=== PATIENT | female | born 1940 | race Caucasian/White ===

== ENCOUNTER → 2017-03-08 | Outpatient (CLI) | payer MEDICARE ==
--- NOTE | 2017-03-08 16:09 | RAD ---
PET ONCOLOGY CLINICAL INDICATION: Initially scanned for anal cancer. No chemotherapy or radiation therapy. FDG PET-CT of the Body TECHNIQUE: The patient received an IV injection of 13.1 mCi 18F-FDG in the right antecubital fossa . After an initial uptake phase of approximately 60-90 minutes, a CT scan without oral contrast, without IV contrast was acquired. Subsequently, positron emission tomography images from the skull base to midthigh were obtained. CT, PET and fused images were reconstructed in transaxial, coronal, and sagittal projections and interpreted from a workstation. The patient's plasma glucose was 111 mg/dl. PRIOR STUDIES: None CORRELATIVE STUDIES: There are no appropriate correlative studies FINDINGS: There is a 1.9 x 1.7 cm low attenuating lesion in the right neck base (series 3 image 70). This may represent thyroid nodule or necrotic lymph node. Noncontrast sections through the head are within normal limits. No axillary, mediastinal or hilar adenopathy. Heart is normal in size. Coronary artery calcifications noted. No pericardial or pleural effusion. 4 mm nodule is seen in the right upper lobe (series 3 image 10). The noncontrast appearance of the liver, spleen, pancreas, right adrenal and kidneys is within normal limits. Gallstone noted. Left adrenal masses noted, the largest in the medial limb measuring 2.9 x 2.8 cm demonstrating Hounsfield units compatible with simple cyst. No retroperitoneal or pelvic adenopathy. Uterus is present. No free pelvic fluid. No bowel obstruction. Bladder within normal limits. Moderate to severe atherosclerotic disease of the infrarenal aorta and bilateral iliac arteries. No suspicious bony lesion. PET: Highly metabolic activity seen within the left lateral wall of the anal canal with SUV max of 3.0. No other areas of high metabolic activity in the head/neck, chest, abdomen or pelvis. IMPRESSION: PET-CT from the skull base to mid thigh demonstrates: 1. High metabolic activity in the left lateral wall anal canal compatible with provided history of anal cancer. 2. No other areas of abnormal metabolic activity. 3. Right neck base low attenuating nodule without high metabolic activity. This may represent a enlarged lymph node or thyroid nodule. Ultrasound of the right neck base recommended. 4. Left adrenal lesions demonstrating no increased metabolic activity. This likely are adrenal cysts or adenomas. Attention on follow-up. 5. Right upper lobe 4 mm nodule, indeterminate. 6. Cholelithiasis.
== END | disposition home or self-care (01) ==
LOC: PETSC 09:11
PROVIDERS: ATTEND Surgery
DX: C21.0 Malignant neoplasm of anus, unspecified (principal); K80.20 Calculus of gallbladder without cholecystitis without obstruction; Z85.048 Personal history of other malignant neoplasm of rectum, rectosigmoid junction, and anus
CPT/HCPCS: 78815; A9552

== ENCOUNTER 2017-11-26 06:44 | Outpatient (CLI) | payer MEDICARE ==
[2017-11-26 07:46] LABS: ADD MAN DIFF? NO
[2017-11-26 07:52] LABS: BASO # 0.1 x10^3/uL (0.0-0.2); BASO % 1 % (0-3); EOS # 0.1 x10^3/uL (0.0-0.7); EOS % 2 % (0-3); HEMATOCRIT 39.7 % (36.0-47.0); HEMOGLOBIN 13.5 g/dL (12.0-15.5); LYMPH # 1.6 x10^3/uL (1.0-4.8); LYMPH % 27 % (24-48); MEAN CORPUSCULAR HEMOGLOBIN 32 pg (25-35); MEAN CORPUSCULAR HGB CONC 34 g/dL (31-37); MEAN CORPUSCULAR VOLUME 95 fL (79-100); MONO # 0.6 x10^3/uL (0.0-1.1); MONO % 10 % (0-9); NEUT # 3.6 x10^3uL (1.8-7.7); NEUT % 60 % (31-73); PLATELET COUNT 360 x10^3/uL (140-400); RED BLOOD COUNT 4.17 x10^6/uL (3.50-5.40); RED CELL DISTRIBUTION WIDTH 14.1 % (11.5-14.5); WHITE BLOOD COUNT 6.1 x10^3/uL (4.0-11.0)
[2017-11-26 07:54] LABS: ANION GAP 8 (6-14); BLOOD UREA NITROGEN 17 mg/dL (7-20); BUN/CREATININE RATIO 19 (6-20); CALCIUM 9.1 mg/dL (8.5-10.1); CARBON DIOXIDE 28 mmol/L (21-32); CHLORIDE 104 mmol/L (98-107); CREATININE 0.9 mg/dL (0.6-1.0); GLUCOSE 102 mg/dL (70-99); POTASSIUM 3.9 mmol/L (3.5-5.1); SODIUM 140 mmol/L (136-145)
[2017-11-26 08:00] LABS: ALBUMIN 3.4 g/dL (3.4-5.0); ALBUMIN/GLOBULIN RATIO 0.9 (1.0-1.7); ALK PHOS 124 U/L (46-116); ALT (SGPT) 16 U/L (14-59); AST (SGOT) 18 U/L (15-37); TOTAL BILIRUBIN 0.2 mg/dL (0.2-1.0); TOTAL PROTEIN 7.4 g/dL (6.4-8.2)
[2017-11-26 08:01] LABS: INR 0.9 (0.8-1.1); PROTHROMBIN TIME PATIENT 11.8 SEC (11.7-14.0)
[2017-11-26] MEDS ORDERED: LIDOCAINE WITH 8.4% SOD BICARB 3 ML DISP.SYRIN. (08:08)
[2017-11-26] MEDS ORDERED: MIDAZOLAM HCL/PF 2 MG/2 ML VIAL. (08:15)
[2017-11-26] MEDS ORDERED: fentaNYL PF VIAL 100 MCG/2 ML VIAL (08:15)
[2017-11-26] MEDS: MIDAZOLAM HCL/PF 2 MG/2 ML VIAL. IV (09:11)
[2017-11-26] MEDS: LIDOCAINE WITH 8.4% SOD BICARB 3 ML DISP.SYRIN. IJ (09:11)
[2017-11-26] MEDS: fentaNYL PF VIAL 100 MCG/2 ML VIAL IV (09:12)
== END 2017-11-26 10:27 | disposition home or self-care (01) ==
LOC: INTRAD 06:44
DX: K62.89 Other specified diseases of anus and rectum (principal); Z85.048 Personal history of other malignant neoplasm of rectum, rectosigmoid junction, and anus; Z88.0 Allergy status to penicillin; Z98.51 Tubal ligation status; F41.9 Anxiety disorder, unspecified; F32.9 Major depressive disorder, single episode, unspecified; Z85.820 Personal history of malignant melanoma of skin; Z98.890 Other specified postprocedural states; F17.200 Nicotine dependence, unspecified, uncomplicated
CPT/HCPCS: 36415; 49180; 77012; 80053; 85025; 85610; 99152; 99153; J2250; J3010

== ENCOUNTER 2017-12-25 11:03 | Inpatient (IN) | payer MEDICARE ==
[~2017-12-25 11:03] MED LIST: LIDOCAINE 1% PF 2 ML VIAL. ID; ONDANSETRON PF 4 MG/2 ML VIAL. IV; PROCHLORPERAZINE 10 MG/2 ML VIAL. IV; fentaNYL PF VIAL 100 MCG/2 ML VIAL IV
[2017-12-25] MEDS ORDERED: CLINDAMYCIN 900MG PREMIX 50 ML IV (11:48)
[2017-12-25] MEDS: IV RINGERS,LACTATED 1000ML 1,000 ML IV (11:51)
[2017-12-25] MEDS ORDERED: CLINDAMYCIN PREMIX 900 MG/50 ML BAG IV (12:00)
[2017-12-25] MEDS ORDERED: levoFLOXacin 500mg PREMIX 500 MG/100 ML BAG IV (12:00)
[2017-12-25] MEDS ORDERED: DEXAMETHASONE SOD PHOS 20 MG/5 ML VIAL. (12:46)
[2017-12-25] MEDS ORDERED: PROPOFOL 20 ML IV (12:46)
[2017-12-25] MEDS ORDERED: fentaNYL PF VIAL 250 MCG/5 ML VIAL (12:46)
[2017-12-25] MEDS ORDERED: LIDOCAINE 2% PF Vial for OR 5 ML VIAL. (12:46)
[2017-12-25] MEDS ORDERED: ONDANSETRON PF 4 MG/2 ML VIAL. (12:46)
[2017-12-25] MEDS ORDERED: ROCURONIUM 100 MG/10 ML VIAL. (12:46)
[2017-12-25] MEDS ORDERED: SEVOFLURANE > 120 MINUTES. IH (12:47)
[2017-12-25] MEDS ORDERED: SUCCINYLCHOLINE 200 MG/10 ML VIAL. (12:49)
[2017-12-25] MEDS ORDERED: NEOSTIGMINE METHYLSULFATE 5 MG/5 ML SYRINGE. (16:23)
[2017-12-25] MEDS ORDERED: GLYCOPYRROLATE 1 MG/5 ML VIAL. (16:23)
[2017-12-25] MEDS: fentaNYL PF VIAL 100 MCG/2 ML VIAL IV ×2 (16:58→17:04)
[2017-12-25] MEDS ORDERED: 0.9 % SODIUM CHLORIDE 10 ML DISP.SYRIN. IV (17:00)
[2017-12-25] MEDS ORDERED: diphenhydrAMINE 50 MG/ML VIAL IV (17:00)
[2017-12-25] MEDS ORDERED: ONDANSETRON PF 4 MG/2 ML VIAL. IV (17:00)
[2017-12-25] MEDS: MORPHINE SULFATE 2 MG/ML DISP.SYRIN. IV ×5 (17:11→18:41)
[2017-12-25] MEDS: ALPRAZolam 0.5 MG TABLET PO (18:36)
[2017-12-25] MEDS ORDERED: hydrALAZINE 20 MG/ML VIAL. IVP (22:45)
[2017-12-26] MEDS: POTASSIUM CL 20MEQ-0.45% NACL 1,000 ML IV ×3 (01:20→22:35)
[2017-12-26] MEDS: NICOTINE 21MG PATCH. TD (09:04)
[2017-12-26] MEDS: ENOXAPARIN 30 MG/0.3 ML SYRINGE. SQ (09:05)
[2017-12-26 16:53] LABS: ADD MAN DIFF? NO
[2017-12-26 16:55] LABS: BASO % 0 % (0-3); EOS % 0 % (0-3); HEMATOCRIT 34.5 % (36.0-47.0); HEMOGLOBIN 11.9 g/dL (12.0-15.5); LYMPH # 0.7 x10^3/uL (1.0-4.8); LYMPH % 8 % (24-48); MEAN CORPUSCULAR HEMOGLOBIN 32 pg (25-35); MEAN CORPUSCULAR HGB CONC 34 g/dL (31-37); MEAN CORPUSCULAR VOLUME 94 fL (79-100); MONO # 0.7 x10^3/uL (0.0-1.1); MONO % 8 % (0-9); NEUT # 7.5 x10^3uL (1.8-7.7); NEUT % 84 % (31-73); PLATELET COUNT 292 x10^3/uL (140-400); RED BLOOD COUNT 3.68 x10^6/uL (3.50-5.40); RED CELL DISTRIBUTION WIDTH 13.8 % (11.5-14.5); WHITE BLOOD COUNT 8.9 x10^3/uL (4.0-11.0)
[2017-12-26 17:09] LABS: ALBUMIN 2.8 g/dL (3.4-5.0); ALBUMIN/GLOBULIN RATIO 0.7 (1.0-1.7); ALK PHOS 111 U/L (46-116); ALT (SGPT) 15 U/L (14-59); ANION GAP 10 (6-14); AST (SGOT) 24 U/L (15-37); BLOOD UREA NITROGEN 15 mg/dL (7-20); BUN/CREATININE RATIO 19 (6-20); CARBON DIOXIDE 24 mmol/L (21-32); CHLORIDE 99 mmol/L (98-107); CREATININE 0.8 mg/dL (0.6-1.0); GFR 69.7; GLUCOSE 91 mg/dL (70-99); POTASSIUM 4.5 mmol/L (3.5-5.1); SODIUM 133 mmol/L (136-145); TOTAL BILIRUBIN 0.5 mg/dL (0.2-1.0); TOTAL PROTEIN 6.8 g/dL (6.4-8.2)
[2017-12-26] MEDS: PANTOPRAZOLE IV PUSH 40 MG VIAL. IVP (17:47)
[2017-12-26] MEDS: IPRATRPIUM/ALBUTEROL 0.5/2.5MG 3 ML NEBU. NEB (19:33)
[2017-12-27] MEDS: PANTOPRAZOLE IV PUSH 40 MG VIAL. IVP ×2 (06:08→09:30)
[2017-12-27] MEDS: IPRATRPIUM/ALBUTEROL 0.5/2.5MG 3 ML NEBU. NEB ×4 (07:17→19:58)
[2017-12-27] MEDS: ALPRAZolam 0.5 MG TABLET PO (09:27)
[2017-12-27] MEDS: NICOTINE 21MG PATCH. TD (09:28)
[2017-12-27] MEDS: ENOXAPARIN 30 MG/0.3 ML SYRINGE. SQ (09:31)
[2017-12-27] MEDS: POTASSIUM CL 20MEQ-0.45% NACL 1,000 ML IV (09:33)
[2017-12-27] MEDS: IV NORMAL SALINE 500ML BAG 500 ML IV (13:00)
[2017-12-27] MEDS ORDERED: IV NORMAL SALINE 500ML BAG 500 ML IV (18:30)
[2017-12-28] MEDS: IPRATRPIUM/ALBUTEROL 0.5/2.5MG 3 ML NEBU. NEB ×4 (07:11→18:14)
[2017-12-28 07:20] LABS: ADD MAN DIFF? NO
[2017-12-28 07:30] LABS: BASO % 1 % (0-3); EOS % 0 % (0-3); HEMATOCRIT 34.7 % (36.0-47.0); HEMOGLOBIN 11.9 g/dL (12.0-15.5); LYMPH # 0.8 x10^3/uL (1.0-4.8); LYMPH % 12 % (24-48); MEAN CORPUSCULAR HEMOGLOBIN 32 pg (25-35); MEAN CORPUSCULAR HGB CONC 34 g/dL (31-37); MEAN CORPUSCULAR VOLUME 94 fL (79-100); MONO # 0.7 x10^3/uL (0.0-1.1); MONO % 10 % (0-9); NEUT # 5.2 x10^3uL (1.8-7.7); NEUT % 77 % (31-73); PLATELET COUNT 284 x10^3/uL (140-400); RED BLOOD COUNT 3.72 x10^6/uL (3.50-5.40); RED CELL DISTRIBUTION WIDTH 13.9 % (11.5-14.5); WHITE BLOOD COUNT 6.8 x10^3/uL (4.0-11.0)
[2017-12-28 07:44] LABS: ALBUMIN 2.6 g/dL (3.4-5.0); ALBUMIN/GLOBULIN RATIO 0.7 (1.0-1.7); ALK PHOS 101 U/L (46-116); ALT (SGPT) 13 U/L (14-59); ANION GAP 11 (6-14); AST (SGOT) 17 U/L (15-37); BLOOD UREA NITROGEN 17 mg/dL (7-20); BUN/CREATININE RATIO 28 (6-20); CALCIUM 8.9 mg/dL (8.5-10.1); CARBON DIOXIDE 25 mmol/L (21-32); CHLORIDE 99 mmol/L (98-107); CREATININE 0.6 mg/dL (0.6-1.0); GFR 97.2; GLUCOSE 91 mg/dL (70-99); POTASSIUM 3.8 mmol/L (3.5-5.1); SODIUM 135 mmol/L (136-145); TOTAL BILIRUBIN 0.5 mg/dL (0.2-1.0); TOTAL PROTEIN 6.6 g/dL (6.4-8.2)
[2017-12-28] MEDS: NICOTINE 21MG PATCH. TD (08:19)
[2017-12-28] MEDS: ENOXAPARIN 30 MG/0.3 ML SYRINGE. SQ (08:19)
[2017-12-28] MEDS: ALPRAZolam 0.5 MG TABLET PO ×2 (08:25→20:22)
[2017-12-28] MEDS: POTASSIUM CL 20MEQ-0.45% NACL 1,000 ML IV (18:00)
[2017-12-29] MEDS: POTASSIUM CL 20MEQ-0.45% NACL 1,000 ML IV ×2 (06:44→20:17)
[2017-12-29] MEDS: IPRATRPIUM/ALBUTEROL 0.5/2.5MG 3 ML NEBU. NEB ×4 (07:27→19:11)
[2017-12-29] MEDS: PANTOPRAZOLE IV PUSH 40 MG VIAL. IVP (08:39)
[2017-12-29] MEDS: NICOTINE 21MG PATCH. TD (08:39)
[2017-12-29] MEDS: ENOXAPARIN 30 MG/0.3 ML SYRINGE. SQ (08:40)
[2017-12-29] MEDS ORDERED: fentaNYL PF VIAL 100 MCG/2 ML VIAL IV (10:45)
[2017-12-29] MEDS: HYDROcodone/APAP 5/325MG 1 TAB TABLET PO ×3 (13:09→23:59)
[2017-12-29] MEDS: ALPRAZolam 0.5 MG TABLET PO ×2 (14:21→20:17)
[2017-12-30] MEDS: IPRATRPIUM/ALBUTEROL 0.5/2.5MG 3 ML NEBU. NEB ×4 (07:34→19:43)
[2017-12-30] MEDS: NICOTINE 21MG PATCH. TD (08:33)
[2017-12-30] MEDS: PANTOPRAZOLE IV PUSH 40 MG VIAL. IVP (08:33)
[2017-12-30] MEDS: ENOXAPARIN 30 MG/0.3 ML SYRINGE. SQ (08:34)
[2017-12-30] MEDS: HYDROcodone/APAP 5/325MG 1 TAB TABLET PO ×3 (09:14→21:34)
[2017-12-30] MEDS: POTASSIUM CL 20MEQ-0.45% NACL 1,000 ML IV ×2 (09:15→21:33)
[2017-12-30] MEDS: ALPRAZolam 0.5 MG TABLET PO ×2 (15:33→23:49)
[2017-12-30] MEDS ORDERED: VITS A & D/LANOLIN TOPICAL OINTMENT 56GM TUBE. TP (15:45)
[2017-12-31] MEDS: HYDROcodone/APAP 5/325MG 1 TAB TABLET PO ×2 (06:31→12:06)
[2017-12-31] MEDS: PANTOPRAZOLE 40 MG TABLET.DR. PO (06:31)
[2017-12-31] MEDS: IPRATRPIUM/ALBUTEROL 0.5/2.5MG 3 ML NEBU. NEB ×2 (07:26→11:34)
[2017-12-31] MEDS: NICOTINE 21MG PATCH. TD (09:50)
[2017-12-31] MEDS: ENOXAPARIN 30 MG/0.3 ML SYRINGE. SQ (09:50)
[2017-12-31 10:05] LABS: ADD MAN DIFF? NO
[2017-12-31 10:10] LABS: BASO # 0.1 x10^3/uL (0.0-0.2); BASO % 1 % (0-3); EOS # 0.2 x10^3/uL (0.0-0.7); EOS % 2 % (0-3); HEMATOCRIT 31.2 % (36.0-47.0); HEMOGLOBIN 10.7 g/dL (12.0-15.5); LYMPH % 15 % (24-48); MEAN CORPUSCULAR HEMOGLOBIN 32 pg (25-35); MEAN CORPUSCULAR HGB CONC 34 g/dL (31-37); MEAN CORPUSCULAR VOLUME 94 fL (79-100); MONO # 0.6 x10^3/uL (0.0-1.1); MONO % 9 % (0-9); NEUT # 4.6 x10^3uL (1.8-7.7); NEUT % 73 % (31-73); PLATELET COUNT 349 x10^3/uL (140-400); RED BLOOD COUNT 3.31 x10^6/uL (3.50-5.40); RED CELL DISTRIBUTION WIDTH 13.9 % (11.5-14.5); WHITE BLOOD COUNT 6.4 x10^3/uL (4.0-11.0)
[2017-12-31 10:57] LABS: ANION GAP 7 (6-14); BLOOD UREA NITROGEN 11 mg/dL (7-20); CALCIUM 9.2 mg/dL (8.5-10.1); CARBON DIOXIDE 26 mmol/L (21-32); CHLORIDE 99 mmol/L (98-107); CREATININE 0.6 mg/dL (0.6-1.0); GFR 97.2; GLUCOSE 100 mg/dL (70-99); POTASSIUM 4.5 mmol/L (3.5-5.1); SODIUM 132 mmol/L (136-145)
[2017-12-31] MEDS: ALPRAZolam 0.5 MG TABLET PO (13:38)
== END 2017-12-31 15:45 | disposition home health service (06) | DRG 329 ==
LOC: SURHIP 11:03 → 4 NORTH 19:15
PROC: 0DJD8ZZ Inspection of Lower Intestinal Tract, Via Natural or Artificial Opening Endoscopic (ICD-10-PCS; principal; 2017-12-25 13:00)
PROC: 0T788DZ Dilation of Bilateral Ureters with Intraluminal Device, Via Natural or Artificial Opening Endoscopic (ICD-10-PCS; 2017-12-25 13:00)
PROC: 0DBN0ZZ Excision of Sigmoid Colon, Open Approach (ICD-10-PCS; 2017-12-25 13:00)
PROC: 0D1N0Z4 Bypass Sigmoid Colon to Cutaneous, Open Approach (ICD-10-PCS; 2017-12-25 13:00)
PROC: 0DTP0ZZ Resection of Rectum, Open Approach (ICD-10-PCS; 2017-12-25 13:00)
PROC: 0DBQ0ZZ Excision of Anus, Open Approach (ICD-10-PCS; 2017-12-25 13:00)
PROC: 0UB20ZZ Excision of Bilateral Ovaries, Open Approach (ICD-10-PCS; 2017-12-25 13:00)
PROC: 0UB90ZZ Excision of Uterus, Open Approach (ICD-10-PCS; 2017-12-25 13:00)
PROC: 0TP90DZ Removal of Intraluminal Device from Ureter, Open Approach (ICD-10-PCS; 2017-12-25 13:33)
DX: C21.8 Malignant neoplasm of overlapping sites of rectum, anus and anal canal (principal); E43 Unspecified severe protein-calorie malnutrition; Q43.8 Other specified congenital malformations of intestine; I97.3 Postprocedural hypertension; C19 Malignant neoplasm of rectosigmoid junction; D25.9 Leiomyoma of uterus, unspecified; I10 Essential (primary) hypertension; K21.9 Gastro-esophageal reflux disease without esophagitis; K80.20 Calculus of gallbladder without cholecystitis without obstruction; N83.311 Acquired atrophy of right ovary; N83.312 Acquired atrophy of left ovary; R31.0 Gross hematuria; M19.90 Unspecified osteoarthritis, unspecified site; J44.9 Chronic obstructive pulmonary disease, unspecified; Z72.0 Tobacco use; Z82.49 Family history of ischemic heart disease and other diseases of the circulatory system; Z85.048 Personal history of other malignant neoplasm of rectum, rectosigmoid junction, and anus; Z93.3 Colostomy status; Z92.3 Personal history of irradiation; Z68.21 Body mass index [BMI] 21.0-21.9, adult; Z88.0 Allergy status to penicillin
CPT/HCPCS: 36415; 74018; 80048; 80053; 85025; 86850; 86900; 86901; 88305; 88307; 88309; 88311; 94640; 94760; A7015; C1713; C9113; J0330; J1100; J1650; J1956; J2060; J2270; J2405; J2704; J2710; J3010; J3490; J7040; J7120; J7620

== ENCOUNTER → 2018-03-28 | Outpatient (CLI) | payer MEDICARE ==
[2017-12-31 11:00] VITALS: BP 124/65
[~2018-03-28] MED LIST changes: +ALPR0.5T PO; +DOCU-109 PO; +HYDR-2758 PO; +LACT1CAP29 PO; -LIDOCAINE 1% PF 2 ML VIAL. ID; -ONDANSETRON PF 4 MG/2 ML VIAL. IV; -PROCHLORPERAZINE 10 MG/2 ML VIAL. IV; -fentaNYL PF VIAL 100 MCG/2 ML VIAL IV
[2018-03-28] MEDS: GADOBUTROL 7.5 MMOL/7.5 ML VIAL IV ONE (12:03)
--- NOTE | 2018-03-28 15:41 | RAD ---
MRI pelvis with and without contrast March 28, 2018 INDICATION: Rectal pain. History of rectal cancer. Colon resection with ostomy. COMPARISON: CT abdomen/pelvis November 22, 2017 TECHNIQUE: Multiplanar, multisequence MR imaging of the pelvis was performed but 4 and after the administration of intravenous contrast. FINDINGS: Distal aorta is normal in caliber. There is no significant free fluid within the pelvis. Urinary bladder is within normal limits given degree of distention. There is moderate disc height loss at L4-L5 with right lateral marginal osteophytosis and endplate remodeling. There is a T1 hypointense lesion involving the right sacrum with associated enhancement suspicious for osseous metastatic disease. Lesion measures approximately 9 mm in maximal dimension. A left lower quadrant ostomy is identified. Since the prior CT from November 22, 2017, interval left lower quadrant ostomy changes are visualized. No new presacral soft tissue masses are identified with the conglomerate measuring 5.5 x 4.0 x 10.0 cm (AP by transverse by craniocaudal) soft tissue masses extend to involve the gluteus daina musculature posterior inferiorly. Cystic changes are identified in the right presacral space posterior to the uterus. There is no definite invasion of the uterus or cervix. IMPRESSION: Extensive soft tissue mass is identified centered in the left presacral space with involvement of the medial margin of the left gluteus daina and medial margin of the left piriform musculature. There may be mild mass effect on the left lateral lumbosacral plexus. Soft tissue mass may represent a roseline conglomerate or recurrent/residual disease from resected rectal carcinoma. Correlate with histology. Cystic changes are identified along the medial superior margin of the soft tissue mass. Suspect osseous metastatic disease involving the right sacrum. No evidence for pathologic fracture. Electronically signed by: Susanne Elmore MD (03/28/2018 3:38 PM) [id number]
== END | disposition home or self-care (01) ==
LOC: MRI 10:38
PROVIDERS: ATTEND Radiology Radiation Oncology
DX: C21.8 Malignant neoplasm of overlapping sites of rectum, anus and anal canal (principal); M53.3 Sacrococcygeal disorders, not elsewhere classified; I10 Essential (primary) hypertension; J44.9 Chronic obstructive pulmonary disease, unspecified; K21.9 Gastro-esophageal reflux disease without esophagitis; Z85.048 Personal history of other malignant neoplasm of rectum, rectosigmoid junction, and anus; Z87.891 Personal history of nicotine dependence; Z85.828 Personal history of other malignant neoplasm of skin; Z87.19 Personal history of other diseases of the digestive system; Z82.49 Family history of ischemic heart disease and other diseases of the circulatory system
CPT/HCPCS: 72197; A9585

== ENCOUNTER 2018-04-04 06:35 | Outpatient (CLI) | payer MEDICARE ==
[~2018-04-04] VITALS: Ht 147.3 cm; Wt 41.7 kg
[2018-04-04] VITALS (11 sets, daily range): BP systolic 103–140; BP diastolic 55–83
[2018-04-04 07:14] LABS: BASO # 0.1 x10^3/uL (0.0-0.2); BASO % 1 % (0-3); EOS # 0.1 x10^3/uL (0.0-0.7); EOS % 1 % (0-3); HEMATOCRIT 30.9 % (36.0-47.0); HEMOGLOBIN 10.3 g/dL (12.0-15.5); LYMPH # 1.6 x10^3/uL (1.0-4.8); LYMPH % 13 % (24-48); MEAN CORPUSCULAR HEMOGLOBIN 31 pg (25-35); MEAN CORPUSCULAR HGB CONC 33 g/dL (31-37); MEAN CORPUSCULAR VOLUME 91 fL (79-100); MONO # 0.9 x10^3/uL (0.0-1.1); MONO % 8 % (0-9); NEUT # 9.8 x10^3uL (1.8-7.7); NEUT % 78 % (31-73); PLATELET COUNT 584 x10^3/uL (140-400); RED BLOOD COUNT 3.39 x10^6/uL (3.50-5.40); RED CELL DISTRIBUTION WIDTH 14.1 % (11.5-14.5); WHITE BLOOD COUNT 12.6 x10^3/uL (4.0-11.0)
[2018-04-04] MEDS ORDERED: MIDAZOLAM HCL/PF 2 MG/2 ML VIAL. ONE (07:46)
[2018-04-04] MEDS ORDERED: LIDOCAINE WITH 8.4% SOD BICARB 3 ML DISP.SYRIN. ONE (07:46)
[2018-04-04] MEDS ORDERED: fentaNYL PF VIAL 100 MCG/2 ML VIAL ONE (07:46)
[2018-04-04] MEDS ORDERED: fentaNYL PF VIAL 100 MCG/2 ML VIAL IV ONE (08:45)
[2018-04-04] MEDS ORDERED: MIDAZOLAM HCL/PF 2 MG/2 ML VIAL. IV ONE (08:45)
[2018-04-04] MEDS ORDERED: LIDOCAINE WITH 8.4% SOD BICARB 3 ML DISP.SYRIN. IJ ONE (08:45)
--- NOTE | 2018-04-04 08:58 | PDOC ---
BRIEF OPERATIVE NOTE Pre-Op Diagnosis perirectal/presacral mass Post-Op Diagnosis same Procedure Performed CT Biopsy Surgeon Rodri Anesthesia Type: Conscious Sedation Specimens Obtained 6 x 18g cores Complications No immediate RAMU CHONG MD Apr 04, 2018 08:58
--- NOTE | 2018-04-04 08:58 | PDOC ---
MODERATE SEDATION ASSESSMENT RISKS/ALTERNATIVES Risks/Alternatives Risks and alternatives of this type of sedation and procedure discussed with: RISK/ALTERNATIVES: Patient H & P ON CHART H & P H & P on chart and reviewed for co-morbid conditions and appropriate labs. H&P ON CHART: Yes STATUS PREG STATUS ASSESSED: Yes MEDS/ALLERGIES REVIEWED Meds/Allergies Reviewed Medications and Allergies including time and route of recently administered narcotics and sedatives. MEDS/ALLERGIES REVIEWED: Yes ASA RATING ASA RATING: II AIRWAY ASSESSMENT Airway Assessment Airway patency, oral function limitations, presence of caps, crowns, dentures, partials, and ability to extend neck assessed. AIRWAY ASSESSMENT: Yes MALLAMPATI SCORE MALLAMPATI SCORE: II PRE-SEDATION ASSESSMENT PRE-SEDATION ASSESSMENT: Yes RAMU CHONG MD Apr 04, 2018 08:58
--- NOTE | 2018-04-04 08:59 | PDOC1 ---
History and Physical Date of Procedure Date of Admission History of Present Illness Reason for Visit Adult female with perirectal/presacral mass Past Medical History Past Medical History see nursing pre-op assessment Current Medications Current Medications Current Medications Lidocaine/Sodium Bicarbonate (Buffered Lidocaine 1%) 3 ml STK-MED ONCE .ROUTE ; Start 04/04/18 at 07:46; Stop 04/04/18 at 07:47; Status DC Midazolam HCl (Versed) 2 mg STK-MED ONCE .ROUTE ; Start 04/04/18 at 07:46; Stop 04/04/18 at 07:47; Status DC Fentanyl Citrate (Fentanyl 2ml Vial) 100 mcg STK-MED ONCE .ROUTE ; Start at 07:46; Stop 04/04/18 at 07:47; Status DC Lidocaine/Sodium Bicarbonate (Buffered Lidocaine 1%) 3 ml 1X ONCE IJ Last administered on 04/04/18at 08:49; Start 04/04/18 at 08:45; Stop 04/04/18 at 08:46 ; Status DC Midazolam HCl (Versed) 2 mg 1X ONCE IV Last administered on 04/04/18at 08:49; Start 04/04/18 at 08:45; Stop 04/04/18 at 08:46; Status DC Fentanyl Citrate (Fentanyl 2ml Vial) 100 mcg 1X ONCE IV Last administered on at 08:50; Start 04/04/18 at 08:45; Stop 04/04/18 at 08:46; Status DC Active Scripts Active Reported Colace (Docusate Sodium) 100 Mg Capsule 100 Mg PO DAILY Hydrocodone-Apap 5-325 (Hydrocodone Bit/Acetaminophen) 1 Each Tablet 1 Tab PO PRN Q6HRS PRN Xanax (Alprazolam) 0.5 Mg Tablet 1 Tab PO TID PRN Allergies Allergies: Coded Allergies: Penicillins (Verified Adverse Reaction, Mild, yeast infection, 04/04/18) Physical Exam Vital Signs Vital Signs Date Time Temp Pulse Resp B/P (MAP) Pulse Ox O2 Delivery O2 Flow Rate FiO2 04/04/18 08:50 22 94 Room Air 04/04/18 08:46 82 2.0 04/04/18 07:51 98.4 130/69 (89) 98.4 Other see nursing pre-op assessment Assessment Assessment Pelvic mass Plan Plan CT Biopsy RAMU CHONG MD Apr 04, 2018 08:59
--- NOTE | 2018-04-04 09:40 | RAD ---
Procedure: CT-guided pelvic biopsy Clinical Indication: 77-year-old female with perirectal/presacral soft tissue mass Sedation: Conscious sedation was administered with a total intraprocedural [id number]-type time of 22 minutes. The patient was monitored by a qualified independent observer throughout the time of sedation. Please refer to the medical record for exact doses of medications utilized to achieve moderate sedation. Antibiotics: None Contrast: None Sterility: The procedure was performed in its entirety using appropriate elements of sterile technique. Consent: The procedure was explained in its entirety to the patient or the patients designated applications sales representative by a member of the treatment team, including a discussion of the risks, benefits and commonly accepted alternatives to the procedure, as well as the expected consequences of no therapy whatsoever. Discussion of the risks included, but was not limited to, those that are most frequent and those that are rare but possibly severe or life-threatening, as well as the possibility of unforeseen complications. Technique and Findings: Following informed consent, the patient was prepped and draped in usual sterile fashion. 1% lidocaine was used to achieve local anesthesia over the area of interest. A small dermatotomy was made after preliminary CT scan of the area of interest was performed. Under periodic CT surveillance, a 17-gauge needle guide was advanced into the lesion in question and 6 separate 18-gauge core biopsy specimens were obtained and preserved in formalin. Hemostasis was achieved with manual compression following removal of the needle. Complications: No immediate Impression: 1. CT-guided biopsy of a perirectal/presacral soft tissue mass as described PQRS Compliance Statement: One or more of the following individualized dose reduction techniques were utilized for this examination: 1. Automated exposure control 2. Adjustment of the mA and/or kV according to patient size 3. Use of iterative reconstruction technique
--- NOTE | 2018-04-05 17:09 | PATHOLOGY ---
[facility] Accession Number: [id number] . 01 Material submitted: . BIOPSY RETROPERITONEAL PELVIC MASS . 01 Clinical history: . Perirectal retroperitoneal mass . 02 Diagnosis: Fibrous tissue, retroperitoneal pelvic mass needle biopsies: - POORLY DIFFERENTIATED SQUAMOUS CELL CARCINOMA (SEE COMMENT). RUST/04/05/2018 . 02 Comment: Sections of the retroperitoneal pelvic mass needle biopsies reveal a malignant epithelial neoplasm. The malignant cells are present in solid nests and are associated with a reactive desmoplastic stroma. The malignant cells possess ample amounts of eosinophilic to focally clear cytoplasm. The malignant cells show focal marked nuclear pleomorphism. There are typical and atypical mitotic figures. The tumor does show evidence of keratinization. 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 The results are telephoned to Dr. Willingham at 10:40 am on 04/05/2018. The case is also examined by Dr. Falk, who concurs with the diagnosis. (JPM:[facility] 04/05/2018) . 02 Electronically signed: . Tung Ramirez MD, Pathologist NPI- [id number] . 01 Gross description: . Received in formalin labeled "Pfeiffer, Linda, retroperitoneal pelvic mass," are 10 distinct needle cores of funez soft tissue ranging from 0.2 to 1.8 cm in length and measuring less than 0.1 cm in diameter. The specimen is submitted entirely in cassettes A1 through A3. (TSD; 04/04/2018) TOB/TOB . 02 Pathologist provided ICD-10: C48.0 . 02 CPT . 778996 Specimen Comment: A courtesy copy of this report has been sent to Specimen Comment: [phone], , . Specimen Comment: Report sent to ,DR DURAN / DR CÁRDENAS Performed at: 01 [place] [id number] [id number] MD Klever Small MD Phone: [phone] Performed at: 02 [facility] [address] [place], [place] [id number] MD Tung Ramirez MD Phone: [phone]
== END 2018-04-04 11:10 | disposition home or self-care (01) ==
LOC: INTRAD 06:35
PROVIDERS: ATTEND Radiology Radiation Oncology
DX: C48.0 Malignant neoplasm of retroperitoneum (principal); Z88.0 Allergy status to penicillin; Z79.899 Other long term (current) drug therapy; Z79.01 Long term (current) use of anticoagulants
CPT/HCPCS: 36415; 49180; 77012; 85025; 85610; 85730; 99152; J2250; J3010

== ENCOUNTER 2018-04-22 09:07 | Day surgery (SDC) | payer MEDICARE ==
[~2018-04-22] VITALS: Ht 148.6 cm; Wt 40.7 kg
[~2018-04-22 09:07] MED LIST changes: +BUPIVACAINE 0.5% 50 ML VIAL. ONE; +BUPIVACAINE-EPI 0.5%-1:200000 50 ML VIAL. ONE; +DEXAMETHASONE SOD PHOS 20 MG/5 ML VIAL. ONE; +HEPARIN SODIUM 5,000 UNIT in IV NORMAL SALINE 500ML BAG 500 ML IRR ONE; +HYDROmorphone 2 MG/ML VIAL IV PRN; +IV RINGERS,LACTATED 1000ML 1,000 ML IV SCH; +LIDOCAINE 1% PF 2 ML VIAL. ID PRN; +MIDAZOLAM HCL/PF 2 MG/2 ML VIAL. ONE; +MORPHINE SULFATE 2 MG/ML VIAL. IV PRN; +ONDANSETRON PF 4 MG/2 ML VIAL. IV PRN; +ONDANSETRON PF 4 MG/2 ML VIAL. ONE; +POLY17PO29 PO; +PROCHLORPERAZINE 10 MG/2 ML VIAL. IV PRN; +PROPOFOL 20 ML IV ONE; +SEVOFLURANE 61 TO 120 MINUTES. IH ONE; +fentaNYL PF VIAL 100 MCG/2 ML VIAL IV PRN; +fentaNYL PF VIAL 100 MCG/2 ML VIAL ONE
[2018-04-22] MEDS ORDERED: OXYC-328 PO (09:24)
[2018-04-22] MEDS ORDERED: PHENYLEPHRINE in 0.9% NACL PF 1 MG/10 ML SYRINGE. IV ONE (10:20)
--- NOTE | 2018-04-22 11:07 | RAD ---
Portable chest, 04/22/2018: HISTORY: Check Port-A-Cath placement A left Port-A-Cath extends into the superior vena cava. The heart size is at the upper limits of normal in size. There is calcific plaquing of the aorta. The pulmonary vascularity is normal. There is minimal linear atelectasis or scarring in the lung bases. There is no evidence of pneumothorax or pleural fluid. Scattered degenerative changes are evident in the spine. IMPRESSION: 1. A left Port-A-Cath extends into the superior vena cava. 2. Mild bibasilar linear atelectasis and/or scarring. Electronically signed by: Bryant Rivas MD (04/22/2018 11:04 AM) [facility]
--- NOTE | 2018-04-22 11:09 | PDOC ---
BRIEF OPERATIVE NOTE Date: Apr 22, 2018 Pre-Op Diagnosis recurrent rectal carcinoma Post-Op Diagnosis same Procedure Performed placement left subclavian power port Surgeon Hernan Anesthesia Type: General Blood Loss 10cc IV Fluid 600cc Specimens Obtained none Findings post procedure CXR shows tip of catheter in SVC without evidence of a pneumothorax Complications none Operative Note Wk # [id number] CHRISTY TRAN MD Apr 22, 2018 11:09
--- NOTE | 2018-04-22 11:12 | DISCH ---
DISCHARGE INSTRUCTIONS Condition on Discharge Condition on Discharge: Stable Activity After Discharge Activity Instructions for Disc: Activity as tolerated, Avoid exertion Bathing Instructions: Shower-keep dressing dry Lifting Instructions after Dis: No heavy lifting Driving Instructions after Dis: Do not drive today Diet after Discharge Diet after Discharge: Cardiac Diet Texture: Regular Wound Incision Care Wound/Incision Care: Ice to area for comfort, Keep wound/cast CDI, Change dressing Follow-Up Follow up with: Hernan next week Treatment/Equipment after DC Adaptive Equipment Issued: None CHRISTY TRAN MD Apr 22, 2018 11:12
[2018-04-22 11:50] VITALS: BP 133/64
--- NOTE | 2018-04-22 12:21 | OP ---
DATE OF SURGERY: 04/22/2018 PREOPERATIVE DIAGNOSIS: Recurrent rectal carcinoma, needing venous access for chemotherapy. POSTOPERATIVE DIAGNOSIS: Recurrent rectal carcinoma, needing venous access for chemotherapy. PROCEDURE: Placement of a left subclavian PowerPort. SURGEON: Christy Tran MD. ANESTHESIA: General LMA. ESTIMATED BLOOD LOSS: 10 mL. INTRAVENOUS FLUIDS: 600 mL. INDICATIONS: The patient is a 77-year-old with recurrent carcinoma of the rectum, status post AP resection. She is brought for port placement for chemotherapy. DESCRIPTION OF PROCEDURE: The patient brought to the operating suite, given a general LMA and the chest prepped and draped in usual sterile fashion. With the table in Trendelenburg, a 0.5% Marcaine plain was infiltrated a fingerbreadth below the clavicle junction medial two-thirds lateral third. Small incision made and a seeker needle used to cannulate the subclavian vein. Flexible guidewire advanced under fluoroscopic observation in the superior vena cava and the needle was removed. Catheter was cut to an appropriate length and then tunneled from the insertion site to the pocket site where it was attached to the reservoir. The reservoir was seated in the pocket. Under fluoroscopic observation, the dilator and sheath were passed over the wire. The wire was removed. The dilator was removed and the catheter was threaded through the sheath and the sheath was then removed. There was good flow into and out of the catheter at completion of placement. Pocket incision closed with interrupted 3-0 Vicryl in the subcutaneous tissue. Skin incision was closed with subcuticular 4-0 Monocryl. Steri-Strips and sterile dressing applied. Postop upright chest x-ray showed the tip of the catheter to reside in superior vena cava without evidence of pneumothorax. The patient was taken to the postoperative area in stable condition having tolerated the procedure well. CHRISTY TRAN MD DR: CÉSAR/jeremy JOB#: [id number] / [id number]
== END 2018-04-22 11:50 | disposition home or self-care (01) ==
LOC: SURG 09:07
PROVIDERS: ATTEND Surgery
DX: C20 Malignant neoplasm of rectum (principal); Z88.0 Allergy status to penicillin; Z79.82 Long term (current) use of aspirin; Z79.899 Other long term (current) drug therapy; Z85.828 Personal history of other malignant neoplasm of skin; F41.9 Anxiety disorder, unspecified; M19.90 Unspecified osteoarthritis, unspecified site; Z98.890 Other specified postprocedural states; Z98.51 Tubal ligation status; F17.210 Nicotine dependence, cigarettes, uncomplicated; Z72.89 Other problems related to lifestyle
CPT/HCPCS: 36561; 71045; 77001; C1788; J1100; J1644; J1956; J2250; J2370; J2405; J2704; J3010; J3490; J7040; 36556

== ENCOUNTER → 2018-04-23 | Outpatient (CLI) | payer MEDICARE ==
[2018-04-22 11:50] VITALS: BP 133/64
[~2018-04-23] MED LIST changes: -BUPIVACAINE 0.5% 50 ML VIAL. ONE; -BUPIVACAINE-EPI 0.5%-1:200000 50 ML VIAL. ONE; -DEXAMETHASONE SOD PHOS 20 MG/5 ML VIAL. ONE; -HEPARIN SODIUM 5,000 UNIT in IV NORMAL SALINE 500ML BAG 500 ML IRR ONE; -HYDROmorphone 2 MG/ML VIAL IV PRN; -IV RINGERS,LACTATED 1000ML 1,000 ML IV SCH; -LIDOCAINE 1% PF 2 ML VIAL. ID PRN; -MIDAZOLAM HCL/PF 2 MG/2 ML VIAL. ONE; -MORPHINE SULFATE 2 MG/ML VIAL. IV PRN; -ONDANSETRON PF 4 MG/2 ML VIAL. IV PRN; -ONDANSETRON PF 4 MG/2 ML VIAL. ONE; +OXYC-328 PO; -PROCHLORPERAZINE 10 MG/2 ML VIAL. IV PRN; -PROPOFOL 20 ML IV ONE; -SEVOFLURANE 61 TO 120 MINUTES. IH ONE; -fentaNYL PF VIAL 100 MCG/2 ML VIAL IV PRN; -fentaNYL PF VIAL 100 MCG/2 ML VIAL ONE
--- NOTE | 2018-04-23 16:37 | RAD ---
Radionuclide bone scan, 04/23/2018: HISTORY: Anal cancer Whole-body imaging was performed following IV injection of 25 mCi of technetium 99m MDP. No previous bone scan is available at this time for comparison purposes. The following findings are delineated: 1. Mildly increased activity at the right wrist is probably arthritic in nature. 2. There is mildly increased activity on the right in the lower lumbar spine. Correlation with CT images from 11/22/2017 suggests that this is probably arthritic in nature. 3. Activity of the radionuclide about the skeleton and major joints is otherwise unremarkable. 4. Normal activity is present in both kidneys and the bladder. IMPRESSION: No bone scan findings to suggest osseous metastatic disease. Electronically signed by: Bryant Rivas MD (04/23/2018 4:34 PM) [facility]
== END | disposition home or self-care (01) ==
LOC: NM 09:29
PROVIDERS: ATTEND Internal Medicine Hematology & Oncology
DX: C21.0 Malignant neoplasm of anus, unspecified (principal); Z87.891 Personal history of nicotine dependence
CPT/HCPCS: 78306; 96374; A9503

== ENCOUNTER → 2018-05-20 | Outpatient (CLI) | payer MEDICARE ==
[2018-04-22 11:50] VITALS: BP 133/64
[~2018-05-20] MED LIST changes: +CONTRAST GIVEN. MC PRN; +HEPARIN PF 500 UNIT/5 ML DISP.SYRIN. IV ONE; +IOHEXOL 240 MG/ML 50ML VIAL. IV ONE
--- NOTE | 2018-05-21 09:19 | RAD ---
Fluoroscopic evaluation left subclavian port 05/20/2018 Indication: Port failed to aspirate appropriately earlier today Discussion: The risks and benefits of the procedure were discussed the patient. Informed consent was obtained. Timeout procedure was performed. The port was previously accessed. Access appears to be well positioned on fluoroscopic evaluation. Catheter tip is in the superior vena cava. Port appears to be intact fluoroscopically. Contrast was administered freely exiting the port. No extravasation or other abnormality was identified. The port was found to flush and aspirate normally. The port was flushed, packed with heparin, and sterile dressings applied. Total fluoroscopy time 0.2 minutes Dose area product: 3.4 gycm2 Impression: Port freely aspirates and flushes. Port is in acceptable position without evidence of fluoroscopic abnormality.
== END | disposition home or self-care (01) ==
LOC: INTRAD 14:20
PROVIDERS: ATTEND Internal Medicine Hematology & Oncology
DX: T82.898A Other specified complication of vascular prosthetic devices, implants and grafts, initial encounter (principal); C21.0 Malignant neoplasm of anus, unspecified; F17.210 Nicotine dependence, cigarettes, uncomplicated; Z98.890 Other specified postprocedural states; Z79.899 Other long term (current) drug therapy; Z92.21 Personal history of antineoplastic chemotherapy; Z88.0 Allergy status to penicillin
CPT/HCPCS: 36598; Q9966

== ENCOUNTER 2018-06-12 09:00 | Outpatient (CLI) | payer MEDICARE ==
[~2018-06-12 09:00] MED LIST changes: -CONTRAST GIVEN. MC PRN; +DENO120V SQ; -HEPARIN PF 500 UNIT/5 ML DISP.SYRIN. IV ONE; -HYDR-2758 PO; +HYDR-2761 PO; -IOHEXOL 240 MG/ML 50ML VIAL. IV ONE; -OXYC-328 PO; +OXYC1TAB22 PO
[2018-06-12] MEDS ORDERED: IOHEXOL 240 MG/ML 50ML VIAL. PO ONE (11:30)
[2018-06-12] MEDS ORDERED: IOHEXOL 300 MG/ML 100ML VIAL. IV ONE (11:30)
--- NOTE | 2018-06-12 16:44 | RAD ---
CT of the chest, abdomen and pelvis with contrast, 06/12/2018: HISTORY: Follow-up anal cancer Multidetector CT imaging was performed following oral and IV administration of contrast. There is a 4 mm nodule in the posterior lateral aspect of the right upper lobe as seen on image 17 of series #3. It is unchanged since CT images from a PET/CT exam from 03/08/2017. This would favor a benign etiology. No other pulmonary nodularity or mass is seen. There are minimal linear scars. A left Port-A-Cath extends into the left innominate vein near its junction with the superior vena cava. There is a small nonspecific right thyroid nodule which is stable compared to the PET/CT exam. No mediastinal or hilar adenopathy is seen. Scattered coronary artery calcifications are present. No hepatic mass is identified. A couple of dense gallstones are seen within the dependent aspect of the gallbladder. The gallbladder richmond are not thickened. The pancreas is unremarkable. The spleen shows no abnormality. The kidneys show no evidence of obstruction or mass. A low-density left adrenal mass is unchanged since 11/22/2017. On the previous noncontrast CT images from the PET/CT exam it demonstrated a low internal CT number compatible with a benign adenoma. There is mild unchanged low-density thickening of the right adrenal gland. Moderate aortoiliac calcific plaquing is present. No abdominal adenopathy is seen. There are heterogeneous presacral densities some of which demonstrate rim-like enhancement and low density internally. These were evident on the pelvic MR study from 03/28/2018. Comparison is difficult due to technical differences between the CT and MR exams, however, the overall process appears similar. Again noted is posterior extension along the left side of the coccyx into the left gluteal region. The mass cannot be clearly from the uterus on the CT images. No definite bone destruction is seen. A left lower quadrant colostomy is again noted. There is a moderate amount stool in the colon. The small bowel loops are unremarkable. No free fluid or free air is evident in the abdomen or pelvis. Small sclerotic foci in the right iliac bone and left ischium are unchanged and are probably benign bone islands. Moderate multilevel degenerative changes are present in the spine. There is mild anterolisthesis at L4-5 due to facet joint arthropathy. There is moderate posterior disc protrusion at that level. IMPRESSION: 1. Extensive presacral tumor recurrence extending into the left gluteal musculature appears similar to that seen on the MR study of 03/28/2015. 2. Cholelithiasis. 3. Left adrenal adenoma. 4. No new abdominal or pelvic abnormality is detected. 5. Chronic chest findings without evidence of metastatic disease in the chest. PQRS Compliance Statement: One or more of the following individualized dose reduction techniques were utilized for this examination: 1. Automated exposure control 2. Adjustment of the mA and/or kV according to patient size 3. Use of iterative reconstruction technique Electronically signed by: Bryant Rivas MD (06/12/2018 4:40 PM) [facility]
== END 2018-06-12 12:00 | disposition home or self-care (01) ==
LOC: CT 09:00
PROVIDERS: ATTEND Internal Medicine Hematology & Oncology
DX: C21.1 Malignant neoplasm of anal canal (principal); K80.20 Calculus of gallbladder without cholecystitis without obstruction; D35.02 Benign neoplasm of left adrenal gland; M51.26 Other intervertebral disc displacement, lumbar region; M43.16 Spondylolisthesis, lumbar region; M12.88 Other specific arthropathies, not elsewhere classified, other specified site; I25.10 Atherosclerotic heart disease of native coronary artery without angina pectoris; E04.1 Nontoxic single thyroid nodule; I70.0 Atherosclerosis of aorta; Z87.891 Personal history of nicotine dependence
CPT/HCPCS: 71260; 74177; Q9966; Q9967

== ENCOUNTER → 2018-09-18 | Outpatient (CLI) | payer MEDICARE ==
[~2018-09-18] MED LIST changes: +IOHEXOL 240 MG/ML 50ML VIAL. PO ONE; +IOHEXOL 300 MG/ML 100ML VIAL. IV ONE; +NIVO40VI IV
--- NOTE | 2018-09-18 11:58 | RAD ---
CT of the chest, abdomen and pelvis with contrast, 09/18/2018: HISTORY: Colon cancer with metastases Multidetector CT imaging was performed following oral and IV administration of contrast. Comparison is made to a study from 06/12/2018. There is a 4 mm noncalcified nodule in the lateral aspect of the right upper lobe as seen on image 22 of series #2 which is unchanged. There are a few scattered parenchymal scars. No new pulmonary abnormality is seen. There is no evidence of pleural fluid. A left Port-A-Cath is unchanged in position with its tip lying in the left innominate vein near its junction with the superior vena cava. There is calcific plaquing of the aorta and coronary arteries. A right paratracheal lymph node is at the upper limits of normal in size. No definite mediastinal adenopathy is seen. No hepatic mass is identified. Gallstones are present in the gallbladder. The pancreas is unremarkable. The spleen is of normal size. Low-density left adrenal enlargement and mild thickening of the right adrenal gland are unchanged. Moderate aortoiliac calcific plaquing is present. Mild hydronephrosis has developed on the left. The proximal left ureter is dilated. The left ureter is not visible distally. This finding is is presumably related to the known pelvic mass. A heterogeneous presacral pelvic mass is again identified centered to the left of midline. It extends into the medial left gluteal region at and below the level of the coccyx. This mass has increased in size. It is difficult to accurately measure due to its heterogeneous margins, however, on axial image 71 of series #4 it measures 6.0 x 4.7 cm compared to measurements of 5.4 x 3.7 cm at the same level on the previous exam. In the coronal plane it measures 11.5 cm in craniocaudad extent. This mass cannot be from the uterus. A left lower quadrant colostomy is again identified. There is 3.7 cm heterogeneous mass centered along the medial margin of the colostomy site near the midline. It involves the abdominal wall and protrudes posteriorly. A metastasis is likely. Abscess is a much less likely possibility. There is no evidence of bowel obstruction. Moderate multilevel degenerative changes are present in the spine with mild ongoing anterolisthesis at L4-5. Several small scattered sclerotic foci in the bones are unchanged and may represent a combination of bone islands and degenerative changes. IMPRESSION: 1. Worsening large heterogeneous presacral mass compatible with tumor recurrence, with involvement of the left gluteal musculature. 2. Mild associated left hydronephrosis has developed. 3. New small mass involving the anterior abdominal wall along the medial margin of the left lower quadrant colostomy site, most likely on a metastatic basis. 4. Additional stable chronic findings as described above. PQRS Compliance Statement: One or more of the following individualized dose reduction techniques were utilized for this examination: 1. Automated exposure control 2. Adjustment of the mA and/or kV according to patient size 3. Use of iterative reconstruction technique Electronically signed by: Bryant Rivas MD (09/18/2018 11:55 AM) [facility]
== END | disposition home or self-care (01) ==
LOC: CT 08:53
PROVIDERS: ATTEND Internal Medicine Hematology & Oncology
DX: C79.51 Secondary malignant neoplasm of bone (principal); N13.30 Unspecified hydronephrosis; C21.0 Malignant neoplasm of anus, unspecified; R53.83 Other fatigue
CPT/HCPCS: 71260; 74177; Q9966; Q9967

== ENCOUNTER → 2018-11-21 | Outpatient (CLI) | payer MEDICARE ==
[~2018-11-21] MED LIST changes: +CONTRAST GIVEN. MC PRN
--- NOTE | 2018-11-21 18:25 | RAD ---
CT of the chest, abdomen and pelvis with contrast, 11/21/2018: HISTORY: Follow-up anal cancer, fatigue Multidetector CT imaging was performed following oral and IV administration of contrast. Comparison is made to a study from 09/18/2018. A 4 mm nodule in the lateral aspect of the right upper lobe is unchanged. There are a few scattered parenchymal scars. Minimal groundglass opacities in the lung bases likely represent atelectasis. There is no evidence of pleural fluid. There is calcific plaquing of the aorta. Moderate coronary artery calcifications are present. A small low-density right thyroid nodule is again noted. No mediastinal adenopathy is evident. A left Port-A-Cath extends to the junction of the left innominate vein in the superior vena cava. No hepatic abnormality is identified. A gallstone is present in the gallbladder. The pancreas is unremarkable. The spleen is of normal size. Left hydronephrosis has worsened slightly. Moderate right hydronephrosis has developed. This is presumably related to compression of the distal ureters by the patient's large heterogeneous presacral mass. This mass has increased in size since 09/18/2018. At the level the tip of the coccyx it measures 7 cm in width compared to a measurement of 6 cm on the previous study. The mass invades the left gluteal musculature just to the left of midline. It measures at least 13.6 cm in craniocaudad extent compared to a measurement of 11.5 cm on the previous study. Low-density left adrenal enlargement is unchanged. An anterior upper pelvic mass involving the anterior abdominal wall near the left-sided colostomy site is again noted. It has increased in size measuring 4.7 cm in greatest diameter on the axial scans compared to 3.6 cm on the previous study. The bowel loops are incompletely opacified and there is a paucity of intra-abdominal fat in this patient. Additional peritoneal implants are are suspected, although not clearly separable from the unopacified bowel. There is a moderate amount of retained stool in the colon. The small bowel loops are unremarkable. No free air or significant free fluid is evident in the abdomen or pelvis. There is streaky increased density in the subcutaneous soft tissues of the flank and gluteal regions compatible with mild anasarca. There are moderate degenerative changes in the lower lumbar spine with a mild anterolisthesis at L4-5. IMPRESSION: 1. Further progression of the large presacral mass compatible with tumor recurrence, with invasion of the left gluteal musculature. 2. Worsening moderate left hydronephrosis and interval development of moderate right hydronephrosis, presumably secondary to compression by the large pelvic mass. 3. Enlarging anterior peritoneal tumor implant near the colostomy site. 4. Additional stable chronic findings as described above. PQRS Compliance Statement: One or more of the following individualized dose reduction techniques were utilized for this examination: 1. Automated exposure control 2. Adjustment of the mA and/or kV according to patient size 3. Use of iterative reconstruction technique Electronically signed by: Bryant Rivas MD (11/21/2018 6:23 PM) [facility]
== END | disposition home or self-care (01) ==
LOC: CT 10:30
PROVIDERS: ATTEND Internal Medicine Hematology & Oncology
DX: C21.0 Malignant neoplasm of anus, unspecified (principal); N13.30 Unspecified hydronephrosis; R91.1 Solitary pulmonary nodule; I25.10 Atherosclerotic heart disease of native coronary artery without angina pectoris; K80.20 Calculus of gallbladder without cholecystitis without obstruction; M47.816 Spondylosis without myelopathy or radiculopathy, lumbar region
CPT/HCPCS: 71260; 74177; Q9966; Q9967

== ENCOUNTER 2018-12-11 22:41 | Inpatient (IN) | payer MEDICARE ==
[~2018-12-11] VITALS: Ht 147.3 cm; Wt 36.3 kg
[~2018-12-11 22:41] MED LIST changes: -CONTRAST GIVEN. MC PRN; -IOHEXOL 240 MG/ML 50ML VIAL. PO ONE; -IOHEXOL 300 MG/ML 100ML VIAL. IV ONE
[2018-12-12] VITALS (31 sets, daily range): BP systolic 90–145; BP diastolic 46–82
[2018-12-12] MEDS ORDERED: NOREPINEPHRIN 8MG/250ML PREMIX 250 ML IV PRN (01:30)
[2018-12-12] MEDS ORDERED: HEPARIN for IV BOLUS 10,000 UNIT/10 ML VIAL. IV PRN (01:30)
[2018-12-12] MEDS ORDERED: HEPARIN 25,000UTS/500ML PREMIX 500 ML IV PRN (01:30)
--- NOTE | 2018-12-12 01:59 | RAD ---
Indication:Line placement TECHNIQUE:Portable AP chest X-ray COMPARISON: 12/11/2018 FINDINGS: ET tube is seen with its tip approximately 4.0 cm from the level of acosta and is in acceptable position. NG tube is seen with its tip in the body of the stomach. Right IJ catheter and left subclavian catheter is seen with its tip in the SVC. Heart is normal in size. Diffuse bilateral interstitial opacities. No pneumothorax or pleural effusion. Visualized bony thorax within normal limits. Dilated bilateral renal calyces and renal pelvis. IMPRESSION: 1. Lines and tubes as described above. 2. Bilateral interstitial opacities may be secondary to atypical/viral infection or interstitial pulmonary edema. Electronically signed by: Farhat Benitez DO (12/12/2018 1:56 AM) [facility]
--- NOTE | 2018-12-12 02:50 | NUR ---
Patient arrived on unit at 0037. Patient intubated/sedated, family not at bedside. VSS. According to RACHAEL uJárez at [facility], patient was at an appointment with Dr. Willingham for her colo-rectal cancer and lungs sounded coarse, so a CXR was completed which showed pneumonia, so Dr. Willingham suggested she go to the ED. Patient triggered positive sepsis screen, stat lactic acid and blood cultures drawn, received 3L LR, Rocephin, Azithromycin, and Vancomycin at [facility]. Will continue to monitor.
[2018-12-12] MEDS: IV RINGERS,LACTATED 1000ML 1,000 ML IV SCH ×3 (03:18→13:44)
[2018-12-12 06:15] LABS: CREATININE 0.5 mg/dL (0.6-1.0); POTASSIUM 3.9 mmol/L (3.5-5.1)
[2018-12-12 08:00] LABS: RED BLOOD COUNT 2.35 x10^6/uL (3.50-5.40); RED CELL DISTRIBUTION WIDTH 19.7 % (11.5-14.5); WHITE BLOOD COUNT 2.2 x10^3/uL (4.0-11.0)
[2018-12-12 08:04] LABS: HEMOGLOBIN 5.7 g/dL (12.0-15.5)
[2018-12-12 08:05] LABS: HEMATOCRIT 17.7 % (36.0-47.0)
[2018-12-12 08:35] LABS: BASE EXCESS ABG -1 mmol/L (-3-3); HCO3 ABG 23 mmol/L (21-28); PCO2 ABG 36 mmHg (35-46); PO2 ABG 145 mmHg (65-108); SAT O2 ABG 99 % (92-99)
[2018-12-12 08:40] LABS: FIO2 ABG 50
[2018-12-12] MEDS ORDERED: ENOXAPARIN 30 MG/0.3 ML SYRINGE. SQ SCH (09:00)
[2018-12-12] MEDS: CEFEPIME HCL IV Push 2 GM VIAL. IVP SCH ×2 (10:11→20:55)
[2018-12-12] MEDS: PROPOFOL 100 ML IV PRN ×2 (10:37→18:37)
[2018-12-12] MEDS: PANTOPRAZOLE IV PUSH 40 MG VIAL. IVP SCH ×2 (11:23→20:55)
--- NOTE | 2018-12-12 11:44 | PDOC2 ---
GI CONSULT Reason For Consult: Blood tinged emesis in OG, low Hgb HPI: HPI: 77 y/o female transferred from [facility] where she was sent for evaluation for possible pneumonia w/ h/o COPD and tobacco use. 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 Per notes, she did not tolerate NC and refused BiPAP but agreed to intubation. She received Heparin for elevated D-dimer. This morning, staff noted blood- tinged output from OG tube. Because of this and anemia (Hgb 7.4 w/ MCV 76, now Hgb 5.7) we are asked to see her. No reports of bleeding prior to admission. Per RN, son said she had an iron infusion w/ Dr. Willingham yesterday. No family here currently. BUN, Cr, LFTs, and lipase were WNL. BNP was elevated (986). CT chest was negative for PE and showed small bilateral pleural effusions. PMH: PMH: per chart - COPD, anxiety, arthritis tubal ligation, skin cancer excisions, port placement, bilateral oophorectomy, excision of uterine fibroid, cystoscopy FH: Family History: Cancer (brain tumor - sister, breast cancer - other sister) Social History: Smoke: 1 pack per day ALCOHOL: none Drugs: None ROS: Unable to obtain. Vitals: Vitals: Vital Signs Date Time Temp Pulse Resp B/P (MAP) Pulse Ox O2 Delivery O2 Flow Rate FiO2 12/12/18 11:13 97.7 63 11 112/51 97.7 12/12/18 11:00 100 Ventilator Labs: Labs: Laboratory Tests Test 12/12/18 02:07 12/12/18 06:00 12/12/18 07:50 12/12/18 08:30 Lactic Acid Level 0.7 mmol/L (0.4-2.0) Heparin Anti-Xa Act, Unfractionated < 0.10 IU/mL (0.30-0.70) Sodium Level 137 mmol/L (136-145) Potassium Level 3.9 mmol/L (3.5-5.1) Chloride Level 102 mmol/L (98-107) Carbon Dioxide Level 28 mmol/L (21-32) Anion Gap 7 (6-14) Blood Urea Nitrogen 10 mg/dL (7-20) Creatinine 0.5 mg/dL (0.6-1.0) Estimated GFR (Cockcroft-Gault) 120.0 Glucose Level 119 mg/dL (70-99) Calcium Level 8.0 mg/dL (8.5-10.1) White Blood Count 2.2 x10^3/uL (4.0-11.0) Red Blood Count 2.35 x10^6/uL (3.50-5.40) Hemoglobin 5.7 g/dL (12.0-15.5) Hematocrit 17.7 % (36.0-47.0) Mean Corpuscular Volume 75 fL (79-100) Mean Corpuscular Hemoglobin 24 pg (25-35) Mean Corpuscular Hemoglobin Concent 32 g/dL (31-37) Red Cell Distribution Width 19.7 % (11.5-14.5) Platelet Count 249 x10^3/uL (140-400) O2 Saturation 99 % (92-99) Arterial Blood pH 7.43 (7.35-7.45) Arterial Blood pCO2 at Patient Temp 36 mmHg (35-46) Arterial Blood pO2 at Patient Temp 145 mmHg (65-108) Arterial Blood HCO3 23 mmol/L (21-28) Arterial Blood Base Excess -1 mmol/L (-3-3) FiO2 50 Allergies: Coded Allergies: Penicillins (Verified Adverse Reaction, Mild, yeast infection, 04/22/18) Medications: Current Medications Medications (Trade) Dose Ordered Sig/Cristian Route PRN Reason Start Time Stop Time Status Last Admin Dose Admin Propofol 100 ml @ 0 mls/hr CONT PRN IV SEE I/O RECORD 12/12/18 01:30 12/12/18 10:37 Ringer's Solution 1,000 ml @ 100 mls/hr Q10H IV 12/12/18 01:30 12/12/18 10:12 Cefepime HCl (Maxipime) 2 gm Q12HR IVP 12/12/18 09:00 12/12/18 10:11 Linezolid/Dextrose 300 ml @ 300 mls/hr Q12HR IV 12/12/18 09:00 12/12/18 10:11 Pantoprazole Sodium (PROTONIX VIAL for IV PUSH) 40 mg BID IVP 12/12/18 10:15 12/12/18 11:23 Imaging: Imaging: CXR 12/12 IMPRESSION: 1. Lines and tubes as described above. 2. Bilateral interstitial opacities may be secondary to atypical/viral infection or interstitial pulmonary edema. PE: GEN: intubated HEENT: Atraumatic, PERRL - OG output thin reddish-brownish LUNGS: vent HEART: RRR ABD: NABS, S/ND/NT EXTREMITY: No edema SKIN: No rashes, no jaundice NEURO/PSYCH: sedated A/P: A/P: Resp failure, abnormal chest imaging Blood-tinged OG output Recurrent SCC of rectum s/p resection, radiation, and w/ recent chemo Chronic anemia -- Agree w/ PPI and transfusion. Continue observation per GI for now. FILEMON PEREZ December 12, 2018 11:44
--- NOTE | 2018-12-12 11:51 | HP ---
ADMIT DATE: 12/12/2018 HISTORY OF PRESENT ILLNESS: The patient is a 77-year-old female patient, who presented to the Emergency Room of [facility] complaining of being sick for about a week, having recurrent bouts of dry hacking cough. She also stated that she is a smoker and apparently was diagnosed with anal cancer and was just started on IV chemotherapy a little over a week ago. She apparently has failed radiation surgery and she is followed by Dr. Willingham. In fact, she was supposed to see him today. She was seen by Dr. Willingham, who did some lab work and chest x-ray and called her to go to the Emergency Room as she has probably pneumonia. By the time she arrived there, the patient was complaining of increased dyspnea with cough. The patient has been exposed to son, who has been sick with a respiratory infection for the past week. The patient has noted in the past week she has had increased cough and sputum production. She does smoke, but recently completed a course of chemotherapy for anal cancer. She was seen at Dr. Willingham's office yesterday and did have a chest x-ray, which reportedly showed possible pneumonia. The patient was called and she was advised to go to the Emergency Department. She denied any trouble. The patient was diagnosed with anal cancer about 2 years ago, has undergone radiation surgery and now chemotherapy. Her primary oncologist is Dr. Willingham, Dr. Becerra did the surgery and Dr. Head is her primary care physician. She apparently is extremely hypoxic. She was unable to tolerate nasal cannula or oxygen via mask. The patient refused BiPAP. She did agree to intubation if she was sedated and was given Versed and fentanyl and that was then used for sedation and with the use ____ endotracheal tube she was intubated successfully and her oxygen saturation has immediately improved, has oxygen changes and was started on 100% of FiO2 with titrated volume for pressure. She was transferred to [facility] ICU for ventilatory support, start the IV antibiotic and to consult Dr. Willingham, Dr. Uriarte and the Infectious Disease specialist. She was started on IV vancomycin. She was also started on heparin drip for elevated D-dimer and also vancomycin, Zosyn and Zithromax. PAST MEDICAL HISTORY: Significant for excised skin cancer, anxiety, arthritis. PAST SURGICAL HISTORY: Significant for tubal ligation, tonsillectomy and obviously surgical excision of her anal cancer on 02/06/2017. She was treated with radiation treatment and apparently failed and was started on chemotherapy about 2 weeks ago. PAST OBSTETRIC HISTORY: She is 2, para 2. ALLERGIES: She is allergic to PENICILLIN that resulted in vaginal yeast infection. MEDICATIONS: She is currently on Opdivo 40 mg IV protocol for anal cancer, oxycodone/APAP 10/325 one tablet every 4-6 hours, alprazolam 0.5 mg 3 times a day and polyethylene glycol 17 grams daily p.r.n. for constipation. FAMILY HISTORY: She has a sister who is 67 and with a newly diagnosed brain tumor, anticipating biopsy in March, has had the biopsy. She has another sister who is in her 80s and had prior history of breast cancer. SOCIAL HISTORY: She is , from metastatic prostate cancer. She lives with her son. She is a smoker, smokes 1 pack a day for more than 40 years. She continues to smoke. 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 REVIEW OF SYSTEMS: Unobtainable. PHYSICAL EXAMINATION: GENERAL: On examining her, she was obviously intubated, mechanically ventilated and heavily sedated. She was pale, but no jaundiced or cyanosed. No lymphadenopathy, no thyromegaly. No jugular venous distention. No limb edema. VITAL SIGNS: Her heart rate was 78, blood pressure was 131/60, temperature was 97.9, respiratory rate was 13, and oxygen saturation was 100% on FiO2 of 40%. HEAD, EYES, EARS, NOSE AND THROAT: Showed normocephalic, atraumatic. She has orotracheal and orogastric tube in place. NECK: Supple. HEART: Showed normal first and second heart sounds. No gallop, rub or murmur. CHEST: Clear to auscultation. No crepitation or rhonchi. ABDOMEN: Distended, soft, nontender. No guarding or rigidity. No organomegaly. All hernial orifices intact. Bowel sounds normal. NEUROLOGIC: She is heavily sedated. LABORATORY DATA: Her lab work done at [facility] showed that her white cell count was 3200, hemoglobin was 7.4, hematocrit 23, MCV 76 and platelet count of 339,000 with normal manual differential. Her prothrombin time was 11.4, INR of 1.2, APTT was 31. D-dimer was 1.16. Her serum sodium was 137, potassium 3.4, chloride 99, bicarbonate 30, anion gap of 8, BUN 14, creatinine 0.6, estimated GFR was 97 mL per minute, her glucose 112, calcium was 8.3, magnesium was 1.7. Total bilirubin, AST, ALT, alkaline phosphatase were normal. Her CK was 39. Troponin was less than 0.017. Beta natriuretic peptide was 986. Total protein was 7.2, albumin was 2.5. Her serum lipase was 39. Her pH was 7.44, pCO2 of 35, pO2 of 57, bicarbonate 24, and oxygen saturation was 89% on FiO2 of 28%. ASSESSMENT: The patient was admitted with acute hypoxic respiratory failure, probably secondary to community-acquired pneumonia. She has also severe anemia with microcytic hypochromic anemia. His hemoglobin was 7.4, hematocrit 23. She has also mild leukopenia; however, her platelet count was normal. Her urinalysis was unremarkable, showed the urine was hazy with a pH of 7, specific gravity 1.015. There is trace amount of protein. The urine was negative for glucose, ketones and blood, it was negative for nitrite and leukocyte esterase and no rbc's, no wbc's and no bacteria. PLAN: Plan is obviously to continue with IV antibiotic. Continue to monitor her H and H. She received IV fluid and continue with IV antibiotic in the form of vancomycin, Zosyn and Zithromax. She was on heparin drip that was discontinued as unfortunately her H and H has dropped down to 5.7 and 17.7. I stopped also her enoxaparin and started her on SCDs for deep venous thrombosis prophylaxis. I did consult Dr. Uriarte for ventilator management and Dr. Willingham to assist with her management as well as the Infectious Disease specialist. We will monitor her H and H probably at 8 hourly and start her on Protonix for gastrointestinal prophylaxis. KELLI JOHNSON MD DR: ASTER/jeremy JOB#: [id number] / [id number]
--- NOTE | 2018-12-12 12:48 | CONS ---
DATE OF CONSULTATION: 12/12/2018 PULMONARY CONSULTATION ATTENDING PHYSICIAN: Deya Hall MD. REASON FOR CONSULTATION: Respiratory failure, abnormal CT chest. HISTORY OF PRESENT ILLNESS: The patient is a 77-year-old female who presented to the Emergency Room at [facility] after being sick for about a week. She had some recurrent bouts of dry hacking cough. The patient is a smoker. She was diagnosed with anal cancer and that she fails radiation and surgery and has been on IV chemotherapy, last dose was about 2 weeks ago. The patient was sent to the Emergency Room as Dr. Willingham felt crackles in her lung and suspected to have pneumonia. The patient was seen in the ER. She was noted to be in extremely hypoxic and she failed and also refused BiPAP according to the notes. She did agree to intubation and as a result, she was transferred after intubation done at [facility]. The patient was started on IV antibiotics and her D-dimer was elevated as a result, she was started on heparin drip. CT angiogram was performed at [facility], which was reviewed by me. There is no evidence of pulmonary embolism. However, there are diffuse bilateral infiltrates. Some of them appeared slightly nodular. There are also small bilateral pleural effusions. The patient started to have upper gastrointestinal bleed while on heparin, as a result heparin was stopped and her hemoglobin fell to 5.7. She is now receiving packed RBCs. She is currently on assist control mode. At 50% FiO2, her ABGs was with a pH of 7.43, pCO2 of 36 and a pO2 of 145. She is not on any pressors. PAST MEDICAL HISTORY: History of anal cancer, status post radiation and surgery and undergoing chemo; history of tubal ligation, tonsillectomy, history of tobacco use, suspected COPD. ALLERGIES: PENICILLIN, WHICH CAUSES VAGINAL YEAST. MEDICATIONS: Reviewed as listed in the MRAD. REVIEW OF SYSTEMS: Unable to obtain from the patient as she is on the ventilator. SOCIAL HISTORY: She has history of tobacco use, details unknown. PHYSICAL EXAMINATION: GENERAL: She is intubated and sedated. VITAL SIGNS: Blood pressure stable, pulse ox 100%. HEENT: Sclerae nonicteric. NECK: Supple. LUNGS: With diminished breath sounds with some crackles posteriorly at the bases. CARDIOVASCULAR: Regular rate and rhythm. ABDOMEN: Soft. EXTREMITIES: Very skinny and cachectic. No edema. LABORATORY DATA: Reviewed. White cell count 2.2, hemoglobin 5.7 and platelets are 249. BUN 10, creatinine 0.5. IMPRESSION: 1. Acute hypoxic respiratory failure secondary to diffuse lung infiltrates, likely pneumonia. However, cannot exclude the possibility of any metastasis to the lungs/lymphangitic spread. Clinically, less likely alveolar edema or alveolar hemorrhage. 2. The patient with anal cancer, status post surgery and radiation and now undergoing chemo. 3. Abnormal D-dimer, which is a nonspecific test and can be seen in many other conditions including malignancy. No evidence of pulmonary embolism. 4. Acute gastrointestinal bleed related to heparin. Hemoglobin went down to 5.7, currently receiving packed red blood cells. 5. Leukopenia, likely related to infectious etiology versus bone marrow suppression by chemo. 6. Underlying chronic obstructive pulmonary disease. RECOMMENDATIONS: 1. Continue with present assist control mode. 2. Status post packed RBCs. Follow hemoglobin. 3. Continue current antibiotics. 4. We will consider bronchoscopy once she is more stable and obtain cultures and rule out any cancer or alveolar hemorrhage. 5. Follow GI recommendations. 6. Follow Oncology recommendations. 7. No further anticoagulation. 8. Continue broad-spectrum antibiotics including cefepime and Zyvox. 9. Discussed with RN and RT. Discussed with Dr. Hall. We will follow along with you. Critical care time 39 minutes. GUTIERREZ MAYNARD MD DR: NELLY/jeremy JOB#: [id number] / [id number]
[2018-12-12 15:03] LABS: HEMATOCRIT 26.2 % (36.0-47.0); HEMOGLOBIN 8.6 g/dL (12.0-15.5)
--- NOTE | 2018-12-12 16:09 | NUR ---
SS following for discharge planning. SS reviewed pt chart. Pt is from home with her son and is currently on the vent. SS will continue to follow for discharge planning.
[2018-12-12 22:41] LABS: HEMATOCRIT 25.3 % (36.0-47.0); HEMOGLOBIN 8.2 g/dL (12.0-15.5)
[2018-12-13] VITALS (24 sets, daily range): BP systolic 94–138; BP diastolic 41–66
--- NOTE | 2018-12-13 01:11 | CONS ---
DATE OF CONSULTATION: 12/12/2018 REFERRING PHYSICIAN: Deya Hall M.D. REASON FOR CONSULTATION: Antibiotic management. HISTORY OF PRESENT ILLNESS: A 77-year-old female seen in ICU, intubated, who presented to [facility] on 12/11/2018 with being sick, cough. The patient was intubated, received IV vancomycin, azithromycin and ceftriaxone one dose, has been transferred to [facility] ICU for further evaluation and treatment. The patient is unable to give history. History obtained from medical chart and staff. The patient has a history of recurrent squamous cell carcinoma of the anus and is on chemotherapy through a Port-A-Cath. I do not have the details on the same through Hematology/Oncology, Dr. Willingham here. She failed radiation and surgery. The patient has a history of COPD and is a smoker. Her white count at [facility] was around 3, temperature was 100.2. UA was negative. Hemoglobin was 7.4, here it was around 5. NG tube has blood-tinged GI secretions. D-dimer was 1.16. CK was within normal limits. PAST MEDICAL HISTORY: COPD, hypertension, recurrent anal CA, on chemo, failed radiation and surgery, osteoarthritis, ostomy, history of urologic stents placed prophylactically. PAST SURGICAL HISTORY: Rectal surgery, ostomy. FAMILY HISTORY: As per HPI. SOCIAL HISTORY: Smoking present. No ETOH. ALLERGIES: PENICILLIN, unknown reaction. PHYSICAL EXAMINATION: VITAL SIGNS: Temperature 98.4, pulse 66, respiratory rate 12, blood pressure 136/66, oxygen saturation 100% on FiO2 of 50%. GENERAL: Cachectic, thin female. Intubated and sedated. HEENT: Anicteric. OGT in place. NECK: Supple. LUNGS: Decreased breath sounds, some expiratory wheezing. HEART: S1, S2, no murmurs. ABDOMEN: Soft. Ostomy in place. GENITOURINARY: Lance in place. EXTREMITIES: No edema, no cyanosis. DERMATOLOGIC: Warm, dry, no generalized rash. LINES: Right central line in the neck and Port-A-Cath site looks okay. CENTRAL NERVOUS SYSTEM: Intubated. LABORATORY DATA: WBC 2.2, hemoglobin 5.7, hematocrit 17.7, platelets 249. Sodium 137, potassium 3.9, chloride 102, bicarbonate 28, BUN 10, creatinine 0.5, glucose 119, lactate 0.7, calcium 8. fractionated antibody less than 0.10. MICRO: Blood cultures are pending. MRSA PCR pending. Fecal occult blood pending. IMAGING: Chest x-ray showed lines and tubes, bilateral interstitial opacities, may be secondary to atypical or viral infection or interstitial pulmonary edema. Right IJ and left subclavian catheter in place. ET tube in place. IMPRESSION: 1. Acute respiratory failure.Could be from underling copd, pulm vs other 2. Anemia. 3. Leukopenia.on Chemo 4. History of recurrent squamous cell carcinoma, on chemo, unable to get details. 5. Chronic obstructive pulmonary disease. 6. History of smoking. 7. Possible gastrointestinal bleed. 8. HISTORY OF PENICILLIN ALLERGY, unknown reaction, tolerated ceftriaxone well at [facility]. RECOMMENDATIONS: 1. Start cefepime. 2. Will add Zyvox for a couple of doses. 3. Follow up labs and cultures. 4. Check flu screen. 5. Continue supportive care. 6. Discussed with RN. Thank you, Dr. Hall for consulting Infectious Disease to participate in this patient's care. If you have any questions, do not hesitate to contact me. KELSEY MARSHALL MD DR: ESTELLE/jeremy JOB#: [id number] / [id number] [place]
[2018-12-13] MEDS: IV RINGERS,LACTATED 1000ML 1,000 ML IV SCH ×3 (01:23→21:03)
[2018-12-13] MEDS: PROPOFOL 100 ML IV PRN ×2 (03:36→09:04)
[2018-12-13 06:01] LABS: HEMATOCRIT 25.7 % (36.0-47.0); HEMOGLOBIN 8.6 g/dL (12.0-15.5); RED BLOOD COUNT 3.25 x10^6/uL (3.50-5.40); RED CELL DISTRIBUTION WIDTH 19.1 % (11.5-14.5); WHITE BLOOD COUNT 3.3 x10^3/uL (4.0-11.0)
[2018-12-13 06:24] LABS: ALBUMIN 1.7 g/dL (3.4-5.0); ALBUMIN/GLOBULIN RATIO 0.5 (1.0-1.7); CALCIUM 7.6 mg/dL (8.5-10.1); CREATININE 0.5 mg/dL (0.6-1.0); MAGNESIUM 1.6 mg/dL (1.8-2.4); POTASSIUM 3.3 mmol/L (3.5-5.1); TOTAL BILIRUBIN 0.3 mg/dL (0.2-1.0); TOTAL PROTEIN 5.3 g/dL (6.4-8.2)
--- NOTE | 2018-12-13 07:25 | PDOC ---
Infectious Disease Note Subjective: Subjective pt remains intubated fio2 40% NGT output 700ml, now changing from blood tinged to greenish color ROS: ROS unable to obtain Vital Signs: Vital Signs Vital Signs Date Time Temp Pulse Resp B/P (MAP) Pulse Ox O2 Delivery O2 Flow Rate FiO2 12/13/18 06:00 66 12 102/50 (67) 99 Ventilator 12/13/18 04:00 98.7 98.7 Physical Exam: PHYSICAL EXAM GENERAL: Cachectic, thin female. Intubated and sedated. HEENT: Anicteric. OGT in place. NECK: Supple. LUNGS: Decreased breath sounds, some expiratory wheezing. HEART: S1, S2, no murmurs. ABDOMEN: Soft. Ostomy in place. GENITOURINARY: Lance in place. EXTREMITIES: No edema, no cyanosis. DERMATOLOGIC: Warm, dry, no generalized rash. LINES: Right central line in the neck and Port-A-Cath site looks okay. CENTRAL NERVOUS SYSTEM: Intubated. Medications: Inpatient Meds: Current Medications Medications (Trade) Dose Ordered Sig/Cristian Start Time Stop Time Status Last Admin Dose Admin Cefepime HCl (Maxipime) 2 gm Q12HR 12/12/18 09:00 12/12/18 20:55 2 GM Enoxaparin Sodium (Lovenox 30mg Syringe) 30 mg Q24H 12/12/18 09:00 12/12/18 09:00 DC Fentanyl Citrate 30 ml @ 0 mls/hr CONT PRN 12/12/18 12:30 12/12/18 21:55 2.5 MLS/HR Heparin Sodium (Porcine) (Heparin Sodium) 1,000 unit PRN Q6HRS PRN 12/12/18 01:30 12/12/18 06:17 DC Heparin Sodium/ Dextrose 500 ml @ 0 mls/hr CONT PRN 12/12/18 01:30 12/12/18 06:17 DC Linezolid/Dextrose 300 ml @ 300 mls/hr Q12HR 12/12/18 09:00 12/12/18 20:55 300 MLS/HR Norepinephrine Bitartrate 250 ml @ 1.875 mls/ hr CONT PRN 12/12/18 01:30 Pantoprazole Sodium (PROTONIX VIAL for IV PUSH) 40 mg BID 12/12/18 10:15 12/12/18 20:55 40 MG Propofol 100 ml @ 0 mls/hr CONT PRN 12/12/18 01:30 12/13/18 03:36 9.798 MLS/HR Ringer's Solution 1,000 ml @ 100 mls/hr Q10H 12/12/18 01:30 12/13/18 01:23 100 MLS/HR Labs: Lab Laboratory Tests Test 12/12/18 07:50 12/12/18 08:30 12/12/18 14:45 12/12/18 22:35 White Blood Count 2.2 x10^3/uL (4.0-11.0) Red Blood Count 2.35 x10^6/uL (3.50-5.40) Hemoglobin 5.7 g/dL (12.0-15.5) 8.6 g/dL (12.0-15.5) 8.2 g/dL (12.0-15.5) Hematocrit 17.7 % (36.0-47.0) 26.2 % (36.0-47.0) 25.3 % (36.0-47.0) Mean Corpuscular Volume 75 fL (79-100) Mean Corpuscular Hemoglobin 24 pg (25-35) Mean Corpuscular Hemoglobin Concent 32 g/dL (31-37) Red Cell Distribution Width 19.7 % (11.5-14.5) Platelet Count 249 x10^3/uL (140-400) O2 Saturation 99 % (92-99) Arterial Blood pH 7.43 (7.35-7.45) Arterial Blood pCO2 at Patient Temp 36 mmHg (35-46) Arterial Blood pO2 at Patient Temp 145 mmHg (65-108) Arterial Blood HCO3 23 mmol/L (21-28) Arterial Blood Base Excess -1 mmol/L (-3-3) FiO2 50 Test 12/13/18 05:55 White Blood Count 3.3 x10^3/uL (4.0-11.0) Red Blood Count 3.25 x10^6/uL (3.50-5.40) Hemoglobin 8.6 g/dL (12.0-15.5) Hematocrit 25.7 % (36.0-47.0) Mean Corpuscular Volume 79 fL (79-100) Mean Corpuscular Hemoglobin 26 pg (25-35) Mean Corpuscular Hemoglobin Concent 33 g/dL (31-37) Red Cell Distribution Width 19.1 % (11.5-14.5) Platelet Count 231 x10^3/uL (140-400) Sodium Level 140 mmol/L (136-145) Potassium Level 3.3 mmol/L (3.5-5.1) Chloride Level 103 mmol/L (98-107) Carbon Dioxide Level 25 mmol/L (21-32) Anion Gap 12 (6-14) Blood Urea Nitrogen 11 mg/dL (7-20) Creatinine 0.5 mg/dL (0.6-1.0) Estimated GFR (Cockcroft-Gault) 120.0 BUN/Creatinine Ratio 22 (6-20) Glucose Level 79 mg/dL (70-99) Calcium Level 7.6 mg/dL (8.5-10.1) Magnesium Level 1.6 mg/dL (1.8-2.4) Total Bilirubin 0.3 mg/dL (0.2-1.0) Aspartate Amino Transf (AST/SGOT) 24 U/L (15-37) Alanine Aminotransferase (ALT/SGPT) 23 U/L (14-59) Alkaline Phosphatase 173 U/L (46-116) Total Protein 5.3 g/dL (6.4-8.2) Albumin 1.7 g/dL (3.4-5.0) Albumin/Globulin Ratio 0.5 (1.0-1.7) Objective: Assessment: 1. Acute respiratory failure.etiology infectious vs noninfectious, could be viral 2. Anemia.s/p PRBCs 3. Leukopenia from chemotherapy 4. History of recurrent squamous cell carcinoma, on chemo, unable to get details. 5. Chronic obstructive pulmonary disease. 6. History of smoking. 7. Possible gastrointestinal bleed. 8. HISTORY OF PENICILLIN ALLERGY, unknown reaction, tolerated ceftriaxone well at [facility]. Plan: Plan of Care cont cefepime. cont Zyvox for now. will likely dc soon Follow up labs and cultures. Check flu screen. Continue supportive care. Discussed with RN. KELSEY MARSHALL MD December 13, 2018 07:25
--- NOTE | 2018-12-13 08:05 | CONS ---
DATE OF CONSULTATION: 12/12/2018 CONSULTATION REQUESTING PHYSICIAN: Deya Hall M.D. REASON FOR CONSULTATION: Anal cancer, on chemotherapy, now admitted with respiratory failure. HISTORY OF PRESENT ILLNESS: The patient is a 77-year-old female who was diagnosed with anal cancer on 02/06/2017. She received postoperative radiation therapy. She had recurrent malignancy in 2018 and she was treated with chemotherapy followed by Opdivo. CT scan on 11/21/2018 revealed worsening large presacral mass with development of hydronephrosis and enlarging anterior peritoneal implant near the colostomy. Hence, the treatment was switched to carboplatin and Taxol from 12/02/2018. She has had progressively worsening cough. She was also noted to have hypoxia. She underwent a chest x-ray on 12/11/2018, which was concerning for pneumonia versus pulmonary edema. She was sent to the ER. Chest x-ray on 12/12/2018 reveals atypical viral infection or pulmonary edema. She was admitted to the ICU for respiratory failure requiring intubation. PAST MEDICAL HISTORY: Arthritis, anal cancer. FAMILY HISTORY: Positive for breast cancer in her sister. SOCIAL HISTORY: She is . She has a history of smoking 1 pack per day. REVIEW OF SYSTEMS: A 12-point review of system was performed. Pertinent positives are as mentioned in the history of present illness. Rest of the system review is either negative or unobtainable because of the patient's intubated status. PHYSICAL EXAMINATION: GENERAL APPEARANCE: The patient is a 77-year-old female who is on the ventilator and in no acute distress. VITAL SIGNS: Blood pressure 145/65, temperature 97.9. HEAD: Atraumatic, normocephalic. EYES: No icterus. NECK: Supple. CHEST: Bilaterally symmetrical. HEART: S1, S2 normal. ABDOMEN: Soft. CENTRAL NERVOUS SYSTEM: Unresponsive, on ventilator. MUSCULOSKELETAL: No joint effusions. PSYCHOLOGIC: The patient unresponsive as she is on ventilator and she is sedated. LYMPHATICS: No lymphadenopathy. LABORATORY DATA: On 12/12/2018, WBC 2.2, hemoglobin 5.7, and platelet count 249. She received blood transfusion, hemoglobin improved to 8.6. IMPRESSION AND PLAN: 1. Recurrent anal carcinoma with development of bone metastases and progressively worsening large presacral mass and bilateral hydronephrosis and a peritoneal implant near the colostomy site consistent with stage IV malignancy. She was started on palliative chemotherapy with carboplatin and Taxol on 12/02/2018. She has failed previous treatments. I will continue to monitor for toxicities. She will return for followup after the acute episode has resolved so we can resume treatment. 2. Acute respiratory failure thought to be due to pneumonia. I appreciate pulmonary consultation and management. She is on ventilator. 3. 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 Hemoglobin is 5.7 on 12/12/2018, improved to 8.6 on 03/14/2019 after transfusion. 4. Leukopenia. WBC is 2.2. Continue to monitor. Etiology of leukopenia thought to be due to chemotherapy and infection. TARAN CID MD DR: [email or web address]/nts JOB#: [id number] / [id number]
[2018-12-13] MEDS: CEFEPIME HCL IV Push 2 GM VIAL. IVP SCH ×2 (09:01→21:02)
[2018-12-13] MEDS: PANTOPRAZOLE IV PUSH 40 MG VIAL. IVP SCH ×2 (09:02→21:02)
[2018-12-13 09:07] LABS: BASE EXCESS ABG 2 mmol/L (-3-3); HCO3 ABG 26 mmol/L (21-28); PCO2 ABG 39 mmHg (35-46); PO2 ABG 83 mmHg (65-108); SAT O2 ABG 96 % (92-99)
[2018-12-13 09:08] LABS: FIO2 ABG 40
--- NOTE | 2018-12-13 09:08 | PDOC ---
PROGRESS NOTES Subjective Subjective HPI -f/u of Recurrent anal carcinoma ROS - no fever Objective Objective Vital Signs Date Time Temp Pulse Resp B/P (MAP) Pulse Ox O2 Delivery O2 Flow Rate FiO2 12/13/18 08:00 98 Ventilator 12/13/18 07:51 71 12 107/54 (71) 12/13/18 07:00 98.2 98.2 Intake and Output 12/13/18 06:59 Intake Total 3948 ml Output Total 2385 ml Balance 1563 ml Intake IV Total 3378 ml Blood Product IV Normal Saline Flush 570 ml Output Urine Total 1135 ml Gastric Drainage Total 850 ml Emesis 400 ml Physical Exam Heart: Normal S1, Normal S2 General: No acute distress Lungs: Other (intubated) Assessment Assessment IMPRESSION AND PLAN: 1. Recurrent anal carcinoma with development of bone metastases and progressively worsening large presacral mass and bilateral hydronephrosis and a peritoneal implant near the colostomy site consistent with stage IV malignancy. She was started on palliative chemotherapy with carboplatin and Taxol on 12/02/2018. She has failed previous treatments. I will continue to monitor for toxicities. She will return for followup after the acute episode has resolved so we can resume treatment. 2. Acute respiratory failure thought to be due to pneumonia. I appreciate pulmonary consultation and management. She is on ventilator. 3. 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 Hemoglobin is 5.7 on 12/12/2018, improved to 8.6 on 03/14/2019 after transfusion. Hb 8.6 on 12/13/18. 4. Leukopenia. WBC is 3.3. Continue to monitor. Etiology of leukopenia is chemotherapy and infection. Comment Review of Relevant I have reviewed the following items walt (where applicable) has been applied. Labs Laboratory Tests Test 12/12/18 02:00 12/12/18 02:07 12/12/18 06:00 12/12/18 07:50 Nasal Screen MRSA (PCR) Negative (Negative) Lactic Acid Level 0.7 mmol/L (0.4-2.0) Heparin Anti-Xa Act, Unfractionated < 0.10 IU/mL (0.30-0.70) Sodium Level 137 mmol/L (136-145) Potassium Level 3.9 mmol/L (3.5-5.1) Chloride Level 102 mmol/L (98-107) Carbon Dioxide Level 28 mmol/L (21-32) Anion Gap 7 (6-14) Blood Urea Nitrogen 10 mg/dL (7-20) Creatinine 0.5 mg/dL (0.6-1.0) Estimated GFR (Cockcroft-Gault) 120.0 Glucose Level 119 mg/dL (70-99) Calcium Level 8.0 mg/dL (8.5-10.1) White Blood Count 2.2 x10^3/uL (4.0-11.0) Red Blood Count 2.35 x10^6/uL (3.50-5.40) Hemoglobin 5.7 g/dL (12.0-15.5) Hematocrit 17.7 % (36.0-47.0) Mean Corpuscular Volume 75 fL (79-100) Mean Corpuscular Hemoglobin 24 pg (25-35) Mean Corpuscular Hemoglobin Concent 32 g/dL (31-37) Red Cell Distribution Width 19.7 % (11.5-14.5) Platelet Count 249 x10^3/uL (140-400) Test 12/12/18 08:30 12/12/18 14:45 12/12/18 22:35 12/13/18 05:55 O2 Saturation 99 % (92-99) Arterial Blood pH 7.43 (7.35-7.45) Arterial Blood pCO2 at Patient Temp 36 mmHg (35-46) Arterial Blood pO2 at Patient Temp 145 mmHg (65-108) Arterial Blood HCO3 23 mmol/L (21-28) Arterial Blood Base Excess -1 mmol/L (-3-3) FiO2 50 Hemoglobin 8.6 g/dL (12.0-15.5) 8.2 g/dL (12.0-15.5) 8.6 g/dL (12.0-15.5) Hematocrit 26.2 % (36.0-47.0) 25.3 % (36.0-47.0) 25.7 % (36.0-47.0) White Blood Count 3.3 x10^3/uL (4.0-11.0) Red Blood Count 3.25 x10^6/uL (3.50-5.40) Mean Corpuscular Volume 79 fL (79-100) Mean Corpuscular Hemoglobin 26 pg (25-35) Mean Corpuscular Hemoglobin Concent 33 g/dL (31-37) Red Cell Distribution Width 19.1 % (11.5-14.5) Platelet Count 231 x10^3/uL (140-400) Sodium Level 140 mmol/L (136-145) Potassium Level 3.3 mmol/L (3.5-5.1) Chloride Level 103 mmol/L (98-107) Carbon Dioxide Level 25 mmol/L (21-32) Anion Gap 12 (6-14) Blood Urea Nitrogen 11 mg/dL (7-20) Creatinine 0.5 mg/dL (0.6-1.0) Estimated GFR (Cockcroft-Gault) 120.0 BUN/Creatinine Ratio 22 (6-20) Glucose Level 79 mg/dL (70-99) Calcium Level 7.6 mg/dL (8.5-10.1) Magnesium Level 1.6 mg/dL (1.8-2.4) Total Bilirubin 0.3 mg/dL (0.2-1.0) Aspartate Amino Transf (AST/SGOT) 24 U/L (15-37) Alanine Aminotransferase (ALT/SGPT) 23 U/L (14-59) Alkaline Phosphatase 173 U/L (46-116) Total Protein 5.3 g/dL (6.4-8.2) Albumin 1.7 g/dL (3.4-5.0) Albumin/Globulin Ratio 0.5 (1.0-1.7) Laboratory Tests Test 12/12/18 14:45 12/12/18 22:35 12/13/18 05:55 Hemoglobin 8.6 g/dL (12.0-15.5) 8.2 g/dL (12.0-15.5) 8.6 g/dL (12.0-15.5) Hematocrit 26.2 % (36.0-47.0) 25.3 % (36.0-47.0) 25.7 % (36.0-47.0) White Blood Count 3.3 x10^3/uL (4.0-11.0) Red Blood Count 3.25 x10^6/uL (3.50-5.40) Mean Corpuscular Volume 79 fL (79-100) Mean Corpuscular Hemoglobin 26 pg (25-35) Mean Corpuscular Hemoglobin Concent 33 g/dL (31-37) Red Cell Distribution Width 19.1 % (11.5-14.5) Platelet Count 231 x10^3/uL (140-400) Sodium Level 140 mmol/L (136-145) Potassium Level 3.3 mmol/L (3.5-5.1) Chloride Level 103 mmol/L (98-107) Carbon Dioxide Level 25 mmol/L (21-32) Anion Gap 12 (6-14) Blood Urea Nitrogen 11 mg/dL (7-20) Creatinine 0.5 mg/dL (0.6-1.0) Estimated GFR (Cockcroft-Gault) 120.0 BUN/Creatinine Ratio 22 (6-20) Glucose Level 79 mg/dL (70-99) Calcium Level 7.6 mg/dL (8.5-10.1) Magnesium Level 1.6 mg/dL (1.8-2.4) Total Bilirubin 0.3 mg/dL (0.2-1.0) Aspartate Amino Transf (AST/SGOT) 24 U/L (15-37) Alanine Aminotransferase (ALT/SGPT) 23 U/L (14-59) Alkaline Phosphatase 173 U/L (46-116) Total Protein 5.3 g/dL (6.4-8.2) Albumin 1.7 g/dL (3.4-5.0) Albumin/Globulin Ratio 0.5 (1.0-1.7) Microbiology 12/12/18 Blood Culture - Preliminary, Resulted NO GROWTH AFTER 1 DAY Medications Current Medications Propofol 100 ml @ 0 mls/hr CONT PRN IV SEE I/O RECORD Last administered on 12/13/18at 09:04; Start 12/12/18 at 01:30 Ringer's Solution 1,000 ml @ 100 mls/hr Q10H IV Last administered on 12/13/18at 01:23; Start 12/12/18 at 01:30 Heparin Sodium/ Dextrose 500 ml @ 0 mls/hr CONT PRN IV SEE I/O RECORD; Start 12/12/18 at 01:30; Stop 12/12/18 at 06:17; Status DC Heparin Sodium (Porcine) (Heparin Sodium) 1,000 unit PRN Q6HRS PRN IV FOR UFH LEVEL LESS THAN 0.2; Start 12/12/18 at 01:30; Stop 12/12/18 at 06:17; Status DC Norepinephrine Bitartrate 250 ml @ 1.875 mls/ hr CONT PRN IV SEE I/O RECORD; Start 12/12/18 at 01:30 Enoxaparin Sodium (Lovenox 30mg Syringe) 30 mg Q24H SQ ; Start 12/12/18 at 09:00; Stop 12/12/18 at 09:00; Status DC Cefepime HCl (Maxipime) 2 gm Q12HR IVP Last administered on 12/13/18at 09:01; Start 12/12/18 at 09:00 Linezolid/Dextrose 300 ml @ 300 mls/hr Q12HR IV Last administered on 12/13/18at 08:58; Start 12/12/18 at 09:00 Pantoprazole Sodium (PROTONIX VIAL for IV PUSH) 40 mg BID IVP Last administered on 12/13/18at 09:02; Start 12/12/18 at 10:15 Fentanyl Citrate 30 ml @ 0 mls/hr CONT PRN IV SEE PROTOCOL Last administered on 12/12/18at 21:55; Start 12/12/18 at 12:30 Active Scripts Active Reported Opdivo (Nivolumab) 40 Mg/4 Ml Vial 40 Mg IV PER PROTOCOL Percocet 10-325 Mg Tablet (Oxycodone/Acetaminophen) 1 Each Tablet 1 Tab PO Q4-6HRS PRN Miralax (Polyethylene Glycol 3350) 17 Gm Powd.pack 1 Packet PO DAILY Xanax (Alprazolam) 0.5 Mg Tablet 1 Tab PO TID PRN Vitals/I & O Vital Sign - Last 24 Hours 12/12/18 12/12/18 12/12/18 12/12/18 09:51 10:00 10:58 11:00 Temp 97.6 97.6 Pulse 62 64 64 Resp 12 11 11 B/P (MAP) 101/52 (68) 111/52 111/52 (71) Pulse Ox 100 100 100 O2 Delivery Ventilator Ventilator Ventilator 12/12/18 12/12/18 12/12/18 12/12/18 11:13 11:47 12:00 12:00 Temp 97.7 97.6 97.7 97.6 Pulse 63 60 Resp 11 12 B/P (MAP) 112/51 112/55 (74) Pulse Ox 100 100 O2 Delivery Ventilator Ventilator Mechanical Ventilator 12/12/18 12/12/18 12/12/18 12/12/18 12:30 12:38 13:00 13:10 Temp 97.7 97.6 97.7 97.6 Pulse 63 61 60 Resp 06 26 12 B/P (MAP) 132/72 132/72 141/65 (90) Pulse Ox 100 100 O2 Delivery Ventilator Ventilator 12/12/18 12/12/18 12/12/18 12/12/18 13:14 14:00 15:00 16:00 Pulse 60 58 Resp 12 B/P (MAP) 145/65 (91) 114/58 (76) Pulse Ox 100 100 100 O2 Delivery Ventilator Ventilator Ventilator Mechanical Ventilator 12/12/18 12/12/18 12/12/18 12/12/18 16:00 16:53 17:00 17:46 Temp 97.8 97.8 Pulse 58 61 Resp 12 B/P (MAP) 120/58 (78) 113/58 (76) Pulse Ox 100 99 99 99 O2 Delivery Ventilator Ventilator Ventilator Ventilator 12/12/18 12/12/18 12/12/18 12/12/18 18:00 19:00 20:00 20:00 Temp 98.4 98.4 Pulse 63 62 63 Resp 06 26 12 B/P (MAP) 121/62 (81) 107/56 (73) 118/58 (78) Pulse Ox 98 98 98 O2 Delivery Ventilator Ventilator Mechanical Ventilator Ventilator 12/12/18 12/12/18 12/12/18 12/12/18 20:04 21:00 22:00 23:00 Pulse 62 64 60 Resp 06 26 12 B/P (MAP) 96/50 (65) 90/46 (61) 114/82 (93) Pulse Ox 98 98 99 99 O2 Delivery Ventilator Ventilator Ventilator Ventilator 12/12/18 12/13/18 12/13/18 12/13/18 23:48 00:00 00:11 01:00 Temp 98.1 98.1 Pulse 60 61 Resp 12 B/P (MAP) 110/53 (72) 95/41 (59) Pulse Ox 99 98 99 O2 Delivery Mechanical Ventilator Ventilator Ventilator Ventilator 12/13/18 12/13/18 12/13/18 12/13/18 02:00 03:00 03:18 03:53 Pulse 60 61 Resp 12 12 B/P (MAP) 95/42 (59) 101/45 (63) Pulse Ox 99 99 100 O2 Delivery Ventilator Ventilator Ventilator Mechanical Ventilator 12/13/18 12/13/18 12/13/18 12/13/18 04:00 05:00 05:36 06:00 Temp 98.7 98.7 Pulse 62 62 66 Resp 12 12 12 B/P (MAP) 96/46 (63) 108/50 (69) 102/50 (67) Pulse Ox 99 99 100 99 O2 Delivery Ventilator Ventilator Ventilator Ventilator 12/13/18 12/13/18 12/13/18 12/13/18 07:00 07:51 07:51 08:00 Temp 98.2 98.2 Pulse 72 71 Resp 12 12 B/P (MAP) 109/51 (70) 107/54 (71) Pulse Ox 98 O2 Delivery Ventilator Mechanical Ventilator Ventilator Ventilator Intake and Output 12/12/18 12/12/18 12/13/18 14:59 22:59 06:59 Intake Total 870 ml 1606 ml 1472 ml Output Total 1450 ml 550 ml 385 ml Balance -580 ml 1056 ml 1087 ml Nutrition Consultation Dietary Evaluation: Recommendations by RD: Increase Calorie Intake Comments: REC initiation of nutrition within 24 hrs of intubation If unable to feed gut, recommend TPN per followin g dextrose, 60 g AA, 0 g lipids (hold lipids due to propofol infusion) If terrence to feed gut, recommend TF per following: VitalHP@10 ml/hr, increase 10 ml q8 hrs as tolerated to goal rate 25 ml/hr w/100 ml water flushes q4 hrs Expected Outcomes/Goals: Initiation of nutrition within 24 hrs of intubation Malnutrition Findings: Weight Status: Underweight TARAN CID MD December 13, 2018 09:08
[2018-12-13] MEDS ORDERED: ALBUTEROL SULFATE 2.5 MG/3 ML NEBU. NEB PRN (09:30)
[2018-12-13] MEDS ORDERED: LIDOCAINE 2% VISCOUS 100 ML BOTTLE. MM PRN (09:30)
[2018-12-13] MEDS ORDERED: EPINEPHrine 1 MG/ML VIAL INJ PRN (09:30)
--- NOTE | 2018-12-13 09:52 | PDOC ---
PULMONARY PROGRESS NOTES Subjective on AC mode more awake Vitals Vital Signs Date Time Temp Pulse Resp B/P (MAP) Pulse Ox O2 Delivery O2 Flow Rate FiO2 12/13/18 09:24 14 99 Ventilator 12/13/18 09:00 76 94/45 (61) 12/13/18 07:00 98.2 98.2 General: Alert Lungs: Clear Cardiovascular: S1, S2 Abdomen: Soft Neuro Exam: Alert Extremities: No Edema Skin: Warm Labs Laboratory Tests Test 12/12/18 02:00 12/12/18 02:07 12/12/18 06:00 12/12/18 07:50 Nasal Screen MRSA (PCR) Negative (Negative) Lactic Acid Level 0.7 mmol/L (0.4-2.0) Heparin Anti-Xa Act, Unfractionated < 0.10 IU/mL (0.30-0.70) Sodium Level 137 mmol/L (136-145) Potassium Level 3.9 mmol/L (3.5-5.1) Chloride Level 102 mmol/L (98-107) Carbon Dioxide Level 28 mmol/L (21-32) Anion Gap 7 (6-14) Blood Urea Nitrogen 10 mg/dL (7-20) Creatinine 0.5 mg/dL (0.6-1.0) Estimated GFR (Cockcroft-Gault) 120.0 Glucose Level 119 mg/dL (70-99) Calcium Level 8.0 mg/dL (8.5-10.1) White Blood Count 2.2 x10^3/uL (4.0-11.0) Red Blood Count 2.35 x10^6/uL (3.50-5.40) Hemoglobin 5.7 g/dL (12.0-15.5) Hematocrit 17.7 % (36.0-47.0) Mean Corpuscular Volume 75 fL (79-100) Mean Corpuscular Hemoglobin 24 pg (25-35) Mean Corpuscular Hemoglobin Concent 32 g/dL (31-37) Red Cell Distribution Width 19.7 % (11.5-14.5) Platelet Count 249 x10^3/uL (140-400) Test 12/12/18 08:30 12/12/18 14:45 12/12/18 22:35 12/13/18 05:55 O2 Saturation 99 % (92-99) Arterial Blood pH 7.43 (7.35-7.45) Arterial Blood pCO2 at Patient Temp 36 mmHg (35-46) Arterial Blood pO2 at Patient Temp 145 mmHg (65-108) Arterial Blood HCO3 23 mmol/L (21-28) Arterial Blood Base Excess -1 mmol/L (-3-3) FiO2 50 Hemoglobin 8.6 g/dL (12.0-15.5) 8.2 g/dL (12.0-15.5) 8.6 g/dL (12.0-15.5) Hematocrit 26.2 % (36.0-47.0) 25.3 % (36.0-47.0) 25.7 % (36.0-47.0) White Blood Count 3.3 x10^3/uL (4.0-11.0) Red Blood Count 3.25 x10^6/uL (3.50-5.40) Mean Corpuscular Volume 79 fL (79-100) Mean Corpuscular Hemoglobin 26 pg (25-35) Mean Corpuscular Hemoglobin Concent 33 g/dL (31-37) Red Cell Distribution Width 19.1 % (11.5-14.5) Platelet Count 231 x10^3/uL (140-400) Sodium Level 140 mmol/L (136-145) Potassium Level 3.3 mmol/L (3.5-5.1) Chloride Level 103 mmol/L (98-107) Carbon Dioxide Level 25 mmol/L (21-32) Anion Gap 12 (6-14) Blood Urea Nitrogen 11 mg/dL (7-20) Creatinine 0.5 mg/dL (0.6-1.0) Estimated GFR (Cockcroft-Gault) 120.0 BUN/Creatinine Ratio 22 (6-20) Glucose Level 79 mg/dL (70-99) Calcium Level 7.6 mg/dL (8.5-10.1) Magnesium Level 1.6 mg/dL (1.8-2.4) Total Bilirubin 0.3 mg/dL (0.2-1.0) Aspartate Amino Transf (AST/SGOT) 24 U/L (15-37) Alanine Aminotransferase (ALT/SGPT) 23 U/L (14-59) Alkaline Phosphatase 173 U/L (46-116) Total Protein 5.3 g/dL (6.4-8.2) Albumin 1.7 g/dL (3.4-5.0) Albumin/Globulin Ratio 0.5 (1.0-1.7) Test 12/13/18 08:55 O2 Saturation 96 % (92-99) Arterial Blood pH 7.44 (7.35-7.45) Arterial Blood pCO2 at Patient Temp 39 mmHg (35-46) Arterial Blood pO2 at Patient Temp 83 mmHg (65-108) Arterial Blood HCO3 26 mmol/L (21-28) Arterial Blood Base Excess 2 mmol/L (-3-3) FiO2 40 Laboratory Tests Test 12/12/18 14:45 12/12/18 22:35 12/13/18 05:55 12/13/18 08:55 Hemoglobin 8.6 g/dL (12.0-15.5) 8.2 g/dL (12.0-15.5) 8.6 g/dL (12.0-15.5) Hematocrit 26.2 % (36.0-47.0) 25.3 % (36.0-47.0) 25.7 % (36.0-47.0) White Blood Count 3.3 x10^3/uL (4.0-11.0) Red Blood Count 3.25 x10^6/uL (3.50-5.40) Mean Corpuscular Volume 79 fL (79-100) Mean Corpuscular Hemoglobin 26 pg (25-35) Mean Corpuscular Hemoglobin Concent 33 g/dL (31-37) Red Cell Distribution Width 19.1 % (11.5-14.5) Platelet Count 231 x10^3/uL (140-400) Sodium Level 140 mmol/L (136-145) Potassium Level 3.3 mmol/L (3.5-5.1) Chloride Level 103 mmol/L (98-107) Carbon Dioxide Level 25 mmol/L (21-32) Anion Gap 12 (6-14) Blood Urea Nitrogen 11 mg/dL (7-20) Creatinine 0.5 mg/dL (0.6-1.0) Estimated GFR (Cockcroft-Gault) 120.0 BUN/Creatinine Ratio 22 (6-20) Glucose Level 79 mg/dL (70-99) Calcium Level 7.6 mg/dL (8.5-10.1) Magnesium Level 1.6 mg/dL (1.8-2.4) Total Bilirubin 0.3 mg/dL (0.2-1.0) Aspartate Amino Transf (AST/SGOT) 24 U/L (15-37) Alanine Aminotransferase (ALT/SGPT) 23 U/L (14-59) Alkaline Phosphatase 173 U/L (46-116) Total Protein 5.3 g/dL (6.4-8.2) Albumin 1.7 g/dL (3.4-5.0) Albumin/Globulin Ratio 0.5 (1.0-1.7) O2 Saturation 96 % (92-99) Arterial Blood pH 7.44 (7.35-7.45) Arterial Blood pCO2 at Patient Temp 39 mmHg (35-46) Arterial Blood pO2 at Patient Temp 83 mmHg (65-108) Arterial Blood HCO3 26 mmol/L (21-28) Arterial Blood Base Excess 2 mmol/L (-3-3) FiO2 40 Medications Active Scripts Medications Dose Route/Sig Max Daily Dose Days Date Category Opdivo (Nivolumab) 40 Mg/4 Ml Vial 40 Mg IV PER PROTOCOL 07/25/18 Reported Percocet 10-325 Mg Tablet (Oxycodone/Acetaminophen) 1 Each Tablet 1 Tab PO Q4-6HRS PRN 04/22/18 Reported Miralax (Polyethylene Glycol 3350) 17 Gm Powd.pack 1 Packet PO DAILY 04/19/18 Reported Xanax (Alprazolam) 0.5 Mg Tablet 1 Tab PO TID PRN 03/23/17 Reported Comments cxr 12/13 sig improvement in bilateral infiltrates Impression . 1. Acute hypoxic respiratory failure secondary to diffuse lung infiltrates, pneumonia.vs alveolar edema However, cannot exclude the possibility of any metastasis to the lungs/lymphangitic spread. Clinically, less likely alveolar hemorrhage. 2. The patient with stage IV anal cancer, status post surgery and radiation and now undergoing palliative chemo. 3. Abnormal D-dimer, which is a nonspecific test and can be seen in many other conditions including malignancy. No evidence of pulmonary embolism. 4. Acute gastrointestinal bleed related to heparin. Hemoglobin went down to 5.7, s/p packed red blood cells.Hb stable 5. Leukopenia, likely related to infectious etiology versus bone marrow suppression by chemo. 6. Underlying chronic obstructive pulmonary disease. Plan . 1. Continue with present assist control mode. 2. Status post packed RBCs. Follow hemoglobin, so far stable 3. Continue current antibiotics. 4. will hold off bronchoscopy today as cxr has improved 5. Follow GI recommendations. 6. Follow Oncology recommendations. 7. No further anticoagulation. 8. Continue broad-spectrum antibiotics including cefepime and Zyvox. 9. Discussed with RN and RT. 10. f/u cxr 11. possible CPAP trial once more awake Critical care time 30 minutes. GUTIERREZ MAYNARD MD December 13, 2018 09:52
[2018-12-13] MEDS ORDERED: LIDOCAINE 2% VISCOUS 100 ML BOTTLE. ONE (10:18)
[2018-12-13] MEDS ORDERED: EPINEPHrine 1 MG/ML VIAL ONE (10:18)
--- NOTE | 2018-12-13 10:41 | RAD ---
Portable chest, 12/13/2018: HISTORY: Respiratory failure Comparison is made to yesterday's study. The ET tube tip lies well above the acosta. A left Port-A-Cath extends into the superior vena cava as does a right jugular central venous catheter. An NG tube extends into the stomach. The heart size is unchanged. Bilateral pulmonary infiltrates have regressed. Monique B lines in the lung bases have largely resolved. No new pulmonary abnormality is seen. There is no evidence of pleural fluid. IMPRESSION: 1. Stable tube positions. 2. Resolving pulmonary edema Electronically signed by: Bryant Rivas MD (12/13/2018 10:39 AM) [facility]
--- NOTE | 2018-12-13 11:22 | PDOC ---
Objective: Objective: Reviewed w/ RN - no bronch, plans for CPAP trial, OG output is more bilious, no stools/blood in ostomy. Vital Signs: Vital Signs Date Time Temp Pulse Resp B/P (MAP) Pulse Ox O2 Delivery O2 Flow Rate FiO2 12/13/18 11:00 76 15 103/48 (66) Ventilator 12/13/18 09:54 99 12/13/18 07:00 98.2 98.2 Labs: Laboratory Tests Test 12/12/18 14:45 12/12/18 22:35 12/13/18 05:55 12/13/18 08:55 Hemoglobin 8.6 g/dL 8.2 g/dL 8.6 g/dL Hematocrit 26.2 % 25.3 % 25.7 % White Blood Count 3.3 x10^3/uL Red Blood Count 3.25 x10^6/uL Mean Corpuscular Volume 79 fL Mean Corpuscular Hemoglobin 26 pg Mean Corpuscular Hemoglobin Concent 33 g/dL Red Cell Distribution Width 19.1 % Platelet Count 231 x10^3/uL Sodium Level 140 mmol/L Potassium Level 3.3 mmol/L Chloride Level 103 mmol/L Carbon Dioxide Level 25 mmol/L Anion Gap 12 Blood Urea Nitrogen 11 mg/dL Creatinine 0.5 mg/dL Estimated GFR (Cockcroft-Gault) 120.0 BUN/Creatinine Ratio 22 Glucose Level 79 mg/dL Calcium Level 7.6 mg/dL Magnesium Level 1.6 mg/dL Total Bilirubin 0.3 mg/dL Aspartate Amino Transf (AST/SGOT) 24 U/L Alanine Aminotransferase (ALT/SGPT) 23 U/L Alkaline Phosphatase 173 U/L Total Protein 5.3 g/dL Albumin 1.7 g/dL Albumin/Globulin Ratio 0.5 O2 Saturation 96 % Arterial Blood pH 7.44 Arterial Blood pCO2 at Patient Temp 39 mmHg Arterial Blood pO2 at Patient Temp 83 mmHg Arterial Blood HCO3 26 mmol/L Arterial Blood Base Excess 2 mmol/L FiO2 40 BLOOD CULTURE Preliminary NO GROWTH AFTER 1 DAY Imaging: CXR IMPRESSION: 1. Stable tube positions. 2. Resolving pulmonary edema. PE: GEN: intubated LUNGS: vent HEART: RRR ABD: S/ND/NT, ostomy bag empty NEURO/PSYCH: mildly sedated A/P: Resp failure Recurrent SCC of anus Chronic anemia - improved w/ transfusion -- No further concern for bleeding. Continue PPI. FILEMON PEREZ December 13, 2018 11:22
[2018-12-13 12:04] LABS: INFLUENZA A PATIENT NEGATIVE (NEGATIVE); INFLUENZA B PATIENT NEGATIVE (NEGATIVE)
[2018-12-13 16:10] LABS: BASE EXCESS COOX 2 mmol/L (-3-3); HCO3 COOX 26 mmol/L (21-28); OXYHEMOGLOBIN 95.1 %; PCO2 COOX 37 mmHg (35-46); PO2 COOX 77 mmHg (65-108); SAT O2 COOX 96 % (92-99)
--- NOTE | 2018-12-13 17:02 | RAD ---
Portable chest, 12/13/2018, 4:43 PM: HISTORY: Check central line placement Comparison is made to a study from earlier the same day. The ET tube tip lies well above the acosta. An NG tube extends into the stomach. A left Port-A-Cath extends into the superior vena cava. The right jugular central venous catheter extends into the superior vena cava. The heart size is unchanged. There is now minimal atelectasis/infiltrate in the left base laterally. There is no evidence of pneumothorax or significant pleural fluid. IMPRESSION: 1. The various tubes and catheters are in satisfactory positions as described above. 2. Minimal left lateral basilar atelectasis/infiltrate. Electronically signed by: Bryant Rivas MD (12/13/2018 4:59 PM) [facility]
[2018-12-13] MEDS: NICOTINE 21MG PATCH. TD SCH (19:05)
[2018-12-13] MEDS: OXYBUTYNIN CHLORIDE 5 MG TABLET PO SCH (19:05)
[2018-12-14] VITALS (18 sets, daily range): BP systolic 138–158; BP diastolic 59–89
[2018-12-14 06:16] LABS: RED BLOOD COUNT 3.54 x10^6/uL (3.50-5.40); RED CELL DISTRIBUTION WIDTH 19.6 % (11.5-14.5); WHITE BLOOD COUNT 5.1 x10^3/uL (4.0-11.0)
[2018-12-14 06:49] LABS: ALBUMIN 1.7 g/dL (3.4-5.0); ALBUMIN/GLOBULIN RATIO 0.4 (1.0-1.7); CALCIUM 7.7 mg/dL (8.5-10.1); CREATININE 0.5 mg/dL (0.6-1.0); TOTAL BILIRUBIN 0.4 mg/dL (0.2-1.0); TOTAL PROTEIN 5.6 g/dL (6.4-8.2)
[2018-12-14 06:50] LABS: POTASSIUM 2.9 mmol/L (3.5-5.1)
--- NOTE | 2018-12-14 07:09 | PN ---
DATE: 12/13/2018 SUBJECTIVE: The patient is resting, slightly propped up in bed, continued to be intubated, mechanically ventilated and sedated. Nursing staff did not voice any concern that she has an uneventful night. PHYSICAL EXAMINATION: GENERAL: When I examined her, she looked pale, cachectic but no jaundice, cyanosis or thyromegaly. No jugular venous distention. No lower limb edema. VITAL SIGNS: Her heart rate was 72, blood pressure was 109/51, temperature was 98.2, respiratory rate 12 and her oxygen saturation was 99% on FiO2 of 40%. HEAD, EYES, EARS, NOSE AND THROAT: Showed she is normocephalic and atraumatic. She has orotracheal and orogastric tube in place. NECK: Supple. HEART: Showed normal first and second heart sounds. No gallop or murmur. CHEST: Shows central trachea, equal bilateral chest expansion, air entry, vesicular sounds. I could not appreciate any crepitation or rhonchi. ABDOMEN: Distended, soft and nontender. NEUROLOGICAL: She is heavily sedated. Her intake over the last 24 hours was incompletely recorded. LABORATORY DATA: As of this morning, her white cell count was 3300; hemoglobin 8.6; hematocrit 25.7; MCV was 79 and platelet count 231,000. Her chemistry showed a serum sodium 140, potassium 3.3, chloride 103, bicarbonate 25, anion gap of 12, BUN 11, creatinine 0.5, estimated GFR was 120 mL per minute, her glucose was 79, calcium was 7.6 and magnesium was 1.6. Total bilirubin, AST and ALT were normal. Alkaline phosphatase was slightly elevated at 173. Her total protein was 5.3, albumin was 1.7. Her nasal screen for MRSA by PCR was negative. Her blood cultures are so far negative. Her chest x-ray showed that bilateral interstitial opacities may be secondary to atypical/viral infection or interstitial pulmonary edema. ASSESSMENT: 1. Acute hypoxic respiratory failure likely due to community-acquired pneumonia. 2. Anal cancer status post surgery, radiation and now undergoing chemotherapy, currently stage 4. 3. Normal D-dimer, nonspecific, and CT angio of the chest was negative for pulmonary emboli. 4. Acute gastrointestinal bleeding related to heparin. The patient received 2 units of packed red blood cells. 5. Leukopenia, likely related to chemotherapy and the patient is known to have chronic obstructive pulmonary disease. PLAN: To continue with mechanical ventilation and wean as tolerated. Continue to monitor her H and H and transfuse her as needed. Continue with IV antibiotic. We will continue with SCD for DVT prophylaxis. KELLI JOHNSON MD DR: ASTER/jeremy JOB#: [id number] / [id number]
--- NOTE | 2018-12-14 08:32 | PDOC ---
Infectious Disease Note Subjective Subjective s/p extubation, O2 4L Says shes hungry and needs to urinate No fevers last 24 hours Denies SOA/N/V/D ROS ROS per HPI Vital Sign Vital Signs Vital Signs Date Time Temp Pulse Resp B/P (MAP) Pulse Ox O2 Delivery O2 Flow Rate FiO2 12/14/18 06:00 82 28 146/76 (99) 95 Nasal Cannula 4.0 12/14/18 02:00 98.5 98.5 Physical Exam PHYSICAL EXAM GENERAL: Resting quietly, arouses easily to name HEENT: Pupils equal, Oral cavity dry . NECK: Supple. LUNGS: Scattered expiratory wheezing, nonlabored; Palpable left chest nodule HEART: S1, S2, irregular ABDOMEN: Soft, tender, ostomy GENITOURINARY: Lance in place. EXTREMITIES: No edema, no cyanosis. DERMATOLOGIC: Warm, dry, no generalized rash. 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 PIV Labs Lab Laboratory Tests Test 12/13/18 08:55 12/13/18 10:10 12/13/18 16:01 12/14/18 05:45 O2 Saturation 96 % (92-99) 96 % (92-99) Arterial Blood pH 7.44 (7.35-7.45) 7.45 (7.35-7.45) Arterial Blood pCO2 at Patient Temp 39 mmHg (35-46) 37 mmHg (35-46) Arterial Blood pO2 at Patient Temp 83 mmHg (65-108) 77 mmHg (65-108) Arterial Blood HCO3 26 mmol/L (21-28) 26 mmol/L (21-28) Arterial Blood Base Excess 2 mmol/L (-3-3) 2 mmol/L (-3-3) FiO2 40 40 Influenza Type A Antigen Negative (NEGATIVE) Influenza Type B Antigen Negative (NEGATIVE) Oxyhemoglobin 95.1 % Methemoglobin 0.0 % (0.0-1.9) Carbon Monoxide, Quantitative 0.7 % (0.0-1.9) White Blood Count 5.1 x10^3/uL (4.0-11.0) Red Blood Count 3.54 x10^6/uL (3.50-5.40) Hemoglobin 9.0 g/dL (12.0-15.5) Hematocrit 28.0 % (36.0-47.0) Mean Corpuscular Volume 79 fL (79-100) Mean Corpuscular Hemoglobin 26 pg (25-35) Mean Corpuscular Hemoglobin Concent 32 g/dL (31-37) Red Cell Distribution Width 19.6 % (11.5-14.5) Platelet Count 263 x10^3/uL (140-400) Sodium Level 140 mmol/L (136-145) Potassium Level 2.9 mmol/L (3.5-5.1) Chloride Level 104 mmol/L (98-107) Carbon Dioxide Level 27 mmol/L (21-32) Anion Gap 9 (6-14) Blood Urea Nitrogen 9 mg/dL (7-20) Creatinine 0.5 mg/dL (0.6-1.0) Estimated GFR (Cockcroft-Gault) 120.0 BUN/Creatinine Ratio 18 (6-20) Glucose Level 79 mg/dL (70-99) Calcium Level 7.7 mg/dL (8.5-10.1) Total Bilirubin 0.4 mg/dL (0.2-1.0) Aspartate Amino Transf (AST/SGOT) 19 U/L (15-37) Alanine Aminotransferase (ALT/SGPT) 19 U/L (14-59) Alkaline Phosphatase 167 U/L (46-116) Total Protein 5.6 g/dL (6.4-8.2) Albumin 1.7 g/dL (3.4-5.0) Albumin/Globulin Ratio 0.4 (1.0-1.7) Micro 12/12/18 Blood Culture - Preliminary, Resulted NO GROWTH AFTER 2 DAYS Objective Assessment Acute respiratory failure.Could be from underling COPD, pulm vs other. Influenza neg Anemia s/p PRBCs Leukopenia, on Chemo, improved H/o PENICILLIN ALLERGY, unknown reaction, tolerated ceftriaxone well at [facility]. H/o recurrent squamous cell carcinoma, on palliative chemo w/ carboplatin and Taxol Chronic obstructive pulmonary disease. History of smoking. Possible gastrointestinal bleed. Plan Plan of Care cont Zyvox for now. will likely dc soon Continue Cefepime BC NGTD Continue supportive care. D/w Nursing she is requesting Miralax Attending Co-Sign Attending Co-Sign The patient was seen and interviewed as well as examined at the bedside. The chart was reviewed. The case was discussed. Agree with the plan of care. DC JACKSON APRN Dec 14, 2018 08:32 ABBIE STEWART MD Dec 14, 2018 14:45
--- NOTE | 2018-12-14 11:27 | PDOC ---
PULMONARY PROGRESS NOTES Subjective EXTUBATED 12/13 DOING WELL Vitals Vital Signs Date Time Temp Pulse Resp B/P (MAP) Pulse Ox O2 Delivery O2 Flow Rate FiO2 12/14/18 06:00 82 28 146/76 (99) 95 Nasal Cannula 4.0 12/14/18 02:00 98.5 98.5 General: Alert, No acute distress Lungs: Clear Cardiovascular: S1, S2 Abdomen: Soft Neuro Exam: Alert Extremities: No Edema Skin: Warm Labs Laboratory Tests Test 12/12/18 14:45 12/12/18 22:35 12/13/18 05:55 12/13/18 08:55 Hemoglobin 8.6 g/dL (12.0-15.5) 8.2 g/dL (12.0-15.5) 8.6 g/dL (12.0-15.5) Hematocrit 26.2 % (36.0-47.0) 25.3 % (36.0-47.0) 25.7 % (36.0-47.0) White Blood Count 3.3 x10^3/uL (4.0-11.0) Red Blood Count 3.25 x10^6/uL (3.50-5.40) Mean Corpuscular Volume 79 fL (79-100) Mean Corpuscular Hemoglobin 26 pg (25-35) Mean Corpuscular Hemoglobin Concent 33 g/dL (31-37) Red Cell Distribution Width 19.1 % (11.5-14.5) Platelet Count 231 x10^3/uL (140-400) Sodium Level 140 mmol/L (136-145) Potassium Level 3.3 mmol/L (3.5-5.1) Chloride Level 103 mmol/L (98-107) Carbon Dioxide Level 25 mmol/L (21-32) Anion Gap 12 (6-14) Blood Urea Nitrogen 11 mg/dL (7-20) Creatinine 0.5 mg/dL (0.6-1.0) Estimated GFR (Cockcroft-Gault) 120.0 BUN/Creatinine Ratio 22 (6-20) Glucose Level 79 mg/dL (70-99) Calcium Level 7.6 mg/dL (8.5-10.1) Magnesium Level 1.6 mg/dL (1.8-2.4) Total Bilirubin 0.3 mg/dL (0.2-1.0) Aspartate Amino Transf (AST/SGOT) 24 U/L (15-37) Alanine Aminotransferase (ALT/SGPT) 23 U/L (14-59) Alkaline Phosphatase 173 U/L (46-116) Total Protein 5.3 g/dL (6.4-8.2) Albumin 1.7 g/dL (3.4-5.0) Albumin/Globulin Ratio 0.5 (1.0-1.7) O2 Saturation 96 % (92-99) Arterial Blood pH 7.44 (7.35-7.45) Arterial Blood pCO2 at Patient Temp 39 mmHg (35-46) Arterial Blood pO2 at Patient Temp 83 mmHg (65-108) Arterial Blood HCO3 26 mmol/L (21-28) Arterial Blood Base Excess 2 mmol/L (-3-3) FiO2 40 Test 12/13/18 10:10 12/13/18 16:01 12/14/18 05:45 Influenza Type A Antigen Negative (NEGATIVE) Influenza Type B Antigen Negative (NEGATIVE) O2 Saturation 96 % (92-99) Arterial Blood pH 7.45 (7.35-7.45) Arterial Blood pCO2 at Patient Temp 37 mmHg (35-46) Arterial Blood pO2 at Patient Temp 77 mmHg (65-108) Arterial Blood HCO3 26 mmol/L (21-28) Arterial Blood Base Excess 2 mmol/L (-3-3) Oxyhemoglobin 95.1 % Methemoglobin 0.0 % (0.0-1.9) Carbon Monoxide, Quantitative 0.7 % (0.0-1.9) FiO2 40 White Blood Count 5.1 x10^3/uL (4.0-11.0) Red Blood Count 3.54 x10^6/uL (3.50-5.40) Hemoglobin 9.0 g/dL (12.0-15.5) Hematocrit 28.0 % (36.0-47.0) Mean Corpuscular Volume 79 fL (79-100) Mean Corpuscular Hemoglobin 26 pg (25-35) Mean Corpuscular Hemoglobin Concent 32 g/dL (31-37) Red Cell Distribution Width 19.6 % (11.5-14.5) Platelet Count 263 x10^3/uL (140-400) Sodium Level 140 mmol/L (136-145) Potassium Level 2.9 mmol/L (3.5-5.1) Chloride Level 104 mmol/L (98-107) Carbon Dioxide Level 27 mmol/L (21-32) Anion Gap 9 (6-14) Blood Urea Nitrogen 9 mg/dL (7-20) Creatinine 0.5 mg/dL (0.6-1.0) Estimated GFR (Cockcroft-Gault) 120.0 BUN/Creatinine Ratio 18 (6-20) Glucose Level 79 mg/dL (70-99) Calcium Level 7.7 mg/dL (8.5-10.1) Total Bilirubin 0.4 mg/dL (0.2-1.0) Aspartate Amino Transf (AST/SGOT) 19 U/L (15-37) Alanine Aminotransferase (ALT/SGPT) 19 U/L (14-59) Alkaline Phosphatase 167 U/L (46-116) Total Protein 5.6 g/dL (6.4-8.2) Albumin 1.7 g/dL (3.4-5.0) Albumin/Globulin Ratio 0.4 (1.0-1.7) Laboratory Tests Test 12/13/18 16:01 12/14/18 05:45 O2 Saturation 96 % (92-99) Arterial Blood pH 7.45 (7.35-7.45) Arterial Blood pCO2 at Patient Temp 37 mmHg (35-46) Arterial Blood pO2 at Patient Temp 77 mmHg (65-108) Arterial Blood HCO3 26 mmol/L (21-28) Arterial Blood Base Excess 2 mmol/L (-3-3) Oxyhemoglobin 95.1 % Methemoglobin 0.0 % (0.0-1.9) Carbon Monoxide, Quantitative 0.7 % (0.0-1.9) FiO2 40 White Blood Count 5.1 x10^3/uL (4.0-11.0) Red Blood Count 3.54 x10^6/uL (3.50-5.40) Hemoglobin 9.0 g/dL (12.0-15.5) Hematocrit 28.0 % (36.0-47.0) Mean Corpuscular Volume 79 fL (79-100) Mean Corpuscular Hemoglobin 26 pg (25-35) Mean Corpuscular Hemoglobin Concent 32 g/dL (31-37) Red Cell Distribution Width 19.6 % (11.5-14.5) Platelet Count 263 x10^3/uL (140-400) Sodium Level 140 mmol/L (136-145) Potassium Level 2.9 mmol/L (3.5-5.1) Chloride Level 104 mmol/L (98-107) Carbon Dioxide Level 27 mmol/L (21-32) Anion Gap 9 (6-14) Blood Urea Nitrogen 9 mg/dL (7-20) Creatinine 0.5 mg/dL (0.6-1.0) Estimated GFR (Cockcroft-Gault) 120.0 BUN/Creatinine Ratio 18 (6-20) Glucose Level 79 mg/dL (70-99) Calcium Level 7.7 mg/dL (8.5-10.1) Total Bilirubin 0.4 mg/dL (0.2-1.0) Aspartate Amino Transf (AST/SGOT) 19 U/L (15-37) Alanine Aminotransferase (ALT/SGPT) 19 U/L (14-59) Alkaline Phosphatase 167 U/L (46-116) Total Protein 5.6 g/dL (6.4-8.2) Albumin 1.7 g/dL (3.4-5.0) Albumin/Globulin Ratio 0.4 (1.0-1.7) Medications Active Scripts Medications Dose Route/Sig Max Daily Dose Days Date Category Opdivo (Nivolumab) 40 Mg/4 Ml Vial 40 Mg IV PER PROTOCOL 07/25/18 Reported Percocet 10-325 Mg Tablet (Oxycodone/Acetaminophen) 1 Each Tablet 1 Tab PO Q4-6HRS PRN 04/22/18 Reported Miralax (Polyethylene Glycol 3350) 17 Gm Powd.pack 1 Packet PO DAILY 04/19/18 Reported Xanax (Alprazolam) 0.5 Mg Tablet 1 Tab PO TID PRN 03/23/17 Reported Comments cxr 12/13 sig improvement in bilateral infiltrates Impression . 1. Acute hypoxic respiratory failure secondary to diffuse lung infiltrates, pneumonia.vs alveolar edema However, cannot exclude the possibility of any metastasis to the lungs/lymphangitic spread. Clinically, less likely alveolar hemorrhage. 2. The patient with stage IV anal cancer, status post surgery and radiation and now undergoing palliative chemo. 3. Abnormal D-dimer, which is a nonspecific test and can be seen in many other conditions including malignancy. No evidence of pulmonary embolism. 4. Acute gastrointestinal bleed related to heparin. Hemoglobin went down to 5.7, s/p packed red blood cells.Hb stable 5. Leukopenia, likely related to infectious etiology versus bone marrow suppression by chemo. 6. Underlying chronic obstructive pulmonary disease. Plan . 1. Continue with present nasal canula 2. Status post packed RBCs. Follow hemoglobin, so far stable 3. Continue current antibiotics. 4. speech eval 5. Follow GI recommendations. 6. Follow Oncology recommendations. 7. No further anticoagulation. 8. Continue broad-spectrum antibiotics including cefepime and Zyvox. 9. Discussed with RN and RT. GUTIERREZ MAYNARD MD Dec 14, 2018 11:27
--- NOTE | 2018-12-14 11:40 | NUR ---
Bedside Swallow Evaluation Completed. Please refer to full report for additional information. Impressions: Functional swallow and no s/s aspiration noted throughout evaluation w/ trials of thin and thick liquids, puree and soft solids. Pt w/ cough prior to and after PO trials and 1x during PO trials that did not appear r/t swallow. Pt's voice remained clear throughout evaluation. Pt reports increased SOA w/ prolonged chewing and eating/drinking. Pt appears at low risk of aspiration w modified diet, rest breaks and general swallow precautions. Recommendations: Dysphagia II diet and thin liquids. Take a few bites/drinks then take a break. General swallow precautions. D/w pt and RN; precautions posted in room.
[2018-12-14] MEDS: NICOTINE 21MG PATCH. TD SCH (13:10)
[2018-12-14] MEDS: PANTOPRAZOLE IV PUSH 40 MG VIAL. IVP SCH ×2 (13:10→21:00)
[2018-12-14] MEDS: OXYBUTYNIN CHLORIDE 5 MG TABLET PO SCH ×2 (13:11→21:00)
[2018-12-14] MEDS: CEFEPIME HCL IV Push 2 GM VIAL. IVP SCH ×2 (13:14→21:00)
[2018-12-14] MEDS: IV RINGERS,LACTATED 1000ML 1,000 ML IV SCH ×2 (13:30→23:30)
--- NOTE | 2018-12-14 16:08 | PDOC ---
PROGRESS NOTES Subjective Subjective HPI - f/u of Recurrent anal carcinoma ROS - no fever Objective Objective Vital Signs Date Time Temp Pulse Resp B/P (MAP) Pulse Ox O2 Delivery O2 Flow Rate FiO2 12/14/18 13:00 97.9 32 140/89 (106) Nasal Cannula 3.0 97.9 12/14/18 12:00 93 12/14/18 06:00 82 Intake and Output 12/14/18 07:00 Intake Total 2604.94 ml Output Total 1763 ml Balance 841.94 ml Intake Oral 0 ml IV Total 2504.94 ml Blood Product IV Normal Saline Flush 100 ml Output Urine Total 1613 ml Gastric Drainage Total 150 ml Physical Exam Heart: Normal S1, Normal S2 General: Alert, Oriented X3, No acute distress Lungs: Clear to auscultation Neuro: Normal speech Assessment Assessment IMPRESSION AND PLAN: 1. Recurrent anal carcinoma with development of bone metastases and progressively worsening large presacral mass and bilateral hydronephrosis and a peritoneal implant near the colostomy site consistent with stage IV malignancy. She was started on palliative chemotherapy with carboplatin and Taxol on 12/02/2018. She has failed previous treatments. I will continue to monitor for toxicities. She will return for followup after the acute episode has resolved so we can resume treatment. 2. Acute respiratory failure thought to be due to pneumonia. I appreciate pulmonary consultation and management. Extubated 12/13/18. 3. 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 Hemoglobin is 5.7 on 12/12/2018, improved to 8.6 on 03/14/2019 after transfusion. Hb 8.6 on 12/13/18. Hb 9.0 on 12/14/18 4. Leukopenia. WBC is 5.1. Continue to monitor. Etiology of leukopenia is chemotherapy and infection. Comment Review of Relevant I have reviewed the following items walt (where applicable) has been applied. Labs Laboratory Tests Test 12/12/18 22:35 12/13/18 05:55 12/13/18 08:55 12/13/18 10:10 Hemoglobin 8.2 g/dL (12.0-15.5) 8.6 g/dL (12.0-15.5) Hematocrit 25.3 % (36.0-47.0) 25.7 % (36.0-47.0) White Blood Count 3.3 x10^3/uL (4.0-11.0) Red Blood Count 3.25 x10^6/uL (3.50-5.40) Mean Corpuscular Volume 79 fL (79-100) Mean Corpuscular Hemoglobin 26 pg (25-35) Mean Corpuscular Hemoglobin Concent 33 g/dL (31-37) Red Cell Distribution Width 19.1 % (11.5-14.5) Platelet Count 231 x10^3/uL (140-400) Sodium Level 140 mmol/L (136-145) Potassium Level 3.3 mmol/L (3.5-5.1) Chloride Level 103 mmol/L (98-107) Carbon Dioxide Level 25 mmol/L (21-32) Anion Gap 12 (6-14) Blood Urea Nitrogen 11 mg/dL (7-20) Creatinine 0.5 mg/dL (0.6-1.0) Estimated GFR (Cockcroft-Gault) 120.0 BUN/Creatinine Ratio 22 (6-20) Glucose Level 79 mg/dL (70-99) Calcium Level 7.6 mg/dL (8.5-10.1) Magnesium Level 1.6 mg/dL (1.8-2.4) Total Bilirubin 0.3 mg/dL (0.2-1.0) Aspartate Amino Transf (AST/SGOT) 24 U/L (15-37) Alanine Aminotransferase (ALT/SGPT) 23 U/L (14-59) Alkaline Phosphatase 173 U/L (46-116) Total Protein 5.3 g/dL (6.4-8.2) Albumin 1.7 g/dL (3.4-5.0) Albumin/Globulin Ratio 0.5 (1.0-1.7) O2 Saturation 96 % (92-99) Arterial Blood pH 7.44 (7.35-7.45) Arterial Blood pCO2 at Patient Temp 39 mmHg (35-46) Arterial Blood pO2 at Patient Temp 83 mmHg (65-108) Arterial Blood HCO3 26 mmol/L (21-28) Arterial Blood Base Excess 2 mmol/L (-3-3) FiO2 40 Influenza Type A Antigen Negative (NEGATIVE) Influenza Type B Antigen Negative (NEGATIVE) Test 12/13/18 16:01 12/14/18 05:45 O2 Saturation 96 % (92-99) Arterial Blood pH 7.45 (7.35-7.45) Arterial Blood pCO2 at Patient Temp 37 mmHg (35-46) Arterial Blood pO2 at Patient Temp 77 mmHg (65-108) Arterial Blood HCO3 26 mmol/L (21-28) Arterial Blood Base Excess 2 mmol/L (-3-3) Oxyhemoglobin 95.1 % Methemoglobin 0.0 % (0.0-1.9) Carbon Monoxide, Quantitative 0.7 % (0.0-1.9) FiO2 40 White Blood Count 5.1 x10^3/uL (4.0-11.0) Red Blood Count 3.54 x10^6/uL (3.50-5.40) Hemoglobin 9.0 g/dL (12.0-15.5) Hematocrit 28.0 % (36.0-47.0) Mean Corpuscular Volume 79 fL (79-100) Mean Corpuscular Hemoglobin 26 pg (25-35) Mean Corpuscular Hemoglobin Concent 32 g/dL (31-37) Red Cell Distribution Width 19.6 % (11.5-14.5) Platelet Count 263 x10^3/uL (140-400) Sodium Level 140 mmol/L (136-145) Potassium Level 2.9 mmol/L (3.5-5.1) Chloride Level 104 mmol/L (98-107) Carbon Dioxide Level 27 mmol/L (21-32) Anion Gap 9 (6-14) Blood Urea Nitrogen 9 mg/dL (7-20) Creatinine 0.5 mg/dL (0.6-1.0) Estimated GFR (Cockcroft-Gault) 120.0 BUN/Creatinine Ratio 18 (6-20) Glucose Level 79 mg/dL (70-99) Calcium Level 7.7 mg/dL (8.5-10.1) Total Bilirubin 0.4 mg/dL (0.2-1.0) Aspartate Amino Transf (AST/SGOT) 19 U/L (15-37) Alanine Aminotransferase (ALT/SGPT) 19 U/L (14-59) Alkaline Phosphatase 167 U/L (46-116) Total Protein 5.6 g/dL (6.4-8.2) Albumin 1.7 g/dL (3.4-5.0) Albumin/Globulin Ratio 0.4 (1.0-1.7) Laboratory Tests Test 12/14/18 05:45 White Blood Count 5.1 x10^3/uL (4.0-11.0) Red Blood Count 3.54 x10^6/uL (3.50-5.40) Hemoglobin 9.0 g/dL (12.0-15.5) Hematocrit 28.0 % (36.0-47.0) Mean Corpuscular Volume 79 fL (79-100) Mean Corpuscular Hemoglobin 26 pg (25-35) Mean Corpuscular Hemoglobin Concent 32 g/dL (31-37) Red Cell Distribution Width 19.6 % (11.5-14.5) Platelet Count 263 x10^3/uL (140-400) Sodium Level 140 mmol/L (136-145) Potassium Level 2.9 mmol/L (3.5-5.1) Chloride Level 104 mmol/L (98-107) Carbon Dioxide Level 27 mmol/L (21-32) Anion Gap 9 (6-14) Blood Urea Nitrogen 9 mg/dL (7-20) Creatinine 0.5 mg/dL (0.6-1.0) Estimated GFR (Cockcroft-Gault) 120.0 BUN/Creatinine Ratio 18 (6-20) Glucose Level 79 mg/dL (70-99) Calcium Level 7.7 mg/dL (8.5-10.1) Total Bilirubin 0.4 mg/dL (0.2-1.0) Aspartate Amino Transf (AST/SGOT) 19 U/L (15-37) Alanine Aminotransferase (ALT/SGPT) 19 U/L (14-59) Alkaline Phosphatase 167 U/L (46-116) Total Protein 5.6 g/dL (6.4-8.2) Albumin 1.7 g/dL (3.4-5.0) Albumin/Globulin Ratio 0.4 (1.0-1.7) Microbiology 12/12/18 Blood Culture - Preliminary, Resulted NO GROWTH AFTER 2 DAYS Medications Current Medications Propofol 100 ml @ 0 mls/hr CONT PRN IV SEE I/O RECORD Last administered on 12/13/18at 09:04; Start 12/12/18 at 01:30 Ringer's Solution 1,000 ml @ 100 mls/hr Q10H IV Last administered on 12/13/18at 21:03; Start 12/12/18 at 01:30 Heparin Sodium/ Dextrose 500 ml @ 0 mls/hr CONT PRN IV SEE I/O RECORD; Start 12/12/18 at 01:30; Stop 12/12/18 at 06:17; Status DC Heparin Sodium (Porcine) (Heparin Sodium) 1,000 unit PRN Q6HRS PRN IV FOR UFH LEVEL LESS THAN 0.2; Start 12/12/18 at 01:30; Stop 12/12/18 at 06:17; Status DC Norepinephrine Bitartrate 250 ml @ 1.875 mls/ hr CONT PRN IV SEE I/O RECORD; Start 12/12/18 at 01:30 Enoxaparin Sodium (Lovenox 30mg Syringe) 30 mg Q24H SQ ; Start 12/12/18 at 09:00; Stop 12/12/18 at 09:00; Status DC Cefepime HCl (Maxipime) 2 gm Q12HR IVP Last administered on 12/14/18at 13:14; Start 12/12/18 at 09:00 Linezolid/Dextrose 300 ml @ 300 mls/hr Q12HR IV Last administered on 12/13/18at 21:03; Start 12/12/18 at 09:00 Pantoprazole Sodium (PROTONIX VIAL for IV PUSH) 40 mg BID IVP Last administered on 12/14/18at 13:10; Start 12/12/18 at 10:15 Fentanyl Citrate 30 ml @ 0 mls/hr CONT PRN IV SEE PROTOCOL Last administered on 12/13/18at 09:24; Start 12/12/18 at 12:30 Albuterol Sulfate (Ventolin Neb Soln) 2.5 mg PRN 1X PRN NEB SHORTNESS OF BREATH; Start 12/13/18 at 09:30; Stop 12/14/18 at 09:29; Status DC Lidocaine HCl (Lidocaine 2% Viscous) 100 ml PRN 1X PRN MM MOUTH PAIN; Start 12/13/18 at 09:30; Stop 12/14/18 at 09:29; Status DC Epinephrine HCl (Adrenalin) 1 mg PRN 1X PRN INJ SEE COMMENTS; Start 12/13/18 at 09:30; Stop 12/14/18 at 09:29; Status DC Epinephrine HCl (Adrenalin) 1 mg STK-MED ONCE .ROUTE ; Start 12/13/18 at 10:18; Stop 12/13/18 at 10:19; Status DC Lidocaine HCl (Lidocaine 2% Viscous) 100 ml STK-MED ONCE .ROUTE ; Start 12/13/18 at 10:18; Stop 12/13/18 at 10:19; Status DC Nicotine (Nicoderm Cq 21mg) 1 patch DAILY TD Last administered on 12/14/18at 13:10; Start 12/13/18 at 19:00 Oxybutynin Chloride (Ditropan) 2.5 mg BID PO Last administered on 12/14/18at 13:11; Start 12/13/18 at 19:00 Active Scripts Active Reported Opdivo (Nivolumab) 40 Mg/4 Ml Vial 40 Mg IV PER PROTOCOL Percocet 10-325 Mg Tablet (Oxycodone/Acetaminophen) 1 Each Tablet 1 Tab PO Q4-6HRS PRN Miralax (Polyethylene Glycol 3350) 17 Gm Powd.pack 1 Packet PO DAILY Xanax (Alprazolam) 0.5 Mg Tablet 1 Tab PO TID PRN Vitals/I & O Vital Sign - Last 24 Hours 12/13/18 12/13/18 12/13/18 12/13/18 16:15 17:00 17:02 18:00 Pulse 82 82 Resp 20 23 B/P (MAP) 115/58 (77) 123/59 (80) Pulse Ox 98 100 94 O2 Delivery Ventilator Nasal Cannula Nasal Cannula Nasal Cannula O2 Flow Rate 3.0 4.0 12/13/18 12/13/18 12/13/18 12/13/18 19:00 20:17 20:27 21:00 Pulse 74 88 74 Resp 22 28 22 B/P (MAP) 120/66 (84) 121/62 (81) 130/62 (84) Pulse Ox 97 95 97 O2 Delivery Nasal Cannula Nasal Cannula Nasal Cannula Nasal Cannula O2 Flow Rate 4.0 4.0 4.0 4.0 12/13/18 12/13/18 12/14/18 12/14/18 22:00 23:09 00:17 00:21 Pulse 74 72 74 Resp 20 20 B/P (MAP) 138/61 (86) 131/62 (85) 139/59 (85) Pulse Ox 96 98 98 O2 Delivery Nasal Cannula Nasal Cannula Nasal Cannula Nasal Cannula O2 Flow Rate 4.0 4.0 4.0 4.0 12/14/18 12/14/18 12/14/18 12/14/18 01:00 02:00 03:00 04:12 Temp 98.5 98.5 Pulse 76 78 86 71 Resp 28 22 B/P (MAP) 141/65 (90) 146/65 (92) 139/66 (90) 145/70 (95) Pulse Ox 98 97 98 O2 Delivery Nasal Cannula Nasal Cannula Nasal Cannula Nasal Cannula O2 Flow Rate 4.0 4.0 4.0 4.0 12/14/18 12/14/18 12/14/18 12/14/18 04:14 05:00 06:00 07:00 Pulse 73 82 Resp 32 B/P (MAP) 144/67 (92) 146/76 (99) 152/70 (97) Pulse Ox 97 95 96 O2 Delivery Nasal Cannula Nasal Cannula Nasal Cannula Nasal Cannula O2 Flow Rate 4.0 4.0 4.0 3.0 12/14/18 12/14/18 12/14/18 12/14/18 08:00 08:00 09:00 10:00 Temp 97.7 97.7 Resp 24 27 B/P (MAP) 150/67 (94) 150/67 (94) 147/66 (93) Pulse Ox 96 99 97 O2 Delivery Nasal Cannula Nasal Cannula Nasal Cannula Nasal Cannula O2 Flow Rate 3.0 4.0 3.0 3.0 12/14/18 12/14/18 12/14/18 11:00 12:00 13:00 Temp 97.9 97.9 Resp 32 B/P (MAP) 145/60 (88) 138/82 (100) 140/89 (106) Pulse Ox 96 93 O2 Delivery Nasal Cannula Nasal Cannula Nasal Cannula O2 Flow Rate 3.0 3.0 3.0 Intake and Output0 12/13/18 12/13/18 12/14/18 15:00 23:00 07:00 Intake Total 1205 ml 1399.94 ml 0 ml Output Total 313 ml 605 ml 845 ml Balance 892 ml 794.94 ml -845 ml Nutrition Consultation Dietary Evaluation: Recommendations by RD: Increase Calorie Intake Comments: REC initiation of nutrition within 24 hrs of intubation If unable to feed gut, recommend TPN per followin g dextrose, 60 g AA, 0 g lipids (hold lipids due to propofol infusion) If terrence to feed gut, recommend TF per following: VitalHP@10 ml/hr, increase 10 ml q8 hrs as tolerated to goal rate 25 ml/hr w/100 ml water flushes q4 hrs Expected Outcomes/Goals: Initiation of nutrition within 24 hrs of intubation - not met, goal ongoing Malnutrition Findings: Weight Status: Underweight TARAN CID MD Dec 14, 2018 16:08
--- NOTE | 2018-12-14 18:23 | NUR ---
Status improved . Able to downgrade after seen by speech. Passed test w dysphagia II diet placed per therapist(edentulous). VSS,HR stable. COPD sounding lungs w frequent cough, expectorates into yanker. Assist to chair,BCS x1 Supervision required.PT/OT w assist amb. Difficulty eating.... choice is to breath or eat. likes jet ensure. Cont POC
--- NOTE | 2018-12-14 18:55 | NUR ---
Received pt as a transfer from ICU to room 528. Positioned for comfort no distress noted.
[2018-12-15 02:57] VITALS: BP 139/70
--- NOTE | 2018-12-15 03:05 | PN ---
DATE: 12/14/2018 SUBJECTIVE: The patient is resting slightly propped up in bed, no apparent distress. Awake and alert. On questioning her, she is complaining of severe pain and would like to have her catheter removed. She was successfully extubated yesterday maintaining her oxygen saturation at 98% on 2 liters of oxygen by nasal cannula. OBJECTIVE: GENERAL: When I examined her, she was pale, cachectic. No jaundice, cyanosis or thyromegaly. No jugular venous distension. No lower limb edema. VITAL SIGNS: Her heart rate was 82, blood pressure was 146/76, temperature was 98.5, respiratory rate was 28 and oxygen saturation was 95% on 4 liters of oxygen. HEAD, EYES, EARS, NOSE AND THROAT: Normocephalic and atraumatic. NECK: Supple. HEART: Showed normal first and second heart sounds. No gallop, rub or murmur. CHEST: Shows central trachea, equally reduced expansion, reduced air entry 6 times with bilateral scattered rhonchi, could not appreciate any crepitation. ABDOMEN: Scaphoid, soft and nontender. NEUROLOGICAL: She is awake, alert, responding appropriately. All cranial nerves intact. She moves extremities without difficulty, although she so far has been bedbound. Her intake was 3950 and output was 2285. LABORATORY DATA: As of this morning, her white cell count was 5100; hemoglobin 9; hematocrit 28; MCV 79 and platelet count 263,000. Her chemistry showed a serum sodium 140, potassium 2.9, chloride 104, bicarbonate 27, anion gap of 9, BUN 9, creatinine was 0.5 mg/dL, estimated GFR was 120 mL per minute, her glucose was 79 and calcium was 7.7. Total bilirubin, AST, ALT were normal. Alkaline phosphatase slightly elevated. Total protein was 5.6 and albumin was 1.7. ASSESSMENT: 1. Acute hypoxic respiratory failure, likely due to community-acquired pneumonia for which he was intubated and mechanically ventilated; however, she was successfully extubated yesterday. 2. Anal cancer, status post surgery, radiation and now undergoing chemotherapy and currently stage 4. 3. Elevated D-dimer and cystic CT angio of the chest was negative for pulmonary emboli. 4. Acute gastrointestinal bleeding related to heparin. She has received 2 units of packed red blood cells. 5. Leukopenia, likely related to chemotherapy. 6. The patient is known to have chronic obstructive pulmonary disease. 7. Hypokalemia. PLAN: The plan is to continue with IV antibiotic. The patient is extremely irritated with indwelling Lance catheter, so I will discontinue that. We will continue with the Protonix. Continue with linezolid and cefepime. We will replenish her potassium. Consult physical, occupational and speech therapist. KELLI JOHNSON MD DR: ASTER/jeremy JOB#: [id number] / [id number]
[2018-12-15 05:32] LABS: HEMATOCRIT 29.4 % (36.0-47.0); HEMOGLOBIN 9.8 g/dL (12.0-15.5); RED BLOOD COUNT 3.73 x10^6/uL (3.50-5.40); RED CELL DISTRIBUTION WIDTH 20.1 % (11.5-14.5); WHITE BLOOD COUNT 6.2 x10^3/uL (4.0-11.0)
[2018-12-15 05:49] LABS: CREATININE 0.4 mg/dL (0.6-1.0); GFR 155.2
[2018-12-15 05:54] LABS: POTASSIUM 2.6 mmol/L (3.5-5.1)
[2018-12-15 07:10] VITALS: BP 151/72
[2018-12-15] MEDS: POTASSIUM CHLORIDE 20 MEQ TABLET.ER. PO SCH ×2 (07:59→09:07)
[2018-12-15] MEDS: OXYBUTYNIN CHLORIDE 5 MG TABLET PO SCH ×2 (09:07→21:10)
[2018-12-15] MEDS: CEFEPIME HCL IV Push 2 GM VIAL. IVP SCH ×2 (09:08→21:14)
[2018-12-15] MEDS: NICOTINE 21MG PATCH. TD SCH (09:08)
[2018-12-15] MEDS: PANTOPRAZOLE IV PUSH 40 MG VIAL. IVP SCH ×2 (09:08→21:13)
[2018-12-15] MEDS: IV RINGERS,LACTATED 1000ML 1,000 ML IV SCH ×2 (09:30→19:30)
[2018-12-15 10:19] LABS: CALCIUM 8.1 mg/dL (8.5-10.1); CREATININE 0.6 mg/dL (0.6-1.0); GFR 97.2; POTASSIUM 3.2 mmol/L (3.5-5.1)
[2018-12-15 11:45] VITALS: BP 155/68
--- NOTE | 2018-12-15 13:10 | PDOC ---
PULMONARY PROGRESS NOTES Subjective EXTUBATED 12/13 DOING WELL Vitals Vital Signs Date Time Temp Pulse Resp B/P (MAP) Pulse Ox O2 Delivery O2 Flow Rate FiO2 12/15/18 11:45 97.8 97 30 155/68 (97) 93 Nasal Cannula 2.0 97.8 General: Alert, No acute distress Lungs: Clear Cardiovascular: S1, S2 Abdomen: Soft Neuro Exam: Alert Extremities: No Edema Skin: Warm Labs Laboratory Tests Test 12/13/18 16:01 12/14/18 05:45 12/15/18 04:40 12/15/18 09:45 O2 Saturation 96 % (92-99) Arterial Blood pH 7.45 (7.35-7.45) Arterial Blood pCO2 at Patient Temp 37 mmHg (35-46) Arterial Blood pO2 at Patient Temp 77 mmHg (65-108) Arterial Blood HCO3 26 mmol/L (21-28) Arterial Blood Base Excess 2 mmol/L (-3-3) Oxyhemoglobin 95.1 % Methemoglobin 0.0 % (0.0-1.9) Carbon Monoxide, Quantitative 0.7 % (0.0-1.9) FiO2 40 White Blood Count 5.1 x10^3/uL (4.0-11.0) 6.2 x10^3/uL (4.0-11.0) Red Blood Count 3.54 x10^6/uL (3.50-5.40) 3.73 x10^6/uL (3.50-5.40) Hemoglobin 9.0 g/dL (12.0-15.5) 9.8 g/dL (12.0-15.5) Hematocrit 28.0 % (36.0-47.0) 29.4 % (36.0-47.0) Mean Corpuscular Volume 79 fL (79-100) 79 fL (79-100) Mean Corpuscular Hemoglobin 26 pg (25-35) 26 pg (25-35) Mean Corpuscular Hemoglobin Concent 32 g/dL (31-37) 33 g/dL (31-37) Red Cell Distribution Width 19.6 % (11.5-14.5) 20.1 % (11.5-14.5) Platelet Count 263 x10^3/uL (140-400) 273 x10^3/uL (140-400) Sodium Level 140 mmol/L (136-145) 138 mmol/L (136-145) 136 mmol/L (136-145) Potassium Level 2.9 mmol/L (3.5-5.1) 2.6 mmol/L (3.5-5.1) 3.2 mmol/L (3.5-5.1) Chloride Level 104 mmol/L (98-107) 101 mmol/L (98-107) 99 mmol/L (98-107) Carbon Dioxide Level 27 mmol/L (21-32) 26 mmol/L (21-32) 26 mmol/L (21-32) Anion Gap 9 (6-14) 11 (6-14) 11 (6-14) Blood Urea Nitrogen 9 mg/dL (7-20) 8 mg/dL (7-20) 8 mg/dL (7-20) Creatinine 0.5 mg/dL (0.6-1.0) 0.4 mg/dL (0.6-1.0) 0.6 mg/dL (0.6-1.0) Estimated GFR (Cockcroft-Gault) 120.0 155.2 97.2 BUN/Creatinine Ratio 18 (6-20) Glucose Level 79 mg/dL (70-99) 97 mg/dL (70-99) 191 mg/dL (70-99) Calcium Level 7.7 mg/dL (8.5-10.1) 8.0 mg/dL (8.5-10.1) 8.1 mg/dL (8.5-10.1) Total Bilirubin 0.4 mg/dL (0.2-1.0) Aspartate Amino Transf (AST/SGOT) 19 U/L (15-37) Alanine Aminotransferase (ALT/SGPT) 19 U/L (14-59) Alkaline Phosphatase 167 U/L (46-116) Total Protein 5.6 g/dL (6.4-8.2) Albumin 1.7 g/dL (3.4-5.0) Albumin/Globulin Ratio 0.4 (1.0-1.7) Laboratory Tests Test 12/15/18 04:40 12/15/18 09:45 White Blood Count 6.2 x10^3/uL (4.0-11.0) Red Blood Count 3.73 x10^6/uL (3.50-5.40) Hemoglobin 9.8 g/dL (12.0-15.5) Hematocrit 29.4 % (36.0-47.0) Mean Corpuscular Volume 79 fL (79-100) Mean Corpuscular Hemoglobin 26 pg (25-35) Mean Corpuscular Hemoglobin Concent 33 g/dL (31-37) Red Cell Distribution Width 20.1 % (11.5-14.5) Platelet Count 273 x10^3/uL (140-400) Sodium Level 138 mmol/L (136-145) 136 mmol/L (136-145) Potassium Level 2.6 mmol/L (3.5-5.1) 3.2 mmol/L (3.5-5.1) Chloride Level 101 mmol/L (98-107) 99 mmol/L (98-107) Carbon Dioxide Level 26 mmol/L (21-32) 26 mmol/L (21-32) Anion Gap 11 (6-14) 11 (6-14) Blood Urea Nitrogen 8 mg/dL (7-20) 8 mg/dL (7-20) Creatinine 0.4 mg/dL (0.6-1.0) 0.6 mg/dL (0.6-1.0) Estimated GFR (Cockcroft-Gault) 155.2 97.2 Glucose Level 97 mg/dL (70-99) 191 mg/dL (70-99) Calcium Level 8.0 mg/dL (8.5-10.1) 8.1 mg/dL (8.5-10.1) Medications Active Scripts Medications Dose Route/Sig Max Daily Dose Days Date Category Opdivo (Nivolumab) 40 Mg/4 Ml Vial 40 Mg IV PER PROTOCOL 07/25/18 Reported Percocet 10-325 Mg Tablet (Oxycodone/Acetaminophen) 1 Each Tablet 1 Tab PO Q4-6HRS PRN 04/22/18 Reported Miralax (Polyethylene Glycol 3350) 17 Gm Powd.pack 1 Packet PO DAILY 04/19/18 Reported Xanax (Alprazolam) 0.5 Mg Tablet 1 Tab PO TID PRN 03/23/17 Reported Comments cxr 12/13 sig improvement in bilateral infiltrates Impression . 1. Acute hypoxic respiratory failure secondary to diffuse lung infiltrates, pneumonia.vs alveolar edema However, Less likely any metastasis to the lungs/lymphangitic spread. Clinically, less likely alveolar hemorrhage. 2. The patient with stage IV anal cancer, status post surgery and radiation and now undergoing palliative chemo. 3. Abnormal D-dimer, which is a nonspecific test and can be seen in many other conditions including malignancy. No evidence of pulmonary embolism. 4. Acute gastrointestinal bleed related to heparin. Hemoglobin went down to 5.7, s/p packed red blood cells.Hb stable 5. Leukopenia, likely related to infectious etiology versus bone marrow suppression by chemo. 6. Underlying chronic obstructive pulmonary disease. Plan . 1. Continue with present nasal canula 2. Status post packed RBCs. Follow hemoglobin, so far stable 3. Continue current antibiotics. 4. speech eval 5. Follow GI recommendations. 6. Follow Oncology recommendations. 7. No further anticoagulation. 8. de-escalate Abx per ID 9. Discussed with RN and RT. dc plans soon GUTIERREZ MAYNARD MD Dec 15, 2018 13:10
--- NOTE | 2018-12-15 13:11 | PDOC ---
PROGRESS NOTES Subjective Subjective HPI - f/u of Recurrent anal carcinoma ROS - no CP Objective Objective Vital Signs Date Time Temp Pulse Resp B/P (MAP) Pulse Ox O2 Delivery O2 Flow Rate FiO2 12/15/18 11:45 97.8 97 30 155/68 (97) 93 Nasal Cannula 2.0 97.8 Intake and Output 12/15/18 07:00 Intake Total 2870 ml Output Total 700 ml Balance 2170 ml Intake Oral 620 ml IV Total 2250 ml Output Urine Total 700 ml # Voids 3 Physical Exam Heart: Normal S1, Normal S2 General: Alert, Oriented X3, No acute distress Lungs: Clear to auscultation Neuro: Normal speech Psych/Mental Status: Mental status NL Assessment Assessment IMPRESSION AND PLAN: 1. Recurrent anal carcinoma with development of bone metastases and progressively worsening large presacral mass and bilateral hydronephrosis and a peritoneal implant near the colostomy site consistent with stage IV malignancy. She was started on palliative chemotherapy with carboplatin and Taxol on 12/02/2018. She has failed previous treatments. I will continue to monitor for toxicities. She will return for followup after the acute episode has resolved so we can resume treatment. 2. Acute respiratory failure thought to be due to pneumonia. I appreciate pulmonary consultation and management. Extubated 12/13/18. 3. 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 Hemoglobin is 5.7 on 12/12/2018, improved to 8.6 on 03/14/2019 after transfusion. Hb 8.6 on 12/13/18. Hb 9.8 on 12/15/18 4. Leukopenia. WBC is 5.1. Continue to monitor. Etiology of leukopenia is chemotherapy and infection. 5. Hydronephrosis, f/u with urology. Comment Review of Relevant I have reviewed the following items walt (where applicable) has been applied. Labs Laboratory Tests Test 12/13/18 16:01 12/14/18 05:45 12/15/18 04:40 12/15/18 09:45 O2 Saturation 96 % (92-99) Arterial Blood pH 7.45 (7.35-7.45) Arterial Blood pCO2 at Patient Temp 37 mmHg (35-46) Arterial Blood pO2 at Patient Temp 77 mmHg (65-108) Arterial Blood HCO3 26 mmol/L (21-28) Arterial Blood Base Excess 2 mmol/L (-3-3) Oxyhemoglobin 95.1 % Methemoglobin 0.0 % (0.0-1.9) Carbon Monoxide, Quantitative 0.7 % (0.0-1.9) FiO2 40 White Blood Count 5.1 x10^3/uL (4.0-11.0) 6.2 x10^3/uL (4.0-11.0) Red Blood Count 3.54 x10^6/uL (3.50-5.40) 3.73 x10^6/uL (3.50-5.40) Hemoglobin 9.0 g/dL (12.0-15.5) 9.8 g/dL (12.0-15.5) Hematocrit 28.0 % (36.0-47.0) 29.4 % (36.0-47.0) Mean Corpuscular Volume 79 fL (79-100) 79 fL (79-100) Mean Corpuscular Hemoglobin 26 pg (25-35) 26 pg (25-35) Mean Corpuscular Hemoglobin Concent 32 g/dL (31-37) 33 g/dL (31-37) Red Cell Distribution Width 19.6 % (11.5-14.5) 20.1 % (11.5-14.5) Platelet Count 263 x10^3/uL (140-400) 273 x10^3/uL (140-400) Sodium Level 140 mmol/L (136-145) 138 mmol/L (136-145) 136 mmol/L (136-145) Potassium Level 2.9 mmol/L (3.5-5.1) 2.6 mmol/L (3.5-5.1) 3.2 mmol/L (3.5-5.1) Chloride Level 104 mmol/L (98-107) 101 mmol/L (98-107) 99 mmol/L (98-107) Carbon Dioxide Level 27 mmol/L (21-32) 26 mmol/L (21-32) 26 mmol/L (21-32) Anion Gap 9 (6-14) 11 (6-14) 11 (6-14) Blood Urea Nitrogen 9 mg/dL (7-20) 8 mg/dL (7-20) 8 mg/dL (7-20) Creatinine 0.5 mg/dL (0.6-1.0) 0.4 mg/dL (0.6-1.0) 0.6 mg/dL (0.6-1.0) Estimated GFR (Cockcroft-Gault) 120.0 155.2 97.2 BUN/Creatinine Ratio 18 (6-20) Glucose Level 79 mg/dL (70-99) 97 mg/dL (70-99) 191 mg/dL (70-99) Calcium Level 7.7 mg/dL (8.5-10.1) 8.0 mg/dL (8.5-10.1) 8.1 mg/dL (8.5-10.1) Total Bilirubin 0.4 mg/dL (0.2-1.0) Aspartate Amino Transf (AST/SGOT) 19 U/L (15-37) Alanine Aminotransferase (ALT/SGPT) 19 U/L (14-59) Alkaline Phosphatase 167 U/L (46-116) Total Protein 5.6 g/dL (6.4-8.2) Albumin 1.7 g/dL (3.4-5.0) Albumin/Globulin Ratio 0.4 (1.0-1.7) Laboratory Tests Test 12/15/18 04:40 12/15/18 09:45 White Blood Count 6.2 x10^3/uL (4.0-11.0) Red Blood Count 3.73 x10^6/uL (3.50-5.40) Hemoglobin 9.8 g/dL (12.0-15.5) Hematocrit 29.4 % (36.0-47.0) Mean Corpuscular Volume 79 fL (79-100) Mean Corpuscular Hemoglobin 26 pg (25-35) Mean Corpuscular Hemoglobin Concent 33 g/dL (31-37) Red Cell Distribution Width 20.1 % (11.5-14.5) Platelet Count 273 x10^3/uL (140-400) Sodium Level 138 mmol/L (136-145) 136 mmol/L (136-145) Potassium Level 2.6 mmol/L (3.5-5.1) 3.2 mmol/L (3.5-5.1) Chloride Level 101 mmol/L (98-107) 99 mmol/L (98-107) Carbon Dioxide Level 26 mmol/L (21-32) 26 mmol/L (21-32) Anion Gap 11 (6-14) 11 (6-14) Blood Urea Nitrogen 8 mg/dL (7-20) 8 mg/dL (7-20) Creatinine 0.4 mg/dL (0.6-1.0) 0.6 mg/dL (0.6-1.0) Estimated GFR (Cockcroft-Gault) 155.2 97.2 Glucose Level 97 mg/dL (70-99) 191 mg/dL (70-99) Calcium Level 8.0 mg/dL (8.5-10.1) 8.1 mg/dL (8.5-10.1) Microbiology 12/12/18 Blood Culture - Preliminary, Resulted NO GROWTH AFTER 3 DAYS Medications Current Medications Propofol 100 ml @ 0 mls/hr CONT PRN IV SEE I/O RECORD Last administered on 12/13/18at 09:04; Start 12/12/18 at 01:30; Stop 12/14/18 at 18:21; Status DC Ringer's Solution 1,000 ml @ 100 mls/hr Q10H IV Last administered on 12/14/18at 13:30; Start 12/12/18 at 01:30 Heparin Sodium/ Dextrose 500 ml @ 0 mls/hr CONT PRN IV SEE I/O RECORD; Start 12/12/18 at 01:30; Stop 12/12/18 at 06:17; Status DC Heparin Sodium (Porcine) (Heparin Sodium) 1,000 unit PRN Q6HRS PRN IV FOR UFH LEVEL LESS THAN 0.2; Start 12/12/18 at 01:30; Stop 12/12/18 at 06:17; Status DC Norepinephrine Bitartrate 250 ml @ 1.875 mls/ hr CONT PRN IV SEE I/O RECORD; Start 12/12/18 at 01:30; Stop 12/14/18 at 18:21; Status DC Enoxaparin Sodium (Lovenox 30mg Syringe) 30 mg Q24H SQ ; Start 12/12/18 at 09:00; Stop 12/12/18 at 09:00; Status DC Cefepime HCl (Maxipime) 2 gm Q12HR IVP Last administered on 12/15/18at 09:08; Start 12/12/18 at 09:00 Linezolid/Dextrose 300 ml @ 300 mls/hr Q12HR IV Last administered on 12/15/18at 09:11; Start 12/12/18 at 09:00 Pantoprazole Sodium (PROTONIX VIAL for IV PUSH) 40 mg BID IVP Last administered on 12/15/18at 09:08; Start 12/12/18 at 10:15 Fentanyl Citrate 30 ml @ 0 mls/hr CONT PRN IV SEE PROTOCOL Last administered on 12/13/18at 09:24; Start 12/12/18 at 12:30; Stop 12/14/18 at 18:23; Status DC Albuterol Sulfate (Ventolin Neb Soln) 2.5 mg PRN 1X PRN NEB SHORTNESS OF BREATH; Start 12/13/18 at 09:30; Stop 12/14/18 at 09:29; Status DC Lidocaine HCl (Lidocaine 2% Viscous) 100 ml PRN 1X PRN MM MOUTH PAIN; Start 12/13/18 at 09:30; Stop 12/14/18 at 09:29; Status DC Epinephrine HCl (Adrenalin) 1 mg PRN 1X PRN INJ SEE COMMENTS; Start 12/13/18 at 09:30; Stop 12/14/18 at 09:29; Status DC Epinephrine HCl (Adrenalin) 1 mg STK-MED ONCE .ROUTE ; Start 12/13/18 at 10:18; Stop 12/13/18 at 10:19; Status DC Lidocaine HCl (Lidocaine 2% Viscous) 100 ml STK-MED ONCE .ROUTE ; Start 12/13/18 at 10:18; Stop 12/13/18 at 10:19; Status DC Nicotine (Nicoderm Cq 21mg) 1 patch DAILY TD Last administered on 12/15/18at 09:08; Start 12/13/18 at 19:00 Oxybutynin Chloride (Ditropan) 2.5 mg BID PO Last administered on 12/15/18at 09:07; Start 12/13/18 at 19:00 Potassium Chloride (Klor-Con) 40 meq Q1H PO Last administered on 12/15/18 09:07; Start 12/15/18 at 06:30; Stop 12/15/18 at 08:31; Status DC Active Scripts Active Reported Opdivo (Nivolumab) 40 Mg/4 Ml Vial 40 Mg IV PER PROTOCOL Percocet 10-325 Mg Tablet (Oxycodone/Acetaminophen) 1 Each Tablet 1 Tab PO Q4 -6HRS PRN Miralax (Polyethylene Glycol 3350) 17 Gm Powd.pack 1 Packet PO DAILY Xanax (Alprazolam) 0.5 Mg Tablet 1 Tab PO TID PRN Vitals/I & O Vital Sign - Last 24 Hours 12/14/18 12/14/18 12/14/18 12/14/18 16:00 16:00 19:00 19:03 Temp 97.9 98.1 97.9 98.1 Pulse 90 89 Resp 26 26 18 B/P (MAP) 143/80 (101) 147/68 (94) 140/66 (90) Pulse Ox 94 96 94 O2 Delivery Nasal Cannula Nasal Cannula Nasal Cannula Nasal Cannula O2 Flow Rate 3.0 4.0 3.0 3.0 12/14/18 12/14/18 12/15/18 12/15/18 19:30 22:35 02:57 07:10 Temp 98.8 98.8 97.7 98.8 98.8 97.7 Pulse 95 80 90 Resp 18 18 24 B/P (MAP) 158/77 (104) 139/70 (93) 151/72 (98) Pulse Ox 90 92 95 O2 Delivery Nasal Cannula Nasal Cannula Nasal Cannula Nasal Cannula O2 Flow Rate 4.0 3.0 3.0 2.0 12/15/18 12/15/18 08:00 11:45 Temp 97.8 97.8 Pulse 97 Resp 30 B/P (MAP) 155/68 (97) Pulse Ox 93 O2 Delivery Nasal Cannula Nasal Cannula O2 Flow Rate 2.0 2.0 Intake and Output 12/14/18 12/14/18 12/15/18 15:00 23:00 07:00 Intake Total 520 ml 2350 ml Output Total 450 ml 250 ml Balance 70 ml 2100 ml Nutrition Consultation Dietary Evaluation: Recommendations by RD: Increase Calorie Intake Comments: REC initiation of nutrition within 24 hrs of intubation If unable to feed gut, recommend TPN per followin g dextrose, 60 g AA, 0 g lipids (hold lipids due to propofol infusion) If terrence to feed gut, recommend TF per following: VitalHP@10 ml/hr, increase 10 ml q8 hrs as tolerated to goal rate 25 ml/hr w/100 ml water flushes q4 hrs Expected Outcomes/Goals: Initiation of nutrition within 24 hrs of intubation - not met, goal ongoing Malnutrition Findings: Weight Status: Underweight TARAN CID MD Dec 15, 2018 13:11
--- NOTE | 2018-12-15 13:15 | PDOC ---
Infectious Disease Note Subjective Subjective Transferred to med-surg floor Feeling alright, having some pain about colostomy Hopes to go home tomorrow. No fevers last 48 hours Denies SOA/N/V ROS ROS per HPI Vital Sign Vital Signs Vital Signs Date Time Temp Pulse Resp B/P (MAP) Pulse Ox O2 Delivery O2 Flow Rate FiO2 12/15/18 11:45 97.8 97 30 155/68 (97) 93 Nasal Cannula 2.0 97.8 Physical Exam PHYSICAL EXAM GENERAL: Propped up in bed, alert, eating LUNGS: Improved aeration - + rhonchi HEART: S1, S2, irregular ABDOMEN: Soft, nontender, ostomy GENITOURINARY: Lance out EXTREMITIES: No edema, no cyanosis. DERMATOLOGIC: Warm, dry, no generalized rash. LIBRARIAN HEAD: ALert and responds appropriately RIJ and Port-A-Cath site looks okay. PIV Labs Lab Laboratory Tests Test 12/15/18 04:40 12/15/18 09:45 White Blood Count 6.2 x10^3/uL (4.0-11.0) Red Blood Count 3.73 x10^6/uL (3.50-5.40) Hemoglobin 9.8 g/dL (12.0-15.5) Hematocrit 29.4 % (36.0-47.0) Mean Corpuscular Volume 79 fL (79-100) Mean Corpuscular Hemoglobin 26 pg (25-35) Mean Corpuscular Hemoglobin Concent 33 g/dL (31-37) Red Cell Distribution Width 20.1 % (11.5-14.5) Platelet Count 273 x10^3/uL (140-400) Sodium Level 138 mmol/L (136-145) 136 mmol/L (136-145) Potassium Level 2.6 mmol/L (3.5-5.1) 3.2 mmol/L (3.5-5.1) Chloride Level 101 mmol/L (98-107) 99 mmol/L (98-107) Carbon Dioxide Level 26 mmol/L (21-32) 26 mmol/L (21-32) Anion Gap 11 (6-14) 11 (6-14) Blood Urea Nitrogen 8 mg/dL (7-20) 8 mg/dL (7-20) Creatinine 0.4 mg/dL (0.6-1.0) 0.6 mg/dL (0.6-1.0) Estimated GFR (Cockcroft-Gault) 155.2 97.2 Glucose Level 97 mg/dL (70-99) 191 mg/dL (70-99) Calcium Level 8.0 mg/dL (8.5-10.1) 8.1 mg/dL (8.5-10.1) Micro 12/12/18 Blood Culture - Preliminary, Resulted NO GROWTH AFTER 3 DAYS Objective Assessment Acute respiratory failure.Could be from underling COPD, pulm vs other. Influenza neg Anemia s/p PRBCs Leukopenia, on Chemo, improved H/o PENICILLIN ALLERGY, unknown reaction, tolerated ceftriaxone well at [facility]. H/o recurrent squamous cell carcinoma, on palliative chemo w/ carboplatin and Taxol Chronic obstructive pulmonary disease. History of smoking. Possible gastrointestinal bleed. Plan Plan of Care Zyvox (12/12) Cefepime (12/12) BC NGTD Supportive care D/w nursing Attending Co-Sign Attending Co-Sign The patient was seen and interviewed as well as examined at the bedside. The chart was reviewed. The case was discussed. Agree with the plan of care. DC JACKSON APRN Dec 15, 2018 13:15 ABBIE STEWART MD Dec 15, 2018 15:28
--- NOTE | 2018-12-15 13:51 | NUR ---
0930 IV fluids non-administered r/t previous bag still running.
--- NOTE | 2018-12-15 13:52 | NUR ---
0630 potassium missed r/t shift supervisor film processing nurse and pt. stating that the night nurse gave this medication at 0700 but did not scan.
[2018-12-15 15:00] VITALS: BP 146/71
[2018-12-15 19:00] VITALS: BP 162/85
--- NOTE | 2018-12-15 19:30 | PN ---
DATE: 12/15/2018 SUBJECTIVE: The patient is resting slightly propped up in bed, no apparent distress. She is awake, alert. On questioning her, denied any complaint. Nursing staff was concerned that her potassium is low, in fact is lower than yesterday. Yesterday it was 2.9. She was supposed to have electrolyte replacement protocol in the ICU, but it was not done and potassium is lower now to 2.6. OBJECTIVE: GENERAL: When I examined her, she was pale, but no jaundice, cyanosis, or thyromegaly. No jugular venous distension. No limb edema. VITAL SIGNS: Her heart rate was 90, blood pressure 151/72, temperature was 97.7, respiratory rate was 24, and oxygen saturation was 95% on 2 liters of oxygen. Rest of the examination stable. INS AND OUTS: Her intake over the last 24 hours was 2600, output was 1550. LABORATORY DATA: Her serum sodium was 138, potassium 2.6, chloride 101, bicarbonate 26, anion gap of 11, BUN 8, creatinine 0.4, estimated GFR was 155 mL per minute. Her glucose was 97, calcium was 8. Her white cell count was 6200, hemoglobin 9.8, hematocrit 29, MCV 79 and platelet count 273,000. So far, her blood cultures are negative. ASSESSMENT: 1. Acute hypoxic respiratory failure, likely due to community-acquired pneumonia for which she was intubated and mechanically ventilated. She was successfully extubated. 2. Anal cancer, status post surgery, radiation, and now undergoing chemotherapy, currently stage 4. 3. Elevated D-dimer; however, CT angio of the chest was negative for pulmonary emboli. 4. Acute gastrointestinal bleeding related to heparin. She has received 2 units of packed red blood cells. 5. Leukopenia. This is improving. 6. The patient is known to have chronic obstructive pulmonary disease. 7. Hypokalemia is actually worse this morning with potassium . PLAN: To continue with IV antibiotic. We will replenish her potassium and continue with physical and occupational therapy, and decide on further management tomorrow. KELLI JOHNSON MD DR: ASTER/jeremy JOB#: [id number] / [id number]
[2018-12-15 21:28] LABS: FECAL OB PT NEGATIVE (NEG)
[2018-12-15] MEDS ORDERED: IPRATRPIUM/ALBUTEROL 0.5/2.5MG 3 ML NEBU. ONE (22:58)
[2018-12-15] MEDS ORDERED: ALBUTEROL SULFATE 2.5 MG/3 ML NEBU. NEB ONE (23:00)
[2018-12-15] MEDS: ACETAMINOPHEN 325 MG TABLET. PO PRN (23:14)
[2018-12-15] MEDS: ALPRAZolam 0.5 MG TABLET PO PRN (23:14)
[2018-12-15] MEDS ORDERED: FUROSEMIDE 40 MG/4 ML VIAL. IVP ONE (23:15)
[2018-12-15 23:21] LABS: BASE EXCESS ABG -6 mmol/L (-3-3); HCO3 ABG 22 mmol/L (21-28); PCO2 ABG 53 mmHg (35-46); PO2 ABG 69 mmHg (65-108); SAT O2 ABG 90 % (92-99)
[2018-12-15 23:22] LABS: FIO2 ABG 100
[2018-12-15 23:45] VITALS: BP 199/94
[2018-12-16] VITALS (26 sets, daily range): BP systolic 114–167; BP diastolic 68–95
--- NOTE | 2018-12-16 01:12 | NUR ---
Pt transferred to ICU via bed. Pt currently on non rebreather and transferred to ICU bed and connected to monitor. Report received at bedside, current vitals are O2 saturation 80, HR at 136 and BP 199/94. Pt was then connected to the BIPAP machine. Vital signs improving O2 sat is 91, HR is 114, BP is 115/69. Pt currently stable, will continue to monitor.
--- NOTE | 2018-12-16 01:19 | NUR ---
Arrived on unit, rapid response called due to respiratory distress. Patient SPO2 was 77% on 3L NC, very anxious, with wheezes and coarse lung sounds throughout. Patient placed on non-rebreather. ABG was drawn and breathing treatment given. Dr. Hall notified, received orders. Dr. Uriarte notified of ABG results, orders received to place on BiPAP and transfer to ICU. Patient's son notified by nurse from 5N. Addendum: 12/16/18 at 0121 by JADE OWENS RN Amended: Links added.
[2018-12-16] MEDS: IV RINGERS,LACTATED 1000ML 1,000 ML IV SCH ×2 (04:47→15:04)
[2018-12-16 05:58] LABS: CALCIUM 7.9 mg/dL (8.5-10.1); CREATININE 0.6 mg/dL (0.6-1.0); GFR 97.2
--- NOTE | 2018-12-16 07:02 | PDOC ---
Infectious Disease Note Subjective Subjective Transferred ICU after rapid response for resp failure On Bipap and s/p Lasix Arousable ROS ROS no obtainable now Vital Sign Vital Signs Vital Signs Date Time Temp Pulse Resp B/P (MAP) Pulse Ox O2 Delivery O2 Flow Rate FiO2 12/16/18 06:00 75 19 140/78 (98) 97 BiPAP/CPAP 12/16/18 04:00 97.2 97.2 12/15/18 23:45 15.0 Physical Exam PHYSICAL EXAM GENERAL: NAD on bipap LUNGS: mild rhonchi HEART: S1, S2, irregular ABDOMEN: Soft, nontender, ostomy GENITOURINARY: Lance out EXTREMITIES: No edema, no cyanosis. DERMATOLOGIC: Warm, dry, no generalized rash. UPPER CASER: Arousable RIJ and Port-A-Cath site looks okay. PIV - RUE Labs Lab Laboratory Tests Test 12/15/18 09:45 12/15/18 22:55 12/16/18 04:00 Sodium Level 136 mmol/L (136-145) 135 mmol/L (136-145) Potassium Level 3.2 mmol/L (3.5-5.1) 4.0 mmol/L (3.5-5.1) Chloride Level 99 mmol/L (98-107) 97 mmol/L (98-107) Carbon Dioxide Level 26 mmol/L (21-32) 28 mmol/L (21-32) Anion Gap 11 (6-14) 10 (6-14) Blood Urea Nitrogen 8 mg/dL (7-20) 7 mg/dL (7-20) Creatinine 0.6 mg/dL (0.6-1.0) 0.6 mg/dL (0.6-1.0) Estimated GFR (Cockcroft-Gault) 97.2 97.2 Glucose Level 191 mg/dL (70-99) 142 mg/dL (70-99) Calcium Level 8.1 mg/dL (8.5-10.1) 7.9 mg/dL (8.5-10.1) O2 Saturation 90 % (92-99) Arterial Blood pH 7.23 (7.35-7.45) Arterial Blood pCO2 at Patient Temp 53 mmHg (35-46) Arterial Blood pO2 at Patient Temp 69 mmHg (65-108) Arterial Blood HCO3 22 mmol/L (21-28) Arterial Blood Base Excess -6 mmol/L (-3-3) FiO2 100 Micro Microbiology 12/12/18 Blood Culture - Preliminary, Resulted NO GROWTH AFTER 4 DAYS Objective Assessment Acute respiratory failure now on Bipap.Could be from fluid, underling COPD, pulm vs other. Influenza neg remains AF Anemia s/p recent PRBCs Leukopenia, on Chemo, improved H/o PENICILLIN ALLERGY, unknown reaction, tolerated ceftriaxone well at [facility]. H/o recurrent squamous cell carcinoma, on palliative chemo w/ carboplatin and Taxol Chronic obstructive pulmonary disease. History of smoking. Possible gastrointestinal bleed. Plan Plan of Care CBC this am and labs in am Cont Zyvox (12/12)/Cefepime (12/12) BC NGTD Supportive care D/w nursing ABBIE STEWART MD Dec 16, 2018 07:02
[2018-12-16 08:18] LABS: BASE EXCESS ABG 4 mmol/L (-3-3); HCO3 ABG 28 mmol/L (21-28); PCO2 ABG 39 mmHg (35-46); PO2 ABG 77 mmHg (65-108); SAT O2 ABG 96 % (92-99)
[2018-12-16 08:26] LABS: FIO2 ABG 40
[2018-12-16 09:02] LABS: BASO % 0 % (0-3); EOS % 0 % (0-3); HEMATOCRIT 29.9 % (36.0-47.0); HEMOGLOBIN 9.7 g/dL (12.0-15.5); LYMPH # 1.3 x10^3/uL (1.0-4.8); LYMPH % 15 % (24-48); MEAN CORPUSCULAR HEMOGLOBIN 26 pg (25-35); MEAN CORPUSCULAR HGB CONC 33 g/dL (31-37); MEAN CORPUSCULAR VOLUME 80 fL (79-100); MONO # 0.3 x10^3/uL (0.0-1.1); MONO % 4 % (0-9); NEUT % 81 % (31-73); PLATELET COUNT 234 x10^3/uL (140-400); RED BLOOD COUNT 3.75 x10^6/uL (3.50-5.40); RED CELL DISTRIBUTION WIDTH 20.4 % (11.5-14.5); WHITE BLOOD COUNT 8.7 x10^3/uL (4.0-11.0)
[2018-12-16] MEDS: PANTOPRAZOLE IV PUSH 40 MG VIAL. IVP SCH (09:04)
[2018-12-16] MEDS: CEFEPIME HCL IV Push 2 GM VIAL. IVP SCH ×2 (09:04→20:50)
--- NOTE | 2018-12-16 09:19 | PDOC ---
PULMONARY PROGRESS NOTES Subjective EXTUBATED 12/13 DOING WELL NOT MORE SOA Vitals Vital Signs Date Time Temp Pulse Resp B/P (MAP) Pulse Ox O2 Delivery O2 Flow Rate FiO2 12/16/18 08:00 71 19 128/70 (89) 100 BiPAP/CPAP 15.0 12/16/18 07:15 97.2 97.2 General: Alert, No acute distress Lungs: Clear Cardiovascular: S1, S2 Abdomen: Soft Neuro Exam: Alert Extremities: No Edema Skin: Warm Labs Laboratory Tests Test 12/14/18 23:55 12/15/18 04:40 12/15/18 09:45 12/15/18 22:55 Stool Occult Blood Negative (NEG) White Blood Count 6.2 x10^3/uL (4.0-11.0) Red Blood Count 3.73 x10^6/uL (3.50-5.40) Hemoglobin 9.8 g/dL (12.0-15.5) Hematocrit 29.4 % (36.0-47.0) Mean Corpuscular Volume 79 fL (79-100) Mean Corpuscular Hemoglobin 26 pg (25-35) Mean Corpuscular Hemoglobin Concent 33 g/dL (31-37) Red Cell Distribution Width 20.1 % (11.5-14.5) Platelet Count 273 x10^3/uL (140-400) Sodium Level 138 mmol/L (136-145) 136 mmol/L (136-145) Potassium Level 2.6 mmol/L (3.5-5.1) 3.2 mmol/L (3.5-5.1) Chloride Level 101 mmol/L (98-107) 99 mmol/L (98-107) Carbon Dioxide Level 26 mmol/L (21-32) 26 mmol/L (21-32) Anion Gap 11 (6-14) 11 (6-14) Blood Urea Nitrogen 8 mg/dL (7-20) 8 mg/dL (7-20) Creatinine 0.4 mg/dL (0.6-1.0) 0.6 mg/dL (0.6-1.0) Estimated GFR (Cockcroft-Gault) 155.2 97.2 Glucose Level 97 mg/dL (70-99) 191 mg/dL (70-99) Calcium Level 8.0 mg/dL (8.5-10.1) 8.1 mg/dL (8.5-10.1) O2 Saturation 90 % (92-99) Arterial Blood pH 7.23 (7.35-7.45) Arterial Blood pCO2 at Patient Temp 53 mmHg (35-46) Arterial Blood pO2 at Patient Temp 69 mmHg (65-108) Arterial Blood HCO3 22 mmol/L (21-28) Arterial Blood Base Excess -6 mmol/L (-3-3) FiO2 100 Test 12/16/18 04:00 12/16/18 05:00 12/16/18 08:00 12/16/18 08:34 Sodium Level 135 mmol/L (136-145) Potassium Level 4.0 mmol/L (3.5-5.1) Chloride Level 97 mmol/L (98-107) Carbon Dioxide Level 28 mmol/L (21-32) Anion Gap 10 (6-14) Blood Urea Nitrogen 7 mg/dL (7-20) Creatinine 0.6 mg/dL (0.6-1.0) Estimated GFR (Cockcroft-Gault) 97.2 Glucose Level 142 mg/dL (70-99) Calcium Level 7.9 mg/dL (8.5-10.1) Troponin I Quantitative 0.106 ng/mL (0.000-0.055) 0.131 ng/mL (0.000-0.055) O2 Saturation 96 % (92-99) Arterial Blood pH 7.48 (7.35-7.45) Arterial Blood pCO2 at Patient Temp 39 mmHg (35-46) Arterial Blood pO2 at Patient Temp 77 mmHg (65-108) Arterial Blood HCO3 28 mmol/L (21-28) Arterial Blood Base Excess 4 mmol/L (-3-3) FiO2 40 White Blood Count 8.7 x10^3/uL (4.0-11.0) Red Blood Count 3.75 x10^6/uL (3.50-5.40) Hemoglobin 9.7 g/dL (12.0-15.5) Hematocrit 29.9 % (36.0-47.0) Mean Corpuscular Volume 80 fL (79-100) Mean Corpuscular Hemoglobin 26 pg (25-35) Mean Corpuscular Hemoglobin Concent 33 g/dL (31-37) Red Cell Distribution Width 20.4 % (11.5-14.5) Platelet Count 234 x10^3/uL (140-400) Neutrophils (%) (Auto) 81 % (31-73) Lymphocytes (%) (Auto) 15 % (24-48) Monocytes (%) (Auto) 4 % (0-9) Eosinophils (%) (Auto) 0 % (0-3) Basophils (%) (Auto) 0 % (0-3) Neutrophils # (Auto) 7.0 x10^3uL (1.8-7.7) Lymphocytes # (Auto) 1.3 x10^3/uL (1.0-4.8) Monocytes # (Auto) 0.3 x10^3/uL (0.0-1.1) Eosinophils # (Auto) 0.0 x10^3/uL (0.0-0.7) Basophils # (Auto) 0.0 x10^3/uL (0.0-0.2) Laboratory Tests Test 12/15/18 09:45 12/15/18 22:55 12/16/18 04:00 12/16/18 05:00 Sodium Level 136 mmol/L (136-145) 135 mmol/L (136-145) Potassium Level 3.2 mmol/L (3.5-5.1) 4.0 mmol/L (3.5-5.1) Chloride Level 99 mmol/L (98-107) 97 mmol/L (98-107) Carbon Dioxide Level 26 mmol/L (21-32) 28 mmol/L (21-32) Anion Gap 11 (6-14) 10 (6-14) Blood Urea Nitrogen 8 mg/dL (7-20) 7 mg/dL (7-20) Creatinine 0.6 mg/dL (0.6-1.0) 0.6 mg/dL (0.6-1.0) Estimated GFR (Cockcroft-Gault) 97.2 97.2 Glucose Level 191 mg/dL (70-99) 142 mg/dL (70-99) Calcium Level 8.1 mg/dL (8.5-10.1) 7.9 mg/dL (8.5-10.1) O2 Saturation 90 % (92-99) Arterial Blood pH 7.23 (7.35-7.45) Arterial Blood pCO2 at Patient Temp 53 mmHg (35-46) Arterial Blood pO2 at Patient Temp 69 mmHg (65-108) Arterial Blood HCO3 22 mmol/L (21-28) Arterial Blood Base Excess -6 mmol/L (-3-3) FiO2 100 Troponin I Quantitative 0.106 ng/mL (0.000-0.055) Test 12/16/18 08:00 12/16/18 08:34 O2 Saturation 96 % (92-99) Arterial Blood pH 7.48 (7.35-7.45) Arterial Blood pCO2 at Patient Temp 39 mmHg (35-46) Arterial Blood pO2 at Patient Temp 77 mmHg (65-108) Arterial Blood HCO3 28 mmol/L (21-28) Arterial Blood Base Excess 4 mmol/L (-3-3) FiO2 40 White Blood Count 8.7 x10^3/uL (4.0-11.0) Red Blood Count 3.75 x10^6/uL (3.50-5.40) Hemoglobin 9.7 g/dL (12.0-15.5) Hematocrit 29.9 % (36.0-47.0) Mean Corpuscular Volume 80 fL (79-100) Mean Corpuscular Hemoglobin 26 pg (25-35) Mean Corpuscular Hemoglobin Concent 33 g/dL (31-37) Red Cell Distribution Width 20.4 % (11.5-14.5) Platelet Count 234 x10^3/uL (140-400) Neutrophils (%) (Auto) 81 % (31-73) Lymphocytes (%) (Auto) 15 % (24-48) Monocytes (%) (Auto) 4 % (0-9) Eosinophils (%) (Auto) 0 % (0-3) Basophils (%) (Auto) 0 % (0-3) Neutrophils # (Auto) 7.0 x10^3uL (1.8-7.7) Lymphocytes # (Auto) 1.3 x10^3/uL (1.0-4.8) Monocytes # (Auto) 0.3 x10^3/uL (0.0-1.1) Eosinophils # (Auto) 0.0 x10^3/uL (0.0-0.7) Basophils # (Auto) 0.0 x10^3/uL (0.0-0.2) Troponin I Quantitative 0.131 ng/mL (0.000-0.055) Medications Active Scripts Medications Dose Route/Sig Max Daily Dose Days Date Category Opdivo (Nivolumab) 40 Mg/4 Ml Vial 40 Mg IV PER PROTOCOL 07/25/18 Reported Percocet 10-325 Mg Tablet (Oxycodone/Acetaminophen) 1 Each Tablet 1 Tab PO Q4-6HRS PRN 04/22/18 Reported Miralax (Polyethylene Glycol 3350) 17 Gm Powd.pack 1 Packet PO DAILY 04/19/18 Reported Xanax (Alprazolam) 0.5 Mg Tablet 1 Tab PO TID PRN 03/23/17 Reported Comments cxr 12/13 sig improvement in bilateral infiltrates Impression . 1. Acute hypoxic respiratory failure secondary to diffuse lung infiltrate 2. The patient with stage IV anal cancer, status post surgery and radiation and now undergoing palliative chemo. 3. Abnormal D-dimer, which is a nonspecific test and can be seen in many other conditions including malignancy. No evidence of pulmonary embolism. 4. Acute gastrointestinal bleed related to heparin. Hemoglobin went down to 5.7, s/p packed red blood cells.Hb stable 5. Leukopenia, likely related to infectious etiology versus bone marrow suppression by chemo. 6. Underlying chronic obstructive pulmonary disease. Plan . 02 TRANSFER OUT OF ICU FOLLOW SPEECH 1. Continue with present nasal canula 2. Status post packed RBCs. Follow hemoglobin, so far stable 3. Continue current antibiotics. 4. speech eval 5. Follow GI recommendations. 6. Follow Oncology recommendations. 7. No further anticoagulation. 8. de-escalate Abx per RED KINCAID MD Dec 16, 2018 09:19
--- NOTE | 2018-12-16 09:32 | PDOC ---
Objective: Objective: Reviewed w/ RN - NPO w/ pulm issues, no bleeding. Vital Signs: Vital Signs Date Time Temp Pulse Resp B/P (MAP) Pulse Ox O2 Delivery O2 Flow Rate FiO2 12/16/18 08:00 71 19 128/70 (89) 100 BiPAP/CPAP 15.0 12/16/18 07:15 97.2 97.2 Labs: Laboratory Tests Test 12/15/18 09:45 12/15/18 22:55 12/16/18 04:00 12/16/18 05:00 Sodium Level 136 mmol/L 135 mmol/L Potassium Level 3.2 mmol/L 4.0 mmol/L Chloride Level 99 mmol/L 97 mmol/L Carbon Dioxide Level 26 mmol/L 28 mmol/L Anion Gap 11 10 Blood Urea Nitrogen 8 mg/dL 7 mg/dL Creatinine 0.6 mg/dL 0.6 mg/dL Estimated GFR (Cockcroft-Gault) 97.2 97.2 Glucose Level 191 mg/dL 142 mg/dL Calcium Level 8.1 mg/dL 7.9 mg/dL O2 Saturation 90 % Arterial Blood pH 7.23 Arterial Blood pCO2 at Patient Temp 53 mmHg Arterial Blood pO2 at Patient Temp 69 mmHg Arterial Blood HCO3 22 mmol/L Arterial Blood Base Excess -6 mmol/L FiO2 100 Troponin I Quantitative 0.106 ng/mL Test 12/16/18 08:00 12/16/18 08:34 O2 Saturation 96 % Arterial Blood pH 7.48 Arterial Blood pCO2 at Patient Temp 39 mmHg Arterial Blood pO2 at Patient Temp 77 mmHg Arterial Blood HCO3 28 mmol/L Arterial Blood Base Excess 4 mmol/L FiO2 40 White Blood Count 8.7 x10^3/uL Red Blood Count 3.75 x10^6/uL Hemoglobin 9.7 g/dL Hematocrit 29.9 % Mean Corpuscular Volume 80 fL Mean Corpuscular Hemoglobin 26 pg Mean Corpuscular Hemoglobin Concent 33 g/dL Red Cell Distribution Width 20.4 % Platelet Count 234 x10^3/uL Neutrophils (%) (Auto) 81 % Lymphocytes (%) (Auto) 15 % Monocytes (%) (Auto) 4 % Eosinophils (%) (Auto) 0 % Basophils (%) (Auto) 0 % Neutrophils # (Auto) 7.0 x10^3uL Lymphocytes # (Auto) 1.3 x10^3/uL Monocytes # (Auto) 0.3 x10^3/uL Eosinophils # (Auto) 0.0 x10^3/uL Basophils # (Auto) 0.0 x10^3/uL Troponin I Quantitative 0.131 ng/mL Imaging: Bedside Swallow Evaluation Completed. Please refer to full report for additional information. Impressions: Functional swallow and no s/s aspiration noted throughout evaluation w/ trials of thin and thick liquids, puree and soft solids. Pt w/ cough prior to and after PO trials and 1x during PO trials that did not appear r/t swallow. Pt's voice remained clear throughout evaluation. Pt reports increased SOA w/ prolonged chewing and eating/drinking. Pt appears at low risk of aspiration w modified diet, rest breaks and general swallow precautions. Recommendations: Dysphagia II diet and thin liquids. Take a few bites/drinks then take a break. General swallow precautions. PE: GEN: NAD LUNGS: BiPAP HEART: RRR ABD: NABS, S/ND/NT, LLQ ostomy NEURO/PSYCH: sleeping A/P: Resp failure Recurrent SCC of anus Chronic anemia - improved/stable Elevated troponin - plans for EKG -- Stable GI-andrews, continue PPI. FILEMON PEREZ Dec 16, 2018 09:32
--- NOTE | 2018-12-16 09:59 | PDOC2 ---
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 Hall SOURCE Source: Chart review, Patient HISTORY OF PRESENT ILLNESS HISTORY OF PRESENT ILLNESS This is a 77 yo female who initially presented to [facility] secondary to cold/congestion x 1 week. 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 Is currently receiving palliative chemo. Was more SOA yesterday requiring bipap, which prompted this consult. Patient better today and off BiPAP. No dizziness, chest pain, palpitations, diaphoresis, or LE edema. PAST MEDICAL HISTORY Cardiovascular: No pertinent hx Heme/Onc: Cancer (anal ) Psych: Anxiety, Depression Rheumatologic: Rheumatoid arthritis PAST SURGICAL HISTORY Past Surgical History: Tubal Ligation, Tonsillectomy, Other (Rectal surgery, ostomy.) FAMILY HISTORY Family History: Cancer (breast- sister) SOCIAL HISTORY Smoke: 1 pack per day ALCOHOL: none Drugs: None Lives: with Family CURRENT MEDICATIONS CURRENT MEDICATIONS Current Medications Medications (Trade) Dose Ordered Sig/Cristian Route PRN Reason Start Time Stop Time Status Last Admin Dose Admin Furosemide (Lasix) 40 mg 1X ONCE IVP 12/15/18 23:15 12/15/18 23:16 DC 12/15/18 23:14 Acetaminophen (Tylenol) 650 mg PRN Q6HRS PRN PO MILD PAIN / TEMP 12/15/18 23:00 12/15/18 23:14 Alprazolam (Xanax) 0.5 mg PRN TID PRN PO ANXIETY / AGITATION 12/15/18 23:15 12/15/18 23:14 ALLERGIES ALLERGIES: Coded Allergies: Penicillins (Verified Adverse Reaction, Mild, yeast infection, 04/22/18) ROS Review of System 14 point ROS conducted with pertinent positives noted above in HPI. PHYSICAL EXAM General: Alert, Oriented X3, Cooperative, Other (appears fatigued ) HEENT: Atraumatic, Mucous membr. moist/pink Lungs: Other (dimininshed throughout ) Heart: Regular rate, Normal S1, Normal S2 Abdomen: Soft, No tenderness Extremities: No edema, Normal pulses Skin: No significant lesion Neuro: Normal speech, Sensation intact Psych/Mental Status: Mental status NL MUSCULOSKELETAL: Osteoarthritic changes both hands VITALS VITALS Vital Signs Date Time Temp Pulse Resp B/P (MAP) Pulse Ox O2 Delivery O2 Flow Rate FiO2 12/16/18 08:00 71 19 128/70 (89) 100 BiPAP/CPAP 15.0 12/16/18 07:15 97.2 97.2 LABS Lab: Laboratory Tests Test 12/15/18 22:55 12/16/18 04:00 12/16/18 05:00 12/16/18 08:00 O2 Saturation 90 % (92-99) 96 % (92-99) Arterial Blood pH 7.23 (7.35-7.45) 7.48 (7.35-7.45) Arterial Blood pCO2 at Patient Temp 53 mmHg (35-46) 39 mmHg (35-46) Arterial Blood pO2 at Patient Temp 69 mmHg (65-108) 77 mmHg (65-108) Arterial Blood HCO3 22 mmol/L (21-28) 28 mmol/L (21-28) Arterial Blood Base Excess -6 mmol/L (-3-3) 4 mmol/L (-3-3) FiO2 100 40 Sodium Level 135 mmol/L (136-145) Potassium Level 4.0 mmol/L (3.5-5.1) Chloride Level 97 mmol/L (98-107) Carbon Dioxide Level 28 mmol/L (21-32) Anion Gap 10 (6-14) Blood Urea Nitrogen 7 mg/dL (7-20) Creatinine 0.6 mg/dL (0.6-1.0) Estimated GFR (Cockcroft-Gault) 97.2 Glucose Level 142 mg/dL (70-99) Calcium Level 7.9 mg/dL (8.5-10.1) Troponin I Quantitative 0.106 ng/mL (0.000-0.055) Test 12/16/18 08:34 White Blood Count 8.7 x10^3/uL (4.0-11.0) Red Blood Count 3.75 x10^6/uL (3.50-5.40) Hemoglobin 9.7 g/dL (12.0-15.5) Hematocrit 29.9 % (36.0-47.0) Mean Corpuscular Volume 80 fL (79-100) Mean Corpuscular Hemoglobin 26 pg (25-35) Mean Corpuscular Hemoglobin Concent 33 g/dL (31-37) Red Cell Distribution Width 20.4 % (11.5-14.5) Platelet Count 234 x10^3/uL (140-400) Neutrophils (%) (Auto) 81 % (31-73) Lymphocytes (%) (Auto) 15 % (24-48) Monocytes (%) (Auto) 4 % (0-9) Eosinophils (%) (Auto) 0 % (0-3) Basophils (%) (Auto) 0 % (0-3) Neutrophils # (Auto) 7.0 x10^3uL (1.8-7.7) Lymphocytes # (Auto) 1.3 x10^3/uL (1.0-4.8) Monocytes # (Auto) 0.3 x10^3/uL (0.0-1.1) Eosinophils # (Auto) 0.0 x10^3/uL (0.0-0.7) Basophils # (Auto) 0.0 x10^3/uL (0.0-0.2) Troponin I Quantitative 0.131 ng/mL (0.000-0.055) ECHOCARDIOGRAM ECHOCARDIOGRAM <Conclusion> The left ventricle is normal size. The left ventricular systolic function is normal and the ejection fraction is within normal range. The Ejection Fraction is 60-65%. There is no significant aortic valvular stenosis. Doppler and Color Flow revealed no significant aortic regurgitation. Doppler and Color-flow revealed moderate mitral regurgitation. Doppler and Color Flow revealed mild tricuspid regurgitation. The PA pressure was estimated at 44 mmHg. DATE: 12/16/18 1405 ASSESSMENT/PLAN ASSESSMENT/PLAN 1. Acute respiratory failure with underlying infiltrate. s/p extubation 12/13. Require BiPAP overnight 2. Elevated troponin; peak 0.131. Most probably type II, demand ischemia. Echo with preserved LV systolic function. 3. Mild acute diastolic HF; received IV Lasix x1 4. Anemia; s/p transfusion. GI bleeding on heparin at [facility]. on PPI 5. Stage IV anal cancer with bone metastasis; s/p surgery and radiation and now with palliative chemo 6. Hypokalemia Recommendations Lasix PRN Palliative care to see given advance CA with metastasis, frailty and is full code Supportive care ALMAS DOBSON MD 12/16/18 7110: CARDIAC CONSULT ASSESSMENT/PLAN ASSESSMENT/PLAN Pt. seen and examined. Agree with above MEAT TEAM LEAD note. Flash pulm edema likely related to diastolic HF. Cannot rule out ischemia but EF normal. Given anemia, would not pursue invasive cardiac testing. Continue lasix as BP allows. Clinically, not in overt heart failure. Goals of care discussion. Thanks. AMPARO GARCIA APRN Dec 16, 2018 09:59 ALMAS DOBSON MD Dec 16, 2018 17:24
[2018-12-16] MEDS: OXYBUTYNIN CHLORIDE 5 MG TABLET PO SCH ×2 (10:04→21:05)
[2018-12-16] MEDS: NICOTINE 21MG PATCH. TD SCH (10:05)
--- NOTE | 2018-12-16 10:44 | NUR ---
Troponin trending up, cardiology INDIVIDUAL PENSION ADVISER aware.
--- NOTE | 2018-12-16 12:00 | RAD ---
Portable chest x-ray compared to similar study dated December 13, 2018 for respiratory distress. FINDINGS: The enteric tube and endotracheal tubes have been removed. Right IJ central line and left chest Port-A-Cath are unchanged. There is severe interval progression of bilateral airspace opacities concerning for progressive pulmonary pneumonic infiltrate. Left basilar effusion is likely present as well. Heart size is unchanged. IMPRESSION: 1. Markedly worsening bilateral airspace disease with dense perihilar consolidation. Findings suggest fulminant pneumonic infiltrate. 2. Lines and tubes as described. Electronically signed by: Reinier Mace MD (12/16/2018 11:58 AM) [id number]
--- NOTE | 2018-12-16 12:56 | PDOC2 ---
PALLIATIVE CARE Palliative Care Note Palliative Care Consult requested by Dr. Leos to address goals of care. Medical Assessment per medical record; Respiratory Failure--pneumonia; Extubated 12/13; COPD; Stage IV anal cancer with mets to bone--post radiation therapy, chemotherapy started recently; anemia, leukocytosis; Elevated troponin/HF; Acute GI Bleed secondary to Heparin. Anxiety/Depression. Albumin 1.7 Patient alert and oriented. She is able to accurately provide information about her medical condition. Patient lives with her son who works nights. States she has a Living Will. Discussed Code Status; Patient requests DNR/DNI. "don't want that tube down again, quality of life is more important to me" Will need more input from Dr. Willingham. Patient states she is willing to do more chemotherapy if it will help. Swallow evaluation; Dysphagia II diet. Speech here to re-evaluate. Plan;; DNR/DNI per patient request. Family meeting--will need more input from oncology Above reviewed with Deepthi CANO who will call for DNR/DNI order. 1700 Met with emanuel Goldstein. Reviewed medical condition. He is supportive of her decision for DNR/DNI. He will bring copy of Living Will tomorrow. Discussed discharge plan. Both patient and son are agreeable to SNU if recommended for strengthening and then be evaluated for chemotherapy. Ehret states he is not able to take off work. Will need some assistance at home if patient comes home. Will await additional information from Oncology. Son is not able answer phone while at work but he can be texted. . GOPI BUSCH Dec 16, 2018 12:56
--- NOTE | 2018-12-16 13:31 | EKG ---
[facility] [address] [place] [address] Test Date: 2018-12-16 Test Time: 13:23:12 Pat Name: SHENG WARD Department: Room: 104 1 Gender: F Cinder Block Maker: JUSTYNA : 1940 Requested By: KELLI JOHNSON Order Number: [id number] Reading MD: Measurements Intervals [place] Rate: 87 P: 70 MO: 134 QRS: -21 QRSD: 72 T: 13 QT: 370 QTc: 446 Interpretive Statements SINUS RHYTHM LEFT ATRIAL ABNORMALITY LEFTWARD AXIS QRS(T) CONTOUR ABNORMALITY CONSIDER ANTEROLATERAL MYOCARDIAL DAMAGE ABNORMAL ECG RI6.01 Unconfirmed report No previous ECG available for comparison
--- NOTE | 2018-12-16 14:05 | CARD ---
MR#: [id number] Date of Study: 12/16/2018 Ordering Physician: AMPARO GARCIA, Referring Physician: KELLI JOHNSON Tech: [place], [facility] APPROVED REPORT EXAM: Two-dimensional and M-mode echocardiogram with Doppler and color Doppler. Other Information Quality : AverageHR: 75bpm Rhythm : NSR INDICATION Shortness of breath 2D DIMENSIONS RVDd2.9 (2.9-3.5cm)Left Atrium(2D)3.9 (1.6-4.0cm) IVSd1.2 (0.7-1.1cm)Aortic Root(2D)2.7 (2.0-3.7cm) LVDd4.5 (3.9-5.9cm)LVOT Diameter1.9 (1.8-2.4cm) PWd0.8 (0.7-1.1cm)LVDs2.7 (2.5-4.0cm) FS (%) 40.5 %SV65.3 ml LVEF(%)70.0 (>50%) Aortic Valve AoV Peak John.134.8cm/sAoV VTI27.5cm AO Peak GR.7.3mmHgLVOT VTI 16.17cm AO Mean GR.4mmHgAVA (VTI)1.65cm2 Mitral Valve MV E Ekeguoza656.0cm/sMV E Peak Gr.119mmHg MV DECEL [id number] A Qbhxfdum238.0cm/s MV E Mean Gr.4mmHgE/A Ratio1.1 MV A [id number] TDI Lateral E' P. V6.69cm/sMedial E' P. V7.53cm/s E/Lateral E'19.9E/Medial E'17.7 Tricuspid Valve TR P. Shqyqfst666ls/sRAP [id number] TR Peak Gr.82gzKrOMMS91tcAz Pulmonary Vein S1 Ebyjhwab79.6cm/sS2 Wnpjfmkn12.62cm/s D2 Fsitlpdd13.6cm/sPVa zrpdzkup02tsfr LEFT VENTRICLE The left ventricle is normal size. There is normal left ventricular wall thickness. The left ventricu lar systolic function is normal and the ejection fraction is within normal range. The Ejection Fracti on is 60-65%. There is normal LV segmental wall motion. Transmitral Doppler flow pattern is Grade I-a bnormal relaxation pattern. RIGHT VENTRICLE The right ventricle is normal size. There is normal right ventricular wall thickness. The right ventr icular systolic function is normal. ATRIA The left atrium is mild to moderately dilated. The right atrium size is normal. The interatrial septu m is intact with no evidence for an atrial septal defect or patent foramen ovale as noted on 2-D or D oppler imaging. AORTIC VALVE The aortic valve is normal in structure and function. The aortic valve is trileaflet. Doppler and Col or Flow revealed no significant aortic regurgitation. There is no significant aortic valvular stenosi s. There is no aortic valvular vegetation. MITRAL VALVE The mitral valve is mildly thickened but opens well. There is no evidence of mitral valve prolapse. T here is no mitral valve stenosis. Doppler and Color-flow revealed moderate mitral regurgitation. TRICUSPID VALVE The tricuspid valve is normal in structure and function. Doppler and Color Flow revealed mild tricusp id regurgitation. The PA pressure was estimated at 44 mmHg. There is no tricuspid valve prolapse or v egetation. PULMONIC VALVE The pulmonic valve is not well visualized. GREAT VESSELS The aortic root is normal in size. The ascending aorta is normal in size. The IVC is normal in size a nd collapses >50% with inspiration. PERICARDIAL EFFUSION There is no evidence of significant pericardial effusion. Critical Notification Critical Value: No <Conclusion> The left ventricle is normal size. The left ventricular systolic function is normal and the ejection fraction is within normal range. The Ejection Fraction is 60-65%. There is no significant aortic valvular stenosis. Doppler and Color Flow revealed no significant aortic regurgitation. Doppler and Color-flow revealed moderate mitral regurgitation. Doppler and Color Flow revealed mild tricuspid regurgitation. The PA pressure was estimated at 44 mmHg. Signed by : Chip Infante MD Electronically Approved : 12/16/2018 14:05:10
[2018-12-16] MEDS: ACETAMINOPHEN 325 MG TABLET. PO PRN (15:02)
--- NOTE | 2018-12-16 16:42 | PDOC ---
PROGRESS NOTES Subjective Subjective Pt seen at 8.45 am 12/16/18 HPI -f/u of Stage IV, Recurrent anal carcinoma ROS - on BIPAP Objective Objective Vital Signs Date Time Temp Pulse Resp B/P (MAP) Pulse Ox O2 Delivery O2 Flow Rate FiO2 12/16/18 16:21 88 22 139/74 (95) 99 Nasal Cannula 5.0 12/16/18 12:07 97.9 97.9 Intake and Output 12/16/18 06:59 Intake Total 960 ml Output Total 400 ml Balance 560 ml Intake Oral 660 ml IV Total 300 ml Output Urine Total 400 ml # Voids 3 Physical Exam Heart: Normal S1, Normal S2 General: No acute distress Lungs: Clear to auscultation Assessment Assessment IMPRESSION AND PLAN: 1. Stage IV, Recurrent anal carcinoma with development of bone metastases and progressively worsening large presacral mass and bilateral hydronephrosis and a peritoneal implant near the colostomy site consistent with stage IV malignancy. She was started on palliative chemotherapy with carboplatin and Taxol on 12/02/2018. She has failed previous treatments. I will continue to monitor for toxicities. She will return for followup after the acute episode has resolved so we can resume treatment. If her functional status does not improve, then I would recommend hospice. Appreciate palliative care consult. 2. Acute respiratory failure thought to be due to pneumonia. I appreciate pulmonary consultation and management. Extubated 12/13/18. 3. 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 Hemoglobin is 5.7 on 12/12/2018, improved to 8.6 on 03/14/2019 after transfusion. Hb 8.6 on 12/13/18. Hb 9.7 on 12/16/18 4. Hydronephrosis, f/u with urology. Comment Review of Relevant I have reviewed the following items walt (where applicable) has been applied. Labs Laboratory Tests Test 12/14/18 23:55 12/15/18 04:40 12/15/18 09:45 12/15/18 20:55 Stool Occult Blood Negative (NEG) White Blood Count 6.2 x10^3/uL (4.0-11.0) Red Blood Count 3.73 x10^6/uL (3.50-5.40) Hemoglobin 9.8 g/dL (12.0-15.5) Hematocrit 29.4 % (36.0-47.0) Mean Corpuscular Volume 79 fL (79-100) Mean Corpuscular Hemoglobin 26 pg (25-35) Mean Corpuscular Hemoglobin Concent 33 g/dL (31-37) Red Cell Distribution Width 20.1 % (11.5-14.5) Platelet Count 273 x10^3/uL (140-400) Sodium Level 138 mmol/L (136-145) 136 mmol/L (136-145) Potassium Level 2.6 mmol/L (3.5-5.1) 3.2 mmol/L (3.5-5.1) Chloride Level 101 mmol/L (98-107) 99 mmol/L (98-107) Carbon Dioxide Level 26 mmol/L (21-32) 26 mmol/L (21-32) Anion Gap 11 (6-14) 11 (6-14) Blood Urea Nitrogen 8 mg/dL (7-20) 8 mg/dL (7-20) Creatinine 0.4 mg/dL (0.6-1.0) 0.6 mg/dL (0.6-1.0) Estimated GFR (Cockcroft-Gault) 155.2 97.2 Glucose Level 97 mg/dL (70-99) 191 mg/dL (70-99) Calcium Level 8.0 mg/dL (8.5-10.1) 8.1 mg/dL (8.5-10.1) Clostridium difficile Toxin B Gene Negative (Negative) Test 12/15/18 22:55 12/16/18 04:00 12/16/18 05:00 12/16/18 08:00 O2 Saturation 90 % (92-99) 96 % (92-99) Arterial Blood pH 7.23 (7.35-7.45) 7.48 (7.35-7.45) Arterial Blood pCO2 at Patient Temp 53 mmHg (35-46) 39 mmHg (35-46) Arterial Blood pO2 at Patient Temp 69 mmHg (65-108) 77 mmHg (65-108) Arterial Blood HCO3 22 mmol/L (21-28) 28 mmol/L (21-28) Arterial Blood Base Excess -6 mmol/L (-3-3) 4 mmol/L (-3-3) FiO2 100 40 Sodium Level 135 mmol/L (136-145) Potassium Level 4.0 mmol/L (3.5-5.1) Chloride Level 97 mmol/L (98-107) Carbon Dioxide Level 28 mmol/L (21-32) Anion Gap 10 (6-14) Blood Urea Nitrogen 7 mg/dL (7-20) Creatinine 0.6 mg/dL (0.6-1.0) Estimated GFR (Cockcroft-Gault) 97.2 Glucose Level 142 mg/dL (70-99) Calcium Level 7.9 mg/dL (8.5-10.1) Troponin I Quantitative 0.106 ng/mL (0.000-0.055) Test 12/16/18 08:34 12/16/18 12:40 White Blood Count 8.7 x10^3/uL (4.0-11.0) Red Blood Count 3.75 x10^6/uL (3.50-5.40) Hemoglobin 9.7 g/dL (12.0-15.5) Hematocrit 29.9 % (36.0-47.0) Mean Corpuscular Volume 80 fL (79-100) Mean Corpuscular Hemoglobin 26 pg (25-35) Mean Corpuscular Hemoglobin Concent 33 g/dL (31-37) Red Cell Distribution Width 20.4 % (11.5-14.5) Platelet Count 234 x10^3/uL (140-400) Neutrophils (%) (Auto) 81 % (31-73) Lymphocytes (%) (Auto) 15 % (24-48) Monocytes (%) (Auto) 4 % (0-9) Eosinophils (%) (Auto) 0 % (0-3) Basophils (%) (Auto) 0 % (0-3) Neutrophils # (Auto) 7.0 x10^3uL (1.8-7.7) Lymphocytes # (Auto) 1.3 x10^3/uL (1.0-4.8) Monocytes # (Auto) 0.3 x10^3/uL (0.0-1.1) Eosinophils # (Auto) 0.0 x10^3/uL (0.0-0.7) Basophils # (Auto) 0.0 x10^3/uL (0.0-0.2) Troponin I Quantitative 0.131 ng/mL (0.000-0.055) 0.118 ng/mL (0.000-0.055) LP-Zdb-[id number]-Type Natriuretic Peptide 7232 pg/mL (0-449) Laboratory Tests Test 12/15/18 20:55 12/15/18 22:55 12/16/18 04:00 12/16/18 05:00 Clostridium difficile Toxin B Gene Negative (Negative) O2 Saturation 90 % (92-99) Arterial Blood pH 7.23 (7.35-7.45) Arterial Blood pCO2 at Patient Temp 53 mmHg (35-46) Arterial Blood pO2 at Patient Temp 69 mmHg (65-108) Arterial Blood HCO3 22 mmol/L (21-28) Arterial Blood Base Excess -6 mmol/L (-3-3) FiO2 100 Sodium Level 135 mmol/L (136-145) Potassium Level 4.0 mmol/L (3.5-5.1) Chloride Level 97 mmol/L (98-107) Carbon Dioxide Level 28 mmol/L (21-32) Anion Gap 10 (6-14) Blood Urea Nitrogen 7 mg/dL (7-20) Creatinine 0.6 mg/dL (0.6-1.0) Estimated GFR (Cockcroft-Gault) 97.2 Glucose Level 142 mg/dL (70-99) Calcium Level 7.9 mg/dL (8.5-10.1) Troponin I Quantitative 0.106 ng/mL (0.000-0.055) Test 12/16/18 08:00 12/16/18 08:34 12/16/18 12:40 O2 Saturation 96 % (92-99) Arterial Blood pH 7.48 (7.35-7.45) Arterial Blood pCO2 at Patient Temp 39 mmHg (35-46) Arterial Blood pO2 at Patient Temp 77 mmHg (65-108) Arterial Blood HCO3 28 mmol/L (21-28) Arterial Blood Base Excess 4 mmol/L (-3-3) FiO2 40 White Blood Count 8.7 x10^3/uL (4.0-11.0) Red Blood Count 3.75 x10^6/uL (3.50-5.40) Hemoglobin 9.7 g/dL (12.0-15.5) Hematocrit 29.9 % (36.0-47.0) Mean Corpuscular Volume 80 fL (79-100) Mean Corpuscular Hemoglobin 26 pg (25-35) Mean Corpuscular Hemoglobin Concent 33 g/dL (31-37) Red Cell Distribution Width 20.4 % (11.5-14.5) Platelet Count 234 x10^3/uL (140-400) Neutrophils (%) (Auto) 81 % (31-73) Lymphocytes (%) (Auto) 15 % (24-48) Monocytes (%) (Auto) 4 % (0-9) Eosinophils (%) (Auto) 0 % (0-3) Basophils (%) (Auto) 0 % (0-3) Neutrophils # (Auto) 7.0 x10^3uL (1.8-7.7) Lymphocytes # (Auto) 1.3 x10^3/uL (1.0-4.8) Monocytes # (Auto) 0.3 x10^3/uL (0.0-1.1) Eosinophils # (Auto) 0.0 x10^3/uL (0.0-0.7) Basophils # (Auto) 0.0 x10^3/uL (0.0-0.2) Troponin I Quantitative 0.131 ng/mL (0.000-0.055) 0.118 ng/mL (0.000-0.055) QW-Zmk-J-Type Natriuretic Peptide 7232 pg/mL (0-449) Microbiology 12/12/18 Blood Culture - Preliminary, Resulted NO GROWTH AFTER 4 DAYS Medications Current Medications Propofol 100 ml @ 0 mls/hr CONT PRN IV SEE I/O RECORD Last administered on 12/13/18at 09:04; Start 12/12/18 at 01:30; Stop 12/14/18 at 18:21; Status DC Ringer's Solution 1,000 ml @ 100 mls/hr Q10H IV Last administered on 12/14/18at 13:30; Start 12/12/18 at 01:30 Heparin Sodium/ Dextrose 500 ml @ 0 mls/hr CONT PRN IV SEE I/O RECORD; Start 12/12/18 at 01:30; Stop 12/12/18 at 06:17; Status DC Heparin Sodium (Porcine) (Heparin Sodium) 1,000 unit PRN Q6HRS PRN IV FOR UFH LEVEL LESS THAN 0.2; Start 12/12/18 at 01:30; Stop 12/12/18 at 06:17; Status DC Norepinephrine Bitartrate 250 ml @ 1.875 mls/ hr CONT PRN IV SEE I/O RECORD; Start 12/12/18 at 01:30; Stop 12/14/18 at 18:21; Status DC Enoxaparin Sodium (Lovenox 30mg Syringe) 30 mg Q24H SQ ; Start 12/12/18 at 09:00; Stop 12/12/18 at 09:00; Status DC Cefepime HCl (Maxipime) 2 gm Q12HR IVP Last administered on 12/16/18at 09:04; Start 12/12/18 at 09:00 Linezolid/Dextrose 300 ml @ 300 mls/hr Q12HR IV Last administered on 12/16/18at 09:03; Start 12/12/18 at 09:00 Pantoprazole Sodium (PROTONIX VIAL for IV PUSH) 40 mg BID IVP Last administered on 12/16/18at 09:04; Start 12/12/18 at 10:15; Stop 12/16/18 at 10:22; Status DC Fentanyl Citrate 30 ml @ 0 mls/hr CONT PRN IV SEE PROTOCOL Last administered on 12/13/18at 09:24; Start 12/12/18 at 12:30; Stop 12/14/18 at 18:23; Status DC Albuterol Sulfate (Ventolin Neb Soln) 2.5 mg PRN 1X PRN NEB SHORTNESS OF BREATH; Start 12/13/18 at 09:30; Stop 12/14/18 at 09:29; Status DC Lidocaine HCl (Lidocaine 2% Viscous) 100 ml PRN 1X PRN MM MOUTH PAIN; Start 12/13/18 at 09:30; Stop 12/14/18 at 09:29; Status DC Epinephrine HCl (Adrenalin) 1 mg PRN 1X PRN INJ SEE COMMENTS; Start 12/13/18 at 09:30; Stop 12/14/18 at 09:29; Status DC Epinephrine HCl (Adrenalin) 1 mg STK-MED ONCE .ROUTE ; Start 12/13/18 at 10:18; Stop 12/13/18 at 10:19; Status DC Lidocaine HCl (Lidocaine 2% Viscous) 100 ml STK-MED ONCE .ROUTE ; Start 12/13/18 at 10:18; Stop 12/13/18 at 10:19; Status DC Nicotine (Nicoderm Cq 21mg) 1 patch DAILY TD Last administered on 12/16/18at 10:05; Start 12/13/18 at 19:00 Oxybutynin Chloride (Ditropan) 2.5 mg BID PO Last administered on 12/16/18at 10:04; Start 12/13/18 at 19:00 Potassium Chloride (Klor-Con) 40 meq Q1H PO Last administered on 12/15/18at 09:07; Start 12/15/18 at 06:30; Stop 12/15/18 at 08:31; Status DC Albuterol Sulfate (Ventolin Neb Soln) 2.5 mg 1X ONCE NEB ; Start 12/15/18 at 23:00; Stop 12/15/18 at 23:01; Status DC Albuterol/ Ipratropium (Duoneb) 3 ml STK-MED ONCE .ROUTE ; Start 12/15/18 at 22:58; Stop 12/15/18 at 22:59; Status DC Furosemide (Lasix) 40 mg 1X ONCE IVP Last administered on 12/15/18at 23:14; Sta rt 12/15/18 at 23:15; Stop 12/15/18 at 23:16; Status DC Acetaminophen (Tylenol) 650 mg PRN Q6HRS PRN PO MILD PAIN / TEMP Last adm inistered on 12/16/18at 15:02; Start 12/15/18 at 23:00 Alprazolam (Xanax) 0.5 mg PRN TID PRN PO ANXIETY / AGITATION Last administered on 12/15/18at 23:14; Start 12/15/18 at 23:15 Oxycodone/ Acetaminophen (Percocet 10/325) 1 tab PRN Q4HRS PRN PO PAIN; Start 12/15/18 at 23:15 Pantoprazole Sodium (PROTONIX VIAL for IV PUSH) 40 mg DAILY IVP ; Start 12/17/18 at 09:00 Active Scripts Active Reported Opdivo (Nivolumab) 40 Mg/4 Ml Vial 40 Mg IV PER PROTOCOL Percocet 10-325 Mg Tablet (Oxycodone/Acetaminophen) 1 Each Tablet 1 Tab PO Q4-6HRS PRN Miralax (Polyethylene Glycol 3350) 17 Gm Powd.pack 1 Packet PO DAILY Xanax (Alprazolam) 0.5 Mg Tablet 1 Tab PO TID PRN Vitals/I & O Vital Sign - Last 24 Hours 12/15/18 12/15/18 12/15/18 12/15/18 19:00 20:00 23:21 23:36 Temp 97.8 97.8 Pulse 104 Resp 20 B/P (MAP) 162/85 (110) Pulse Ox 91 90 94 O2 Delivery Nasal Cannula Nasal Cannula NonRebreather Mask BiPAP/CPAP O2 Flow Rate 3.0 2.0 15.0 12/15/18 12/16/18 12/16/18 12/16/18 23:45 00:00 00:00 00:15 Temp 96.3 96.3 Pulse 140 140 126 Resp 28 32 37 B/P (MAP) 199/94 (129) 167/95 (119) 141/81 (101) Pulse Ox 79 93 97 O2 Delivery NonRebreather Mask BiPAP/CPAP Bi-pap BiPAP/CPAP O2 Flow Rate 15.0 12/16/18 12/16/18 12/16/18 12/16/18 00:30 00:45 01:00 01:46 Pulse 114 104 92 Resp 35 29 25 B/P (MAP) 115/69 (84) 116/73 (87) 150/87 (108) Pulse Ox 97 98 100 94 O2 Delivery BiPAP/CPAP BiPAP/CPAP BiPAP/CPAP BiPAP/CPAP 12/16/18 12/16/18 12/16/18 12/16/18 02:00 03:00 03:37 04:00 Pulse 98 85 Resp 29 21 B/P (MAP) 125/72 (89) 114/71 (85) Pulse Ox 100 92 94 O2 Delivery BiPAP/CPAP BiPAP/CPAP BiPAP/CPAP Bi-pap 12/16/18 12/16/18 12/16/18 12/16/18 04:00 05:00 05:33 06:00 Temp 97.2 97.2 Pulse 80 80 75 Resp 19 22 19 B/P (MAP) 116/70 (85) 146/80 (102) 140/78 (98) Pulse Ox 96 95 93 97 O2 Delivery BiPAP/CPAP BiPAP/CPAP BiPAP/CPAP BiPAP/CPAP 6/3/19 6/3/19 6/3/19 6/3/19 07:15 07:32 07:32 07:55 Temp 97.2 97.2 Pulse 72 Resp 19 B/P (MAP) 156/88 (110) Pulse Ox 98 98 O2 Delivery BiPAP/CPAP Bi-pap BiPAP/CPAP O2 Flow Rate 15.0 15.0 15.0 12/16/18 12/16/18 12/16/18 12/16/18 08:00 09:10 10:25 11:11 Pulse 71 70 84 82 Resp 19 18 16 36 B/P (MAP) 128/70 (89) 137/71 (93) 151/90 (110) 138/80 (99) Pulse Ox 100 100 98 90 O2 Delivery BiPAP/CPAP BiPAP/CPAP Nasal Cannula Nasal Cannula O2 Flow Rate 15.0 15.0 5.0 6.0 12/16/18 12/16/18 12/16/18 12/16/18 12:06 12:07 12:30 13:27 Temp 97.9 97.9 Pulse 79 89 Resp 34 46 B/P (MAP) 140/76 (97) 149/80 (103) Pulse Ox 97 98 O2 Delivery Nasal Cannula Bi-pap Nasal Cannula O2 Flow Rate 6.0 5.0 5.0 5.0 12/16/18 12/16/18 12/16/18 12/16/18 14:29 15:36 16:17 16:17 Pulse 90 88 Resp 29 B/P (MAP) 156/79 (104) 167/86 (113) Pulse Ox 98 99 O2 Delivery Nasal Cannula Nasal Cannula O2 Flow Rate 5.0 5.0 5.0 5.0 12/16/18 16:21 Pulse 88 Resp 22 B/P (MAP) 139/74 (95) Pulse Ox 99 O2 Delivery Nasal Cannula O2 Flow Rate 5.0 Intake and Output 12/15/18 12/15/18 12/16/18 14:59 22:59 06:59 Intake Total 720 ml 240 ml Output Total 400 ml Balance 320 ml 240 ml Nutrition Consultation Dietary Evaluation: Recommendations by RD: Protein supplementation Comments: REC continue w/dysphagia II/ thin liquid diet as ordered per [facility] REC offer Ensure prn pending respiratory status/BiPAP dependence, discussed w/RN Expected Outcomes/Goals: Initiation of nutrition within 24 hrs of intubation - not met, new goal established New goal 12/16: PO intake to meet >75% est needs Malnutrition Findings: Weight Status: Underweight TARAN CID MD Dec 16, 2018 16:42
[2018-12-16] MEDS: oxyCODONE/APAP 10/325 1 TAB TABLET PO PRN (18:10)
--- NOTE | 2018-12-16 20:25 | NUR ---
Patient complaining of Right Lateral chest pain rating 5/10 on Numeric pain scale and is worse with expiration; patient states Percocet given earlier did not help at all. Called Dr Hall, notified of above, orders received for Morphine 2MG IVP PRN Q4HRS and Morphine 4MG IVP PRN Q4HRS for sever pain--see orders. Patient notified of orders.
[2018-12-16] MEDS: MORPHINE SULFATE 2 MG/ML VIAL. IV PRN (20:49)
--- NOTE | 2018-12-16 23:57 | PN ---
DATE: 12/16/2018 SUBJECTIVE: The patient went into respiratory distress. She was hypoxic with an oxygen saturation of only 77% on 3 liters of nasal cannula. She was very anxious, wheezing, coarse lung sounds throughout. She was placed on nonrebreather mask and her blood gases were done and showed that she was acidotic with a pH of 7.23, pCO2 of 53, pO2 of 69, bicarbonate 22, and FiO2 of 100%. Apparently, Dr. Uriarte recommended starting her on BiPAP machine and was transferred to the ICU. PHYSICAL EXAMINATION: GENERAL: When I saw her this morning, she was resting slightly propped up in bed, sleeping comfortably on BiPAP machine, maintaining her oxygen saturation at 100% on FiO2 of 40%. She was pale, cachectic, but no jaundice, cyanosis, or thyromegaly. No jugular venous distention. No lower limb edema. VITAL SIGNS: Her heart rate was 72, blood pressure 156/88, temperature was 97.2, respiratory rate was 19 and oxygen saturation was 98% on BiPAP machine. HEAD, EYES, EARS, NOSE AND THROAT: Showed normocephalic, atraumatic. NECK: Supple. HEART: Showed normal first and second heart sounds with no gallop, rub or murmur. CHEST: Shows central trachea, equal bilateral expansion, air entry, vesicular breath sounds, very few scattered rhonchi. I could not appreciate any crepitation. ABDOMEN: Distended, soft, nontender. NEUROLOGIC: She was sleepy, but arousable. She moves her extremities spontaneously. Her chest x-ray showed that she has extensive infiltrate on both sides consistent with probably pulmonary edema. LABORATORY DATA: Her chest x-ray showed bilateral lung infiltrate consistent with pulmonary edema for which she received IV Lasix and she is now on BiPAP machine. ASSESSMENT: 1. Acute hypoxic hypercapnic respiratory failure, on BiPAP machine, likely due to pulmonary edema. She is now on BiPAP machine. 2. Acute pulmonary edema. She did receive Lasix 40 mg once. 3. Hypokalemia has finally resolved. Her potassium was very low yesterday morning at 2.6, today is 4. 4. Anal cancer, status post surgery and radiation, now undergoing chemotherapy, currently stage 4. 5. Elevated D-dimer; however, CT angio of the chest was negative for pulmonary emboli. 6. Acute gastrointestinal bleeding related to heparin. She has received 2 units of packed RBCs. 7. Leukopenia was improving. 8. The patient is known to have chronic obstructive pulmonary disease. PLAN: Obviously to continue with the Zyvox and cefepime. Continue with the BiPAP machine. Her chest x-ray showed extensive bilateral infiltrate indicating probably acute pulmonary edema. I will consult the Cardiology and we will check also her troponin and do an EKG. KELLI JOHNSON MD DR: ASTER/jeremy JOB#: [id number] / [id number]
[2018-12-17] VITALS (23 sets, daily range): BP systolic 77–214; BP diastolic 62–95
[2018-12-17] MEDS: MORPHINE SULFATE 2 MG/ML VIAL. IV PRN ×2 (00:28→04:50)
--- NOTE | 2018-12-17 05:00 | NUR ---
Patient has attempted to void twice tonight but has been unsuccessful, last time patient urinated was at 1800 on 12/16. Bladder scanned patient and showed patient has 387CC urine--patient scanned three times and obtained the same results. Since urine in erika's bladder is relatively low, will continue to monitor, notify day shift and bladder scan PRN.
[2018-12-17 05:36] LABS: CALCIUM 8.4 mg/dL (8.5-10.1); CREATININE 0.6 mg/dL (0.6-1.0); GFR 97.2; POTASSIUM 3.8 mmol/L (3.5-5.1)
[2018-12-17 05:41] LABS: BASO % 0 % (0-3); EOS % 0 % (0-3); HEMATOCRIT 31.8 % (36.0-47.0); HEMOGLOBIN 10.4 g/dL (12.0-15.5); LYMPH # 1.2 x10^3/uL (1.0-4.8); LYMPH % 11 % (24-48); MEAN CORPUSCULAR HEMOGLOBIN 26 pg (25-35); MEAN CORPUSCULAR HGB CONC 33 g/dL (31-37); MEAN CORPUSCULAR VOLUME 80 fL (79-100); MONO # 0.4 x10^3/uL (0.0-1.1); MONO % 4 % (0-9); NEUT # 9.2 x10^3uL (1.8-7.7); NEUT % 85 % (31-73); PLATELET COUNT 263 x10^3/uL (140-400); RED BLOOD COUNT 3.97 x10^6/uL (3.50-5.40); RED CELL DISTRIBUTION WIDTH 20.6 % (11.5-14.5); WHITE BLOOD COUNT 10.9 x10^3/uL (4.0-11.0)
--- NOTE | 2018-12-17 07:34 | PDOC ---
Infectious Disease Note Subjective Subjective Better but having problems urinating - occ spasms No F/C/S/N/V/Rash. SOA is some better. Still has some wheeze ROS ROS o/w neg Vital Sign Vital Signs Vital Signs Date Time Temp Pulse Resp B/P (MAP) Pulse Ox O2 Delivery O2 Flow Rate FiO2 12/17/18 07:00 108 28 182/95 (124) 95 Nasal Cannula 3.0 12/17/18 04:00 99.1 99.1 Physical Exam PHYSICAL EXAM GENERAL: NAD, looks comfortable HEENT: nml conj. OC/Op- clear LUNGS: mild wheeze HEART: S1, S2, irregular ABDOMEN: Soft, nontender, ostomy GENITOURINARY: Lance out EXTREMITIES: No edema, no cyanosis. DERMATOLOGIC: Warm, dry, no generalized rash. RATE ENGINEER: Very alert and appropriate RIJ and Port-A-Cath site looks okay. PIV - RUE Labs Lab Laboratory Tests Test 12/16/18 08:00 12/16/18 08:34 12/16/18 12:40 12/17/18 05:00 O2 Saturation 96 % (92-99) Arterial Blood pH 7.48 (7.35-7.45) Arterial Blood pCO2 at Patient Temp 39 mmHg (35-46) Arterial Blood pO2 at Patient Temp 77 mmHg (65-108) Arterial Blood HCO3 28 mmol/L (21-28) Arterial Blood Base Excess 4 mmol/L (-3-3) FiO2 40 White Blood Count 8.7 x10^3/uL (4.0-11.0) 10.9 x10^3/uL (4.0-11.0) Red Blood Count 3.75 x10^6/uL (3.50-5.40) 3.97 x10^6/uL (3.50-5.40) Hemoglobin 9.7 g/dL (12.0-15.5) 10.4 g/dL (12.0-15.5) Hematocrit 29.9 % (36.0-47.0) 31.8 % (36.0-47.0) Mean Corpuscular Volume 80 fL (79-100) 80 fL (79-100) Mean Corpuscular Hemoglobin 26 pg (25-35) 26 pg (25-35) Mean Corpuscular Hemoglobin Concent 33 g/dL (31-37) 33 g/dL (31-37) Red Cell Distribution Width 20.4 % (11.5-14.5) 20.6 % (11.5-14.5) Platelet Count 234 x10^3/uL (140-400) 263 x10^3/uL (140-400) Neutrophils (%) (Auto) 81 % (31-73) 85 % (31-73) Lymphocytes (%) (Auto) 15 % (24-48) 11 % (24-48) Monocytes (%) (Auto) 4 % (0-9) 4 % (0-9) Eosinophils (%) (Auto) 0 % (0-3) 0 % (0-3) Basophils (%) (Auto) 0 % (0-3) 0 % (0-3) Neutrophils # (Auto) 7.0 x10^3uL (1.8-7.7) 9.2 x10^3uL (1.8-7.7) Lymphocytes # (Auto) 1.3 x10^3/uL (1.0-4.8) 1.2 x10^3/uL (1.0-4.8) Monocytes # (Auto) 0.3 x10^3/uL (0.0-1.1) 0.4 x10^3/uL (0.0-1.1) Eosinophils # (Auto) 0.0 x10^3/uL (0.0-0.7) 0.0 x10^3/uL (0.0-0.7) Basophils # (Auto) 0.0 x10^3/uL (0.0-0.2) 0.0 x10^3/uL (0.0-0.2) Troponin I Quantitative 0.131 ng/mL (0.000-0.055) 0.118 ng/mL (0.000-0.055) FD-Mac-F-Type Natriuretic Peptide 7232 pg/mL (0-449) Sodium Level 134 mmol/L (136-145) Potassium Level 3.8 mmol/L (3.5-5.1) Chloride Level 98 mmol/L (98-107) Carbon Dioxide Level 28 mmol/L (21-32) Anion Gap 8 (6-14) Blood Urea Nitrogen 10 mg/dL (7-20) Creatinine 0.6 mg/dL (0.6-1.0) Estimated GFR (Cockcroft-Gault) 97.2 Glucose Level 86 mg/dL (70-99) Calcium Level 8.4 mg/dL (8.5-10.1) Micro Microbiology 12/12/18 Blood Culture - Preliminary, Resulted NO GROWTH AFTER 4 DAYS Objective Assessment Acute respiratory failure - better Elevated Troponin Urinary retention - d/w nursing bladder scan at 6 am - 300 ml Anemia s/p recent PRBCs Leukopenia, on Chemo, improved H/o PENICILLIN ALLERGY, unknown reaction, tolerated ceftriaxone well at [facility]. H/o recurrent squamous cell carcinoma, on palliative chemo w/ carboplatin and Taxol Chronic obstructive pulmonary disease. History of smoking. Possible gastrointestinal bleed. Plan Plan of Care Now DNR/DNI Nursing monitoring retention Cont Zyvox (12/12)/Cefepime (12/12) for now F/u labs BC NGTD Supportive care Await further family decisions D/w nursing ABBIE STEWART MD Dec 17, 2018 07:34
[2018-12-17] MEDS: OXYBUTYNIN CHLORIDE 5 MG TABLET PO SCH ×2 (08:06→20:52)
[2018-12-17] MEDS: ALPRAZolam 0.5 MG TABLET PO PRN (08:06)
[2018-12-17] MEDS: NICOTINE 21MG PATCH. TD SCH (08:07)
[2018-12-17] MEDS: CEFEPIME HCL IV Push 2 GM VIAL. IVP SCH ×2 (08:10→20:53)
--- NOTE | 2018-12-17 08:35 | NUR ---
Pt was very anxious during assessment, states she has been unable to urinate since yesterday evening, pt requested something for her nerves, xanax given (see eMAR). This nurse helped pt walked to toilet, pt was able to urinate once there, post void bladder scan showed 141cc in bladder, pt appears more comfortable at this time,bp better after voiding. Will continue to monitor closely
--- NOTE | 2018-12-17 08:40 | PDOC ---
PULMONARY PROGRESS NOTES Subjective EXTUBATED 12/13 DOING WELL NOT MORE SOA Vitals Vital Signs Date Time Temp Pulse Resp B/P (MAP) Pulse Ox O2 Delivery O2 Flow Rate FiO2 12/17/18 07:00 108 28 182/95 (124) 95 Nasal Cannula 3.0 12/17/18 04:00 99.1 99.1 General: Alert, No acute distress Lungs: Clear Cardiovascular: S1, S2 Abdomen: Soft Neuro Exam: Alert Extremities: No Edema Skin: Warm Labs Laboratory Tests Test 12/15/18 09:45 12/15/18 20:55 12/15/18 22:55 12/16/18 04:00 Sodium Level 136 mmol/L (136-145) 135 mmol/L (136-145) Potassium Level 3.2 mmol/L (3.5-5.1) 4.0 mmol/L (3.5-5.1) Chloride Level 99 mmol/L (98-107) 97 mmol/L (98-107) Carbon Dioxide Level 26 mmol/L (21-32) 28 mmol/L (21-32) Anion Gap 11 (6-14) 10 (6-14) Blood Urea Nitrogen 8 mg/dL (7-20) 7 mg/dL (7-20) Creatinine 0.6 mg/dL (0.6-1.0) 0.6 mg/dL (0.6-1.0) Estimated GFR (Cockcroft-Gault) 97.2 97.2 Glucose Level 191 mg/dL (70-99) 142 mg/dL (70-99) Calcium Level 8.1 mg/dL (8.5-10.1) 7.9 mg/dL (8.5-10.1) Clostridium difficile Toxin B Gene Negative (Negative) O2 Saturation 90 % (92-99) Arterial Blood pH 7.23 (7.35-7.45) Arterial Blood pCO2 at Patient Temp 53 mmHg (35-46) Arterial Blood pO2 at Patient Temp 69 mmHg (65-108) Arterial Blood HCO3 22 mmol/L (21-28) Arterial Blood Base Excess -6 mmol/L (-3-3) FiO2 100 Test 12/16/18 05:00 12/16/18 08:00 12/16/18 08:34 12/16/18 12:40 Troponin I Quantitative 0.106 ng/mL (0.000-0.055) 0.131 ng/mL (0.000-0.055) 0.118 ng/mL (0.000-0.055) O2 Saturation 96 % (92-99) Arterial Blood pH 7.48 (7.35-7.45) Arterial Blood pCO2 at Patient Temp 39 mmHg (35-46) Arterial Blood pO2 at Patient Temp 77 mmHg (65-108) Arterial Blood HCO3 28 mmol/L (21-28) Arterial Blood Base Excess 4 mmol/L (-3-3) FiO2 40 White Blood Count 8.7 x10^3/uL (4.0-11.0) Red Blood Count 3.75 x10^6/uL (3.50-5.40) Hemoglobin 9.7 g/dL (12.0-15.5) Hematocrit 29.9 % (36.0-47.0) Mean Corpuscular Volume 80 fL (79-100) Mean Corpuscular Hemoglobin 26 pg (25-35) Mean Corpuscular Hemoglobin Concent 33 g/dL (31-37) Red Cell Distribution Width 20.4 % (11.5-14.5) Platelet Count 234 x10^3/uL (140-400) Neutrophils (%) (Auto) 81 % (31-73) Lymphocytes (%) (Auto) 15 % (24-48) Monocytes (%) (Auto) 4 % (0-9) Eosinophils (%) (Auto) 0 % (0-3) Basophils (%) (Auto) 0 % (0-3) Neutrophils # (Auto) 7.0 x10^3uL (1.8-7.7) Lymphocytes # (Auto) 1.3 x10^3/uL (1.0-4.8) Monocytes # (Auto) 0.3 x10^3/uL (0.0-1.1) Eosinophils # (Auto) 0.0 x10^3/uL (0.0-0.7) Basophils # (Auto) 0.0 x10^3/uL (0.0-0.2) DF-Yqf-C-Type Natriuretic Peptide 7232 pg/mL (0-449) Test 12/17/18 05:00 White Blood Count 10.9 x10^3/uL (4.0-11.0) Red Blood Count 3.97 x10^6/uL (3.50-5.40) Hemoglobin 10.4 g/dL (12.0-15.5) Hematocrit 31.8 % (36.0-47.0) Mean Corpuscular Volume 80 fL (79-100) Mean Corpuscular Hemoglobin 26 pg (25-35) Mean Corpuscular Hemoglobin Concent 33 g/dL (31-37) Red Cell Distribution Width 20.6 % (11.5-14.5) Platelet Count 263 x10^3/uL (140-400) Neutrophils (%) (Auto) 85 % (31-73) Lymphocytes (%) (Auto) 11 % (24-48) Monocytes (%) (Auto) 4 % (0-9) Eosinophils (%) (Auto) 0 % (0-3) Basophils (%) (Auto) 0 % (0-3) Neutrophils # (Auto) 9.2 x10^3uL (1.8-7.7) Lymphocytes # (Auto) 1.2 x10^3/uL (1.0-4.8) Monocytes # (Auto) 0.4 x10^3/uL (0.0-1.1) Eosinophils # (Auto) 0.0 x10^3/uL (0.0-0.7) Basophils # (Auto) 0.0 x10^3/uL (0.0-0.2) Sodium Level 134 mmol/L (136-145) Potassium Level 3.8 mmol/L (3.5-5.1) Chloride Level 98 mmol/L (98-107) Carbon Dioxide Level 28 mmol/L (21-32) Anion Gap 8 (6-14) Blood Urea Nitrogen 10 mg/dL (7-20) Creatinine 0.6 mg/dL (0.6-1.0) Estimated GFR (Cockcroft-Gault) 97.2 Glucose Level 86 mg/dL (70-99) Calcium Level 8.4 mg/dL (8.5-10.1) Laboratory Tests Test 12/16/18 12:40 12/17/18 05:00 Troponin I Quantitative 0.118 ng/mL (0.000-0.055) White Blood Count 10.9 x10^3/uL (4.0-11.0) Red Blood Count 3.97 x10^6/uL (3.50-5.40) Hemoglobin 10.4 g/dL (12.0-15.5) Hematocrit 31.8 % (36.0-47.0) Mean Corpuscular Volume 80 fL (79-100) Mean Corpuscular Hemoglobin 26 pg (25-35) Mean Corpuscular Hemoglobin Concent 33 g/dL (31-37) Red Cell Distribution Width 20.6 % (11.5-14.5) Platelet Count 263 x10^3/uL (140-400) Neutrophils (%) (Auto) 85 % (31-73) Lymphocytes (%) (Auto) 11 % (24-48) Monocytes (%) (Auto) 4 % (0-9) Eosinophils (%) (Auto) 0 % (0-3) Basophils (%) (Auto) 0 % (0-3) Neutrophils # (Auto) 9.2 x10^3uL (1.8-7.7) Lymphocytes # (Auto) 1.2 x10^3/uL (1.0-4.8) Monocytes # (Auto) 0.4 x10^3/uL (0.0-1.1) Eosinophils # (Auto) 0.0 x10^3/uL (0.0-0.7) Basophils # (Auto) 0.0 x10^3/uL (0.0-0.2) Sodium Level 134 mmol/L (136-145) Potassium Level 3.8 mmol/L (3.5-5.1) Chloride Level 98 mmol/L (98-107) Carbon Dioxide Level 28 mmol/L (21-32) Anion Gap 8 (6-14) Blood Urea Nitrogen 10 mg/dL (7-20) Creatinine 0.6 mg/dL (0.6-1.0) Estimated GFR (Cockcroft-Gault) 97.2 Glucose Level 86 mg/dL (70-99) Calcium Level 8.4 mg/dL (8.5-10.1) Medications Active Scripts Medications Dose Route/Sig Max Daily Dose Days Date Category Opdivo (Nivolumab) 40 Mg/4 Ml Vial 40 Mg IV PER PROTOCOL 07/25/18 Reported Percocet 10-325 Mg Tablet (Oxycodone/Acetaminophen) 1 Each Tablet 1 Tab PO Q4-6HRS PRN 04/22/18 Reported Miralax (Polyethylene Glycol 3350) 17 Gm Powd.pack 1 Packet PO DAILY 04/19/18 Reported Xanax (Alprazolam) 0.5 Mg Tablet 1 Tab PO TID PRN 03/23/17 Reported Impression . 1. Acute hypoxic respiratory failure secondary to diffuse lung infiltrate 2. The patient with stage IV anal cancer, status post surgery and radiation and now undergoing palliative chemo. 3. Abnormal D-dimer, which is a nonspecific test and can be seen in many other conditions including malignancy. No evidence of pulmonary embolism. 4. Acute gastrointestinal bleed related to heparin. Hemoglobin went down to 5.7, s/p packed red blood cells.Hb stable 5. Leukopenia, likely related to infectious etiology versus bone marrow suppression by chemo. 6. Underlying chronic obstructive pulmonary disease. 12/17 CXR IMPRESSION: Improving lung infiltrates or pulmonary edema. Improvement of small left-sided pleural effusion. Plan . 02 TRANSFER OUT OF ICU FOLLOW SPEECH ANTIBX PER ID FOLLOW HGB FOLLOW ONCO INPUT RED AARON MD Dec 17, 2018 08:40
[2018-12-17] MEDS ORDERED: PANTOPRAZOLE IV PUSH 40 MG VIAL. IVP SCH (09:00)
--- NOTE | 2018-12-17 09:58 | NUR ---
Urology consult called in. Will await call back, per their office, providers are off this am and call back will be this afternoon unless its an emergency.
[2018-12-17] MEDS ORDERED: POLYETHYLENE GLYCOL 3350 17 GM PACKET. PO PRN (10:45)
--- NOTE | 2018-12-17 10:45 | PDOC ---
Subjective: Subjective: Eating breakfast - says eats for three minutes, then drinks coffee and rests, then eats again. Has some chronic ostomy-associated pain but biggest pain complaint today is over right ribs. Says she's sleeping a lot. Usually takes Miralax at home. Objective: Objective: Reviewed w/ RN - some anxiety and HTN this morning w/ urinary retention, better now. Vital Signs: Vital Signs Date Time Temp Pulse Resp B/P (MAP) Pulse Ox O2 Delivery O2 Flow Rate FiO2 12/17/18 09:44 102 26 77/93 (88) 95 Nasal Cannula 4.0 12/17/18 07:50 98.6 98.6 Labs: Laboratory Tests Test 12/16/18 12:40 12/17/18 05:00 Troponin I Quantitative 0.118 ng/mL White Blood Count 10.9 x10^3/uL Red Blood Count 3.97 x10^6/uL Hemoglobin 10.4 g/dL Hematocrit 31.8 % Mean Corpuscular Volume 80 fL Mean Corpuscular Hemoglobin 26 pg Mean Corpuscular Hemoglobin Concent 33 g/dL Red Cell Distribution Width 20.6 % Platelet Count 263 x10^3/uL Neutrophils (%) (Auto) 85 % Lymphocytes (%) (Auto) 11 % Monocytes (%) (Auto) 4 % Eosinophils (%) (Auto) 0 % Basophils (%) (Auto) 0 % Neutrophils # (Auto) 9.2 x10^3uL Lymphocytes # (Auto) 1.2 x10^3/uL Monocytes # (Auto) 0.4 x10^3/uL Eosinophils # (Auto) 0.0 x10^3/uL Basophils # (Auto) 0.0 x10^3/uL Sodium Level 134 mmol/L Potassium Level 3.8 mmol/L Chloride Level 98 mmol/L Carbon Dioxide Level 28 mmol/L Anion Gap 8 Blood Urea Nitrogen 10 mg/dL Creatinine 0.6 mg/dL Estimated GFR (Cockcroft-Gault) 97.2 Glucose Level 86 mg/dL Calcium Level 8.4 mg/dL BLOOD CULTURE Final NO GROWTH AFTER 5 DAYS PE: GEN: NAD - up to chair LUNGS: NC HEART: tachycardic ABD: LLQ ostomy empty, soft, NABS NEURO/PSYCH: A & O 3 A/P: Resp failure - extubated Recurrent SCC of anus Chronic anemia - improving -- Change to PO PPI, add Miralax. FILEMON PEREZ Dec 17, 2018 10:45
--- NOTE | 2018-12-17 11:00 | PDOC ---
CARDIOLOGY PROGRESS NOTE SUBJECTIVE: Spoke to palliative care. Patient now DNR/DNI She denies any chest Able to ambulate in the ICU OBJECTIVE: Vital SIgns: Vital Signs Date Time Temp Pulse Resp B/P (MAP) Pulse Ox O2 Delivery O2 Flow Rate FiO2 12/17/18 09:44 102 26 154/93 (88) 95 Nasal Cannula 4.0 12/17/18 07:50 98.6 98.6 I & O Intake and Output 12/17/18 07:00 Intake Total 860 ml Balance 860 ml Intake Oral 560 ml IV Total 300 ml # Voids 3 # Bowel Movements 1 Objective: She is a/o x 3. Sitting in bed. Mild tachypnea. Accessory muscle use still present No edema. Bilateral rhonchi Normal heart tones. Soft abd. CURRENT MEDICATIONS: Current Medications Medications (Trade) Dose Ordered Sig/Cristian Start Time Stop Time Status Last Admin Dose Admin Acetaminophen (Tylenol) 650 mg PRN Q6HRS PRN 12/15/18 23:00 12/16/18 15:02 650 MG Albuterol Sulfate (Ventolin Neb Soln) 2.5 mg 1X ONCE 12/15/18 23:00 12/15/18 23:01 DC Albuterol/ Ipratropium (Duoneb) 3 ml STK-MED ONCE 12/15/18 22:58 12/15/18 22:59 DC Alprazolam (Xanax) 0.5 mg PRN TID PRN 12/15/18 23:15 12/17/18 08:06 0.5 MG Cefepime HCl (Maxipime) 2 gm Q12HR 12/12/18 09:00 12/17/18 08:10 2 GM Enoxaparin Sodium (Lovenox 30mg Syringe) 30 mg Q24H 12/12/18 09:00 12/12/18 09:00 DC Epinephrine HCl (Adrenalin) 1 mg STK-MED ONCE 12/13/18 10:18 12/13/18 10:19 DC Fentanyl Citrate 30 ml @ 0 mls/hr CONT PRN 12/12/18 12:30 12/14/18 18:23 DC 12/13/18 09:24 2.5 MLS/HR Furosemide (Lasix) 40 mg 1X ONCE 12/15/18 23:15 12/15/18 23:16 DC 12/15/18 23:14 40 MG Heparin Sodium (Porcine) (Heparin Sodium) 1,000 unit PRN Q6HRS PRN 12/12/18 01:30 12/12/18 06:17 DC Heparin Sodium/ Dextrose 500 ml @ 0 mls/hr CONT PRN 12/12/18 01:30 12/12/18 06:17 DC Lidocaine HCl (Lidocaine 2% Viscous) 100 ml STK-MED ONCE 12/13/18 10:18 12/13/18 10:19 DC Linezolid/Dextrose 300 ml @ 300 mls/hr Q12HR 12/12/18 09:00 12/17/18 08:09 300 MLS/HR Morphine Sulfate (Morphine Sulfate) 4 mg PRN Q4HRS PRN 12/16/18 20:30 Nicotine (Nicoderm Cq 21mg) 1 patch DAILY 12/13/18 19:00 12/17/18 08:07 1 PATCH Norepinephrine Bitartrate 250 ml @ 1.875 mls/ hr CONT PRN 12/12/18 01:30 12/14/18 18:21 DC Oxybutynin Chloride (Ditropan) 2.5 mg BID 12/13/18 19:00 12/17/18 08:06 2.5 MG Oxycodone/ Acetaminophen (Percocet 10/325) 1 tab PRN Q4HRS PRN 12/15/18 23:15 12/16/18 18:10 1 TAB Pantoprazole Sodium (PROTONIX VIAL for IV PUSH) 40 mg DAILY 12/17/18 09:00 12/17/18 10:46 DC 12/17/18 08:07 40 MG Pantoprazole Sodium (Protonix) 40 mg DAILYAC 12/18/18 07:30 Polyethylene Glycol (miraLAX PACKET) 17 gm PRN DAILY PRN 12/17/18 10:45 Potassium Chloride (Klor-Con) 40 meq Q1H 12/15/18 06:30 12/15/18 08:31 DC 12/15/18 09:07 40 MEQ Propofol 100 ml @ 0 mls/hr CONT PRN 12/12/18 01:30 12/14/18 18:21 DC 12/13/18 09:04 9.798 MLS/HR Ringer's Solution 1,000 ml @ 100 mls/hr Q10H 12/12/18 01:30 12/16/18 16:47 DC 12/14/18 13:30 100 MLS/HR DIAGNOSTIC TESTING: Hgb stable. Cr wnl ASSESSMENT: 1. Acute on chronic diastolic HF in the setting of severe anemia and labile BP 2. HTN PLAN: 1. Continue close monitoring of I/O's 2. Check CXR. 3. She is not yet stable to go to SNU at this time. Needs better bp control. May need some diuresis. ALMAS DOBSON MD Dec 17, 2018 11:00
[2018-12-17] MEDS: POLYETHYLENE GLYCOL 3350 17 GM PACKET. PO SCH (11:12)
--- NOTE | 2018-12-17 11:28 | PDOC ---
PROGRESS NOTES Subjective Subjective HPI -f/u of Stage IV, Recurrent anal carcinoma ROS - no CP Objective Objective Vital Signs Date Time Temp Pulse Resp B/P (MAP) Pulse Ox O2 Delivery O2 Flow Rate FiO2 12/17/18 09:44 102 26 151/77 (101) 95 Nasal Cannula 4.0 12/17/18 07:50 98.6 98.6 Intake and Output 12/17/18 07:00 Intake Total 860 ml Balance 860 ml Intake Oral 560 ml IV Total 300 ml # Voids 3 # Bowel Movements 1 Physical Exam Heart: Normal S1, Normal S2 General: Alert, Oriented X3, No acute distress Lungs: Clear to auscultation Neuro: Normal speech Psych/Mental Status: Mental status NL Assessment Assessment IMPRESSION AND PLAN: 1. Stage IV, Recurrent anal carcinoma with development of bone metastases and progressively worsening large presacral mass and bilateral hydronephrosis and a peritoneal implant near the colostomy site consistent with stage IV malignancy. She was started on palliative chemotherapy with carboplatin and Taxol on 12/02/2018. She has failed previous treatments. I will continue to monitor for toxicities. She will return for followup after the acute episode has resolved so we can resume treatment. If her functional status does not improve, then I would recommend hospice. She prefers to continue palliative chemo. Appreciate palliative care consult. 2. Acute respiratory failure thought to be due to pneumonia. I appreciate pulmonary consultation and management. Extubated 12/13/18. 3. 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 Hemoglobin is 5.7 on 12/12/2018, improved to 8.6 on 03/14/2019 after transfusion. Hb 8.6 on 12/13/18. Hb 9.7 on 12/16/18 Hb 10.4 on 12/17/18 4. Hydronephrosis, pt requests consult with urology. She had an appt with Dr Grissom as outpt. Comment Review of Relevant I have reviewed the following items walt (where applicable) has been applied. Labs Laboratory Tests Test 12/15/18 20:55 12/15/18 22:55 12/16/18 04:00 12/16/18 05:00 Clostridium difficile Toxin B Gene Negative (Negative) O2 Saturation 90 % (92-99) Arterial Blood pH 7.23 (7.35-7.45) Arterial Blood pCO2 at Patient Temp 53 mmHg (35-46) Arterial Blood pO2 at Patient Temp 69 mmHg (65-108) Arterial Blood HCO3 22 mmol/L (21-28) Arterial Blood Base Excess -6 mmol/L (-3-3) FiO2 100 Sodium Level 135 mmol/L (136-145) Potassium Level 4.0 mmol/L (3.5-5.1) Chloride Level 97 mmol/L (98-107) Carbon Dioxide Level 28 mmol/L (21-32) Anion Gap 10 (6-14) Blood Urea Nitrogen 7 mg/dL (7-20) Creatinine 0.6 mg/dL (0.6-1.0) Estimated GFR (Cockcroft-Gault) 97.2 Glucose Level 142 mg/dL (70-99) Calcium Level 7.9 mg/dL (8.5-10.1) Troponin I Quantitative 0.106 ng/mL (0.000-0.055) Test 12/16/18 08:00 12/16/18 08:34 12/16/18 12:40 12/17/18 05:00 O2 Saturation 96 % (92-99) Arterial Blood pH 7.48 (7.35-7.45) Arterial Blood pCO2 at Patient Temp 39 mmHg (35-46) Arterial Blood pO2 at Patient Temp 77 mmHg (65-108) Arterial Blood HCO3 28 mmol/L (21-28) Arterial Blood Base Excess 4 mmol/L (-3-3) FiO2 40 White Blood Count 8.7 x10^3/uL (4.0-11.0) 10.9 x10^3/uL (4.0-11.0) Red Blood Count 3.75 x10^6/uL (3.50-5.40) 3.97 x10^6/uL (3.50-5.40) Hemoglobin 9.7 g/dL (12.0-15.5) 10.4 g/dL (12.0-15.5) Hematocrit 29.9 % (36.0-47.0) 31.8 % (36.0-47.0) Mean Corpuscular Volume 80 fL (79-100) 80 fL (79-100) Mean Corpuscular Hemoglobin 26 pg (25-35) 26 pg (25-35) Mean Corpuscular Hemoglobin Concent 33 g/dL (31-37) 33 g/dL (31-37) Red Cell Distribution Width 20.4 % (11.5-14.5) 20.6 % (11.5-14.5) Platelet Count 234 x10^3/uL (140-400) 263 x10^3/uL (140-400) Neutrophils (%) (Auto) 81 % (31-73) 85 % (31-73) Lymphocytes (%) (Auto) 15 % (24-48) 11 % (24-48) Monocytes (%) (Auto) 4 % (0-9) 4 % (0-9) Eosinophils (%) (Auto) 0 % (0-3) 0 % (0-3) Basophils (%) (Auto) 0 % (0-3) 0 % (0-3) Neutrophils # (Auto) 7.0 x10^3uL (1.8-7.7) 9.2 x10^3uL (1.8-7.7) Lymphocytes # (Auto) 1.3 x10^3/uL (1.0-4.8) 1.2 x10^3/uL (1.0-4.8) Monocytes # (Auto) 0.3 x10^3/uL (0.0-1.1) 0.4 x10^3/uL (0.0-1.1) Eosinophils # (Auto) 0.0 x10^3/uL (0.0-0.7) 0.0 x10^3/uL (0.0-0.7) Basophils # (Auto) 0.0 x10^3/uL (0.0-0.2) 0.0 x10^3/uL (0.0-0.2) Troponin I Quantitative 0.131 ng/mL (0.000-0.055) 0.118 ng/mL (0.000-0.055) RE-Qyf-O-Type Natriuretic Peptide 7232 pg/mL (0-449) Sodium Level 134 mmol/L (136-145) Potassium Level 3.8 mmol/L (3.5-5.1) Chloride Level 98 mmol/L (98-107) Carbon Dioxide Level 28 mmol/L (21-32) Anion Gap 8 (6-14) Blood Urea Nitrogen 10 mg/dL (7-20) Creatinine 0.6 mg/dL (0.6-1.0) Estimated GFR (Cockcroft-Gault) 97.2 Glucose Level 86 mg/dL (70-99) Calcium Level 8.4 mg/dL (8.5-10.1) Laboratory Tests Test 12/16/18 12:40 12/17/18 05:00 Troponin I Quantitative 0.118 ng/mL (0.000-0.055) White Blood Count 10.9 x10^3/uL (4.0-11.0) Red Blood Count 3.97 x10^6/uL (3.50-5.40) Hemoglobin 10.4 g/dL (12.0-15.5) Hematocrit 31.8 % (36.0-47.0) Mean Corpuscular Volume 80 fL (79-100) Mean Corpuscular Hemoglobin 26 pg (25-35) Mean Corpuscular Hemoglobin Concent 33 g/dL (31-37) Red Cell Distribution Width 20.6 % (11.5-14.5) Platelet Count 263 x10^3/uL (140-400) Neutrophils (%) (Auto) 85 % (31-73) Lymphocytes (%) (Auto) 11 % (24-48) Monocytes (%) (Auto) 4 % (0-9) Eosinophils (%) (Auto) 0 % (0-3) Basophils (%) (Auto) 0 % (0-3) Neutrophils # (Auto) 9.2 x10^3uL (1.8-7.7) Lymphocytes # (Auto) 1.2 x10^3/uL (1.0-4.8) Monocytes # (Auto) 0.4 x10^3/uL (0.0-1.1) Eosinophils # (Auto) 0.0 x10^3/uL (0.0-0.7) Basophils # (Auto) 0.0 x10^3/uL (0.0-0.2) Sodium Level 134 mmol/L (136-145) Potassium Level 3.8 mmol/L (3.5-5.1) Chloride Level 98 mmol/L (98-107) Carbon Dioxide Level 28 mmol/L (21-32) Anion Gap 8 (6-14) Blood Urea Nitrogen 10 mg/dL (7-20) Creatinine 0.6 mg/dL (0.6-1.0) Estimated GFR (Cockcroft-Gault) 97.2 Glucose Level 86 mg/dL (70-99) Calcium Level 8.4 mg/dL (8.5-10.1) Microbiology 12/12/18 Blood Culture - Final, Complete NO GROWTH AFTER 5 DAYS Medications Current Medications Propofol 100 ml @ 0 mls/hr CONT PRN IV SEE I/O RECORD Last administered on 12/13/18at 09:04; Start 12/12/18 at 01:30; Stop 12/14/18 at 18:21; Status DC Ringer's Solution 1,000 ml @ 100 mls/hr Q10H IV Last administered on 12/14/18at 13:30; Start 12/12/18 at 01:30; Stop 12/16/18 at 16:47; Status DC Heparin Sodium/ Dextrose 500 ml @ 0 mls/hr CONT PRN IV SEE I/O RECORD; Start 12/12/18 at 01:30; Stop 12/12/18 at 06:17; Status DC Heparin Sodium (Porcine) (Heparin Sodium) 1,000 unit PRN Q6HRS PRN IV FOR UFH LEVEL LESS THAN 0.2; Start 12/12/18 at 01:30; Stop 12/12/18 at 06:17; Status DC Norepinephrine Bitartrate 250 ml @ 1.875 mls/ hr CONT PRN IV SEE I/O RECORD; Start 12/12/18 at 01:30; Stop 12/14/18 at 18:21; Status DC Enoxaparin Sodium (Lovenox 30mg Syringe) 30 mg Q24H SQ ; Start 12/12/18 at 09:00; Stop 12/12/18 at 09:00; Status DC Cefepime HCl (Maxipime) 2 gm Q12HR IVP Last administered on 12/17/18at 08:10; Start 12/12/18 at 09:00 Linezolid/Dextrose 300 ml @ 300 mls/hr Q12HR IV Last administered on 12/17/18at 08:09; Start 12/12/18 at 09:00 Pantoprazole Sodium (PROTONIX VIAL for IV PUSH) 40 mg BID IVP Last administered on 12/16/18at 09:04; Start 12/12/18 at 10:15; Stop 12/16/18 at 10:22; Status DC Fentanyl Citrate 30 ml @ 0 mls/hr CONT PRN IV SEE PROTOCOL Last administered on 12/13/18at 09:24; Start 12/12/18 at 12:30; Stop 12/14/18 at 18:23; Status DC Albuterol Sulfate (Ventolin Neb Soln) 2.5 mg PRN 1X PRN NEB SHORTNESS OF BREATH; Start 12/13/18 at 09:30; Stop 12/14/18 at 09:29; Status DC Lidocaine HCl (Lidocaine 2% Viscous) 100 ml PRN 1X PRN MM MOUTH PAIN; Start 12/13/18 at 09:30; Stop 12/14/18 at 09:29; Status DC Epinephrine HCl (Adrenalin) 1 mg PRN 1X PRN INJ SEE COMMENTS; Start 12/13/18 at 09:30; Stop 12/14/18 at 09:29; Status DC Epinephrine HCl (Adrenalin) 1 mg STK-MED ONCE .ROUTE ; Start 12/13/18 at 10:18; Stop 12/13/18 at 10:19; Status DC Lidocaine HCl (Lidocaine 2% Viscous) 100 ml STK-MED ONCE .ROUTE ; Start 12/13/18 at 10:18; Stop 12/13/18 at 10:19; Status DC Nicotine (Nicoderm Cq 21mg) 1 patch DAILY TD Last administered on 12/17/18at 08:07; Start 12/13/18 at 19:00 Oxybutynin Chloride (Ditropan) 2.5 mg BID PO Last administered on 12/17/18at 08:06; Start 12/13/18 at 19:00 Potassium Chloride (Klor-Con) 40 meq Q1H PO Last administered on 12/15/18at 09:07; Start 12/15/18 at 06:30; Stop 12/15/18 at 08:31; Status DC Albuterol Sulfate (Ventolin Neb Soln) 2.5 mg 1X ONCE NEB ; Start 12/15/18 at 23:00; Stop 12/15/18 at 23:01; Status DC Albuterol/ Ipratropium (Duoneb) 3 ml STK-MED ONCE .ROUTE ; Start 12/15/18 at 22:58; Stop 12/15/18 at 22:59; Status DC Furosemide (Lasix) 40 mg 1X ONCE IVP Last administered on 12/15/18 23:14; Start 12/15/18 at 23:15; Stop 12/15/18 at 23:16; Status DC Acetaminophen (Tylenol) 650 mg PRN Q6HRS PRN PO MILD PAIN / TEMP Last administered on 12/16/18 15:02; Start 12/15/18 at 23:00 Alprazolam (Xanax) 0.5 mg PRN TID PRN PO ANXIETY / AGITATION Last administered on 12/17/18 08:06; Start 12/15/18 at 23:15 Oxycodone/ Acetaminophen (Percocet 10/325) 1 tab PRN Q4HRS PRN PO PAIN Last administered on 12/16/18 18:10; Start 12/15/18 at 23:15 Pantoprazole Sodium (PROTONIX VIAL for IV PUSH) 40 mg DAILY IVP Last administered on 12/17/18 08:07; Start 12/17/18 at 09:00; Stop 12/17/18 at 10:46; Status DC Morphine Sulfate (Morphine Sulfate) 2 mg PRN Q4HRS PRN IV PAIN MILD TO MOD Last administered on 12/17/18at 04:50; Start 12/16/18 at 20:30 Morphine Sulfate (Morphine Sulfate) 4 mg PRN Q4HRS PRN IV PAIN SEVERE; Start 12/16/18 at 20:30 Pantoprazole Sodium (Protonix) 40 mg DAILYAC PO ; Start 12/18/18 at 07:30 Polyethylene Glycol (miraLAX PACKET) 17 gm DAILY PO Last administered on 12/17/18at 11:12; Start 12/17/18 at 11:30 Polyethylene Glycol (miraLAX PACKET) 17 gm PRN DAILY PRN PO CONSTIPATION; Start 12/17/18 at 10:45 Furosemide (Lasix) 20 mg 1X ONCE IVP Last administered on 12/17/18at 11:13; Start 12/17/18 at 11:30; Stop 12/17/18 at 11:31 Active Scripts Active Reported Opdivo (Nivolumab) 40 Mg/4 Ml Vial 40 Mg IV PER PROTOCOL Percocet 10-325 Mg Tablet (Oxycodone/Acetaminophen) 1 Each Tablet 1 Tab PO Q4-6HRS PRN Miralax (Polyethylene Glycol 3350) 17 Gm Powd.pack 1 Packet PO DAILY Xanax (Alprazolam) 0.5 Mg Tablet 1 Tab PO TID PRN Vitals/I & O Vital Sign - Last 24 Hours 12/16/18 12/16/18 12/16/18 12/16/18 12:06 12:07 12:30 13:27 Temp 97.9 97.9 Pulse 79 89 Resp 34 46 B/P (MAP) 140/76 (97) 149/80 (103) Pulse Ox 97 98 O2 Delivery Nasal Cannula Bi-pap Nasal Cannula O2 Flow Rate 6.0 5.0 5.0 5.0 12/16/18 12/16/18 12/16/18 12/16/18 14:29 15:36 16:17 16:17 Pulse 90 88 Resp 29 B/P (MAP) 156/79 (104) 167/86 (113) Pulse Ox 98 99 O2 Delivery Nasal Cannula Nasal Cannula O2 Flow Rate 5.0 5.0 5.0 5.0 12/16/18 12/16/18 12/16/18 12/16/18 16:21 18:10 18:13 19:00 Pulse 88 101 102 Resp 22 32 34 B/P (MAP) 139/74 (95) 163/80 (107) Pulse Ox 99 99 99 96 O2 Delivery Nasal Cannula Nasal Cannula Nasal Cannula Nasal Cannula O2 Flow Rate 5.0 5.0 5.0 5.0 12/16/18 12/16/18 12/16/18 12/16/18 19:03 20:00 20:15 20:15 Temp 98.6 98.6 Pulse 92 Resp 34 B/P (MAP) 138/74 (95) Pulse Ox 97 O2 Delivery Nasal Cannula Nasal Cannula Nasal Cannula O2 Flow Rate 5.0 5.0 5.0 5.0 12/16/18 12/16/18 12/16/18 12/16/18 20:49 21:00 22:00 23:00 Pulse 92 78 93 Resp 26 26 26 28 B/P (MAP) 149/87 (107) 125/68 (87) 146/76 (99) Pulse Ox 96 96 99 97 O2 Delivery Nasal Cannula Nasal Cannula Nasal Cannula Nasal Cannula O2 Flow Rate 5.0 5.0 5.0 4.0 12/16/18 12/16/18 12/16/18 12/17/18 23:59 23:59 23:59 00:28 Temp 99.0 99.0 Pulse 92 Resp 24 24 B/P (MAP) 158/78 (104) Pulse Ox 99 100 O2 Delivery Nasal Cannula Nasal Cannula Nasal Cannula O2 Flow Rate 5.0 5.0 4.0 4.0 12/17/18 12/17/18 12/17/18 12/17/18 01:00 02:00 03:00 04:00 Pulse 88 83 93 Resp 24 20 28 B/P (MAP) 146/72 (96) 140/67 (91) 150/68 (95) Pulse Ox 97 100 96 O2 Delivery Nasal Cannula Nasal Cannula Nasal Cannula O2 Flow Rate 3.0 3.0 3.0 5.0 12/17/18 12/17/18 12/17/18 12/17/18 04:00 04:00 04:50 05:00 Temp 99.1 99.1 Pulse 90 107 Resp 20 30 30 B/P (MAP) 137/62 (87) 163/85 (111) Pulse Ox 99 92 92 O2 Delivery Nasal Cannula Nasal Cannula Nasal Cannula Nasal Cannula O2 Flow Rate 3.0 5.0 3.0 3.0 12/17/18 12/17/18 12/17/18 12/17/18 05:20 06:00 07:00 07:50 Pulse 89 108 Resp 20 20 28 B/P (MAP) 155/79 (104) 182/95 (124) Pulse Ox 95 99 95 O2 Delivery Nasal Cannula Nasal Cannula Nasal Cannula Nasal Cannula O2 Flow Rate 3.0 3.0 3.0 3.0 12/17/18 12/17/18 12/17/18 07:50 08:30 09:44 Temp 98.6 98.6 Pulse 114 114 102 Resp 34 28 26 B/P (MAP) 214/93 (133) 160/93 (115) 151/77 (101) Pulse Ox 93 93 95 O2 Delivery Nasal Cannula Nasal Cannula Nasal Cannula O2 Flow Rate 3.0 3.0 4.0 Intake and Output 12/16/18 12/16/18 12/17/18 15:00 23:00 07:00 Intake Total 300 ml 200 ml 360 ml Balance 300 ml 200 ml 360 ml Nutrition Consultation Dietary Evaluation: Recommendations by RD: Protein supplementation Comments: REC continue w/dysphagia II/ thin liquid diet as ordered per PEGGER DOBBY LOOMS REC offer Ensure prn pending respiratory status/BiPAP dependence, discussed w/RN Expected Outcomes/Goals: Initiation of nutrition within 24 hrs of intubation - not met, new goal established New goal 12/16: PO intake to meet >75% est needs Malnutrition Findings: Weight Status: Underweight TARAN CID MD Dec 17, 2018 11:28
[2018-12-17] MEDS ORDERED: FUROSEMIDE 20 MG/2 ML VIAL. IVP ONE (11:30)
--- NOTE | 2018-12-17 11:57 | RAD ---
PORTABLE CHEST 1V Clinical indications: Dyspnea. COMPARISON: December 16, 2018. Findings: Bilateral lung infiltrates are again evident. There has been improvement on both sides. Significant bilateral residual lung infiltrate is still present however. No pleural effusion is seen on the right side. Small left-sided pleural effusion has improved. No pneumothorax is seen. Heart size and mediastinum are stable. IMPRESSION: Improving lung infiltrates or pulmonary edema. Improvement of small left-sided pleural effusion. Electronically signed by: Miguel Domínguez MD (12/17/2018 11:54 AM) [id number]
--- NOTE | 2018-12-17 12:34 | NUR ---
SS following up with discharge planning. PT/OT recommended [facility]. SS contacted pt's son to discuss [facility] and discharge planning. Pt's son agreeable to [facility] and requested that referral be sent to [facility]. SS phoned and faxed referral to [facility], [phone]; fax [phone]. SS will await acceptance decision and will proceed accordingly.
--- NOTE | 2018-12-17 16:33 | RAD ---
Renal ultrasound HISTORY: Hydronephrosis. FINDINGS: Right kidney measures 12.3 cm longitudinal with moderate hydronephrosis. There is an echogenic focus within the right renal pelvis, but this does not demonstrate shadowing. This could represent a calculus, small mass or blood clot. Left kidney measures 11.4 cm longitudinal with moderate hydronephrosis. Urinary bladder demonstrates right and left ureteric jets. IMPRESSION: 1. Moderate hydronephrosis bilaterally. 2. There is a small echogenic nodule within the right renal collecting system. Possibilities include a calculus, blood clot or small mass. Electronically signed by: Gutierrez Dwyer MD (12/17/2018 4:30 PM) [id number]
--- NOTE | 2018-12-17 22:13 | PN ---
DATE: 12/17/2018 SUBJECTIVE: The patient is actually sitting in her recliner comfortably in no apparent respiratory distress. On questioning her, she continued to complain of shortness of breath; however, she denies any chest pain. Does have cough with scanty sputum. She is definitely much improved compared to yesterday. She is now on only 4 liters of oxygen, maintaining her oxygen saturation of 92%. She was able to walk with a walker with standby assist. PHYSICAL EXAMINATION: GENERAL: When I examined her, she looked pale, cachectic, but no jaundice or cyanosis. No lymphadenopathy, no thyromegaly. No jugular venous distention. No lower limb edema. VITAL SIGNS: Her heart rate was 114, blood pressure was 160/93, temperature was 98.6, respiratory rate was 28 and oxygen saturation was 93%. HEAD, EYES, EARS, NOSE AND THROAT: Showed normocephalic, atraumatic. NECK: Supple. HEART: Showed normal first and second heart sounds. No gallop, rub or murmur. CHEST: Showed central trachea, equally reduced expansion, reduced air entry, vesicular sounds with bilateral basal crepitation. I could not appreciate any rhonchi. ABDOMEN: Scaphoid, soft, nontender. NEUROLOGIC: She is awake, alert, responding appropriately. All cranial nerves intact. She moves extremities without difficulty. She ambulates with a walker. Her intake over the last 24 hours was 960 and output was 400. LABORATORY DATA: As of this morning showed a serum sodium 134, potassium 3.8, chloride 98, bicarbonate 28, anion gap of 8, BUN 10, creatinine 0.6, estimated GFR was 97 mL per minute. Her glucose was 86 and calcium was 8.4. She has had 3 sets of cardiac enzymes, all of them showed elevated troponin. Her white cell count was 10,900, hemoglobin 10, hematocrit 32, MCV 80 and platelet count of 263,000. Her blood gases showed a pH of 7.48, pCO2 of 39, pO2 of 77, bicarbonate 28, and oxygen saturation was 96% on FiO2 of 40% on BiPAP machine. Her influenza A and B were negative. Clostridium difficile toxins were negative. Her nasal screen for MRSA was negative and stool for occult blood were negative. ASSESSMENT: 1. Acute hypoxic hypercapnic respiratory failure, on BiPAP machine, likely due to pulmonary edema that has resolved. She is now on 4 liters of oxygen by nasal cannula. 2. Acute pulmonary edema, likely due to acute ischemia. Her 3 sets of cardiac enzymes were elevated; however, she is not a candidate for cardiac catheterization and stenting given that she is stage 4 anal carcinoma. 3. Hypokalemia has resolved. 4. Anal cancer, status post surgery and radiation and now receiving palliative chemotherapy. 5. Elevated D-dimer; however, CT angio of the chest was negative for pulmonary emboli. 6. Acute gastrointestinal bleeding related to heparin. She has received 2 units of packed RBCs. 7. Leukopenia, improving. 8. The patient is known to have chronic obstructive pulmonary disease. 9. Pneumonia for which she continues to be on Zyvox and cefepime. PLAN: To continue with IV antibiotic as recommended by the Infectious Disease specialist. Continue with Protonix. Continue with pain management. Continue with physical and occupational therapy. KELLI JOHNSON MD DR: ASTER/jeremy JOB#: [id number] / [id number]
[2018-12-17] MEDS: ACETAMINOPHEN 325 MG TABLET. PO PRN (23:18)
[2018-12-18] VITALS (20 sets, daily range): BP systolic 127–162; BP diastolic 59–86
[2018-12-18 06:21] LABS: ALBUMIN 1.9 g/dL (3.4-5.0); ALBUMIN/GLOBULIN RATIO 0.4 (1.0-1.7); CALCIUM 8.2 mg/dL (8.5-10.1); CREATININE 0.5 mg/dL (0.6-1.0); POTASSIUM 3.4 mmol/L (3.5-5.1); TOTAL BILIRUBIN 0.6 mg/dL (0.2-1.0); TOTAL PROTEIN 6.2 g/dL (6.4-8.2)
[2018-12-18 06:57] LABS: HEMATOCRIT 31.2 % (36.0-47.0); RED BLOOD COUNT 3.88 x10^6/uL (3.50-5.40); RED CELL DISTRIBUTION WIDTH 20.9 % (11.5-14.5); WHITE BLOOD COUNT 9.3 x10^3/uL (4.0-11.0)
--- NOTE | 2018-12-18 07:10 | PDOC ---
Infectious Disease Note Subjective Subjective Better + sputum Urinating well No F/C/S/N/V/Rash. SOA is some better. Still has some wheeze ROS ROS o/w neg Vital Sign Vital Signs Vital Signs Date Time Temp Pulse Resp B/P (MAP) Pulse Ox O2 Delivery O2 Flow Rate FiO2 12/18/18 06:00 92 27 158/78 (104) 91 Nasal Cannula 4.0 12/18/18 00:00 98.6 98.6 Physical Exam PHYSICAL EXAM GENERAL: NAD, looks comfortable HEENT: nml conj. OC/Op- clear LUNGS: mild wheeze on right but better HEART: S1, S2, irregular ABDOMEN: Soft, nontender, ostomy GENITOURINARY: Lance out EXTREMITIES: No edema, no cyanosis. DERMATOLOGIC: Warm, dry, no generalized rash. TRANSIT MIXER OPERATOR: Very alert and appropriate RIJ and Port-A-Cath site looks okay. PIV - RUE Labs Lab Laboratory Tests Test 12/18/18 05:45 Sodium Level 134 mmol/L (136-145) Potassium Level 3.4 mmol/L (3.5-5.1) Chloride Level 98 mmol/L (98-107) Carbon Dioxide Level 29 mmol/L (21-32) Anion Gap 7 (6-14) Blood Urea Nitrogen 10 mg/dL (7-20) Creatinine 0.5 mg/dL (0.6-1.0) Estimated GFR (Cockcroft-Gault) 120.0 BUN/Creatinine Ratio 20 (6-20) Glucose Level 84 mg/dL (70-99) Calcium Level 8.2 mg/dL (8.5-10.1) Total Bilirubin 0.6 mg/dL (0.2-1.0) Aspartate Amino Transf (AST/SGOT) 22 U/L (15-37) Alanine Aminotransferase (ALT/SGPT) 20 U/L (14-59) Alkaline Phosphatase 235 U/L (46-116) Total Protein 6.2 g/dL (6.4-8.2) Albumin 1.9 g/dL (3.4-5.0) Albumin/Globulin Ratio 0.4 (1.0-1.7) Micro U/S IMPRESSION: 1. Moderate hydronephrosis bilaterally. 2. There is a small echogenic nodule within the right renal collecting system. Possibilities include a calculus, blood clot or small mass. Microbiology 5/30/19 Blood Culture - Preliminary, Resulted NO GROWTH AFTER 4 DAYS Objective Assessment Acute respiratory failure - better Elevated Troponin Urinary retention - hydro on U/S Anemia s/p recent PRBCs Leukopenia, on Chemo, improved H/o PENICILLIN ALLERGY, unknown reaction, tolerated ceftriaxone well at [facility]. H/o recurrent squamous cell carcinoma, on palliative chemo w/ carboplatin and Taxol Chronic obstructive pulmonary disease. History of smoking. Possible gastrointestinal bleed. Plan Plan of Care Now DNR/DNI Urology eval pending Cont Zyvox (12/12)/Cefepime (12/12) for now F/u labs BC NGTD Supportive care Await further family decisions D/w nursing ABBIE STEWART MD Dec 18, 2018 07:10
[2018-12-18] MEDS: OXYBUTYNIN CHLORIDE 5 MG TABLET PO SCH ×2 (08:09→21:10)
[2018-12-18] MEDS: ACETAMINOPHEN 325 MG TABLET. PO PRN ×2 (08:09→21:10)
[2018-12-18] MEDS: NICOTINE 21MG PATCH. TD SCH (08:11)
[2018-12-18] MEDS: PANTOPRAZOLE 40 MG TABLET.DR. PO SCH (08:12)
--- NOTE | 2018-12-18 08:41 | PDOC ---
PULMONARY PROGRESS NOTES Subjective patient not more SOA. cough nonproductive Vitals Vital Signs Date Time Temp Pulse Resp B/P (MAP) Pulse Ox O2 Delivery O2 Flow Rate FiO2 12/18/18 07:00 97.6 102 17 127/77 (94) 100 Nasal Cannula 3.0 97.6 General: Alert, No acute distress Lungs: Clear Cardiovascular: S1, S2 Abdomen: Soft Neuro Exam: Alert Extremities: No Edema Skin: Warm Labs Laboratory Tests Test 12/16/18 12:40 12/17/18 05:00 12/18/18 05:45 Troponin I Quantitative 0.118 ng/mL (0.000-0.055) White Blood Count 10.9 x10^3/uL (4.0-11.0) 9.3 x10^3/uL (4.0-11.0) Red Blood Count 3.97 x10^6/uL (3.50-5.40) 3.88 x10^6/uL (3.50-5.40) Hemoglobin 10.4 g/dL (12.0-15.5) 10.0 g/dL (12.0-15.5) Hematocrit 31.8 % (36.0-47.0) 31.2 % (36.0-47.0) Mean Corpuscular Volume 80 fL (79-100) 81 fL (79-100) Mean Corpuscular Hemoglobin 26 pg (25-35) 26 pg (25-35) Mean Corpuscular Hemoglobin Concent 33 g/dL (31-37) 32 g/dL (31-37) Red Cell Distribution Width 20.6 % (11.5-14.5) 20.9 % (11.5-14.5) Platelet Count 263 x10^3/uL (140-400) 230 x10^3/uL (140-400) Neutrophils (%) (Auto) 85 % (31-73) Lymphocytes (%) (Auto) 11 % (24-48) Monocytes (%) (Auto) 4 % (0-9) Eosinophils (%) (Auto) 0 % (0-3) Basophils (%) (Auto) 0 % (0-3) Neutrophils # (Auto) 9.2 x10^3uL (1.8-7.7) Lymphocytes # (Auto) 1.2 x10^3/uL (1.0-4.8) Monocytes # (Auto) 0.4 x10^3/uL (0.0-1.1) Eosinophils # (Auto) 0.0 x10^3/uL (0.0-0.7) Basophils # (Auto) 0.0 x10^3/uL (0.0-0.2) Sodium Level 134 mmol/L (136-145) 134 mmol/L (136-145) Potassium Level 3.8 mmol/L (3.5-5.1) 3.4 mmol/L (3.5-5.1) Chloride Level 98 mmol/L (98-107) 98 mmol/L (98-107) Carbon Dioxide Level 28 mmol/L (21-32) 29 mmol/L (21-32) Anion Gap 8 (6-14) 7 (6-14) Blood Urea Nitrogen 10 mg/dL (7-20) 10 mg/dL (7-20) Creatinine 0.6 mg/dL (0.6-1.0) 0.5 mg/dL (0.6-1.0) Estimated GFR (Cockcroft-Gault) 97.2 120.0 Glucose Level 86 mg/dL (70-99) 84 mg/dL (70-99) Calcium Level 8.4 mg/dL (8.5-10.1) 8.2 mg/dL (8.5-10.1) BUN/Creatinine Ratio 20 (6-20) Total Bilirubin 0.6 mg/dL (0.2-1.0) Aspartate Amino Transf (AST/SGOT) 22 U/L (15-37) Alanine Aminotransferase (ALT/SGPT) 20 U/L (14-59) Alkaline Phosphatase 235 U/L (46-116) Total Protein 6.2 g/dL (6.4-8.2) Albumin 1.9 g/dL (3.4-5.0) Albumin/Globulin Ratio 0.4 (1.0-1.7) Laboratory Tests Test 12/18/18 05:45 White Blood Count 9.3 x10^3/uL (4.0-11.0) Red Blood Count 3.88 x10^6/uL (3.50-5.40) Hemoglobin 10.0 g/dL (12.0-15.5) Hematocrit 31.2 % (36.0-47.0) Mean Corpuscular Volume 81 fL (79-100) Mean Corpuscular Hemoglobin 26 pg (25-35) Mean Corpuscular Hemoglobin Concent 32 g/dL (31-37) Red Cell Distribution Width 20.9 % (11.5-14.5) Platelet Count 230 x10^3/uL (140-400) Sodium Level 134 mmol/L (136-145) Potassium Level 3.4 mmol/L (3.5-5.1) Chloride Level 98 mmol/L (98-107) Carbon Dioxide Level 29 mmol/L (21-32) Anion Gap 7 (6-14) Blood Urea Nitrogen 10 mg/dL (7-20) Creatinine 0.5 mg/dL (0.6-1.0) Estimated GFR (Cockcroft-Gault) 120.0 BUN/Creatinine Ratio 20 (6-20) Glucose Level 84 mg/dL (70-99) Calcium Level 8.2 mg/dL (8.5-10.1) Total Bilirubin 0.6 mg/dL (0.2-1.0) Aspartate Amino Transf (AST/SGOT) 22 U/L (15-37) Alanine Aminotransferase (ALT/SGPT) 20 U/L (14-59) Alkaline Phosphatase 235 U/L (46-116) Total Protein 6.2 g/dL (6.4-8.2) Albumin 1.9 g/dL (3.4-5.0) Albumin/Globulin Ratio 0.4 (1.0-1.7) Medications Active Scripts Medications Dose Route/Sig Max Daily Dose Days Date Category Opdivo (Nivolumab) 40 Mg/4 Ml Vial 40 Mg IV PER PROTOCOL 07/25/18 Reported Percocet 10-325 Mg Tablet (Oxycodone/Acetaminophen) 1 Each Tablet 1 Tab PO Q4-6HRS PRN 04/22/18 Reported Miralax (Polyethylene Glycol 3350) 17 Gm Powd.pack 1 Packet PO DAILY 04/19/18 Reported Xanax (Alprazolam) 0.5 Mg Tablet 1 Tab PO TID PRN 03/23/17 Reported Impression . 1. Acute hypoxic respiratory failure secondary to diffuse lung infiltrate 2. The patient with stage IV anal cancer, status post surgery and radiation and now undergoing palliative chemo. 3. Abnormal D-dimer, which is a nonspecific test and can be seen in many other conditions including malignancy. No evidence of pulmonary embolism. 4. Acute gastrointestinal bleed related to heparin. Hemoglobin went down to 5.7, s/p packed red blood cells.Hb stable 5. Leukopenia, likely related to infectious etiology versus bone marrow suppression by chemo. 6. Underlying chronic obstructive pulmonary disease. 12/17 CXR IMPRESSION: Improving lung infiltrates or pulmonary edema. Improvement of small left-sided pleural effusion. Plan . oxygen supplementation follow speech input antibiotics per ID transfuse as needed physical therapy eval and treat RED AARON MD Dec 18, 2018 08:41
[2018-12-18] MEDS: CEFEPIME HCL IV Push 2 GM VIAL. IVP SCH ×2 (08:59→21:09)
[2018-12-18] MEDS: POTASSIUM CHLORIDE 20 MEQ TABLET.ER. PO SCH ×3 (09:02→21:00)
[2018-12-18] MEDS: POLYETHYLENE GLYCOL 3350 17 GM PACKET. PO SCH (09:02)
--- NOTE | 2018-12-18 09:02 | NUR ---
Pt has requested a modified dose of miralax, as it increases output uncomfortably. 14
--- NOTE | 2018-12-18 09:22 | PDOC ---
Subjective: Subjective: Tolerating PO, ostomy functioning. Thinks she needs to back off on Miralax - does not want PRN dosing because usually takes daily at home but "just a little bit." Objective: Objective: Reviewed w/ RN - no bleeding, brown ostomy output. Vital Signs: Vital Signs Date Time Temp Pulse Resp B/P (MAP) Pulse Ox O2 Delivery O2 Flow Rate FiO2 12/18/18 07:00 97.6 102 17 127/77 (94) 100 Nasal Cannula 3.0 97.6 Labs: Laboratory Tests Test 12/18/18 05:45 White Blood Count 9.3 x10^3/uL Red Blood Count 3.88 x10^6/uL Hemoglobin 10.0 g/dL Hematocrit 31.2 % Mean Corpuscular Volume 81 fL Mean Corpuscular Hemoglobin 26 pg Mean Corpuscular Hemoglobin Concent 32 g/dL Red Cell Distribution Width 20.9 % Platelet Count 230 x10^3/uL Sodium Level 134 mmol/L Potassium Level 3.4 mmol/L Chloride Level 98 mmol/L Carbon Dioxide Level 29 mmol/L Anion Gap 7 Blood Urea Nitrogen 10 mg/dL Creatinine 0.5 mg/dL Estimated GFR (Cockcroft-Gault) 120.0 BUN/Creatinine Ratio 20 Glucose Level 84 mg/dL Calcium Level 8.2 mg/dL Total Bilirubin 0.6 mg/dL Aspartate Amino Transf (AST/SGOT) 22 U/L Alanine Aminotransferase (ALT/SGPT) 20 U/L Alkaline Phosphatase 235 U/L Total Protein 6.2 g/dL Albumin 1.9 g/dL Albumin/Globulin Ratio 0.4 Imaging: Renal US 12/17 IMPRESSION: 1. Moderate hydronephrosis bilaterally. 2. There is a small echogenic nodule within the right renal collecting system. Possibilities include a calculus, blood clot or small mass. CXR 12/17 IMPRESSION: Improving lung infiltrates or pulmonary edema. Improvement of small left-sided pleural effusion. PE: GEN: NAD, up in chair eating breakfast, slouched to right LUNGS: NC 3L HEART: tachycardic ABD: S/ND/NT NEURO/PSYCH: A & O 3 A/P: Resp failure - improved Recurrent SCC of anus, elevated Alk Phos Chronic anemia - stable -- Adjust Miralax dosing as needed. FILEMON PEREZ Dec 18, 2018 09:22
[2018-12-18] MEDS ORDERED: FUROSEMIDE 20 MG/2 ML VIAL. IVP ONE (09:30)
--- NOTE | 2018-12-18 10:06 | PDOC2 ---
[facility] OCC[facility]ATIONAL THERAPIST 12/18/18 1006: UROLOGY CONSULT Date of Consult Date of Consult DATE: 12/18/18 TIME: 09:55 Source Source: Caregiver, Chart review, Patient History of Present Illness Reason for Visit: This 77 year old female is known to us and is a patient of Dr. Gross. She was last seen at our [facility] clinic on 12.05.[address] Fields for hydronephroses and leaking with urination. During that appointment they discussed Botox for bladder leaking along with placement of bilateral stents for hydronephrosis to aid with pain alleviation; however there was no improvement in survival with stent placement. She was supposed to have Botox therapy last week on 12/12, but had to cancel due to this hospitalization. The consult was for bilateral hydronephrosis but she also reports a history of chronic urinary retention with a baseline retention volume of around 400 ml that she carries normally. Since h er arrival here, she has had varied success with urination; some days she is able to do this well and then there are others when she struggles to empty her bladder or initiate a urine stream. She denies dysuria or flank or lower abd pain but is open to having stents placed if it is truly necessary. Past Medical History Cardiovascular: No pertinent hx Pulmonary: Bronchitis GI: GERD Heme/Onc: Cancer (anal ) Psych: Anxiety, Depression Musculoskeletal: Osteoarthritis Rheumatologic: Rheumatoid arthritis Past Surgical History Past Surgical History: Tubal Ligation, Tonsillectomy, Other (Rectal surgery, ostomy.) Family History Family History: Cancer (breast- sister) Social History Social History: Other 1 pack per day ALCOHOL: none Drugs: None Lives: with Family Current Problem List Problems: (1) Hydronephrosis (2) Urinary retention Current Medications Current Medications Current Medications Furosemide (Lasix) 20 mg 1X ONCE IVP Last administered on 12/17/18at 11:13; Start 12/17/18 at 11:30; Stop 12/17/18 at 11:31; Status DC Furosemide (Lasix) 20 mg 1X ONCE IVP Last administered on 12/18/18at 09:08; Start 12/18/18 at 09:30; Stop 12/18/18 at 09:31; Status DC Pantoprazole Sodium (Protonix) 40 mg DAILYAC PO Last administered on 12/18/18at 08:12; Start 12/18/18 at 07:30 Polyethylene Glycol (miraLAX PACKET) 17 gm DAILY PO Last administered on 12/18/18at 09:02; Start 12/17/18 at 11:30 Polyethylene Glycol (miraLAX PACKET) 17 gm PRN DAILY PRN PO CONSTIPATION; Start 12/17/18 at 10:45 Potassium Chloride (Klor-Con) 20 meq TID PO Last administered on 12/18/18at 09:02; Start 12/18/18 at 09:00 Allergies Allergies: Coded Allergies: No Known Medication Allergies (Verified Allergy, Unknown, 12/18/18) Penicillins (Verified Adverse Reaction, Mild, yeast infection, 04/22/18) ROS Review Of Systems: CONSTITUTIONAL: No fever or chills EYES: No recent changes SKIN: No rash or itching CARDIOVASCULAR: No chest pain, syncope, palpitations, or edema RESPIRATORY: No SOB or cough GASTROINTESTINAL: No nausea, vomiting or abdominal pain NEUROLOGICAL: No headaches or weakness ENDOCRINE: No cold or heat intolerance GENITOURINARY: + incomplete emptying? No dysuria MUSCULOSKELETAL: No back pain or joint pain LYMPHATICS: No enlarged lymph nodes PSYCHIATRIC: No anxiety or depression Physical Exam Physical Exam: General: Pleasant, no acute distress, well groomed Eyes: conjunctiva anicteric, eyes full range of motion ENT: moist oral mucosa, normal dentition Neck: Trachea midline, no masses Respiratory: unlabored breathing, not using accessory muscles, Abdomen: nontender, nondistended, no hepatosplenomegaly, no masses : PVR via bladder scan between 246-300. Skin: no rashes or skin lesions on visualized skin Psych: normal mood, affect. Alert and oriented x 3. Vitals VITALS Vital Signs Date Time Temp Pulse Resp B/P (MAP) Pulse Ox O2 Delivery O2 Flow Rate FiO2 12/18/18 07:00 97.6 102 17 127/77 (94) 100 Nasal Cannula 3.0 97.6 Labs Labs Laboratory Tests Test 12/16/18 12:40 12/17/18 05:00 12/18/18 05:45 Troponin I Quantitative 0.118 ng/mL (0.000-0.055) White Blood Count 10.9 x10^3/uL (4.0-11.0) 9.3 x10^3/uL (4.0-11.0) Red Blood Count 3.97 x10^6/uL (3.50-5.40) 3.88 x10^6/uL (3.50-5.40) Hemoglobin 10.4 g/dL (12.0-15.5) 10.0 g/dL (12.0-15.5) Hematocrit 31.8 % (36.0-47.0) 31.2 % (36.0-47.0) Mean Corpuscular Volume 80 fL (79-100) 81 fL (79-100) Mean Corpuscular Hemoglobin 26 pg (25-35) 26 pg (25-35) Mean Corpuscular Hemoglobin Concent 33 g/dL (31-37) 32 g/dL (31-37) Red Cell Distribution Width 20.6 % (11.5-14.5) 20.9 % (11.5-14.5) Platelet Count 263 x10^3/uL (140-400) 230 x10^3/uL (140-400) Neutrophils (%) (Auto) 85 % (31-73) Lymphocytes (%) (Auto) 11 % (24-48) Monocytes (%) (Auto) 4 % (0-9) Eosinophils (%) (Auto) 0 % (0-3) Basophils (%) (Auto) 0 % (0-3) Neutrophils # (Auto) 9.2 x10^3uL (1.8-7.7) Lymphocytes # (Auto) 1.2 x10^3/uL (1.0-4.8) Monocytes # (Auto) 0.4 x10^3/uL (0.0-1.1) Eosinophils # (Auto) 0.0 x10^3/uL (0.0-0.7) Basophils # (Auto) 0.0 x10^3/uL (0.0-0.2) Sodium Level 134 mmol/L (136-145) 134 mmol/L (136-145) Potassium Level 3.8 mmol/L (3.5-5.1) 3.4 mmol/L (3.5-5.1) Chloride Level 98 mmol/L (98-107) 98 mmol/L (98-107) Carbon Dioxide Level 28 mmol/L (21-32) 29 mmol/L (21-32) Anion Gap 8 (6-14) 7 (6-14) Blood Urea Nitrogen 10 mg/dL (7-20) 10 mg/dL (7-20) Creatinine 0.6 mg/dL (0.6-1.0) 0.5 mg/dL (0.6-1.0) Estimated GFR (Cockcroft-Gault) 97.2 120.0 Glucose Level 86 mg/dL (70-99) 84 mg/dL (70-99) Calcium Level 8.4 mg/dL (8.5-10.1) 8.2 mg/dL (8.5-10.1) BUN/Creatinine Ratio 20 (6-20) Total Bilirubin 0.6 mg/dL (0.2-1.0) Aspartate Amino Transf (AST/SGOT) 22 U/L (15-37) Alanine Aminotransferase (ALT/SGPT) 20 U/L (14-59) Alkaline Phosphatase 235 U/L (46-116) Total Protein 6.2 g/dL (6.4-8.2) Albumin 1.9 g/dL (3.4-5.0) Albumin/Globulin Ratio 0.4 (1.0-1.7) Laboratory Tests Test 12/18/18 05:45 White Blood Count 9.3 x10^3/uL (4.0-11.0) Red Blood Count 3.88 x10^6/uL (3.50-5.40) Hemoglobin 10.0 g/dL (12.0-15.5) Hematocrit 31.2 % (36.0-47.0) Mean Corpuscular Volume 81 fL (79-100) Mean Corpuscular Hemoglobin 26 pg (25-35) Mean Corpuscular Hemoglobin Concent 32 g/dL (31-37) Red Cell Distribution Width 20.9 % (11.5-14.5) Platelet Count 230 x10^3/uL (140-400) Sodium Level 134 mmol/L (136-145) Potassium Level 3.4 mmol/L (3.5-5.1) Chloride Level 98 mmol/L (98-107) Carbon Dioxide Level 29 mmol/L (21-32) Anion Gap 7 (6-14) Blood Urea Nitrogen 10 mg/dL (7-20) Creatinine 0.5 mg/dL (0.6-1.0) Estimated GFR (Cockcroft-Gault) 120.0 BUN/Creatinine Ratio 20 (6-20) Glucose Level 84 mg/dL (70-99) Calcium Level 8.2 mg/dL (8.5-10.1) Total Bilirubin 0.6 mg/dL (0.2-1.0) Aspartate Amino Transf (AST/SGOT) 22 U/L (15-37) Alanine Aminotransferase (ALT/SGPT) 20 U/L (14-59) Alkaline Phosphatase 235 U/L (46-116) Total Protein 6.2 g/dL (6.4-8.2) Albumin 1.9 g/dL (3.4-5.0) Albumin/Globulin Ratio 0.4 (1.0-1.7) Images Images Renal US IMPRESSION: 1. Moderate hydronephrosis bilaterally. 2. There is a small echogenic nodule within the right renal collecting system. Possibilities include a calculus, blood clot or small mass. Assessment/Plan Assessment/Plan We will proceed with in house Botox int he OR. Pt to remain NPO at midnight for procedure with Dr. Fields tomorrow afternoon. Consents entered. UA today to ensure no infection. Pt aware that if UA indicates infection, this could cancel procedure. Pt hydronephrosis secondary to pelvic mass. For this we will insert bilateral ureteral stents during the Botox procedure. PVR via bladder scan is between 246-300, which is where patient normally lives. Discussed above with attending RN and patient, all questions answered. Will follow. RAMU FIELDS MD 12/19/18 1446: UROLOGY CONSULT Assessment/Plan Assessment/Plan Agree with assessment and plan. I had a long discussion with the patient prior to surgery in her hospital room regarding her goals, and potential benefits from surgery. Explained that botox injection should help with urinary leakage but not with pelvic pain. Explained that ureteral stents will help with renal function and allow safer administration of palliative chemotherapy, and might also help with pain, but would not extend her life. She understands and wished to proceed with cystoscopy, bladder botox injection, bilateral ureteral stent placement. Risks discussed, all questions answered. [facility] APRN Dec 18, 2018 10:06 RAMU FIELDS MD Dec 19, 2018 14:46
[2018-12-18 10:41] LABS: BILIRUBIN,URINE NEGATIVE (NEG); CLARITY,URINE CLEAR; COLOR,URINE YELLOW; NITRITE,URINE NEGATIVE (NEG); PH,URINE 7.5; PROTEIN,URINE 30 mg/dL (NEG-TRACE); UROBILINOGEN,URINE 0.2 mg/dL (0.2 mg/dL)
[2018-12-18 11:02] LABS: BACTERIA,URINE 0 /HPF (0-FEW); RBC,URINE 0 /HPF (0-2); SQUAMOUS EPITHELIAL CELL,UR FEW /LPF; WBC,URINE OCC /HPF (0-4)
--- NOTE | 2018-12-18 16:49 | PDOC ---
PROGRESS NOTES Subjective Subjective HPI - Stage IV, Recurrent anal carcinoma ROS - no CP Objective Objective Vital Signs Date Time Temp Pulse Resp B/P (MAP) Pulse Ox O2 Delivery O2 Flow Rate FiO2 12/18/18 16:00 Nasal Cannula 3.0 12/18/18 15:00 106 30 137/59 (85) 88 12/18/18 12:00 98.1 98.1 Intake and Output 12/18/18 06:59 Intake Total 180 ml Output Total 2625 ml Balance -2445 ml Intake Oral 180 ml Output Urine Total 2625 ml # Voids 1 Physical Exam Heart: Normal S1, Normal S2 General: Alert, Oriented X3, No acute distress Lungs: Clear to auscultation Neuro: Normal speech Psych/Mental Status: Mental status NL Assessment Assessment IMPRESSION AND PLAN: 1. Stage IV, Recurrent anal carcinoma with development of bone metastases and progressively worsening large presacral mass and bilateral hydronephrosis and a peritoneal implant near the colostomy site consistent with stage IV malignancy. She was started on palliative chemotherapy with carboplatin and Taxol on 12/02/2018. She has failed previous treatments. I will continue to monitor for toxicities. She will return for followup after the acute episode has resolved so we can resume treatment. If her functional status does not improve, then I would recommend hospice. She prefers to continue palliative chemo. Appreciate palliative care consult. 2. Acute respiratory failure thought to be due to pneumonia. I appreciate pulmonary consultation and management. Extubated 12/13/18. 3. 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 Hemoglobin is 5.7 on 12/12/2018, improved to 8.6 on 03/14/2019 after transfusion. Hb 8.6 on 12/13/18. Hb 9.7 on 12/16/18 Hb 10.0 on 12/18/18 4. Hydronephrosis, appreciate urology consult. Stent planned 12/19/18. Comment Review of Relevant I have reviewed the following items walt (where applicable) has been applied. Labs Laboratory Tests Test 12/17/18 05:00 12/18/18 05:45 12/18/18 10:02 White Blood Count 10.9 x10^3/uL (4.0-11.0) 9.3 x10^3/uL (4.0-11.0) Red Blood Count 3.97 x10^6/uL (3.50-5.40) 3.88 x10^6/uL (3.50-5.40) Hemoglobin 10.4 g/dL (12.0-15.5) 10.0 g/dL (12.0-15.5) Hematocrit 31.8 % (36.0-47.0) 31.2 % (36.0-47.0) Mean Corpuscular Volume 80 fL (79-100) 81 fL (79-100) Mean Corpuscular Hemoglobin 26 pg (25-35) 26 pg (25-35) Mean Corpuscular Hemoglobin Concent 33 g/dL (31-37) 32 g/dL (31-37) Red Cell Distribution Width 20.6 % (11.5-14.5) 20.9 % (11.5-14.5) Platelet Count 263 x10^3/uL (140-400) 230 x10^3/uL (140-400) Neutrophils (%) (Auto) 85 % (31-73) Lymphocytes (%) (Auto) 11 % (24-48) Monocytes (%) (Auto) 4 % (0-9) Eosinophils (%) (Auto) 0 % (0-3) Basophils (%) (Auto) 0 % (0-3) Neutrophils # (Auto) 9.2 x10^3uL (1.8-7.7) Lymphocytes # (Auto) 1.2 x10^3/uL (1.0-4.8) Monocytes # (Auto) 0.4 x10^3/uL (0.0-1.1) Eosinophils # (Auto) 0.0 x10^3/uL (0.0-0.7) Basophils # (Auto) 0.0 x10^3/uL (0.0-0.2) Sodium Level 134 mmol/L (136-145) 134 mmol/L (136-145) Potassium Level 3.8 mmol/L (3.5-5.1) 3.4 mmol/L (3.5-5.1) Chloride Level 98 mmol/L (98-107) 98 mmol/L (98-107) Carbon Dioxide Level 28 mmol/L (21-32) 29 mmol/L (21-32) Anion Gap 8 (6-14) 7 (6-14) Blood Urea Nitrogen 10 mg/dL (7-20) 10 mg/dL (7-20) Creatinine 0.6 mg/dL (0.6-1.0) 0.5 mg/dL (0.6-1.0) Estimated GFR (Cockcroft-Gault) 97.2 120.0 Glucose Level 86 mg/dL (70-99) 84 mg/dL (70-99) Calcium Level 8.4 mg/dL (8.5-10.1) 8.2 mg/dL (8.5-10.1) BUN/Creatinine Ratio 20 (6-20) Total Bilirubin 0.6 mg/dL (0.2-1.0) Aspartate Amino Transf (AST/SGOT) 22 U/L (15-37) Alanine Aminotransferase (ALT/SGPT) 20 U/L (14-59) Alkaline Phosphatase 235 U/L (46-116) Total Protein 6.2 g/dL (6.4-8.2) Albumin 1.9 g/dL (3.4-5.0) Albumin/Globulin Ratio 0.4 (1.0-1.7) Urine Collection Type Unknown Urine Color Yellow Urine Clarity Clear Urine pH 7.5 Urine Specific [place] 1.010 Urine Protein 30 mg/dL (NEG-TRACE) Urine Glucose (UA) Negative mg/dL (NEG) Urine Ketones (Stick) Negative mg/dL (NEG) Urine Blood Negative (NEG) Urine Nitrite Negative (NEG) Urine Bilirubin Negative (NEG) Urine Urobilinogen Dipstick 0.2 mg/dL (0.2 mg/dL) Urine Leukocyte Esterase Negative (NEG) Urine RBC 0 /HPF (0-2) Urine WBC Occ /HPF (0-4) Urine Squamous Epithelial Cells Few /LPF Urine Renal Epithelial Cells Mod /LPF Urine Bacteria 0 /HPF (0-FEW) Laboratory Tests Test 12/18/18 05:45 12/18/18 10:02 White Blood Count 9.3 x10^3/uL (4.0-11.0) Red Blood Count 3.88 x10^6/uL (3.50-5.40) Hemoglobin 10.0 g/dL (12.0-15.5) Hematocrit 31.2 % (36.0-47.0) Mean Corpuscular Volume 81 fL (79-100) Mean Corpuscular Hemoglobin 26 pg (25-35) Mean Corpuscular Hemoglobin Concent 32 g/dL (31-37) Red Cell Distribution Width 20.9 % (11.5-14.5) Platelet Count 230 x10^3/uL (140-400) Sodium Level 134 mmol/L (136-145) Potassium Level 3.4 mmol/L (3.5-5.1) Chloride Level 98 mmol/L (98-107) Carbon Dioxide Level 29 mmol/L (21-32) Anion Gap 7 (6-14) Blood Urea Nitrogen 10 mg/dL (7-20) Creatinine 0.5 mg/dL (0.6-1.0) Estimated GFR (Cockcroft-Gault) 120.0 BUN/Creatinine Ratio 20 (6-20) Glucose Level 84 mg/dL (70-99) Calcium Level 8.2 mg/dL (8.5-10.1) Total Bilirubin 0.6 mg/dL (0.2-1.0) Aspartate Amino Transf (AST/SGOT) 22 U/L (15-37) Alanine Aminotransferase (ALT/SGPT) 20 U/L (14-59) Alkaline Phosphatase 235 U/L (46-116) Total Protein 6.2 g/dL (6.4-8.2) Albumin 1.9 g/dL (3.4-5.0) Albumin/Globulin Ratio 0.4 (1.0-1.7) Urine Collection Type Unknown Urine Color Yellow Urine Clarity Clear Urine pH 7.5 Urine Specific [place] 1.010 Urine Protein 30 mg/dL (NEG-TRACE) Urine Glucose (UA) Negative mg/dL (NEG) Urine Ketones (Stick) Negative mg/dL (NEG) Urine Blood Negative (NEG) Urine Nitrite Negative (NEG) Urine Bilirubin Negative (NEG) Urine Urobilinogen Dipstick 0.2 mg/dL (0.2 mg/dL) Urine Leukocyte Esterase Negative (NEG) Urine RBC 0 /HPF (0-2) Urine WBC Occ /HPF (0-4) Urine Squamous Epithelial Cells Few /LPF Urine Renal Epithelial Cells Mod /LPF Urine Bacteria 0 /HPF (0-FEW) Microbiology 12/12/18 Blood Culture - Final, Complete NO GROWTH AFTER 5 DAYS Medications Current Medications Propofol 100 ml @ 0 mls/hr CONT PRN IV SEE I/O RECORD Last administered on 12/13/18at 09:04; Start 12/12/18 at 01:30; Stop 12/14/18 at 18:21; Status DC Ringer's Solution 1,000 ml @ 100 mls/hr Q10H IV Last administered on 12/14/18at 13:30; Start 12/12/18 at 01:30; Stop 12/16/18 at 16:47; Status DC Heparin Sodium/ Dextrose 500 ml @ 0 mls/hr CONT PRN IV SEE I/O RECORD; Start 12/12/18 at 01:30; Stop 12/12/18 at 06:17; Status DC Heparin Sodium (Porcine) (Heparin Sodium) 1,000 unit PRN Q6HRS PRN IV FOR UFH LEVEL LESS THAN 0.2; Start 12/12/18 at 01:30; Stop 12/12/18 at 06:17; Status DC Norepinephrine Bitartrate 250 ml @ 1.875 mls/ hr CONT PRN IV SEE I/O RECORD; Start 12/12/18 at 01:30; Stop 12/14/18 at 18:21; Status DC Enoxaparin Sodium (Lovenox 30mg Syringe) 30 mg Q24H SQ ; Start 12/12/18 at 09:00; Stop 12/12/18 at 09:00; Status DC Cefepime HCl (Maxipime) 2 gm Q12HR IVP Last administered on 12/18/18at 08:59; Start 12/12/18 at 09:00 Linezolid/Dextrose 300 ml @ 300 mls/hr Q12HR IV Last administered on 12/18/18at 08:59; Start 12/12/18 at 09:00 Pantoprazole Sodium (PROTONIX VIAL for IV PUSH) 40 mg BID IVP Last administered on 12/16/18at 09:04; Start 12/12/18 at 10:15; Stop 12/16/18 at 10:22; Status DC Fentanyl Citrate 30 ml @ 0 mls/hr CONT PRN IV SEE PROTOCOL Last administered on 12/13/18at 09:24; Start 12/12/18 at 12:30; Stop 12/14/18 at 18:23; Status DC Albuterol Sulfate (Ventolin Neb Soln) 2.5 mg PRN 1X PRN NEB SHORTNESS OF BREATH; Start 12/13/18 at 09:30; Stop 12/14/18 at 09:29; Status DC Lidocaine HCl (Lidocaine 2% Viscous) 100 ml PRN 1X PRN MM MOUTH PAIN; Start 12/13/18 at 09:30; Stop 12/14/18 at 09:29; Status DC Epinephrine HCl (Adrenalin) 1 mg PRN 1X PRN INJ SEE COMMENTS; Start 12/13/18 at 09:30; Stop 12/14/18 at 09:29; Status DC Epinephrine HCl (Adrenalin) 1 mg STK-MED ONCE .ROUTE ; Start 12/13/18 at 10:18; Stop 12/13/18 at 10:19; Status DC Lidocaine HCl (Lidocaine 2% Viscous) 100 ml STK-MED ONCE .ROUTE ; Start 12/13/18 at 10:18; Stop 12/13/18 at 10:19; Status DC Nicotine (Nicoderm Cq 21mg) 1 patch DAILY TD Last administered on 12/18/18at 08:11; Start 12/13/18 at 19:00 Oxybutynin Chloride (Ditropan) 2.5 mg BID PO Last administered on 12/18/18at 08:09; Start 12/13/18 at 19:00 Potassium Chloride (Klor-Con) 40 meq Q1H PO Last administered on 12/15/18at 09:07; Start 12/15/18 at 06:30; Stop 12/15/18 at 08:31; Status DC Albuterol Sulfate (Ventolin Neb Soln) 2.5 mg 1X ONCE NEB ; Start 12/15/18 at 23:00; Stop 12/15/18 at 23:01; Status DC Albuterol/ Ipratropium (Duoneb) 3 ml STK-MED ONCE .ROUTE ; Start 12/15/18 at 22:58; Stop 12/15/18 at 22:59; Status DC Furosemide (Lasix) 40 mg 1X ONCE IVP Last administered on 12/15/18at 23:14; Start 12/15/18 at 23:15; Stop 12/15/18 at 23:16; Status DC Acetaminophen (Tylenol) 650 mg PRN Q6HRS PRN PO MILD PAIN / TEMP Last administered on 12/18/18at 08:09; Start 12/15/18 at 23:00 Alprazolam (Xanax) 0.5 mg PRN TID PRN PO ANXIETY / AGITATION Last administered on 12/17/18 08:06; Start 12/15/18 at 23:15 Oxycodone/ Acetaminophen (Percocet 10/325) 1 tab PRN Q4HRS PRN PO MODERATE, SEVERE PAIN Last administered on 12/16/18 18:10; Start 12/15/18 at 23:15 Pantoprazole Sodium (PROTONIX VIAL for IV PUSH) 40 mg DAILY IVP Last administered on 12/17/18 08:07; Start 12/17/18 at 09:00; Stop 12/17/18 at 10:46; Status DC Morphine Sulfate (Morphine Sulfate) 2 mg PRN Q4HRS PRN IV PAIN MILD TO MOD Last administered on 12/17/18 04:50; Start 12/16/18 at 20:30 Morphine Sulfate (Morphine Sulfate) 4 mg PRN Q4HRS PRN IV PAIN SEVERE; Start 12/16/18 at 20:30 Pantoprazole Sodium (Protonix) 40 mg DAILYAC PO Last administered on 12/18/18 08:12; Start 12/18/18 at 07:30 Polyethylene Glycol (miraLAX PACKET) 17 gm DAILY PO Last administered on 12/18/18 09:02; Start 12/17/18 at 11:30 Polyethylene Glycol (miraLAX PACKET) 17 gm PRN DAILY PRN PO CONSTIPATION; Start 12/17/18 at 10:45 Furosemide (Lasix) 20 mg 1X ONCE IVP Last administered on 12/17/18 11:13; Start 12/17/18 at 11:30; Stop 12/17/18 at 11:31; Status DC Furosemide (Lasix) 20 mg 1X ONCE IVP Last administered on 12/18/18 09:08; Start 12/18/18 at 09:30; Stop 12/18/18 at 09:31; Status DC Potassium Chloride (Klor-Con) 20 meq TID PO Last administered on 12/18/18 13:09; Start 12/18/18 at 09:00 Ondansetron HCl (Zofran) 4 mg PRN Q6HRS PRN IV NAUSEA/VOMITING; Start 12/19/18 at 07:00; Stop 12/19/18 at 19:00 Morphine Sulfate (Morphine Sulfate) 1 mg PRN Q10MIN PRN IV SEVERE PAIN 7-10; Start 12/19/18 at 07:00; Stop 12/19/18 at 19:00 Ringer's Solution 1,000 ml @ 30 mls/hr Q24H IV ; Start 12/19/18 at 07:00; Stop 12/19/18 at 18:59 Hydromorphone HCl (Dilaudid) 0.5 mg PRN Q10MIN PRN IV SEV PAIN, Second choice; Start 12/19/18 at 07:00; Stop 12/19/18 at 19:00 Prochlorperazine Edisylate (Compazine) 5 mg PACU PRN PRN IV NAUSEA, MRX1; Start 12/19/18 at 07:00; Stop 12/19/18 at 19:00 Active Scripts Active Reported Opdivo (Nivolumab) 40 Mg/4 Ml Vial 40 Mg IV PER PROTOCOL Percocet 10-325 Mg Tablet (Oxycodone/Acetaminophen) 1 Each Tablet 1 Tab PO Q4-6HRS PRN Miralax (Polyethylene Glycol 3350) 17 Gm Powd.pack 1 Packet PO DAILY Xanax (Alprazolam) 0.5 Mg Tablet 1 Tab PO TID PRN Vitals/I & O Vital Sign - Last 24 Hours 12/17/18 12/17/18 12/17/18 12/17/18 17:01 18:02 18:21 19:00 Temp 98.3 99.0 98.3 99.0 Pulse 104 112 110 112 Resp 29 32 32 B/P (MAP) 160/80 (106) 170/83 (112) 159/85 (109) 158/87 (110) Pulse Ox 90 97 99 O2 Delivery Nasal Cannula Nasal Cannula Nasal Cannula O2 Flow Rate 5.0 5.0 5.0 12/17/18 12/17/18 12/17/18 12/17/18 20:00 20:00 20:30 21:00 Pulse 106 102 108 Resp 35 44 30 B/P (MAP) 174/87 (116) Pulse Ox 99 99 97 O2 Delivery Nasal Cannula Nasal Cannula Nasal Cannula Nasal Cannula O2 Flow Rate 5.0 5.0 5.0 5.0 12/17/18 12/17/18 12/18/18 12/18/18 22:00 23:00 00:00 00:00 Temp 98.6 98.6 Pulse 96 108 96 Resp 22 27 22 B/P (MAP) 171/91 (117) 165/88 (113) 155/83 (107) Pulse Ox 94 98 98 O2 Delivery Nasal Cannula Nasal Cannula Nasal Cannula Nasal Cannula O2 Flow Rate 5.0 5.0 5.0 5.0 12/18/18 12/18/18 12/18/18 12/18/18 01:00 02:00 02:15 02:35 Pulse 93 104 92 Resp 19 43 36 29 B/P (MAP) 154/81 (105) 146/81 (102) Pulse Ox 100 86 100 O2 Delivery Nasal Cannula Nasal Cannula Nasal Cannula Nasal Cannula O2 Flow Rate 4.0 5.0 5.0 5.0 12/18/18 12/18/18 12/18/18 12/18/18 03:00 04:00 04:00 06:00 Pulse 84 89 92 Resp 22 25 27 B/P (MAP) 147/83 (104) 128/77 (94) 158/78 (104) Pulse Ox 100 100 91 O2 Delivery Nasal Cannula Nasal Cannula Nasal Cannula Nasal Cannula O2 Flow Rate 5.0 4.0 4.0 4.0 12/18/18 12/18/18 12/18/18 12/18/18 07:00 08:00 10:25 11:00 Temp 97.6 98.1 97.6 98.1 Pulse 102 99 91 Resp 17 35 17 B/P (MAP) 127/77 (94) 135/71 (92) 140/70 (93) Pulse Ox 100 97 100 O2 Delivery Nasal Cannula Nasal Cannula Nasal Cannula Nasal Cannula O2 Flow Rate 3.0 3.0 3.0 3.0 12/18/18 12/18/18 12/18/18 12/18/18 12:00 12:06 13:00 14:00 Temp 98.1 98.1 Pulse 98 101 96 Resp 38 28 B/P (MAP) 154/63 (93) 138/72 (94) 134/74 (94) Pulse Ox 100 97 98 O2 Delivery Nasal Cannula Nasal Cannula Nasal Cannula Nasal Cannula O2 Flow Rate 3.0 3.0 3.0 3.0 12/18/18 12/18/18 12/18/18 15:00 16:00 16:00 Pulse 106 Resp 30 B/P (MAP) 137/59 (85) Pulse Ox 88 O2 Delivery Nasal Cannula Nasal Cannula O2 Flow Rate 3.0 3.0 3.0 Intake and Output 12/17/18 12/17/18 12/18/18 14:59 22:59 06:59 Intake Total 180 ml Output Total 1150 ml 600 ml 875 ml Balance -1150 ml -600 ml -695 ml Nutrition Consultation Dietary Evaluation: Recommendations by RD: Protein supplementation Comments: REC continue w/dysphagia II/ thin liquid diet as ordered per [employer]NALYST [employer] ANALYSIS REC offer Ensure prn between meals, honor food preferences Expected Outcomes/Goals: New goal 12/16: PO intake to meet >75% est needs - met at times, goal ongoing Malnutrition Findings: Weight Status: Underweight TARAN CID MD Dec 18, 2018 16:48
--- NOTE | 2018-12-18 16:57 | PDOC ---
CARDIOLOGY PROGRESS NOTE SUBJECTIVE: No new events overnight. Mentation improved. No swallowing issues. No chest pain. Reports that dyspnea is stable. OBJECTIVE: Vital SIgns: Vital Signs Date Time Temp Pulse Resp B/P (MAP) Pulse Ox O2 Delivery O2 Flow Rate FiO2 12/18/18 16:00 Nasal Cannula 3.0 12/18/18 15:00 106 30 137/59 (85) 88 12/18/18 12:00 98.1 98.1 I & O l Intake and Output 12/18/18 07:00 Intake Total 180 ml Output Total 2625 ml Balance -2445 ml Intake Oral 180 ml Output Urine Total 2625 ml # Voids 1 Objective: Lungs with bilateral rhonchi, improved. Normal heart tones. No edema. Soft abd. CURRENT MEDICATIONS: Current Medications Medications (Trade) Dose Ordered Sig/Cristian Start Time Stop Time Status Last Admin Dose Admin Acetaminophen (Tylenol) 650 mg PRN Q6HRS PRN 12/15/18 23:00 12/18/18 08:09 650 MG Albuterol Sulfate (Ventolin Neb Soln) 2.5 mg 1X ONCE 12/15/18 23:00 12/15/18 23:01 DC Albuterol/ Ipratropium (Duoneb) 3 ml STK-MED ONCE 12/15/18 22:58 12/15/18 22:59 DC Alprazolam (Xanax) 0.5 mg PRN TID PRN 12/15/18 23:15 12/17/18 08:06 0.5 MG Cefepime HCl (Maxipime) 2 gm Q12HR 12/12/18 09:00 12/18/18 08:59 2 GM Enoxaparin Sodium (Lovenox 30mg Syringe) 30 mg Q24H 12/12/18 09:00 12/12/18 09:00 DC Epinephrine HCl (Adrenalin) 1 mg STK-MED ONCE 12/13/18 10:18 12/13/18 10:19 DC Fentanyl Citrate 30 ml @ 0 mls/hr CONT PRN 12/12/18 12:30 12/14/18 18:23 DC 12/13/18 09:24 2.5 MLS/HR Furosemide (Lasix) 20 mg 1X ONCE 12/18/18 09:30 12/18/18 09:31 DC 12/18/18 09:08 20 MG Heparin Sodium (Porcine) (Heparin Sodium) 1,000 unit PRN Q6HRS PRN 12/12/18 01:30 12/12/18 06:17 DC Heparin Sodium/ Dextrose 500 ml @ 0 mls/hr CONT PRN 12/12/18 01:30 12/12/18 06:17 DC Hydromorphone HCl (Dilaudid) 0.5 mg PRN Q10MIN PRN 12/19/18 07:00 12/19/18 19:00 Lidocaine HCl (Lidocaine 2% Viscous) 100 ml STK-MED ONCE 12/13/18 10:18 12/13/18 10:19 DC Linezolid/Dextrose 300 ml @ 300 mls/hr Q12HR 12/12/18 09:00 12/18/18 08:59 300 MLS/HR Morphine Sulfate (Morphine Sulfate) 1 mg PRN Q10MIN PRN 12/19/18 07:00 12/19/18 19:00 Nicotine (Nicoderm Cq 21mg) 1 patch DAILY 12/13/18 19:00 12/18/18 08:11 1 PATCH Norepinephrine Bitartrate 250 ml @ 1.875 mls/ hr CONT PRN 12/12/18 01:30 12/14/18 18:21 DC Ondansetron HCl (Zofran) 4 mg PRN Q6HRS PRN 12/19/18 07:00 12/19/18 19:00 Oxybutynin Chloride (Ditropan) 2.5 mg BID 12/13/18 19:00 12/18/18 08:09 2.5 MG Oxycodone/ Acetaminophen (Percocet 10/325) 1 tab PRN Q4HRS PRN 12/15/18 23:15 12/16/18 18:10 1 TAB Pantoprazole Sodium (PROTONIX VIAL for IV PUSH) 40 mg DAILY 12/17/18 09:00 12/17/18 10:46 DC 12/17/18 08:07 40 MG Pantoprazole Sodium (Protonix) 40 mg DAILYAC 12/18/18 07:30 12/18/18 08:12 40 MG Polyethylene Glycol (miraLAX PACKET) 17 gm PRN DAILY PRN 12/17/18 10:45 Potassium Chloride (Klor-Con) 20 meq TID 12/18/18 09:00 12/18/18 13:09 20 MEQ Prochlorperazine Edisylate (Compazine) 5 mg PACU PRN PRN 12/19/18 07:00 12/19/18 19:00 Propofol 100 ml @ 0 mls/hr CONT PRN 12/12/18 01:30 12/14/18 18:21 DC 12/13/18 09:04 9.798 MLS/HR Ringer's Solution 1,000 ml @ 30 mls/hr Q24H 12/19/18 07:00 12/19/18 18:59 DIAGNOSTIC TESTING: Labs stable. ASSESSMENT: 1. Acute on chronic diastolic HF - improved. 2. Mental status changes - stable. On abx 3. HTN - stable. PLAN: 1. Supportive care from CV stand point. 2. It will be difficult to send her out on a standing dose of diuretic given her poor p.o intake etc. She will need diuretics prn based on breathing. Likely can DC on Lasix 20mg daily or 40mg TIW. Thanks. Pls call with questions. ALMAS DOBSON MD Dec 18, 2018 16:56
[2018-12-18] MEDS: ALPRAZolam 0.5 MG TABLET PO PRN (18:48)
--- NOTE | 2018-12-18 23:15 | NUR ---
Resumed care at this time, received reports from RACHAEL Mcdonald. Patient resting, call light within reach. Will continue to monitor.
[2018-12-19] VITALS (15 sets, daily range): BP systolic 109–153; BP diastolic 53–78
[2018-12-19 05:59] LABS: CALCIUM 8.4 mg/dL (8.5-10.1); CREATININE 0.5 mg/dL (0.6-1.0); POTASSIUM 4.3 mmol/L (3.5-5.1)
[2018-12-19] MEDS: MORPHINE SULFATE 2 MG/ML VIAL. IV PRN ×4 (06:21→18:22)
[2018-12-19] MEDS ORDERED: ONDANSETRON PF 4 MG/2 ML VIAL. IV PRN (07:00)
[2018-12-19] MEDS ORDERED: MORPHINE SULFATE 2 MG/ML VIAL. IV PRN (07:00)
[2018-12-19] MEDS ORDERED: HYDROmorphone 2 MG/ML VIAL IV PRN (07:00)
[2018-12-19] MEDS ORDERED: IV RINGERS,LACTATED 1000ML 1,000 ML IV SCH (07:00)
[2018-12-19] MEDS ORDERED: PROCHLORPERAZINE 10 MG/2 ML VIAL. IV PRN (07:00)
--- NOTE | 2018-12-19 07:02 | PN ---
DATE: 12/18/2018 SUBJECTIVE: The patient is sitting comfortably in her recliner, eating her breakfast, in no apparent distress. She apparently has not slept well last night and continued to have diarrhea, would like to cut her MiraLax into half. Denied any chest pain. PHYSICAL EXAMINATION: GENERAL: When I examined her, she was pale, cachectic, but no jaundice, cyanosis, or thyromegaly. No jugular venous distention. No lower limb edema. VITAL SIGNS: Her heart rate was 102, blood pressure 127/77, temperature was 97.6, respiratory rate was 17 and her oxygen saturation was 100% on 3 liters of oxygen by nasal cannula. HEAD, EYES, EARS, NOSE AND THROAT: Showed normocephalic, atraumatic. NECK: Supple. HEART: Showed normal first and second heart sounds with no gallop, rub or murmur. CHEST: Central trachea, equally reduced expansion, reduced air entry, bilateral scattered rhonchi and bilateral crackles. ABDOMEN: Slightly distended, soft with colostomy in the left lower quadrant. NEUROLOGIC: She was awake, alert, responding appropriately. All cranial nerves intact. She moves extremities without difficulty. She ambulates with a walker. Her intake over the last 24 hours was ____, no output was recorded. LABORATORY DATA: Her lab work this morning showed a white cell count 9300, hemoglobin 10, hematocrit 31, MCV 81 and platelet count 230,000. Her chemistry showed a serum sodium 134, potassium 3.4, chloride 98, bicarbonate 29, anion gap of 7, BUN 10, creatinine 0.5, estimated GFR was 120 mL per minute. Her glucose was 84, calcium was 8.2. Total bilirubin, AST, ALT were normal. Alkaline phosphatase slightly elevated. Total protein was 6.2, albumin was 1.9. Her C. diff was negative. Influenza A and B were negative. ASSESSMENT: 1. Acute hypoxic hypercapnic respiratory failure, likely due to pulmonary edema, has resolved. She is now on 3 liters of oxygen by nasal cannula. 2. Acute pulmonary edema, likely due to acute ischemia. Three sets of cardiac enzymes are all elevated. However, she is not a candidate for cardiac catheterization and stenting as she has stage 4 anal canal carcinoma. 3. Hypokalemia has resolved. 4. Anal cancer, status post surgery, radiation and now palliative chemotherapy. 5. Elevated D-dimer; however, CT angio of the chest was negative for pulmonary emboli. 6. Acute gastrointestinal bleeding with heparin. She has received 2 units of packed RBCs. Her most recent hemoglobin was 10, hematocrit 31, leukopenia improving. 7. The patient is known to have chronic obstructive pulmonary disease. 8. Pneumonia. The patient continues to be on Zyvox and cefepime. PLAN: To obviously continue with the IV antibiotic. Continue with the proton pump inhibitor. Continue with pain management. KELLI JOHNSON MD DR: ASTER/jeremy JOB#: [id number] / [id number]
[2018-12-19] MEDS: PANTOPRAZOLE 40 MG TABLET.DR. PO SCH (07:30)
--- NOTE | 2018-12-19 07:46 | PDOC ---
Infectious Disease Note Subjective Subjective Better + sputum Awaiting for procedure No F/C/S/N/V/Rash. ROS ROS o/w neg Vital Sign Vital Signs Vital Signs Date Time Temp Pulse Resp B/P (MAP) Pulse Ox O2 Delivery O2 Flow Rate FiO2 12/19/18 06:51 95 Nasal Cannula 3.0 12/19/18 06:08 95 28 143/78 (99) 12/18/18 20:00 98.5 98.5 Physical Exam PHYSICAL EXAM GENERAL: NAD, looks comfortable HEENT: nml conj. OC/Op- clear LUNGS: mild rhonhci on right but better. no wheeze HEART: S1, S2, irregular ABDOMEN: Soft, nontender, ostomy GENITOURINARY: external Lance EXTREMITIES: No edema, no cyanosis. DERMATOLOGIC: Warm, dry, no generalized rash. 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 PIV - RUE Labs Lab Laboratory Tests Test 12/18/18 10:02 12/19/18 05:00 Urine Collection Type Unknown Urine Color Yellow Urine Clarity Clear Urine pH 7.5 Urine Specific [place] 1.010 Urine Protein 30 mg/dL (NEG-TRACE) Urine Glucose (UA) Negative mg/dL (NEG) Urine Ketones (Stick) Negative mg/dL (NEG) Urine Blood Negative (NEG) Urine Nitrite Negative (NEG) Urine Bilirubin Negative (NEG) Urine Urobilinogen Dipstick 0.2 mg/dL (0.2 mg/dL) Urine Leukocyte Esterase Negative (NEG) Urine RBC 0 /HPF (0-2) Urine WBC Occ /HPF (0-4) Urine Squamous Epithelial Cells Few /LPF Urine Renal Epithelial Cells Mod /LPF Urine Bacteria 0 /HPF (0-FEW) Sodium Level 133 mmol/L (136-145) Potassium Level 4.3 mmol/L (3.5-5.1) Chloride Level 99 mmol/L (98-107) Carbon Dioxide Level 28 mmol/L (21-32) Anion Gap 6 (6-14) Blood Urea Nitrogen 16 mg/dL (7-20) Creatinine 0.5 mg/dL (0.6-1.0) Estimated GFR (Cockcroft-Gault) 120.0 Glucose Level 92 mg/dL (70-99) Calcium Level 8.4 mg/dL (8.5-10.1) Micro U/S IMPRESSION: 1. Moderate hydronephrosis bilaterally. 2. There is a small echogenic nodule within the right renal collecting system. Possibilities include a calculus, blood clot or small mass. Microbiology 12/12/18 Blood Culture - Preliminary, Resulted NO GROWTH AFTER 4 DAYS Objective Assessment Acute respiratory failure - better Elevated Troponin Urinary retention - hydro on U/S - awaiting bilateral ureteral stents during the Botox procedure today. Anemia s/p recent PRBCs Leukopenia, on Chemo, improved H/o PENICILLIN ALLERGY, unknown reaction, tolerated ceftriaxone well at [facility]. H/o recurrent squamous cell carcinoma, on palliative chemo w/ carboplatin and Taxol Chronic obstructive pulmonary disease. History of smoking. Possible gastrointestinal bleed. Plan Plan of Care Now DNR/DNI Urology eval pending Cont Zyvox (12/12)/Cefepime (12/12) for now F/u labs BC NGTD Supportive care D/w nursing ABBIE STEWART MD Dec 19, 2018 07:46
[2018-12-19] MEDS: POTASSIUM CHLORIDE 20 MEQ TABLET.ER. PO SCH ×3 (09:00→20:30)
[2018-12-19] MEDS: POLYETHYLENE GLYCOL 3350 17 GM PACKET. PO SCH (09:00)
[2018-12-19] MEDS: OXYBUTYNIN CHLORIDE 5 MG TABLET PO SCH ×2 (09:00→20:28)
--- NOTE | 2018-12-19 09:04 | PDOC ---
PULMONARY PROGRESS NOTES Subjective patient with cough mostly non-productive not sure of where, awaiting cystoscopy Vitals Vital Signs Date Time Temp Pulse Resp B/P (MAP) Pulse Ox O2 Delivery O2 Flow Rate FiO2 12/19/18 08:00 Nasal Cannula 2.0 12/19/18 07:00 95 26 127/69 (88) 100 12/18/18 20:00 98.5 98.5 General: Alert, No acute distress Lungs: Clear Cardiovascular: S1, S2 Abdomen: Soft Neuro Exam: Alert Extremities: No Edema Skin: Warm Labs Laboratory Tests Test 12/18/18 05:45 12/18/18 10:02 12/19/18 05:00 White Blood Count 9.3 x10^3/uL (4.0-11.0) Red Blood Count 3.88 x10^6/uL (3.50-5.40) Hemoglobin 10.0 g/dL (12.0-15.5) Hematocrit 31.2 % (36.0-47.0) Mean Corpuscular Volume 81 fL (79-100) Mean Corpuscular Hemoglobin 26 pg (25-35) Mean Corpuscular Hemoglobin Concent 32 g/dL (31-37) Red Cell Distribution Width 20.9 % (11.5-14.5) Platelet Count 230 x10^3/uL (140-400) Sodium Level 134 mmol/L (136-145) 133 mmol/L (136-145) Potassium Level 3.4 mmol/L (3.5-5.1) 4.3 mmol/L (3.5-5.1) Chloride Level 98 mmol/L (98-107) 99 mmol/L (98-107) Carbon Dioxide Level 29 mmol/L (21-32) 28 mmol/L (21-32) Anion Gap 7 (6-14) 6 (6-14) Blood Urea Nitrogen 10 mg/dL (7-20) 16 mg/dL (7-20) Creatinine 0.5 mg/dL (0.6-1.0) 0.5 mg/dL (0.6-1.0) Estimated GFR (Cockcroft-Gault) 120.0 120.0 BUN/Creatinine Ratio 20 (6-20) Glucose Level 84 mg/dL (70-99) 92 mg/dL (70-99) Calcium Level 8.2 mg/dL (8.5-10.1) 8.4 mg/dL (8.5-10.1) Total Bilirubin 0.6 mg/dL (0.2-1.0) Aspartate Amino Transf (AST/SGOT) 22 U/L (15-37) Alanine Aminotransferase (ALT/SGPT) 20 U/L (14-59) Alkaline Phosphatase 235 U/L (46-116) Total Protein 6.2 g/dL (6.4-8.2) Albumin 1.9 g/dL (3.4-5.0) Albumin/Globulin Ratio 0.4 (1.0-1.7) Urine Collection Type Unknown Urine Color Yellow Urine Clarity Clear Urine pH 7.5 Urine Specific [place] 1.010 Urine Protein 30 mg/dL (NEG-TRACE) Urine Glucose (UA) Negative mg/dL (NEG) Urine Ketones (Stick) Negative mg/dL (NEG) Urine Blood Negative (NEG) Urine Nitrite Negative (NEG) Urine Bilirubin Negative (NEG) Urine Urobilinogen Dipstick 0.2 mg/dL (0.2 mg/dL) Urine Leukocyte Esterase Negative (NEG) Urine RBC 0 /HPF (0-2) Urine WBC Occ /HPF (0-4) Urine Squamous Epithelial Cells Few /LPF Urine Renal Epithelial Cells Mod /LPF Urine Bacteria 0 /HPF (0-FEW) Laboratory Tests Test 12/18/18 10:02 12/19/18 05:00 Urine Collection Type Unknown Urine Color Yellow Urine Clarity Clear Urine pH 7.5 Urine Specific [place] 1.010 Urine Protein 30 mg/dL (NEG-TRACE) Urine Glucose (UA) Negative mg/dL (NEG) Urine Ketones (Stick) Negative mg/dL (NEG) Urine Blood Negative (NEG) Urine Nitrite Negative (NEG) Urine Bilirubin Negative (NEG) Urine Urobilinogen Dipstick 0.2 mg/dL (0.2 mg/dL) Urine Leukocyte Esterase Negative (NEG) Urine RBC 0 /HPF (0-2) Urine WBC Occ /HPF (0-4) Urine Squamous Epithelial Cells Few /LPF Urine Renal Epithelial Cells Mod /LPF Urine Bacteria 0 /HPF (0-FEW) Sodium Level 133 mmol/L (136-145) Potassium Level 4.3 mmol/L (3.5-5.1) Chloride Level 99 mmol/L (98-107) Carbon Dioxide Level 28 mmol/L (21-32) Anion Gap 6 (6-14) Blood Urea Nitrogen 16 mg/dL (7-20) Creatinine 0.5 mg/dL (0.6-1.0) Estimated GFR (Cockcroft-Gault) 120.0 Glucose Level 92 mg/dL (70-99) Calcium Level 8.4 mg/dL (8.5-10.1) Medications Active Scripts Medications Dose Route/Sig Max Daily Dose Days Date Category Opdivo (Nivolumab) 40 Mg/4 Ml Vial 40 Mg IV PER PROTOCOL 07/25/18 Reported Percocet 10-325 Mg Tablet (Oxycodone/Acetaminophen) 1 Each Tablet 1 Tab PO Q4-6HRS PRN 04/22/18 Reported Miralax (Polyethylene Glycol 3350) 17 Gm Powd.pack 1 Packet PO DAILY 04/19/18 Reported Xanax (Alprazolam) 0.5 Mg Tablet 1 Tab PO TID PRN 03/23/17 Reported Impression . 1. Acute hypoxic respiratory failure secondary to diffuse lung infiltrate 2. The patient with stage IV anal cancer, status post surgery and radiation and now undergoing palliative chemo. 3. Abnormal D-dimer, which is a nonspecific test and can be seen in many other conditions including malignancy. No evidence of pulmonary embolism. 4. Acute gastrointestinal bleed related to heparin. Hemoglobin went down to 5.7, s/p packed red blood cells.Hb stable 5. Leukopenia, likely related to infectious etiology versus bone marrow suppression by chemo. 6. Underlying chronic obstructive pulmonary disease. 12/17 CXR IMPRESSION: Improving lung infiltrates or pulmonary edema. Improvement of small left-sided pleural effusion. Plan . cystoscopy with stent placement oxygen supplementation NPO monitor hemoglobin no need for thoracentesis repeat CXR RED AARON MD Dec 19, 2018 09:04
[2018-12-19] MEDS: NICOTINE 21MG PATCH. TD SCH (09:36)
[2018-12-19] MEDS: CEFEPIME HCL IV Push 2 GM VIAL. IVP SCH ×2 (09:37→20:34)
[2018-12-19] MEDS ORDERED: LIDOCAINE 2% JELLY 6ML IN APPLICATOR. ONE (12:18)
[2018-12-19] MEDS ORDERED: IOHEXOL 300 MG/ML 50 ML VIAL. ONE (12:18)
--- NOTE | 2018-12-19 12:59 | NUR ---
0950 Morphine was not administered d/t malfunction.
[2018-12-19] MEDS ORDERED: ONABOTULINUMTOXINA 100 UNIT VIAL. ID ONE (13:00)
[2018-12-19] MEDS ORDERED: 0.9 % SODIUM CHLORIDE 20 ML VIAL. IJ ONE ×2 (13:11→14:09)
[2018-12-19] MEDS ORDERED: ONDANSETRON PF 4 MG/2 ML VIAL. ONE (13:34)
[2018-12-19] MEDS ORDERED: LIDOCAINE 2% PF 5 ML VIAL. ONE (13:34)
[2018-12-19] MEDS ORDERED: PROPOFOL 20 ML IV ONE (13:34)
[2018-12-19] MEDS ORDERED: DEXAMETHASONE SOD PHOS 4 MG/ML VIAL ONE (13:34)
[2018-12-19] MEDS ORDERED: KETAMINE HCL IN NACL, ISO-OSM 50 MG/5 ML SYRINGE ONE (13:45)
[2018-12-19] MEDS ORDERED: SEVOFLURANE 31 TO 60 MINUTES. IH ONE (13:54)
[2018-12-19] MEDS ORDERED: MORPHINE SULFATE 10 MG/ML VIAL. ONE (13:55)
[2018-12-19] MEDS ORDERED: PHENYLEPHRINE in 0.9% NACL PF 1 MG/10 ML SYRINGE. IV ONE (13:58)
[2018-12-19] MEDS ORDERED: ONABOTULINUMTOXINA 100 UNIT VIAL. INJ ONE (14:16)
--- NOTE | 2018-12-19 14:49 | PDOC4 ---
OPERATIVE NOTE Date: Date: Dec 19, 2018 Pre-Op Diagnosis: urge incontinence, bilateral ureter obstruction, hydronephrosis. Post-Op Diagnosis: same Procedure Performed: cystoscopy, bladder botox injection, bilateral retrograde pyelograms with bilateral ureteral stent placement Surgeon: Ramu Fields MD Anesthesia Type: general Blood Loss: 0 Specimans Obtained: none Findings: normal appearing bladder. severe bilateral hydronephrosis secondary to obstruction from pelvic mass. Complications: none Operative Note: see dictation. Lance left in place for comfort measures RAMU FIELDS MD Dec 19, 2018 14:48
--- NOTE | 2018-12-19 15:00 | PDOC ---
PROGRESS NOTES Subjective Subjective HPI - f/u of Stage IV, Recurrent anal carcinoma ROS - no CP Objective Objective Vital Signs Date Time Temp Pulse Resp B/P (MAP) Pulse Ox O2 Delivery O2 Flow Rate FiO2 12/19/18 12:49 20 99 Nasal Cannula 2.0 12/19/18 12:00 95 136/65 (88) 12/18/18 20:00 98.5 98.5 Intake and Output 12/19/18 07:00 Intake Total 1480 ml Output Total 800 ml Balance 680 ml Intake Oral 1180 ml IV Total 300 ml Output Urine Total 800 ml # Voids 1 Physical Exam Heart: Normal S1, Normal S2 General: Alert, Oriented X3, No acute distress Lungs: Clear to auscultation Neuro: Normal speech Psych/Mental Status: Mental status NL Assessment Assessment IMPRESSION AND PLAN: 1. Stage IV, Recurrent anal carcinoma with development of bone metastases and progressively worsening large presacral mass and bilateral hydronephrosis and a peritoneal implant near the colostomy site consistent with stage IV malignancy. She was started on palliative chemotherapy with carboplatin and Taxol on 12/02/2018. She has failed previous treatments. I will continue to monitor for toxicities. She will return for followup after the acute episode has resolved so we can resume treatment. If her functional status does not improve, then I would recommend hospice. She prefers to continue palliative chemo. Appreciate palliative care consult. No further recommendations, f/u with me upon discharge. Please call if needed. 2. Acute respiratory failure thought to be due to pneumonia. I appreciate pulmonary consultation and management. Extubated 12/13/18. 3. 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 Hemoglobin is 5.7 on 12/12/2018, improved to 8.6 on 03/14/2019 after transfusion. Hb 8.6 on 12/13/18. Hb 9.7 on 12/16/18 Hb 10.0 on 12/18/18 4. Hydronephrosis, appreciate urology consult. Stent planned 12/19/18. Comment Review of Relevant I have reviewed the following items walt (where applicable) has been applied. Labs Laboratory Tests Test 12/18/18 05:45 12/18/18 10:02 12/19/18 05:00 White Blood Count 9.3 x10^3/uL (4.0-11.0) Red Blood Count 3.88 x10^6/uL (3.50-5.40) Hemoglobin 10.0 g/dL (12.0-15.5) Hematocrit 31.2 % (36.0-47.0) Mean Corpuscular Volume 81 fL (79-100) Mean Corpuscular Hemoglobin 26 pg (25-35) Mean Corpuscular Hemoglobin Concent 32 g/dL (31-37) Red Cell Distribution Width 20.9 % (11.5-14.5) Platelet Count 230 x10^3/uL (140-400) Sodium Level 134 mmol/L (136-145) 133 mmol/L (136-145) Potassium Level 3.4 mmol/L (3.5-5.1) 4.3 mmol/L (3.5-5.1) Chloride Level 98 mmol/L (98-107) 99 mmol/L (98-107) Carbon Dioxide Level 29 mmol/L (21-32) 28 mmol/L (21-32) Anion Gap 7 (6-14) 6 (6-14) Blood Urea Nitrogen 10 mg/dL (7-20) 16 mg/dL (7-20) Creatinine 0.5 mg/dL (0.6-1.0) 0.5 mg/dL (0.6-1.0) Estimated GFR (Cockcroft-Gault) 120.0 120.0 BUN/Creatinine Ratio 20 (6-20) Glucose Level 84 mg/dL (70-99) 92 mg/dL (70-99) Calcium Level 8.2 mg/dL (8.5-10.1) 8.4 mg/dL (8.5-10.1) Total Bilirubin 0.6 mg/dL (0.2-1.0) Aspartate Amino Transf (AST/SGOT) 22 U/L (15-37) Alanine Aminotransferase (ALT/SGPT) 20 U/L (14-59) Alkaline Phosphatase 235 U/L (46-116) Total Protein 6.2 g/dL (6.4-8.2) Albumin 1.9 g/dL (3.4-5.0) Albumin/Globulin Ratio 0.4 (1.0-1.7) Urine Collection Type Unknown Urine Color Yellow Urine Clarity Clear Urine pH 7.5 Urine Specific [place] 1.010 Urine Protein 30 mg/dL (NEG-TRACE) Urine Glucose (UA) Negative mg/dL (NEG) Urine Ketones (Stick) Negative mg/dL (NEG) Urine Blood Negative (NEG) Urine Nitrite Negative (NEG) Urine Bilirubin Negative (NEG) Urine Urobilinogen Dipstick 0.2 mg/dL (0.2 mg/dL) Urine Leukocyte Esterase Negative (NEG) Urine RBC 0 /HPF (0-2) Urine WBC Occ /HPF (0-4) Urine Squamous Epithelial Cells Few /LPF Urine Renal Epithelial Cells Mod /LPF Urine Bacteria 0 /HPF (0-FEW) Laboratory Tests Test 12/19/18 05:00 Sodium Level 133 mmol/L (136-145) Potassium Level 4.3 mmol/L (3.5-5.1) Chloride Level 99 mmol/L (98-107) Carbon Dioxide Level 28 mmol/L (21-32) Anion Gap 6 (6-14) Blood Urea Nitrogen 16 mg/dL (7-20) Creatinine 0.5 mg/dL (0.6-1.0) Estimated GFR (Cockcroft-Gault) 120.0 Glucose Level 92 mg/dL (70-99) Calcium Level 8.4 mg/dL (8.5-10.1) Microbiology 12/12/18 Blood Culture - Final, Complete NO GROWTH AFTER 5 DAYS Medications Current Medications Propofol 100 ml @ 0 mls/hr CONT PRN IV SEE I/O RECORD Last administered on 12/13/18at 09:04; Start 12/12/18 at 01:30; Stop 12/14/18 at 18:21; Status DC Ringer's Solution 1,000 ml @ 100 mls/hr Q10H IV Last administered on 12/14/18at 13:30; Start 12/12/18 at 01:30; Stop 12/16/18 at 16:47; Status DC Heparin Sodium/ Dextrose 500 ml @ 0 mls/hr CONT PRN IV SEE I/O RECORD; Start 12/12/18 at 01:30; Stop 12/12/18 at 06:17; Status DC Heparin Sodium (Porcine) (Heparin Sodium) 1,000 unit PRN Q6HRS PRN IV FOR UFH LEVEL LESS THAN 0.2; Start 12/12/18 at 01:30; Stop 12/12/18 at 06:17; Status DC Norepinephrine Bitartrate 250 ml @ 1.875 mls/ hr CONT PRN IV SEE I/O RECORD; Start 12/12/18 at 01:30; Stop 12/14/18 at 18:21; Status DC Enoxaparin Sodium (Lovenox 30mg Syringe) 30 mg Q24H SQ ; Start 12/12/18 at 09:00; Stop 12/12/18 at 09:00; Status DC Cefepime HCl (Maxipime) 2 gm Q12HR IVP Last administered on 12/19/18at 09:37; Start 12/12/18 at 09:00 Linezolid/Dextrose 300 ml @ 300 mls/hr Q12HR IV Last administered on 12/19/18at 09:38; Start 12/12/18 at 09:00 Pantoprazole Sodium (PROTONIX VIAL for IV PUSH) 40 mg BID IVP Last administered on 12/16/18at 09:04; Start 12/12/18 at 10:15; Stop 12/16/18 at 10:22; Status DC Fentanyl Citrate 30 ml @ 0 mls/hr CONT PRN IV SEE PROTOCOL Last administered on 12/13/18at 09:24; Start 12/12/18 at 12:30; Stop 12/14/18 at 18:23; Status DC Albuterol Sulfate (Ventolin Neb Soln) 2.5 mg PRN 1X PRN NEB SHORTNESS OF BREATH; Start 12/13/18 at 09:30; Stop 12/14/18 at 09:29; Status DC Lidocaine HCl (Lidocaine 2% Viscous) 100 ml PRN 1X PRN MM MOUTH PAIN; Start 12/13/18 at 09:30; Stop 12/14/18 at 09:29; Status DC Epinephrine HCl (Adrenalin) 1 mg PRN 1X PRN INJ SEE COMMENTS; Start 12/13/18 at 09:30; Stop 12/14/18 at 09:29; Status DC Epinephrine HCl (Adrenalin) 1 mg STK-MED ONCE .ROUTE ; Start 12/13/18 at 10:18; Stop 12/13/18 at 10:19; Status DC Lidocaine HCl (Lidocaine 2% Viscous) 100 ml STK-MED ONCE .ROUTE ; Start 12/13/18 at 10:18; Stop 12/13/18 at 10:19; Status DC Nicotine (Nicoderm Cq 21mg) 1 patch DAILY TD Last administered on 12/19/18 09:36; Start 12/13/18 at 19:00 Oxybutynin Chloride (Ditropan) 2.5 mg BID PO Last administered on 12/18/18 21:10; Start 12/13/18 at 19:00 Potassium Chloride (Klor-Con) 40 meq Q1H PO Last administered on 12/15/18 09:07; Start 12/15/18 at 06:30; Stop 12/15/18 at 08:31; Status DC Albuterol Sulfate (Ventolin Neb Soln) 2.5 mg 1X ONCE NEB ; Start 12/15/18 at 23:00; Stop 12/15/18 at 23:01; Status DC Albuterol/ Ipratropium (Duoneb) 3 ml STK-MED ONCE .ROUTE ; Start 12/15/18 at 22:58; Stop 12/15/18 at 22:59; Status DC Furosemide (Lasix) 40 mg 1X ONCE IVP Last administered on 12/15/18 23:14; Start 12/15/18 at 23:15; Stop 12/15/18 at 23:16; Status DC Acetaminophen (Tylenol) 650 mg PRN Q6HRS PRN PO MILD PAIN / TEMP Last administered on 12/18/18 21:10; Start 12/15/18 at 23:00 Alprazolam (Xanax) 0.5 mg PRN TID PRN PO ANXIETY / AGITATION Last administered on 12/18/18 18:48; Start 12/15/18 at 23:15 Oxycodone/ Acetaminophen (Percocet 10/325) 1 tab PRN Q4HRS PRN PO MODERATE, SEVERE PAIN Last administered on 12/16/18 18:10; Start 12/15/18 at 23:15 Pantoprazole Sodium (PROTONIX VIAL for IV PUSH) 40 mg DAILY IVP Last administered on 12/17/18 08:07; Start 12/17/18 at 09:00; Stop 12/17/18 at 10:46; Status DC Morphine Sulfate (Morphine Sulfate) 2 mg PRN Q4HRS PRN IV PAIN MILD TO MOD Last administered on 12/19/18 12:19; Start 12/16/18 at 20:30 Morphine Sulfate (Morphine Sulfate) 4 mg PRN Q4HRS PRN IV PAIN SEVERE; Start 12/16/18 at 20:30 Pantoprazole Sodium (Protonix) 40 mg DAILYAC PO Last administered on 12/18/18at 08:12; Start 12/18/18 at 07:30 Polyethylene Glycol (miraLAX PACKET) 17 gm DAILY PO Last administered on 12/18/18at 09:02; Start 12/17/18 at 11:30 Polyethylene Glycol (miraLAX PACKET) 17 gm PRN DAILY PRN PO CONSTIPATION; Start 12/17/18 at 10:45 Furosemide (Lasix) 20 mg 1X ONCE IVP Last administered on 12/17/18at 11:13; Start 12/17/18 at 11:30; Stop 12/17/18 at 11:31; Status DC Furosemide (Lasix) 20 mg 1X ONCE IVP Last administered on 12/18/18at 09:08; Start 12/18/18 at 09:30; Stop 12/18/18 at 09:31; Status DC Potassium Chloride (Klor-Con) 20 meq TID PO Last administered on 12/18/18at 21:00; Start 12/18/18 at 09:00 Ondansetron HCl (Zofran) 4 mg PRN Q6HRS PRN IV NAUSEA/VOMITING; Start 12/19/18 at 07:00; Stop 12/19/18 at 19:00 Morphine Sulfate (Morphine Sulfate) 1 mg PRN Q10MIN PRN IV SEVERE PAIN 7-10; Start 12/19/18 at 07:00; Stop 12/19/18 at 19:00 Ringer's Solution 1,000 ml @ 30 mls/hr Q24H IV ; Start 12/19/18 at 07:00; Stop 12/19/18 at 18:59 Hydromorphone HCl (Dilaudid) 0.5 mg PRN Q10MIN PRN IV SEV PAIN, Second choice; Start 12/19/18 at 07:00; Stop 12/19/18 at 19:00 Prochlorperazine Edisylate (Compazine) 5 mg PACU PRN PRN IV NAUSEA, MRX1; Start 12/19/18 at 07:00; Stop 12/19/18 at 19:00 Botulinum Toxin Type A (Botox) 100 unit 1X ONCE ID ; Start 12/19/18 at 13:00; Stop 12/19/18 at 13:01; Status DC Iohexol (Omnipaque 300 Mg/ml) 50 ml STK-MED ONCE .ROUTE Last administered on 12/19/18at 14:16; Start 12/19/18 at 12:18; Stop 12/19/18 at 13:18; Status DC Lidocaine HCl (Glydo (Lidocaine) Jelly) 6 freeman STK-MED ONCE .ROUTE ; Start 12/19/18 at 12:18; Stop 12/19/18 at 13:18; Status DC Propofol 20 ml @ As Directed STK-MED ONCE IV ; Start 12/19/18 at 13:34; Stop 12/19/18 at 13:35; Status DC Lidocaine HCl (Lidocaine Pf 2% Vial) 5 ml STK-MED ONCE .ROUTE ; Start 12/19/18 at 13:34; Stop 12/19/18 at 13:35; Status DC Ondansetron HCl (Zofran) 4 mg STK-MED ONCE .ROUTE ; Start 12/19/18 at 13:34; Stop 12/19/18 at 13:35; Status DC Dexamethasone Sodium Phosphate (Decadron) 4 mg STK-MED ONCE .ROUTE ; Start 12/19/18 at 13:34; Stop 12/19/18 at 13:35; Status DC Ketamine HCl (Ketamine) 50 mg STK-MED ONCE .ROUTE ; Start 12/19/18 at 13:45; Stop 12/19/18 at 13:46; Status DC Sevoflurane (Ultane) 30 ml STK-MED ONCE IH ; Start 12/19/18 at 13:54; Stop 12/19/18 at 13:55; Status DC Morphine Sulfate (Morphine Sulfate) 10 mg STK-MED ONCE .ROUTE ; Start 12/19/18 at 13:55; Stop 12/19/18 at 13:56; Status DC Phenylephrine HCl (PHENYLEPHRINE in 0.9% NACL PF) 1 mg STK-MED ONCE IV ; Start 12/19/18 at 13:58; Stop 12/19/18 at 13:59; Status DC Sodium Chloride (SODIUM CHLORIDE 20ml) 20 ml STK-MED ONCE IJ ; Start 12/19/18 at 14:09; Stop 12/19/18 at 14:10; Status DC Sodium Chloride (SODIUM CHLORIDE 20ml) 20 ml STK-MED ONCE IJ ; Start 12/19/18 at 13:11; Stop 12/19/18 at 14:12; Status DC Botulinum Toxin Type A (Botox) 100 unit STK-MED ONCE INJ Last administered on 12/19/18at 14:16; Start 12/19/18 at 14:16; Stop 12/19/18 at 14:33; Status DC Active Scripts Active Reported Opdivo (Nivolumab) 40 Mg/4 Ml Vial 40 Mg IV PER PROTOCOL Percocet 10-325 Mg Tablet (Oxycodone/Acetaminophen) 1 Each Tablet 1 Tab PO Q4-6HRS PRN Miralax (Polyethylene Glycol 3350) 17 Gm Powd.pack 1 Packet PO DAILY Xanax (Alprazolam) 0.5 Mg Tablet 1 Tab PO TID PRN Vitals/I & O Vital Sign - Last 24 Hours 12/18/18 12/18/18 12/18/18 12/18/18 15:00 16:00 16:00 16:00 Pulse 106 102 Resp 30 24 B/P (MAP) 137/59 (85) 136/71 (92) Pulse Ox 88 98 O2 Delivery Nasal Cannula Nasal Cannula Nasal Cannula O2 Flow Rate 3.0 3.0 3.0 3.0 12/18/18 12/18/18 12/18/18 12/18/18 17:42 18:00 19:00 20:00 Pulse 103 104 101 Resp 34 34 24 B/P (MAP) 132/73 (92) 140/70 (93) 157/72 (100) Pulse Ox 94 95 98 O2 Delivery Nasal Cannula Nasal Cannula Nasal Cannula Nasal Cannula O2 Flow Rate 3.0 3.0 3.0 3.0 12/18/18 12/18/18 12/18/18 12/19/18 20:00 21:00 22:00 00:27 Temp 98.5 98.5 Pulse 102 111 106 Resp 25 28 25 B/P (MAP) 162/81 (108) 139/86 (103) 145/67 (93) Pulse Ox 100 100 100 O2 Delivery Nasal Cannula Nasal Cannula Nasal Cannula Nasal Cannula O2 Flow Rate 3.0 3.0 3.0 3.0 12/19/18 12/19/18 12/19/18 12/19/18 00:32 01:16 02:26 03:12 Pulse 102 100 98 95 Resp 26 29 24 25 B/P (MAP) 138/72 (94) 148/76 (100) 145/74 (97) 148/69 (95) Pulse Ox 100 100 100 100 O2 Delivery Nasal Cannula Nasal Cannula Nasal Cannula Nasal Cannula O2 Flow Rate 3.0 3.0 3.0 3.0 12/19/18 12/19/18 12/19/18 12/19/18 04:01 04:08 05:04 06:08 Pulse 96 85 95 Resp 29 22 28 B/P (MAP) 150/63 (92) 139/76 (97) 143/78 (99) Pulse Ox 100 100 95 O2 Delivery Nasal Cannula Nasal Cannula Nasal Cannula Nasal Cannula O2 Flow Rate 3.0 3.0 3.0 3.0 12/19/18 12/19/18 12/19/18 12/19/18 06:21 06:51 07:00 08:00 Pulse 95 Resp 22 26 B/P (MAP) 127/69 (88) Pulse Ox 95 99 100 O2 Delivery Nasal Cannula Nasal Cannula Room Air O2 Flow Rate 3.0 2.0 3.0 12/19/18 12/19/18 12/19/18 12/19/18 08:00 09:36 09:50 12:00 Pulse 95 Resp 20 22 B/P (MAP) 136/65 (88) Pulse Ox 100 99 100 O2 Delivery Nasal Cannula Nasal Cannula Nasal Cannula Nasal Cannula O2 Flow Rate 2.0 3.0 2.0 12/19/18 12/19/18 12:19 12:49 Resp 18 20 Pulse Ox 99 O2 Delivery Nasal Cannula Nasal Cannula O2 Flow Rate 2.0 2.0 Intake and Output 12/18/18 12/18/18 12/19/18 15:00 23:00 07:00 Intake Total 980 ml 500 ml Output Total 800 ml 0 ml Balance 180 ml 500 ml Nutrition Consultation Dietary Evaluation: Recommendations by RD: Protein supplementation Comments: REC continue w/dysphagia II/ thin liquid diet as ordered per [facility] [employer] REC offer Ensure prn between meals, honor food preferences Expected Outcomes/Goals: New goal 12/16: PO intake to meet >75% est needs - met at times, goal ongoing Malnutrition Findings: Weight Status: Underweight TARAN CID MD Dec 19, 2018 15:00
--- NOTE | 2018-12-19 19:31 | OP ---
DATE OF SURGERY: 12/19/2018 PREOPERATIVE DIAGNOSES: 1. Urge incontinence. 2. Bilateral ureteral obstruction and bilateral hydronephrosis. POSTOPERATIVE DIAGNOSES: 1. Urge incontinence. 2. Bilateral ureteral obstruction and bilateral hydronephrosis. PROCEDURE PERFORMED: Cystoscopy with a bladder Botox injection, bilateral retrograde pyelograms, bilateral ureteral stent placement. ANESTHESIA TYPE: General. INDICATIONS: This is a 77-year-old female with advanced colon cancer, now causing significant bilateral hydronephrosis. She also has intractable urge incontinence impacting her quality of life. After discussion of risks, benefits and alternatives and expected outcomes from surgery, she agreed to the above procedure. Informed consent was obtained. DESCRIPTION OF PROCEDURE: The patient was taken to the operating room where general anesthesia was induced. She was placed in the dorsal lithotomy position, sterilely prepped and draped. A timeout was performed. A rigid cystoscope was advanced through the urethra and into the bladder. The bladder was inspected and appeared unremarkable. 100 units of Botox was injected into the posterior wall of the bladder in 20 different locations, 5 units at each location. There was no bleeding noted. Next, the left ureteral orifice was cannulated with a ureteral catheter and a left retrograde pyelogram was performed, which showed narrowing of the distal left ureter with abrupt transition point in the upper pelvis and then severely dilated mid and proximal ureter and severe left hydronephrosis. A combination of guidewire and ureteral catheter was used to advance the wire into the renal pelvis. A 6 x 22 cm stent was advanced over the wire with appropriate curls noted on each end. Clear fluid was seen draining out of the stent. Next, the right ureteral orifice was cannulated with the ureteral catheter and a retrograde pyelogram was performed, with the same findings of narrowing of the distal ureter, abrupt transition point with severe ureteral dilation and severe right hydronephrosis above that. Again, a guidewire and ureteral catheter was able to be advanced up into the renal pelvis. The ureteral catheter was removed and a 6 x 22 cm stent was placed into appropriate position on the right side. The scope was removed. A Lance catheter was inserted into the bladder and inflated. The patient was then awakened and taken to the recovery room in stable condition. BLOOD LOSS: None. COMPLICATIONS: None. SPECIMEN: None. RAMU FIELDS MD DR: HANNA/jeremy JOB#: [id number] / [id number]
[2018-12-19] MEDS: ALPRAZolam 0.5 MG TABLET PO PRN (20:28)
[2018-12-20] VITALS (16 sets, daily range): BP systolic 119–155; BP diastolic 58–86
--- NOTE | 2018-12-20 01:07 | PN ---
DATE: 12/19/2018 SUBJECTIVE: The patient is resting slightly propped up in bed, in no apparent respiratory distress. She is somewhat confused. Apparently, she is n.p.o., is scheduled for cystoscopy, bilateral ureteral stent placement as well as Botox injection. PHYSICAL EXAMINATION: GENERAL: When I examined her this morning, she looked well and was clearly in no apparent respiratory distress, pale, cachectic, but no jaundice, cyanosis, or thyromegaly. No jugular venous distension. No lower limb edema. VITAL SIGNS: Her heart rate was 95, blood pressure was 127/69, temperature was 98, respiratory rate was 26 and oxygen saturation was 100% on 3 liters of oxygen. HEAD, EYES, EARS, NOSE AND THROAT: Showed normocephalic, atraumatic. NECK: Supple. HEART: Showed normal first and second heart sounds. No gallop, rub or murmur. CHEST: Clear to auscultation. No crepitation or rhonchi. ABDOMEN: Slightly distended, soft, nontender. No guarding or rigidity. No organomegaly. All hernial orifice intact. Bowel sounds normal. NEUROLOGIC: She is awake, alert, but somewhat confused. All her cranial nerves intact. She moves extremities without difficulty. She has marked muscle wasting. Her intake over the last 24 hours was 180, output was 2625. LABORATORY DATA: Showed a serum sodium 133, potassium 4.3, chloride 99, bicarbonate 28, anion gap of 6, BUN 16, creatinine 0.5, estimated GFR was 120 mL per minute. Her white cell count was 9300, hemoglobin 10, hematocrit 31, MCV 81 and platelet count 230,000. ASSESSMENT: 1. Acute hypoxic hypercapnic respiratory failure, likely due to pulmonary edema that has resolved. She is now on 3 liters oxygen by nasal cannula. 2. Acute pulmonary edema, likely due to acute ischemia. Three sets of cardiac enzymes all elevated; however, she is not a candidate for cardiac catheterization. 3. Hypokalemia, resolved. 4. Anal cancer, status post surgery, radiation and now palliative chemotherapy. 5. Elevated D-dimer; however, CT angio of the chest was negative for pulmonary emboli. 6. Acute gastrointestinal bleeding for which she received 2 units of packed RBCs and hemoglobin stable at 10 and hematocrit 31, and her leukopenia improving. 7. The patient known to have chronic obstructive pulmonary disease. 8. Pneumonia for which she is on Zyvox and cefepime. 9. Urinary retention and bilateral hydronephrosis for which she is now scheduled for cystoscopy, bilateral ureteral stent deployment as well as Botox injection. PLAN: To continue with IV antibiotic. Continue with proton pump inhibitor. Continue pain management. KELLI JOHNSON MD DR: ASTER/jeremy JOB#: [id number] / [id number]
[2018-12-20] MEDS: ALPRAZolam 0.5 MG TABLET PO PRN (02:28)
[2018-12-20 05:43] LABS: CALCIUM 8.1 mg/dL (8.5-10.1); CREATININE 0.6 mg/dL (0.6-1.0); GFR 97.2; POTASSIUM 4.9 mmol/L (3.5-5.1)
--- NOTE | 2018-12-20 07:27 | NUR ---
Potassium not given. Labs indicate value of 4.9 12/20 at 0500.
[2018-12-20] MEDS: PANTOPRAZOLE 40 MG TABLET.DR. PO SCH (08:20)
[2018-12-20] MEDS: OXYBUTYNIN CHLORIDE 5 MG TABLET PO SCH ×2 (08:20→20:55)
[2018-12-20] MEDS: POTASSIUM CHLORIDE 20 MEQ TABLET.ER. PO SCH ×3 (08:20→20:55)
[2018-12-20] MEDS: NICOTINE 21MG PATCH. TD SCH (08:20)
[2018-12-20] MEDS: CEFEPIME HCL IV Push 2 GM VIAL. IVP SCH ×2 (08:20→20:54)
[2018-12-20] MEDS: POLYETHYLENE GLYCOL 3350 17 GM PACKET. PO SCH (08:20)
[2018-12-20] MEDS: oxyCODONE/APAP 10/325 1 TAB TABLET PO PRN ×2 (08:27→20:54)
--- NOTE | 2018-12-20 08:51 | PDOC ---
Infectious Disease Note Subjective Subjective Better + sputum still Eating No F/C/S/N/V/Rash/SOA. ROS ROS o/w neg Vital Sign Vital Signs Vital Signs Date Time Temp Pulse Resp B/P (MAP) Pulse Ox O2 Delivery O2 Flow Rate FiO2 12/20/18 06:00 78 24 145/71 (95) 100 BiPAP/CPAP 12/20/18 04:00 3.0 12/20/18 03:00 98.2 98.2 Physical Exam PHYSICAL EXAM GENERAL: NAD, looks comfortable. Eating HEENT: nml conj. OC/Op- clear LUNGS: mild rhonhci on right but better. no wheeze HEART: S1, S2, irregular ABDOMEN: Soft, nontender, ostomy GENITOURINARY: external Lance EXTREMITIES: No edema, no cyanosis. DERMATOLOGIC: Warm, dry, no generalized rash. CHEMICAL EQUIPMENT SALES ENGINEER: Very alert and appropriate RIJ and Port-A-Cath site looks okay. PIV - RUE Labs Lab Laboratory Tests Test 12/20/18 05:00 Sodium Level 133 mmol/L (136-145) Potassium Level 4.9 mmol/L (3.5-5.1) Chloride Level 98 mmol/L (98-107) Carbon Dioxide Level 28 mmol/L (21-32) Anion Gap 7 (6-14) Blood Urea Nitrogen 17 mg/dL (7-20) Creatinine 0.6 mg/dL (0.6-1.0) Estimated GFR (Cockcroft-Gault) 97.2 Glucose Level 82 mg/dL (70-99) Calcium Level 8.1 mg/dL (8.5-10.1) Micro U/S IMPRESSION: 1. Moderate hydronephrosis bilaterally. 2. There is a small echogenic nodule within the right renal collecting system. Possibilities include a calculus, blood clot or small mass. Microbiology 12/12/18 Blood Culture - Preliminary, Resulted NO GROWTH AFTER 4 DAYS Objective Assessment Acute respiratory failure - better Elevated Troponin Urinary retention - hydro on U/S - s/p Cystoscopy with a bladder Botox injection, bilateral retrograde pyelograms, bilateral ureteral stent placement 12/19 Anemia s/p recent PRBCs Leukopenia, on Chemo, improved H/o PENICILLIN ALLERGY, unknown reaction, tolerated ceftriaxone well at [facility]. H/o recurrent squamous cell carcinoma, on palliative chemo w/ carboplatin and Taxol Chronic obstructive pulmonary disease. History of smoking. Possible gastrointestinal bleed. Plan Plan of Care Now DNR/DNI Cont Zyvox (12/12)/Cefepime (12/12) for now taper shortly F/u labs BC NGTD Supportive care D/w nursing ABBIE STEWART MD Dec 20, 2018 08:51
--- NOTE | 2018-12-20 09:00 | PDOC ---
SUBJECTIVE Subjective She is not having any flank or abd pain or pain from Lance catheter. Urine has been a pink to light red, but catheter working ok. OBJECTIVE Objective Physical Exam: General appearance: Alert and Oriented Head: Normocephalic, without obvious abnormality Eyes: conjunctivae/corneas clear. PERRL, EOM's intact. Fundi benign Back: No CVA pain bilat on testing Lungs: Regular respirations, non labored breathing. NC in place Abdomen: soft, non-tender. No masses, no organomegaly Pelvic:+ Lance catheter in place draining light pink urine with no clots. Device in good working order Vital Signs Vital Signs Date Time Temp Pulse Resp B/P (MAP) Pulse Ox O2 Delivery O2 Flow Rate FiO2 12/20/18 06:00 78 24 145/71 (95) 100 BiPAP/CPAP 12/20/18 05:00 74 20 151/80 (103) 99 BiPAP/CPAP 12/20/18 04:00 74 15 147/62 (90) 100 BiPAP/CPAP 12/20/18 04:00 Bi-pap 12/20/18 04:00 3.0 12/20/18 03:00 98.2 80 14 150/71 (97) 100 BiPAP/CPAP 98.2 12/20/18 02:00 88 25 135/62 (86) 100 BiPAP/CPAP 12/20/18 01:00 86 24 141/66 (91) 100 BiPAP/CPAP 12/20/18 00:00 Bi-pap 12/20/18 00:00 3.0 12/20/18 00:00 86 25 150/69 (96) 100 BiPAP/CPAP 12/19/18 23:00 97.9 82 30 151/70 (97) 100 BiPAP/CPAP 97.9 12/19/18 22:00 80 20 137/71 (93) 100 BiPAP/CPAP 12/19/18 21:00 92 28 153/67 (95) 100 Nasal Cannula 3.0 12/19/18 20:00 88 33 137/75 (95) 100 Nasal Cannula 3.0 12/19/18 19:50 3.0 12/19/18 19:50 Bi-pap 12/19/18 19:00 97.7 82 20 139/67 (91) 100 BiPAP/CPAP 97.7 12/19/18 19:00 24 100 BiPAP/CPAP 12/19/18 18:22 18 Nasal Cannula 2.0 12/19/18 16:00 97.6 90 20 109/53 (71) 100 Nasal Cannula 2.0 97.6 12/19/18 15:45 Nasal Cannula 2 12/19/18 15:35 97.3 78 20 135/65 95 Nasal Cannula 2 97.3 12/19/18 15:20 93 20 129/59 98 Nasal Cannula 2 12/19/18 15:05 91 20 122/57 99 Simple Mask 10 12/19/18 14:50 Mask 10 12/19/18 14:50 98.0 90 20 132/54 100 10 98.0 12/19/18 12:49 2.0 12/19/18 12:19 18 Nasal Cannula 2.0 12/19/18 12:00 95 22 136/65 (88) 100 Nasal Cannula 2.0 12/19/18 09:50 20 99 Nasal Cannula 12/19/18 09:36 100 Nasal Cannula 3.0 I & O Intake and Output 12/20/18 07:00 Intake Total 1290 ml Output Total 620 ml Balance 670 ml Intake Oral 490 ml IV Total 800 ml Output Urine Total 620 ml PHYSICAL EXAM Physical Exam Physical Exam: General appearance: Alert and Oriented Head: Normocephalic, without obvious abnormality Eyes: conjunctivae/corneas clear. PERRL, EOM's intact. Fundi benign Back: No CVA pain bilat on testing Lungs: Regular respirations, non labored breathing. NC in place Abdomen: soft, non-tender. No masses, no organomegaly Pelvic:+ Lance catheter in place draining light pink urine with no clots. Device in good working order ASSESSMENT/PLAN Assessment/Plan Pt is S/P Botox with bilateral ureteral stent placement with Dr. Erazo [facility]. Lance out when she is ambulating/more mobile. For now, nursing staff to continue to maintain. Ok to see red tinged or koolade colored urine intermittently with stents in place. Please call for very dark wine colored urine or urine with large clots or the consistency of ketchup A follow up appointment has been secured for patient with Dr. Grissom of [facility] on 01/02/19 at 11:10 am. Appointment card given to patient. All questions answered. Will follow peripherally over he weekend, but please call with questions or concerns over the weekend. COMMENT Lab Laboratory Tests Test 12/20/18 05:00 Sodium Level 133 mmol/L (136-145) Potassium Level 4.9 mmol/L (3.5-5.1) Chloride Level 98 mmol/L (98-107) Carbon Dioxide Level 28 mmol/L (21-32) Anion Gap 7 (6-14) Blood Urea Nitrogen 17 mg/dL (7-20) Creatinine 0.6 mg/dL (0.6-1.0) Estimated GFR (Cockcroft-Gault) 97.2 Glucose Level 82 mg/dL (70-99) Calcium Level 8.1 mg/dL (8.5-10.1) Nutrition Consultation Dietary Evaluation: Recommendations by RD: Protein supplementation Comments: REC continue w/dysphagia II/ thin liquid diet as ordered per GERMAN TEACHER REC offer Ensure prn between meals, honor food preferences Expected Outcomes/Goals: New goal 12/16: PO intake to meet >75% est needs - met at times, goal ongoing Malnutrition Findings: Weight Status: Underweight GIUSEPPE CLAUDIO SENIOR ENGINEERING ASSOCIATE Dec 20, 2018 09:00
--- NOTE | 2018-12-20 09:07 | RAD ---
EXAM: CHEST 1 VIEW. HISTORY: Pleural effusions. COMPARISON: 12/17/2018. FINDINGS: A frontal view of the chest is obtained. A left-sided port catheter has its tip in the proximal superior vena cava. A right internal jugular central venous catheter also has its tip in the superior vena cava. A nodular opacity in the right midlung is new since the prior study and may represent some loculated fluid. It measures 3.2 cm. An airspace opacity is also noted in the retrocardiac distribution. Hyperinflation is consistent with chronic obstructive pulmonary disease. There are mild interstitial opacities in the bases. There is no pneumothorax or pleural effusion. The heart is mildly enlarged. IMPRESSION: 1. 3.2 cm new right midlung nodule. This may represent fluid in the fissure. Follow-up to resolution is recommended. 2. Suspect mild pulmonary edema. 3. Chronic obstructive pulmonary disease. Electronically signed by: Taryn Kirby MD (12/20/2018 9:04 AM) [facility]
--- NOTE | 2018-12-20 09:20 | PDOC ---
Subjective: Subjective: Hates green beans and carrots and would like to know if she can order other vegetables. Objective: Objective: No GI concerns per RN. Vital Signs: Vital Signs Date Time Temp Pulse Resp B/P (MAP) Pulse Ox O2 Delivery O2 Flow Rate FiO2 12/20/18 06:00 78 24 145/71 (95) 100 BiPAP/CPAP 12/20/18 04:00 3.0 12/20/18 03:00 98.2 98.2 Labs: Laboratory Tests Test 12/20/18 05:00 Sodium Level 133 mmol/L Potassium Level 4.9 mmol/L Chloride Level 98 mmol/L Carbon Dioxide Level 28 mmol/L Anion Gap 7 Blood Urea Nitrogen 17 mg/dL Creatinine 0.6 mg/dL Estimated GFR (Cockcroft-Gault) 97.2 Glucose Level 82 mg/dL Calcium Level 8.1 mg/dL Imaging: CXR 12/20 IMPRESSION: 1. 3.2 cm new right midlung nodule. This may represent fluid in the fissure. Follow-up to resolution is recommended. 2. Suspect mild pulmonary edema. 3. Chronic obstructive pulmonary disease. PE: GEN: NAD, eating breakfast LUNGS: NC HEART: RRR ABD: S/ND/NT NEURO/PSYCH: A & O 3 A/P: Resp failure - improved Recurrent SCC of anus, chronic anemia S/p bladder Botox inj and ureteral stent placement -- Stable GI-andrews. FILEMON PEREZ Dec 20, 2018 09:19
[2018-12-20] MEDS: MORPHINE SULFATE 2 MG/ML VIAL. IV PRN (10:37)
--- NOTE | 2018-12-20 11:01 | PDOC ---
PULMONARY PROGRESS NOTES Subjective patient feels better, did require BiPAP last evening. now nasal cannula oxygen. no increasing SOA Vitals Vital Signs Date Time Temp Pulse Resp B/P (MAP) Pulse Ox O2 Delivery O2 Flow Rate FiO2 12/20/18 06:00 78 24 145/71 (95) 100 BiPAP/CPAP 12/20/18 04:00 3.0 12/20/18 03:00 98.2 98.2 General: Alert, No acute distress Lungs: Clear Cardiovascular: S1, S2 Abdomen: Soft Neuro Exam: Alert Extremities: No Edema Skin: Warm Labs Laboratory Tests Test 12/19/18 05:00 12/20/18 05:00 Sodium Level 133 mmol/L (136-145) 133 mmol/L (136-145) Potassium Level 4.3 mmol/L (3.5-5.1) 4.9 mmol/L (3.5-5.1) Chloride Level 99 mmol/L (98-107) 98 mmol/L (98-107) Carbon Dioxide Level 28 mmol/L (21-32) 28 mmol/L (21-32) Anion Gap 6 (6-14) 7 (6-14) Blood Urea Nitrogen 16 mg/dL (7-20) 17 mg/dL (7-20) Creatinine 0.5 mg/dL (0.6-1.0) 0.6 mg/dL (0.6-1.0) Estimated GFR (Cockcroft-Gault) 120.0 97.2 Glucose Level 92 mg/dL (70-99) 82 mg/dL (70-99) Calcium Level 8.4 mg/dL (8.5-10.1) 8.1 mg/dL (8.5-10.1) Laboratory Tests Test 12/20/18 05:00 Sodium Level 133 mmol/L (136-145) Potassium Level 4.9 mmol/L (3.5-5.1) Chloride Level 98 mmol/L (98-107) Carbon Dioxide Level 28 mmol/L (21-32) Anion Gap 7 (6-14) Blood Urea Nitrogen 17 mg/dL (7-20) Creatinine 0.6 mg/dL (0.6-1.0) Estimated GFR (Cockcroft-Gault) 97.2 Glucose Level 82 mg/dL (70-99) Calcium Level 8.1 mg/dL (8.5-10.1) Medications Active Scripts Medications Dose Route/Sig Max Daily Dose Days Date Category Opdivo (Nivolumab) 40 Mg/4 Ml Vial 40 Mg IV PER PROTOCOL 07/25/18 Reported Percocet 10-325 Mg Tablet (Oxycodone/Acetaminophen) 1 Each Tablet 1 Tab PO Q4-6HRS PRN 04/22/18 Reported Miralax (Polyethylene Glycol 3350) 17 Gm Powd.pack 1 Packet PO DAILY 04/19/18 Reported Xanax (Alprazolam) 0.5 Mg Tablet 1 Tab PO TID PRN 03/23/17 Reported Impression . 1. Acute hypoxic respiratory failure secondary to diffuse lung infiltrate 2. The patient with stage IV anal cancer, status post surgery and radiation and now undergoing palliative chemo. 3. Abnormal D-dimer, which is a nonspecific test and can be seen in many other conditions including malignancy. No evidence of pulmonary embolism. 4. Acute gastrointestinal bleed related to heparin. Hemoglobin went down to 5.7, s/p packed red blood cells.Hb stable 5. Leukopenia, likely related to infectious etiology versus bone marrow suppression by chemo. 6. Underlying chronic obstructive pulmonary disease. . PREOPERATIVE DIAGNOSES: 1. Urge incontinence. 2. Bilateral ureteral obstruction and bilateral hydronephrosis. POSTOPERATIVE DIAGNOSES: 1. Urge incontinence. 2. Bilateral ureteral obstruction and bilateral hydronephrosis. Plan . transferred out of ICU oxygen supplementation NPO monitor hemoglobin no need for thoracentesis RED AARON MD Dec 20, 2018 11:01
--- NOTE | 2018-12-20 13:41 | NUR ---
SS following for discharge planning. [facility] Bed declined pt stating that pt was too medically unstable at this time. Physician notified.
[2018-12-20] MEDS: MORPHINE SULFATE 4 MG/ML VIAL. IV PRN (17:35)
--- NOTE | 2018-12-20 21:40 | NUR ---
ARRIVED TO PLACE PATIENT ON BIPAP AT 1955 I HAD BEEN PAGED URGENTLY TO COME AND PLACE PT ON BIPAP. PT WAS NOT READY FOR BIPAP SHE WAS EATING. PT COMPLAINED THAT SHE WAS NOT BEING FED AND NOT BEING GIVEN MEDICATIONS. I INFORMED PATIENT THAT I WAS ON THE FLOOR SEEING OTHER PATIENTS AND THAT SHE WAS ON MY LIST AND THEREFORE I WOULD NOT FORGET HER. I SUBSEQUENTLY WENT AND CHECKED TO SEE IF SHE WAS READY AND EACH OF THOSE TIMES SHE WAS ANXIOUS AND EXPRESSING CONCERNS ABOUT ALL KINDS OF THINGS. SHE REPEATEDLY STATED THAT SHE WASNT BEING FED AND SHE NEEDED HER PAIN MEDICINE, AND SHE NEEDED TUCKED IN BEFORE SHE WAS READY FOR BIPAP. SHE ASKED ME IF I COULD GIVE HER THE PAIN MEDICINE AND GET HER SETTLED. I INFORMED THE NURSE. SHE THEN COMPLAINED THAT SHE WAS OFF THE BIPAP ALL NIGHT. SHE WAS SHOWING SIGNS OF DISORIENTATION, I REORIENTED HER TO THE TIME OF DAY, OPEN THE CURTAIN TO SHOW HER AND SHE SEEMED TO UNDERSTAND. I EXPLAINED THAT I HAD TO SEE SOME OTHER PATIENTS AND I WOULD BE BACK AFTERWARDS. I ALSO INFORMED HER NURSE. WHILE I WAS SEEING THE OTHER PATIENTS I WAS PAGED TWICE ABOUT IT, SO I RUSHED DOWN TO HER ROOM AND SHE WAS STILL NOT READY THERE WERE THREE EMPLOYEES IN THE ROOM GETTING HER REPOSTIONED, AND GETTING HER READY FOR BED. THE NURSE INFORMED ME THAT PATIENT WAS "CHEWING HER OUT" AND SO SHE HAD TO, IN TURN PAGE ME INCESSANTLY. I PLACED PT ON BIPAP, RECOMMENDED THAT THEY TRY TO REASSURE PATIENT AND REORIENT HER SHE IS CONFUSED ABOUT THE TIME OF DAY AND EXTREMELY ANXIOUS.
--- NOTE | 2018-12-20 23:43 | PN ---
DATE: 12/20/2018 SUBJECTIVE: The patient is resting, slightly propped up in bed, eating her breakfast comfortably, in no apparent distress. She is on 3 liters of oxygen by nasal cannula and maintaining her oxygen saturation at 99%. On questioning her, she denied any chest pain or shortness of breath. She apparently underwent a cystoscopy with a bladder Botox injection, bilateral retrograde pyelography and bilateral ureteral stent placement under general anesthesia. PHYSICAL EXAMINATION: GENERAL: When I saw her this morning, she looked pale, cachectic, but no jaundice or cyanosis. No lymphadenopathy, no thyromegaly. No jugular venous distention. No lower limb edema. VITAL SIGNS: Her heart rate was 78, blood pressure 145/71, temperature was 98.2, respiratory rate was 24, and oxygen saturation was 100%. HEAD, EYES, EARS, NOSE AND THROAT: Showed normocephalic, atraumatic. NECK: Supple. HEART: Showed normal first and second heart sounds. No gallop, rub or murmur. CHEST: Shows central trachea, equally bilateral chest expansion, air entry, vesicular sounds, bilateral crepitation. I could not appreciate any rhonchi. ABDOMEN: Distended, soft, nontender. NEUROLOGIC: She was awake, alert, responding appropriately. All cranial nerves intact. She moves extremities without difficulty. She is actually able to ambulate with a walker. Her intake over the last 24 hours was 1480, output was 800. LABORATORY DATA: As of this morning, her most recent lab work showed a white cell count 9300, hemoglobin 10, hematocrit 30, MCV 81 and platelet count 230,000. Her serum sodium was 133, potassium 4.9, chloride 98, bicarbonate 28, anion gap of 7, BUN 17, creatinine 0.6, estimated GFR was 97, glucose 82 and calcium was 9.1. Her chest x-ray showed that the patient has 3.2 cm new right mid lung nodule, this may represent fluid in the fissure, has also suspected mild pulmonary edema, chronic obstructive pulmonary disease. ASSESSMENT: 1. Acute hypoxic hypercapnic respiratory failure, likely due to pulmonary edema that has resolved. She is now on 3 liters of oxygen by nasal cannula. 2. Acute pulmonary edema, likely due to acute ischemia. Three sets of cardiac enzymes are all elevated; however, she is not a candidate for cardiac catheterization. 3. Hypokalemia, resolved. 4. Anal cancer, status post surgery, radiation, now on palliative chemotherapy. 5. Elevated D-dimer; however, CT angio of the chest was negative for pulmonary emboli. 6. Acute gastrointestinal bleeding for which she received 2 units of packed RBCs. Her hemoglobin and hematocrit are stable and leukopenia is improving. 7. The patient is known to have chronic obstructive pulmonary disease. 8. Pneumonia for which she is on Zyvox and cefepime. 9. Urinary retention and bilateral hydronephrosis for which she underwent cystoscopy and injection of Botox and bilateral ureteral stent deployment. PLAN: To continue with the IV antibiotic in the form of cefepime and linezolid. Continue with pain management. Continue potassium supplementation. Continue with proton pump inhibitor and continue SCD for DVT prophylaxis. Continue with physical and occupational therapy. I have consulted our lining caser to see if she qualifies to go to the [facility]. KELLI JOHNSON MD DR: ASTER/jeremy JOB#: [id number] / [id number]
[2018-12-21 03:08] VITALS: BP 140/98
[2018-12-21] MEDS ORDERED: ALBUTEROL SULFATE 2.5 MG/3 ML NEBU. NEB PRN (05:45)
[2018-12-21] MEDS: MORPHINE SULFATE 4 MG/ML VIAL. IV PRN (05:59)
[2018-12-21 06:36] LABS: CALCIUM 8.5 mg/dL (8.5-10.1); CREATININE 0.6 mg/dL (0.6-1.0); GFR 97.2; POTASSIUM 4.9 mmol/L (3.5-5.1)
[2018-12-21 07:00] VITALS: BP 144/71
[2018-12-21] MEDS: PANTOPRAZOLE 40 MG TABLET.DR. PO SCH (07:58)
--- NOTE | 2018-12-21 08:45 | PDOC ---
PULMONARY PROGRESS NOTES Subjective used bipap over night, on 02, sob, cough better, has pain in buttock area Vitals Vital Signs Date Time Temp Pulse Resp B/P (MAP) Pulse Ox O2 Delivery O2 Flow Rate FiO2 12/21/18 07:35 96 BiPAP/CPAP 12/21/18 07:00 97.8 96 30 144/71 (95) 2.0 97.8 General: Alert, No acute distress Lungs: Crackles Cardiovascular: S1, S2 Abdomen: Soft Neuro Exam: Alert Extremities: No Edema Skin: Warm Labs Laboratory Tests Test 12/20/18 05:00 12/21/18 06:10 Sodium Level 133 mmol/L (136-145) 131 mmol/L (136-145) Potassium Level 4.9 mmol/L (3.5-5.1) 4.9 mmol/L (3.5-5.1) Chloride Level 98 mmol/L (98-107) 96 mmol/L (98-107) Carbon Dioxide Level 28 mmol/L (21-32) 27 mmol/L (21-32) Anion Gap 7 (6-14) 8 (6-14) Blood Urea Nitrogen 17 mg/dL (7-20) 15 mg/dL (7-20) Creatinine 0.6 mg/dL (0.6-1.0) 0.6 mg/dL (0.6-1.0) Estimated GFR (Cockcroft-Gault) 97.2 97.2 Glucose Level 82 mg/dL (70-99) 86 mg/dL (70-99) Calcium Level 8.1 mg/dL (8.5-10.1) 8.5 mg/dL (8.5-10.1) Laboratory Tests Test 12/21/18 06:10 Sodium Level 131 mmol/L (136-145) Potassium Level 4.9 mmol/L (3.5-5.1) Chloride Level 96 mmol/L (98-107) Carbon Dioxide Level 27 mmol/L (21-32) Anion Gap 8 (6-14) Blood Urea Nitrogen 15 mg/dL (7-20) Creatinine 0.6 mg/dL (0.6-1.0) Estimated GFR (Cockcroft-Gault) 97.2 Glucose Level 86 mg/dL (70-99) Calcium Level 8.5 mg/dL (8.5-10.1) Medications Active Scripts Medications Dose Route/Sig Max Daily Dose Days Date Category Opdivo (Nivolumab) 40 Mg/4 Ml Vial 40 Mg IV PER PROTOCOL 07/25/18 Reported Percocet 10-325 Mg Tablet (Oxycodone/Acetaminophen) 1 Each Tablet 1 Tab PO Q4-6HRS PRN 04/22/18 Reported Miralax (Polyethylene Glycol 3350) 17 Gm Powd.pack 1 Packet PO DAILY 04/19/18 Reported Xanax (Alprazolam) 0.5 Mg Tablet 1 Tab PO TID PRN 03/23/17 Reported Comments cxr reviewed 1. 3.2 cm new right midlung nodule. This may represent fluid in the fissure. Follow-up to resolution is recommended. 2. Suspect mild pulmonary edema. 3. Chronic obstructive pulmonary disease. Impression . 1. Acute hypoxic respiratory failure secondary to diffuse lung infiltrate 2. The patient with stage IV anal cancer, status post surgery and radiation and now undergoing palliative chemo. 3. Abnormal D-dimer, which is a nonspecific test and can be seen in many other conditions including malignancy. No evidence of pulmonary embolism. 4. Acute gastrointestinal bleed related to heparin. Hemoglobin went down to 5.7, s/p packed red blood cells.Hb stable 5. Leukopenia, likely related to infectious etiology versus bone marrow suppression by chemo. 6. Underlying chronic obstructive pulmonary disease. . PREOPERATIVE DIAGNOSES: 1. Urge incontinence. 2. Bilateral ureteral obstruction and bilateral hydronephrosis. POSTOPERATIVE DIAGNOSES: 1. Urge incontinence. 2. Bilateral ureteral obstruction and bilateral hydronephrosis. Plan . 02 titration, bipap prn during day, cont at night. cxr, reviewed, will monitor oxygen supplementation aspiration precaution monitor hemoglobin no need for thoracentesis start BD abx discussed w rn, pt MAICOL DAVIS MD Dec 21, 2018 08:45
[2018-12-21] MEDS: POLYETHYLENE GLYCOL 3350 17 GM PACKET. PO SCH (09:00)
[2018-12-21] MEDS: CEFEPIME HCL IV Push 2 GM VIAL. IVP SCH ×2 (09:37→20:20)
[2018-12-21] MEDS: oxyCODONE/APAP 10/325 1 TAB TABLET PO PRN (09:38)
[2018-12-21] MEDS: OXYBUTYNIN CHLORIDE 5 MG TABLET PO SCH ×2 (09:38→20:19)
[2018-12-21] MEDS: ALPRAZolam 0.5 MG TABLET PO PRN ×2 (09:39→20:19)
[2018-12-21] MEDS: POTASSIUM CHLORIDE 20 MEQ TABLET.ER. PO SCH ×3 (09:39→20:20)
[2018-12-21] MEDS: NICOTINE 21MG PATCH. TD SCH (10:09)
--- NOTE | 2018-12-21 10:46 | PDOC ---
PROGRESS NOTE SUBJECTIVE: ROS: ROS: RESPIRATORY: + cough UROLOGY: mild hematuria HPI: Abdominal pain slightly improved. Tolerating longoria catheter OBJECTIVE: Vital Signs: Vital Signs Date Time Temp Pulse Resp B/P (MAP) Pulse Ox O2 Delivery O2 Flow Rate FiO2 12/21/18 09:38 96 Nasal Cannula 2.0 12/21/18 07:35 96 BiPAP/CPAP 12/21/18 07:00 97.8 96 30 144/71 (95) 97 BiPAP/CPAP 2.0 97.8 12/21/18 06:29 98 Nasal Cannula 2.0 12/21/18 05:59 98 Nasal Cannula 2.0 12/21/18 04:00 2.0 12/21/18 03:08 98.1 93 20 140/98 (112) 98 BiPAP/CPAP 98.1 12/21/18 02:00 BiPAP/CPAP 12/21/18 00:00 2.0 12/20/18 23:06 98.1 99 20 130/69 (89) 96 BiPAP/CPAP 98.1 12/20/18 21:54 96 BiPAP/CPAP 12/20/18 20:54 95 Nasal Cannula 2.0 12/20/18 20:00 Nasal Cannula 2.0 12/20/18 20:00 2.0 12/20/18 19:00 98.7 92 20 128/58 (81) 95 Nasal Cannula 98.7 12/20/18 18:00 98.8 83 20 142/86 (104) 98.8 12/20/18 17:35 18 100 Nasal Cannula 2.0 12/20/18 15:22 Bi-pap 12/20/18 15:22 BiPAP/CPAP 12/20/18 13:28 98.6 78 24 128/58 (81) 100 Nasal Cannula 2.0 98.6 12/20/18 11:00 78 24 123/61 (81) 100 Nasal Cannula 2.0 I & O Intake and Output 12/21/18 07:00 Intake Total 700 ml Output Total 1600 ml Balance -900 ml Intake Oral 400 ml IV Total 300 ml Output Urine Total 1600 ml PHYSICAL EXAM: Physical Exam: General: Pleasant, no acute distress, well groomed Respiratory: unlabored breathing Cardiovascular: Regular rate and rhythm Skin: no rashes or skin lesions on visualized skin Psych: normal mood, affect. Alert and oriented x 3. Longoria light red, clear, no clots LABS: Laboratory Tests Test 12/19/18 05:00 12/20/18 05:00 12/21/18 06:10 Sodium Level 133 mmol/L (136-145) 133 mmol/L (136-145) 131 mmol/L (136-145) Potassium Level 4.3 mmol/L (3.5-5.1) 4.9 mmol/L (3.5-5.1) 4.9 mmol/L (3.5-5.1) Chloride Level 99 mmol/L (98-107) 98 mmol/L (98-107) 96 mmol/L (98-107) Carbon Dioxide Level 28 mmol/L (21-32) 28 mmol/L (21-32) 27 mmol/L (21-32) Anion Gap 6 (6-14) 7 (6-14) 8 (6-14) Blood Urea Nitrogen 16 mg/dL (7-20) 17 mg/dL (7-20) 15 mg/dL (7-20) Creatinine 0.5 mg/dL (0.6-1.0) 0.6 mg/dL (0.6-1.0) 0.6 mg/dL (0.6-1.0) Estimated GFR (Cockcroft-Gault) 120.0 97.2 97.2 Glucose Level 92 mg/dL (70-99) 82 mg/dL (70-99) 86 mg/dL (70-99) Calcium Level 8.4 mg/dL (8.5-10.1) 8.1 mg/dL (8.5-10.1) 8.5 mg/dL (8.5-10.1) Microbiology 12/12/18 Blood Culture - Final, Complete NO GROWTH AFTER 5 DAYS MEDICATIONS: Current Medications Medications (Trade) Dose Ordered Sig/Cristian Start Time Stop Time Status Last Admin Dose Admin Acetaminophen (Tylenol) 650 mg PRN Q6HRS PRN 12/15/18 23:00 12/18/18 21:10 650 MG Albuterol Sulfate (Ventolin Neb Soln) 2.5 mg PRN Q4HRS PRN 12/21/18 05:45 Albuterol/ Ipratropium (Duoneb) 3 ml RTQID 12/21/18 09:00 Alprazolam (Xanax) 0.5 mg PRN TID PRN 12/15/18 23:15 12/21/18 09:39 0.5 MG Botulinum Toxin Type A (Botox) 100 unit STK-MED ONCE 12/19/18 14:16 12/19/18 14:33 DC 12/19/18 14:16 100 UNIT Cefepime HCl (Maxipime) 2 gm Q12HR 12/12/18 09:00 12/21/18 09:37 2 GM Dexamethasone Sodium Phosphate (Decadron) 4 mg STK-MED ONCE 12/19/18 13:34 12/19/18 13:35 DC Enoxaparin Sodium (Lovenox 30mg Syringe) 30 mg Q24H 12/12/18 09:00 12/12/18 09:00 DC Epinephrine HCl (Adrenalin) 1 mg STK-MED ONCE 12/13/18 10:18 12/13/18 10:19 DC Fentanyl Citrate 30 ml @ 0 mls/hr CONT PRN 12/12/18 12:30 12/14/18 18:23 DC 12/13/18 09:24 2.5 MLS/HR Furosemide (Lasix) 20 mg 1X ONCE 12/18/18 09:30 12/18/18 09:31 DC 12/18/18 09:08 20 MG Heparin Sodium (Porcine) (Heparin Sodium) 1,000 unit PRN Q6HRS PRN 12/12/18 01:30 12/12/18 06:17 DC Heparin Sodium/ Dextrose 500 ml @ 0 mls/hr CONT PRN 12/12/18 01:30 12/12/18 06:17 DC Hydromorphone HCl (Dilaudid) 0.5 mg PRN Q10MIN PRN 12/19/18 07:00 12/19/18 19:00 DC Iohexol (Omnipaque 300 Mg/ml) 50 ml STK-MED ONCE 12/19/18 12:18 12/19/18 13:18 DC 12/19/18 14:16 50 ML Ketamine HCl (Ketamine) 50 mg STK-MED ONCE 12/19/18 13:45 12/19/18 13:46 DC Lidocaine HCl (Glydo (Lidocaine) Jelly) 6 freeman STK-MED ONCE 12/19/18 12:18 12/19/18 13:18 DC Lidocaine HCl (Lidocaine 2% Viscous) 100 ml STK-MED ONCE 12/13/18 10:18 12/13/18 10:19 DC Lidocaine HCl (Lidocaine Pf 2% Vial) 5 ml STK-MED ONCE 12/19/18 13:34 12/19/18 13:35 DC Linezolid/Dextrose 300 ml @ 300 mls/hr Q12HR 12/12/18 09:00 12/21/18 09:38 300 MLS/HR Morphine Sulfate (Morphine Sulfate) 10 mg STK-MED ONCE 12/19/18 13:55 12/19/18 13:56 DC Nicotine (Nicoderm Cq 21mg) 1 patch DAILY 12/13/18 19:00 12/21/18 10:09 1 PATCH Norepinephrine Bitartrate 250 ml @ 1.875 mls/ hr CONT PRN 12/12/18 01:30 12/14/18 18:21 DC Ondansetron HCl (Zofran) 4 mg STK-MED ONCE 12/19/18 13:34 12/19/18 13:35 DC Oxybutynin Chloride (Ditropan) 2.5 mg BID 12/13/18 19:00 12/21/18 09:38 2.5 MG Oxycodone/ Acetaminophen (Percocet 10/325) 1 tab PRN Q4HRS PRN 12/15/18 23:15 12/21/18 09:38 1 TAB Pantoprazole Sodium (PROTONIX VIAL for IV PUSH) 40 mg DAILY 12/17/18 09:00 12/17/18 10:46 DC 12/17/18 08:07 40 MG Pantoprazole Sodium (Protonix) 40 mg DAILYAC 12/18/18 07:30 12/21/18 07:58 40 MG Phenylephrine HCl (PHENYLEPHRINE in 0.9% NACL PF) 1 mg STK-MED ONCE 12/19/18 13:58 12/19/18 13:59 DC Polyethylene Glycol (miraLAX PACKET) 17 gm PRN DAILY PRN 12/17/18 10:45 Potassium Chloride (Klor-Con) 20 meq TID 12/18/18 09:00 12/21/18 09:39 20 MEQ Prochlorperazine Edisylate (Compazine) 5 mg PACU PRN PRN 12/19/18 07:00 12/19/18 19:00 DC Propofol 20 ml @ As Directed STK-MED ONCE 12/19/18 13:34 12/19/18 13:35 DC Ringer's Solution 1,000 ml @ 30 mls/hr Q24H 12/19/18 07:00 12/19/18 18:59 DC 12/19/18 13:45 30 MLS/HR Sevoflurane (Ultane) 30 ml STK-MED ONCE 12/19/18 13:54 12/19/18 13:55 DC Sodium Chloride (SODIUM CHLORIDE 20ml) 20 ml STK-MED ONCE 12/19/18 13:11 12/19/18 14:12 DC ASSESSMENT & PLAN POD # 2 bilateral ureteral stents, bladder botox injection Continue longoria for comfort measures until she is able to ambulate. Call with questions. RAMU FIELDS MD Dec 21, 2018 10:46
[2018-12-21 10:54] VITALS: BP 141/68
[2018-12-21] MEDS: IPRATRPIUM/ALBUTEROL 0.5/2.5MG 3 ML NEBU. NEB SCH ×4 (12:49→20:42)
--- NOTE | 2018-12-21 13:52 | PDOC ---
Infectious Disease Note Subjective Subjective Feeling alright Says birthday coming up on [birth year] 13[birth year] Denies SOA/pain/N/V/F/ 3L O2 ROS ROS per HPI Vital Sign Vital Signs Vital Signs Date Time Temp Pulse Resp B/P (MAP) Pulse Ox O2 Delivery O2 Flow Rate FiO2 12/21/18 12:53 98 Nasal Cannula 4.0 12/21/18 10:54 98.7 102 32 141/68 (92) 98.7 Physical Exam PHYSICAL EXAM GENERAL: Propped up in bed, relaxed appearance HEENT: Oral cavity clear LUNGS: Soft wheeze, nonlabored HEART: S1, S2, irregular ABDOMEN: Soft, nontender, ostomy GENITOURINARY: Indwelling Lance in place EXTREMITIES: No edema, no cyanosis. DERMATOLOGIC: Warm, dry, no generalized rash. DIRECTOR OF EXHIBIT DEVELOPMENT: Alert and appropriate RIJ and Port-A-Cath site looks okay. Labs Lab Laboratory Tests Test 12/21/18 06:10 Sodium Level 131 mmol/L (136-145) Potassium Level 4.9 mmol/L (3.5-5.1) Chloride Level 96 mmol/L (98-107) Carbon Dioxide Level 27 mmol/L (21-32) Anion Gap 8 (6-14) Blood Urea Nitrogen 15 mg/dL (7-20) Creatinine 0.6 mg/dL (0.6-1.0) Estimated GFR (Cockcroft-Gault) 97.2 Glucose Level 86 mg/dL (70-99) Calcium Level 8.5 mg/dL (8.5-10.1) CXR, 12/20 1. 3.2 cm new right midlung nodule. This may represent fluid in the fissure. Follow-up to resolution is recommended. 2. Suspect mild pulmonary edema. 3. Chronic obstructive pulmonary disease. Micro 12/12/18 Blood Culture - Preliminary, Resulted NO GROWTH AFTER 5 DAYS Objective Assessment Acute respiratory failure - better 3.2 cm new right midlung nodule seen on cxr 12/20 Elevated Troponin Urinary retention - hydro on U/S - s/p Cystoscopy with a bladder Botox injection, bilateral retrograde pyelograms, bilateral ureteral stent placement 12/19 Anemia s/p recent PRBCs Leukopenia, on Chemo, improved H/o PENICILLIN ALLERGY, unknown reaction, tolerated ceftriaxone well at [facility]. H/o recurrent squamous cell carcinoma, on palliative chemo w/ carboplatin and Taxol Chronic obstructive pulmonary disease. History of smoking. Possible gastrointestinal bleed. Plan Plan of Care Now DNR/DNI Cont Zyvox (12/12)/Cefepime (12/12) for now taper shortly F/u labs BC neg Supportive care D/w nursing Attending Co-Sign The patient was seen and interviewed as well as examined at the bedside. The chart was reviewed. The case was discussed. Agree with the plan of care. DC JACKSON APRN Dec 21, 2018 13:52 ADRIANNA MARSHALL MD Dec 21, 2018 14:26
[2018-12-21 15:00] VITALS: BP 117/53
[2018-12-21 19:59] VITALS: BP 118/56
--- NOTE | 2018-12-21 22:55 | PN ---
DATE: 12/21/2018 SUBJECTIVE: The patient is sitting comfortably, eating her breakfast, in no apparent distress. She did complain of mild abdominal discomfort, but denied any other complaint. PHYSICAL EXAMINATION: GENERAL: When I examined her, she was pale, cachectic, no jaundice, cyanosis, or thyromegaly. No jugular venous distention. No lower limb edema. VITAL SIGNS: Her heart rate was 96, blood pressure was 144/71, temperature was 97.8, respiratory rate was 20, and oxygen saturation was 96% on 2 liters of oxygen. HEAD, EYES, EARS, NOSE AND THROAT: Showed normocephalic, atraumatic. NECK: Supple. CARDIAC: Normal first and second heart sounds. No gallop, rub or murmur. CHEST: Shows central trachea, equally reduced expansion, air entry, vesicular seconds, bilateral basal crepitation. I could not appreciate any rhonchi. ABDOMEN: Distended, soft with colostomy in the left lower quadrant. There is no tenderness. No guarding or rigidity. NEUROLOGIC: She is awake, alert, responding appropriately. All her cranial nerves intact. She moves extremities without difficulty, although she has marked muscle wasting and weakness. Her intake over the last 24 hours was 1300, output was 600. LABORATORY DATA: As of this morning, her serum sodium was 131, potassium 4.9, chloride 96, bicarbonate 27, anion gap of 8, BUN 16, creatinine 0.6. So far, all her blood cultures are negative. Her chest x-ray showed that the heart is mildly enlarged. There is no pneumothorax or pleural effusion. Does have mild pulmonary edema. ASSESSMENT: 1. Acute hypoxic hypercapnic respiratory failure, likely due to pulmonary edema has resolved. She is now on 2 liters of oxygen by nasal cannula. 2. Acute pulmonary edema, likely due to acute ischemia. Three sets of cardiac enzymes are all elevated. However, she is not a candidate for cardiac catheterization. 3. Hypokalemia, resolved. 4. Anal cancer, status post surgery, radiation and now palliative chemotherapy. 5. Elevate D-dimer; however, CT angio of the chest was negative for pulmonary emboli. 6. Acute gastrointestinal bleeding for which she has received 2 units of packed RBCs. Her hemoglobin and hematocrit are stable and leukopenia has resolved. 7. The patient is known to have chronic obstructive pulmonary disease. 8. Pneumonia for which she was treated with Zyvox and cefepime. 9. Urinary retention and bilateral hydronephrosis for which she underwent cystoscopy and injection of Botox and bilateral ureteral stent deployment. PLAN: To continue with IV cefepime and linezolid. Continue with the bronchodilator. Continue with Protonix for GI prophylaxis. Continue with physical and occupational therapy. KELLI JOHNSON MD DR: ASTER/jeremy JOB#: [id number] / [id number]
[2018-12-21 23:59] VITALS: BP 137/96
[2018-12-22 03:59] VITALS: BP 143/65
[2018-12-22 04:49] LABS: CALCIUM 8.3 mg/dL (8.5-10.1); CREATININE 0.5 mg/dL (0.6-1.0); POTASSIUM 5.2 mmol/L (3.5-5.1)
[2018-12-22 07:00] VITALS: BP 139/67
[2018-12-22] MEDS: IPRATRPIUM/ALBUTEROL 0.5/2.5MG 3 ML NEBU. NEB SCH ×4 (08:00→19:43)
--- NOTE | 2018-12-22 08:09 | PDOC ---
PULMONARY PROGRESS NOTES Subjective used bipap till 3 am last night, on 02, feels better, sob, cough better, no pain Vitals Vital Signs Date Time Temp Pulse Resp B/P (MAP) Pulse Ox O2 Delivery O2 Flow Rate FiO2 12/22/18 08:02 98 Nasal Cannula 4.0 12/22/18 07:00 98.0 95 18 139/67 (91) 98.0 General: Alert, No acute distress Lungs: Crackles Cardiovascular: S1, S2 Abdomen: Soft Neuro Exam: Alert Extremities: No Edema Skin: Warm Labs Laboratory Tests Test 12/21/18 06:10 12/22/18 04:30 Sodium Level 131 mmol/L (136-145) 130 mmol/L (136-145) Potassium Level 4.9 mmol/L (3.5-5.1) 5.2 mmol/L (3.5-5.1) Chloride Level 96 mmol/L (98-107) 96 mmol/L (98-107) Carbon Dioxide Level 27 mmol/L (21-32) 26 mmol/L (21-32) Anion Gap 8 (6-14) 8 (6-14) Blood Urea Nitrogen 15 mg/dL (7-20) 13 mg/dL (7-20) Creatinine 0.6 mg/dL (0.6-1.0) 0.5 mg/dL (0.6-1.0) Estimated GFR (Cockcroft-Gault) 97.2 120.0 Glucose Level 86 mg/dL (70-99) 99 mg/dL (70-99) Calcium Level 8.5 mg/dL (8.5-10.1) 8.3 mg/dL (8.5-10.1) Laboratory Tests Test 12/22/18 04:30 Sodium Level 130 mmol/L (136-145) Potassium Level 5.2 mmol/L (3.5-5.1) Chloride Level 96 mmol/L (98-107) Carbon Dioxide Level 26 mmol/L (21-32) Anion Gap 8 (6-14) Blood Urea Nitrogen 13 mg/dL (7-20) Creatinine 0.5 mg/dL (0.6-1.0) Estimated GFR (Cockcroft-Gault) 120.0 Glucose Level 99 mg/dL (70-99) Calcium Level 8.3 mg/dL (8.5-10.1) Medications Active Scripts Medications Dose Route/Sig Max Daily Dose Days Date Category Opdivo (Nivolumab) 40 Mg/4 Ml Vial 40 Mg IV PER PROTOCOL 07/25/18 Reported Percocet 10-325 Mg Tablet (Oxycodone/Acetaminophen) 1 Each Tablet 1 Tab PO Q4-6HRS PRN 04/22/18 Reported Miralax (Polyethylene Glycol 3350) 17 Gm Powd.pack 1 Packet PO DAILY 04/19/18 Reported Xanax (Alprazolam) 0.5 Mg Tablet 1 Tab PO TID PRN 03/23/17 Reported Comments cxr reviewed 1. 3.2 cm new right midlung nodule. This may represent fluid in the fissure. Follow-up to resolution is recommended. 2. Suspect mild pulmonary edema. 3. Chronic obstructive pulmonary disease. Impression . 1. Acute hypoxic respiratory failure secondary to diffuse lung infiltrate 2. The patient with stage IV anal cancer, status post surgery and radiation and now undergoing palliative chemo. 3. Abnormal D-dimer, which is a nonspecific test and can be seen in many other conditions including malignancy. No evidence of pulmonary embolism. 4. Acute gastrointestinal bleed related to heparin. Hemoglobin went down to 5.7, s/p packed red blood cells.Hb stable 5. Leukopenia, likely related to infectious etiology versus bone marrow suppression by chemo. 6. Underlying chronic obstructive pulmonary disease. . PREOPERATIVE DIAGNOSES: 1. Urge incontinence. 2. Bilateral ureteral obstruction and bilateral hydronephrosis. POSTOPERATIVE DIAGNOSES: 1. Urge incontinence. 2. Bilateral ureteral obstruction and bilateral hydronephrosis. Plan . 02 titration, bipap prn during day, cont at night. cxr, reviewed, will monitor, cxr pa and lat in am oxygen supplementation aspiration precaution monitor hemoglobin no need for thoracentesis BD abx per id, dced discussed w rn, pt MAICOL DAVIS MD Dec 22, 2018 08:09
[2018-12-22] MEDS: ALPRAZolam 0.5 MG TABLET PO PRN ×2 (08:32→22:38)
[2018-12-22] MEDS: oxyCODONE/APAP 10/325 1 TAB TABLET PO PRN ×2 (08:32→22:38)
[2018-12-22] MEDS: PANTOPRAZOLE 40 MG TABLET.DR. PO SCH (08:32)
[2018-12-22] MEDS: OXYBUTYNIN CHLORIDE 5 MG TABLET PO SCH ×2 (08:32→20:34)
[2018-12-22] MEDS: POLYETHYLENE GLYCOL 3350 17 GM PACKET. PO SCH (08:33)
[2018-12-22] MEDS: CEFEPIME HCL IV Push 2 GM VIAL. IVP SCH (08:33)
[2018-12-22] MEDS: NICOTINE 21MG PATCH. TD SCH (08:33)
[2018-12-22] MEDS: POTASSIUM CHLORIDE 20 MEQ TABLET.ER. PO SCH (08:33)
[2018-12-22 10:48] VITALS: BP 114/53
--- NOTE | 2018-12-22 10:52 | PDOC ---
Infectious Disease Note Subjective Subjective Says she is going to live to [birth year] feeling alright today Denies increase SOA/cough. Remains on 3L O2 Denies N/V/ or increase ostomy output Denies F/C/S ROS ROS per HPI Vital Sign Vital Signs Vital Signs Date Time Temp Pulse Resp B/P (MAP) Pulse Ox O2 Delivery O2 Flow Rate FiO2 12/22/18 08:02 98 Nasal Cannula 4.0 12/22/18 07:00 98.0 95 18 139/67 (91) 98.0 Physical Exam PHYSICAL EXAM GENERAL: Propped up in bed, relaxed appearance HEENT: Oral cavity clear LUNGS: Soft wheeze, nonlabored HEART: S1, S2 ABDOMEN: Soft, nontender, ostomy GENITOURINARY: Indwelling Lance in place EXTREMITIES: No edema, no cyanosis. DERMATOLOGIC: Warm, dry, no generalized rash. TEACHING ARTIST: Alert and appropriate RIJ (12/12) and Port-A-Cath site looks okay. Labs Lab Laboratory Tests Test 12/22/18 04:30 Sodium Level 130 mmol/L (136-145) Potassium Level 5.2 mmol/L (3.5-5.1) Chloride Level 96 mmol/L (98-107) Carbon Dioxide Level 26 mmol/L (21-32) Anion Gap 8 (6-14) Blood Urea Nitrogen 13 mg/dL (7-20) Creatinine 0.5 mg/dL (0.6-1.0) Estimated GFR (Cockcroft-Gault) 120.0 Glucose Level 99 mg/dL (70-99) Calcium Level 8.3 mg/dL (8.5-10.1) Micro 12/12/18 Blood Culture - Preliminary, Resulted NO GROWTH AFTER 5 DAYS Objective Assessment Acute respiratory failure - better 3.2 cm new right midlung nodule seen on cxr 12/20 Elevated Troponin Urinary retention - hydro on U/S - s/p Cystoscopy with a bladder Botox injection, bilateral retrograde pyelograms, bilateral ureteral stent placement 12/19 Anemia s/p recent PRBCs Leukopenia, on Chemo, improved H/o PENICILLIN ALLERGY, unknown reaction, tolerated ceftriaxone well at [facility]. H/o recurrent squamous cell carcinoma, on palliative chemo w/ carboplatin and Taxol Chronic obstructive pulmonary disease. History of smoking. Possible gastrointestinal bleed. Plan Plan of Care DNR/DNI D/c Rachelox (12/12) and Cefepime (12/12) and observe off antibiotics Consider removing RIJ as to avoid line infection/complications BC neg Supportive care D/w nursing Attending Co-Sign The patient was seen and interviewed as well as examined at the bedside. The chart was reviewed. The case was discussed. Agree with the plan of care. DC JACKSON APRN Dec 22, 2018 10:52 ADRIANNA MARSHALL MD Dec 22, 2018 14:39
--- NOTE | 2018-12-22 12:31 | PN ---
DATE: 12/22/2018 SUBJECTIVE: The patient is sitting slightly propped up in bed, eating her breakfast comfortably, in no apparent distress. She did sleep very well last night and tolerated BiPAP until around 03:00 in the morning. She denied any chest pain. Her cough seemed to be much better. She seemed to be generally improving. PHYSICAL EXAMINATION: GENERAL: When I examined her, she was pale, cachectic, but not jaundiced or cyanosed from thyromegaly. No jugular venous distention. No lower limb edema. VITAL SIGNS: Her heart rate was 95, blood pressure was 139/67, temperature was 98, respiratory rate was 18 and oxygen saturation was 98% on 4 liters of oxygen. HEENT: Examination of the head, eyes, ears, nose and throat showed normocephalic, atraumatic. NECK: Supple. HEART: Showed normal first and second heart sounds. No gallop, rub or murmur. CHEST: Shows central trachea, equal bilateral expansion, air entry, vesicular sounds with crepitation, mostly bilaterally posteriorly. I could not appreciate any rhonchi. ABDOMEN: Slightly distended, soft with a colostomy bag in the left lower quadrant. NEUROLOGIC: She was awake, alert and responding appropriately. All cranial nerves intact. She moved extremities without difficulty, although she had marked muscle wasting and weakness. GENITOURINARY: She had an indwelling Lance catheter with blood-tinged urine in the bag. Her intake was 700, output was 1600. LABORATORY DATA: As of this morning, her serum sodium was 130, potassium 5.2, chloride 96, bicarbonate 26, anion gap of 8, BUN 13, creatinine 0.5 and estimated GFR was 120 mL per minute. Her chemistry is stable. ASSESSMENT: 1. Acute hypoxic hypercapnic respiratory failure, likely due to pulmonary edema that is resolving. She is now on 4 liters of oxygen by nasal cannula. 2. Acute pulmonary edema, likely due to acute ischemia. She had 3 sets of cardiac enzymes that were elevated; however, she is not a candidate for cardiac catheterization. 3. Hypokalemia, resolved. In fact, her potassium is up today up to 5.2. 4. Anal cancer, status post surgery, radiation and now palliative chemotherapy. 5. Elevated D-dimer. However, CT angio of the chest was negative for pulmonary embolism. 6. Acute gastrointestinal bleeding, for which she has received 3 units of packed RBCs and most recent hemoglobin and hematocrit are stable. Her leukopenia is resolving. 7. The patient is known to have chronic obstructive pulmonary disease. 8. Pneumonia, for which she was treated with Zyvox and cefepime. 9. Urinary retention with bilateral hydronephrosis, for which she underwent cystoscopy and injection of Botox and bilateral ureteral stent deployment. PLAN: Plan is to continue with IV cefepime and linezolid. Continue with bronchodilator. Continue with Protonix for GI prophylaxis. Continue with physical and occupational therapy. Her Lance catheter can probably be discontinued tomorrow. KELLI JOHNSON MD DR: ASTER/jeremy JOB#: [id number] / [id number]
[2018-12-22 14:57] VITALS: BP 116/58
[2018-12-22 19:00] VITALS: BP 112/50
[2018-12-22 22:46] VITALS: BP 122/58
[2018-12-23 02:43] VITALS: BP 141/63
[2018-12-23 05:13] LABS: HEMOGLOBIN 8.3 g/dL (12.0-15.5); RED BLOOD COUNT 3.17 x10^6/uL (3.50-5.40); RED CELL DISTRIBUTION WIDTH 21.2 % (11.5-14.5); WHITE BLOOD COUNT 8.2 x10^3/uL (4.0-11.0)
[2018-12-23 05:40] LABS: ALBUMIN 1.8 g/dL (3.4-5.0); ALBUMIN/GLOBULIN RATIO 0.4 (1.0-1.7); CREATININE 0.5 mg/dL (0.6-1.0); POTASSIUM 4.5 mmol/L (3.5-5.1); TOTAL BILIRUBIN 0.3 mg/dL (0.2-1.0)
[2018-12-23 06:49] VITALS: BP 131/74
[2018-12-23] MEDS: PANTOPRAZOLE 40 MG TABLET.DR. PO SCH (07:31)
[2018-12-23] MEDS: IPRATRPIUM/ALBUTEROL 0.5/2.5MG 3 ML NEBU. NEB SCH ×4 (07:52→20:00)
[2018-12-23] MEDS: NICOTINE 21MG PATCH. TD SCH (08:22)
[2018-12-23] MEDS: OXYBUTYNIN CHLORIDE 5 MG TABLET PO SCH ×2 (08:22→20:56)
[2018-12-23] MEDS: POLYETHYLENE GLYCOL 3350 17 GM PACKET. PO SCH (08:23)
--- NOTE | 2018-12-23 08:57 | PDOC ---
GIUSEPPE CLAUDIO SHIFT LEADER 12/23/18 0857: SUBJECTIVE Subjective Pt doing well today, eager to get out of bed and start walking so she can have her catheter removed. She has not seen any blood coming out of it to speak of. Most of the time, her urine is yellow or with just a light pinkish tinge. She hasn't seen any clots. OBJECTIVE Objective Physical Exam: General appearance: Alert and Oriented Head: Normocephalic, without obvious abnormality Eyes: conjunctivae/corneas clear. PERRL, EOM's intact. Fundi benign Back: negative Lungs: Regular respirations, non labored breathing Abdomen: soft, non-tender. + Ostomy in place. No masses, no organomegaly Pelvic: + Longoria catheter in place draining clear yellow urine. Device in good order. Vital Signs Vital Signs Date Time Temp Pulse Resp B/P (MAP) Pulse Ox O2 Delivery O2 Flow Rate FiO2 12/23/18 07:54 97 Nasal Cannula 3.0 12/23/18 06:49 98.6 90 21 131/74 (93) 96 BiPAP/CPAP 98.6 12/23/18 06:04 99 BiPAP/CPAP 12/23/18 04:15 99 BiPAP/CPAP 12/23/18 04:00 3.0 12/23/18 02:43 97.8 99 25 141/63 (89) 98 BiPAP/CPAP 97.8 12/23/18 00:09 3.0 12/22/18 23:44 BiPAP/CPAP 12/22/18 23:37 99 BiPAP/CPAP 12/22/18 22:46 98.1 105 20 122/58 (79) 100 BiPAP/CPAP 98.1 12/22/18 22:38 BiPAP/CPAP 12/22/18 21:54 BiPAP/CPAP 12/22/18 20:00 Bi-pap 12/22/18 20:00 3.0 12/22/18 19:50 99 BiPAP/CPAP 12/22/18 19:46 100 Nasal Cannula 3.0 12/22/18 19:00 97.5 95 18 112/50 (70) 98 Nasal Cannula 3.0 97.5 12/22/18 16:00 3.0 12/22/18 15:41 Nasal Cannula 3.0 12/22/18 14:57 97.6 92 18 116/58 (77) 97 Nasal Cannula 3.0 97.6 12/22/18 12:00 3.0 12/22/18 11:46 Nasal Cannula 3.0 12/22/18 10:48 97.5 97 18 114/53 (73) 99 Nasal Cannula 3.0 97.5 I & O Intake and Output 12/23/18 07:00 Intake Total 500 ml Output Total 2500 ml Balance -2000 ml Intake Oral 500 ml Output Urine Total 2500 ml PHYSICAL EXAM Physical Exam Physical Exam: General appearance: Alert and Oriented Head: Normocephalic, without obvious abnormality Eyes: conjunctivae/corneas clear. PERRL, EOM's intact. Fundi benign Back: negative Lungs: Regular respirations, non labored breathing Abdomen: soft, non-tender. + Ostomy in place. No masses, no organomegaly Pelvic: + Longoria catheter in place draining clear yellow urine. Device in good order. ASSESSMENT/PLAN Assessment/Plan Pt very motivated. Encouraged her to ambulate as she desires, but with stand by help the first few times at least. If pt is ambulating today and doing well generally, then she could have her catheter removed later today for a voiding trial. Orders entered: If pt able to ambulate to bedside commode and back, then may attempt voiding trial. Please remove longoria and encourage q 1-2 hour voiding. 5 hours after removal, please bladder scan patient. If PVR greater than 400, please replace longoria catheter. If PVR 400 or less and patient is voiding, then leave longoria out and encourage voiding. Discussed above with attending RN. Pt [place]. [place] [facility] [place] [facility] location on 01/02/19 at 11:10 am. COMMENT Lab Laboratory Tests Test 12/23/18 05:00 White Blood Count 8.2 x10^3/uL (4.0-11.0) Red Blood Count 3.17 x10^6/uL (3.50-5.40) Hemoglobin 8.3 g/dL (12.0-15.5) Hematocrit 26.0 % (36.0-47.0) Mean Corpuscular Volume 82 fL (79-100) Mean Corpuscular Hemoglobin 26 pg (25-35) Mean Corpuscular Hemoglobin Concent 32 g/dL (31-37) Red Cell Distribution Width 21.2 % (11.5-14.5) Platelet Count 110 x10^3/uL (140-400) Sodium Level 130 mmol/L (136-145) Potassium Level 4.5 mmol/L (3.5-5.1) Chloride Level 96 mmol/L (98-107) Carbon Dioxide Level 26 mmol/L (21-32) Anion Gap 8 (6-14) Blood Urea Nitrogen 12 mg/dL (7-20) Creatinine 0.5 mg/dL (0.6-1.0) Estimated GFR (Cockcroft-Gault) 120.0 BUN/Creatinine Ratio 24 (6-20) Glucose Level 128 mg/dL (70-99) Calcium Level 8.0 mg/dL (8.5-10.1) Total Bilirubin 0.3 mg/dL (0.2-1.0) Aspartate Amino Transf (AST/SGOT) 19 U/L (15-37) Alanine Aminotransferase (ALT/SGPT) 19 U/L (14-59) Alkaline Phosphatase 233 U/L (46-116) Total Protein 6.0 g/dL (6.4-8.2) Albumin 1.8 g/dL (3.4-5.0) Albumin/Globulin Ratio 0.4 (1.0-1.7) Nutrition Consultation Dietary Evaluation: Recommendations by RD: Protein supplementation Comments: REC continue w/dysphagia II/ thin liquid diet as ordered per [employer]REE [employer]UNER REC offer Ensure prn between meals, honor food preferences Expected Outcomes/Goals: New goal 12/16: PO intake to meet >75% est needs - met at times, goal ongoing Malnutrition Findings: Weight Status: Underweight RAMU FIELDS MD 12/23/18 1014: ASSESSMENT/PLAN Assessment/Plan Agree with assessment and plan. GIUSEPPE CLAUDIO SHIFT LEADER Dec 23, 2018 08:57 RAMU FIELDS MD Dec 23, 2018 10:14
--- NOTE | 2018-12-23 09:32 | PDOC ---
Infectious Disease Note Subjective Subjective pt is feeling good ROS ROS no n/v/d/ Vital Sign Vital Signs Vital Signs Date Time Temp Pulse Resp B/P (MAP) Pulse Ox O2 Delivery O2 Flow Rate FiO2 12/23/18 07:54 97 Nasal Cannula 3.0 12/23/18 06:49 98.6 90 21 131/74 (93) 98.6 Physical Exam PHYSICAL EXAM GENERAL: Propped up in bed, relaxed appearance HEENT: Oral cavity clear LUNGS: Soft wheeze, nonlabored HEART: S1, S2 ABDOMEN: Soft, nontender, ostomy GENITOURINARY: Indwelling Lance in place EXTREMITIES: No edema, no cyanosis. DERMATOLOGIC: Warm, dry, no generalized rash. CREDENTIALING SPECIALIST: Alert and appropriate RIJ (12/12) and Port-A-Cath site looks okay. Labs Lab Laboratory Tests Test 12/23/18 05:00 White Blood Count 8.2 x10^3/uL (4.0-11.0) Red Blood Count 3.17 x10^6/uL (3.50-5.40) Hemoglobin 8.3 g/dL (12.0-15.5) Hematocrit 26.0 % (36.0-47.0) Mean Corpuscular Volume 82 fL (79-100) Mean Corpuscular Hemoglobin 26 pg (25-35) Mean Corpuscular Hemoglobin Concent 32 g/dL (31-37) Red Cell Distribution Width 21.2 % (11.5-14.5) Platelet Count 110 x10^3/uL (140-400) Sodium Level 130 mmol/L (136-145) Potassium Level 4.5 mmol/L (3.5-5.1) Chloride Level 96 mmol/L (98-107) Carbon Dioxide Level 26 mmol/L (21-32) Anion Gap 8 (6-14) Blood Urea Nitrogen 12 mg/dL (7-20) Creatinine 0.5 mg/dL (0.6-1.0) Estimated GFR (Cockcroft-Gault) 120.0 BUN/Creatinine Ratio 24 (6-20) Glucose Level 128 mg/dL (70-99) Calcium Level 8.0 mg/dL (8.5-10.1) Total Bilirubin 0.3 mg/dL (0.2-1.0) Aspartate Amino Transf (AST/SGOT) 19 U/L (15-37) Alanine Aminotransferase (ALT/SGPT) 19 U/L (14-59) Alkaline Phosphatase 233 U/L (46-116) Total Protein 6.0 g/dL (6.4-8.2) Albumin 1.8 g/dL (3.4-5.0) Albumin/Globulin Ratio 0.4 (1.0-1.7) Micro Microbiology 12/12/18 Blood Culture - Final, Complete NO GROWTH AFTER 5 DAYS Objective Assessment Acute respiratory failure - better 3.2 cm new right midlung nodule seen on cxr 12/20 Elevated Troponin Urinary retention - hydro on U/S - s/p Cystoscopy with a bladder Botox injection, bilateral retrograde pyelograms, bilateral ureteral stent placement 12/19 Anemia s/p recent PRBCs Leukopenia, on Chemo, improved H/o PENICILLIN ALLERGY, unknown reaction, tolerated ceftriaxone well at [facility]. H/o recurrent squamous cell carcinoma, on palliative chemo w/ carboplatin and Taxol Chronic obstructive pulmonary disease. History of smoking. Possible gastrointestinal bleed. Plan Plan of Care DNR/DNI off antibiotics Consider removing RIJ as to avoid line infection/complications BC neg Supportive care ok to d/c D/w nursing ADRIANNA MARSHALL MD Dec 23, 2018 09:32
--- NOTE | 2018-12-23 09:34 | PDOC ---
PULMONARY PROGRESS NOTES Subjective NOT MORE SOA EATING NO COUGH NO CHEST PAIN Vitals Vital Signs Date Time Temp Pulse Resp B/P (MAP) Pulse Ox O2 Delivery O2 Flow Rate FiO2 12/23/18 07:54 97 Nasal Cannula 3.0 12/23/18 06:49 98.6 90 21 131/74 (93) 98.6 ROS: No Nausea, No Chest Pain, No Abdominal Pain, No Increase Cough General: Alert, No acute distress Lungs: Crackles Cardiovascular: S1, S2 Abdomen: Soft Neuro Exam: Alert Extremities: No Edema Skin: Warm Labs Laboratory Tests Test 12/22/18 04:30 12/23/18 05:00 Sodium Level 130 mmol/L (136-145) 130 mmol/L (136-145) Potassium Level 5.2 mmol/L (3.5-5.1) 4.5 mmol/L (3.5-5.1) Chloride Level 96 mmol/L (98-107) 96 mmol/L (98-107) Carbon Dioxide Level 26 mmol/L (21-32) 26 mmol/L (21-32) Anion Gap 8 (6-14) 8 (6-14) Blood Urea Nitrogen 13 mg/dL (7-20) 12 mg/dL (7-20) Creatinine 0.5 mg/dL (0.6-1.0) 0.5 mg/dL (0.6-1.0) Estimated GFR (Cockcroft-Gault) 120.0 120.0 Glucose Level 99 mg/dL (70-99) 128 mg/dL (70-99) Calcium Level 8.3 mg/dL (8.5-10.1) 8.0 mg/dL (8.5-10.1) White Blood Count 8.2 x10^3/uL (4.0-11.0) Red Blood Count 3.17 x10^6/uL (3.50-5.40) Hemoglobin 8.3 g/dL (12.0-15.5) Hematocrit 26.0 % (36.0-47.0) Mean Corpuscular Volume 82 fL (79-100) Mean Corpuscular Hemoglobin 26 pg (25-35) Mean Corpuscular Hemoglobin Concent 32 g/dL (31-37) Red Cell Distribution Width 21.2 % (11.5-14.5) Platelet Count 110 x10^3/uL (140-400) BUN/Creatinine Ratio 24 (6-20) Total Bilirubin 0.3 mg/dL (0.2-1.0) Aspartate Amino Transf (AST/SGOT) 19 U/L (15-37) Alanine Aminotransferase (ALT/SGPT) 19 U/L (14-59) Alkaline Phosphatase 233 U/L (46-116) Total Protein 6.0 g/dL (6.4-8.2) Albumin 1.8 g/dL (3.4-5.0) Albumin/Globulin Ratio 0.4 (1.0-1.7) Laboratory Tests Test 12/23/18 05:00 White Blood Count 8.2 x10^3/uL (4.0-11.0) Red Blood Count 3.17 x10^6/uL (3.50-5.40) Hemoglobin 8.3 g/dL (12.0-15.5) Hematocrit 26.0 % (36.0-47.0) Mean Corpuscular Volume 82 fL (79-100) Mean Corpuscular Hemoglobin 26 pg (25-35) Mean Corpuscular Hemoglobin Concent 32 g/dL (31-37) Red Cell Distribution Width 21.2 % (11.5-14.5) Platelet Count 110 x10^3/uL (140-400) Sodium Level 130 mmol/L (136-145) Potassium Level 4.5 mmol/L (3.5-5.1) Chloride Level 96 mmol/L (98-107) Carbon Dioxide Level 26 mmol/L (21-32) Anion Gap 8 (6-14) Blood Urea Nitrogen 12 mg/dL (7-20) Creatinine 0.5 mg/dL (0.6-1.0) Estimated GFR (Cockcroft-Gault) 120.0 BUN/Creatinine Ratio 24 (6-20) Glucose Level 128 mg/dL (70-99) Calcium Level 8.0 mg/dL (8.5-10.1) Total Bilirubin 0.3 mg/dL (0.2-1.0) Aspartate Amino Transf (AST/SGOT) 19 U/L (15-37) Alanine Aminotransferase (ALT/SGPT) 19 U/L (14-59) Alkaline Phosphatase 233 U/L (46-116) Total Protein 6.0 g/dL (6.4-8.2) Albumin 1.8 g/dL (3.4-5.0) Albumin/Globulin Ratio 0.4 (1.0-1.7) Medications Active Scripts Medications Dose Route/Sig Max Daily Dose Days Date Category Opdivo (Nivolumab) 40 Mg/4 Ml Vial 40 Mg IV PER PROTOCOL 07/25/18 Reported Percocet 10-325 Mg Tablet (Oxycodone/Acetaminophen) 1 Each Tablet 1 Tab PO Q4-6HRS PRN 04/22/18 Reported Miralax (Polyethylene Glycol 3350) 17 Gm Powd.pack 1 Packet PO DAILY 04/19/18 Reported Xanax (Alprazolam) 0.5 Mg Tablet 1 Tab PO TID PRN 03/23/17 Reported Comments CXR CLEARING Impression . 1. Acute hypoxic respiratory failure secondary to diffuse lung infiltrate 2. The patient with stage IV anal cancer, status post surgery and radiation and now undergoing palliative chemo. 3. Abnormal D-dimer, which is a nonspecific test and can be seen in many other conditions including malignancy. No evidence of pulmonary embolism. 4. Acute gastrointestinal bleed related to heparin. Hemoglobin went down to 5.7, s/p packed red blood cells.Hb stable 5. Leukopenia, likely related to infectious etiology versus bone marrow suppression by chemo. 6. Underlying chronic obstructive pulmonary disease. . PREOPERATIVE DIAGNOSES: 1. Urge incontinence. 2. Bilateral ureteral obstruction and bilateral hydronephrosis. POSTOPERATIVE DIAGNOSES: 1. Urge incontinence. 2. Bilateral ureteral obstruction and bilateral hydronephrosis. Plan . D/C BIPAP 02 DYSPHAGIA DIET OK TO TRANSFER TO REHAB SOON MONITOR OFF ANTII BX PT OT RED RODRIGUEZ MD Dec 23, 2018 09:34
--- NOTE | 2018-12-23 10:32 | NUR ---
BRAD following pt. After discussing with Physician, SW phoned and faxed referral to [facility]. Pt acceptance and admission pending. Will continue to follow.
[2018-12-23 10:58] VITALS: BP 129/61
--- NOTE | 2018-12-23 11:01 | RAD ---
Chest, 2 views, 12/23/2018: HISTORY: Abnormal chest radiograph Comparison is made to a study from 12/20/2018. A left Port-A-Cath extends into the superior vena cava. A right jugular central venous catheter also extends into the superior vena cava. The heart is mildly enlarged. There is mild tortuosity of the thoracic aorta. Previously seen predominantly interstitial opacities have partially cleared. There is a small amount of bilateral pleural fluid. No new pulmonary abnormality is seen. IMPRESSION: 1. Resolving mild pulmonary infiltrates. 2. Small bilateral pleural effusions. Electronically signed by: Bryant Rivas MD (12/23/2018 10:58 AM) [facility]
--- NOTE | 2018-12-23 12:18 | PN ---
DATE: 12/23/2018 SUBJECTIVE: The patient is resting, slightly propped up in her recliner, sleeping comfortably, in no apparent distress. She apparently was on BiPAP the whole night, has had eaten her breakfast and denied any chest pain or shortness of breath. OBJECTIVE: GENERAL: When I examined her this morning, she looked pale, cachectic, but not jaundiced or cyanosed from thyromegaly. No jugular venous distention. No lower limb edema. VITAL SIGNS: Her heart rate was 90, blood pressure was 131/74, temperature was 98.6, respiratory rate was 21 and oxygen saturation was 96% on 3 liters of oxygen by nasal cannula. HEENT: Examination of the head, eyes, ears, nose and throat showed normocephalic, atraumatic. NECK: Supple. HEART: Showed normal first and second heart sounds. No gallop, rub or murmur. CHEST: Clear to auscultation. No crepitation or rhonchi. ABDOMEN: Scaphoid, soft and nontender. NEUROLOGIC: She is awake, alert, responding appropriately. All her cranial nerves intact. She moves extremities without difficulty; however, she has marked muscle wasting and weakness. Her intake over the last 24 hours was 240, output was 1400. LABORATORY DATA: As of this morning, her white cell count was 8200, hemoglobin 8.3, hematocrit 26, MCV 82 and platelet count 110,000. Her chemistry showed a serum sodium 130, potassium 4.5, chloride 96, bicarbonate 26, anion gap of 8, BUN 12, creatinine was 0.5, estimated GFR was 120 mL per minute, her glucose was 128 and calcium was 8. Total bilirubin, AST and ALT were normal. Alkaline phosphatase slightly elevated. Total protein 6. Albumin was 1.8. ASSESSMENT: 1. Acute hypoxic respiratory failure secondary to diffuse lung infiltrate. 2. Acute pulmonary edema, likely due to acute ischemia. She had 3 sets of cardiac enzymes that were elevated. However, she is not a candidate for cardiac catheterization. 3. Hypokalemia, resolved. In fact, her potassium is today 4.5. 4. Stage IV anal cancer, status post surgery, radiation and now palliative chemotherapy. 5. Elevated D-dimer. However, CT angio of the chest was negative for pulmonary embolism. 6. Acute gastrointestinal bleeding, for which she received 2 units of packed RBCs with most recent hemoglobin and hematocrit stable. Her leukopenia is resolving. 7. The patient is known to have chronic obstructive pulmonary disease. 8. Pneumonia, which was treated with Zyvox and cefepime. 9. Urinary retention and bilateral hydronephrosis, for which she underwent cystoscopy, injection of Botox and bilateral ureteral stent deployment. PLAN: The plan is for the patient to start ambulating. We will have her catheter removed for a voiding trial. I spoke with the 7th grade social studies teacher and she states she qualifies to go to [facility]. KELLI JOHNSON MD DR: ASTER/jeremy JOB#: [id number] / [id number]
[2018-12-23 14:33] VITALS: BP 125/60
--- NOTE | 2018-12-23 15:40 | NUR ---
Pt has been accepted at [facility] and facility will have a bed available upon dc. Physician notified.
--- NOTE | 2018-12-23 16:47 | NUR ---
Pt not voiding on her own. Bladder scan after 3rd time trying to urinate on BSC with volume of 482 ml per scan. Straight cath as ordered, removed 359 ml. F/U scan showed 269. Will discuss with provider. Will continue bladder training and scan post void.
[2018-12-23] MEDS: oxyCODONE/APAP 10/325 1 TAB TABLET PO PRN (18:16)
[2018-12-23 19:00] VITALS: BP 130/58
[2018-12-23] MEDS: ALPRAZolam 0.5 MG TABLET PO PRN (20:55)
[2018-12-23 22:46] VITALS: BP 126/60
[2018-12-24 03:00] VITALS: BP 135/60
[2018-12-24] MEDS: oxyCODONE/APAP 10/325 1 TAB TABLET PO PRN ×2 (03:05→09:33)
[2018-12-24] MEDS: ALPRAZolam 0.5 MG TABLET PO PRN ×2 (03:05→09:33)
--- NOTE | 2018-12-24 03:15 | NUR ---
Pt. has not been able to void at all tonight. Bladder scan revealed >778. New 16fr longoria inserted via sterile procedure per order. Immediate marcus color urine returned. Pt. feeling better. Will monitor.
[2018-12-24 07:00] VITALS: BP 131/55
[2018-12-24] MEDS: IPRATRPIUM/ALBUTEROL 0.5/2.5MG 3 ML NEBU. NEB SCH ×2 (07:39→11:53)
[2018-12-24] MEDS: POLYETHYLENE GLYCOL 3350 17 GM PACKET. PO SCH (09:00)
--- NOTE | 2018-12-24 09:08 | PDOC ---
PULMONARY PROGRESS NOTES Subjective NOT MORE SOA EATING NO COUGH NO CHEST PAIN Vitals Vital Signs Date Time Temp Pulse Resp B/P (MAP) Pulse Ox O2 Delivery O2 Flow Rate FiO2 12/24/18 07:39 97 Nasal Cannula 3.0 12/24/18 07:00 97.9 85 18 131/55 (80) 97.9 ROS: No Nausea, No Chest Pain, No Abdominal Pain, No Increase Cough General: Alert, No acute distress Lungs: Crackles Cardiovascular: S1, S2 Abdomen: Soft Neuro Exam: Alert Extremities: No Edema Skin: Warm Labs Laboratory Tests Test 12/23/18 05:00 White Blood Count 8.2 x10^3/uL (4.0-11.0) Red Blood Count 3.17 x10^6/uL (3.50-5.40) Hemoglobin 8.3 g/dL (12.0-15.5) Hematocrit 26.0 % (36.0-47.0) Mean Corpuscular Volume 82 fL (79-100) Mean Corpuscular Hemoglobin 26 pg (25-35) Mean Corpuscular Hemoglobin Concent 32 g/dL (31-37) Red Cell Distribution Width 21.2 % (11.5-14.5) Platelet Count 110 x10^3/uL (140-400) Sodium Level 130 mmol/L (136-145) Potassium Level 4.5 mmol/L (3.5-5.1) Chloride Level 96 mmol/L (98-107) Carbon Dioxide Level 26 mmol/L (21-32) Anion Gap 8 (6-14) Blood Urea Nitrogen 12 mg/dL (7-20) Creatinine 0.5 mg/dL (0.6-1.0) Estimated GFR (Cockcroft-Gault) 120.0 BUN/Creatinine Ratio 24 (6-20) Glucose Level 128 mg/dL (70-99) Calcium Level 8.0 mg/dL (8.5-10.1) Total Bilirubin 0.3 mg/dL (0.2-1.0) Aspartate Amino Transf (AST/SGOT) 19 U/L (15-37) Alanine Aminotransferase (ALT/SGPT) 19 U/L (14-59) Alkaline Phosphatase 233 U/L (46-116) Total Protein 6.0 g/dL (6.4-8.2) Albumin 1.8 g/dL (3.4-5.0) Albumin/Globulin Ratio 0.4 (1.0-1.7) Medications Active Scripts Medications Dose Route/Sig Max Daily Dose Days Date Category Opdivo (Nivolumab) 40 Mg/4 Ml Vial 40 Mg IV PER PROTOCOL 07/25/18 Reported Percocet 10-325 Mg Tablet (Oxycodone/Acetaminophen) 1 Each Tablet 1 Tab PO Q4-6HRS PRN 04/22/18 Reported Miralax (Polyethylene Glycol 3350) 17 Gm Powd.pack 1 Packet PO DAILY 04/19/18 Reported Xanax (Alprazolam) 0.5 Mg Tablet 1 Tab PO TID PRN 03/23/17 Reported Comments CXR CLEARING Impression . 1. Acute hypoxic respiratory failure secondary to diffuse lung infiltrate 2. The patient with stage IV anal cancer, status post surgery and radiation and now undergoing palliative chemo. 3. Abnormal D-dimer, which is a nonspecific test and can be seen in many other conditions including malignancy. No evidence of pulmonary embolism. 4. Acute gastrointestinal bleed related to heparin. Hemoglobin went down to 5.7, s/p packed red blood cells.Hb stable 5. Leukopenia, likely related to infectious etiology versus bone marrow suppression by chemo. 6. Underlying chronic obstructive pulmonary disease. . PREOPERATIVE DIAGNOSES: 1. Urge incontinence. 2. Bilateral ureteral obstruction and bilateral hydronephrosis. POSTOPERATIVE DIAGNOSES: 1. Urge incontinence. 2. Bilateral ureteral obstruction and bilateral hydronephrosis. Plan . D/C BIPAP 02 DYSPHAGIA DIET OK TO TRANSFER TO REHAB SOON MONITOR OFF ANTII BX PT OT RED RODRIGUEZ MD Dec 24, 2018 09:08
--- NOTE | 2018-12-24 09:08 | PDOC ---
SUBJECTIVE Subjective Patient had her longoria removed yesterday but they had to put it back in. 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 OBJECTIVE Objective Physical Exam: General appearance: Alert and Oriented Head: Normocephalic, without obvious abnormality Eyes: conjunctivae/corneas clear. PERRL, EOM's intact. Fundi benign Back: negative Lungs: Regular respirations, non labored breathing Abdomen: soft, non-tender. Colostomy bag in place. No masses, no organomegaly Pelvic: + Longoria catheter in place draining clear yellow urine. Vital Signs Vital Signs Date Time Temp Pulse Resp B/P (MAP) Pulse Ox O2 Delivery O2 Flow Rate FiO2 12/24/18 07:39 97 Nasal Cannula 3.0 12/24/18 07:00 97.9 85 18 131/55 (80) 100 Nasal Cannula 3.0 97.9 12/24/18 05:30 BiPAP/CPAP 12/24/18 04:00 17 96 Nasal Cannula 3.0 12/24/18 03:05 19 96 Nasal Cannula 3.0 12/24/18 03:00 97.7 89 18 135/60 (85) 97 Room Air 3.0 97.7 12/24/18 02:16 BiPAP/CPAP 12/23/18 23:45 BiPAP/CPAP 12/23/18 22:46 78 18 126/60 (82) 96 Room Air 3.0 12/23/18 21:23 99 BiPAP/CPAP 12/23/18 21:11 Nasal Cannula 3.0 12/23/18 19:10 Room Air 3.0 12/23/18 19:00 97.7 80 18 130/58 (82) 96 Room Air 3.0 97.7 12/23/18 18:16 16 12/23/18 15:37 Nasal Cannula 3.0 12/23/18 14:33 97.8 82 18 125/60 (81) 95 Nasal Cannula 3.0 97.8 12/23/18 11:33 Nasal Cannula 3.0 12/23/18 10:58 97.7 84 18 129/61 (83) 96 Nasal Cannula 3.0 97.7 I & O Intake and Output 12/24/18 07:00 Intake Total 420 ml Output Total 825 ml Balance -405 ml Intake Oral 420 ml Output Urine Total 825 ml PHYSICAL EXAM Physical Exam Physical Exam: General appearance: Alert and Oriented Head: Normocephalic, without obvious abnormality Eyes: conjunctivae/corneas clear. PERRL, EOM's intact. Fundi benign Back: negative Lungs: Regular respirations, non labored breathing Abdomen: soft, non-tender. Colostomy bag in place. No masses, no organomegaly Pelvic: + Longoria catheter in place draining clear yellow urine. ASSESSMENT/PLAN Assessment/Plan Nursing to continue to maintain Longoria catheter since she failed her voiding trial yesterday Pt has follow up with Dr. Grissom of [facility] at [facility] location on 01/02/19 at 11:10 am. We will attempt a voiding trial for her on this date. Nursing may provide extra leg bags/straps for catheter as deemed necessary/requested by the patient. Ok to discharge from a Urology perspective whenever medical team is ready. Problems: (1) Urinary retention (2) Hydronephrosis Nutrition Consultation Dietary Evaluation: Recommendations by RD: Protein supplementation Comments: REC diet changed to pureed, thin liquids per pt. request sending jet ice cream and puddings bid Expected Outcomes/Goals: New goal 12/16: PO intake to meet >75% est needs - met at times, goal ongoing Malnutrition Findings: Weight Status: Underweight GIUSEPPE CLAUDIO APRN Dec 24, 2018 09:08
--- NOTE | 2018-12-24 09:23 | SNU/HH DC ---
DISCHARGE ORDERS DISCHARGE INFORMATION: DISCHARGE DATE: Dec 24, 2018 FINAL DIAGNOSIS acute hypoxic respiratory failure aspiration pneumonia acute pulmonary edema stage 4 anal cancer copd blood loss anemia CONDITION ON DISCHARGE: Stable CODE STATUS: Code Status: DNR/DNI SNF: SNF STAY <30 DAYS: Yes POST DISCHARGE ORDERS: ACTIVITY ORDERS: Activity as tolerated, Avoid exertion BATHING ORDERS: Shower-keep dressing dry DIET AFTER DISCHARGE: Regular WOUND/INCISION CARE: Ice to area for comfort, Keep wound/cast CDI, Change dressing TREATMENT/EQUIPMENT ORDERS: ADAPTIVE EQUIPMENT NEEDED: None Physical Therapy For: Evalulation/Treatment Occupational Therapy For: Evaluation/Treatment DISCHARGE MEDICATIONS: Home Meds Reported Medications Nivolumab (Opdivo) 40 Mg/4 Ml Vial, 40 MG IV per protocol for anal cancer 07/25/18 Oxycodone/Apap 10-325 (PERCOCET 10-325 MG TABLET ) 1 Each Tablet, 1 TAB PO Q4- 6HRS PRN for PAIN 04/22/18 Polyethylene Glycol 3350 (MIRALAX) 17 Gm Powd.pack, 1 PACKET PO DAILY for constipation 04/19/18 Alprazolam (XANAX) 0.5 Mg Tablet, 1 TAB PO TID PRN for ANXIETY / AGITATION 03/23/17 KELLI JOHNSON MD Dec 24, 2018 09:23
[2018-12-24] MEDS: NICOTINE 21MG PATCH. TD SCH (09:32)
[2018-12-24] MEDS: PANTOPRAZOLE 40 MG TABLET.DR. PO SCH (09:33)
[2018-12-24] MEDS: OXYBUTYNIN CHLORIDE 5 MG TABLET PO SCH (09:34)
--- NOTE | 2018-12-24 09:49 | PDOC ---
Subjective: Subjective: Wants someone to change her ostomy bag right now. Objective: Objective: Reviewed w/ RN - she's fixated on changing the whole appliance instead of emptying the bag. Reviewed chart - Lance removed and then replaced. Vital Signs: Vital Signs Date Time Temp Pulse Resp B/P (MAP) Pulse Ox O2 Delivery O2 Flow Rate FiO2 12/24/18 09:33 16 Room Air 12/24/18 07:39 97 3.0 12/24/18 07:00 97.9 85 131/55 (80) 97.9 PE: GEN: NAD, breakfast ~50% consumed LUNGS: room air HEART: RRR ABD: LLQ ostomy w/ brown stool NEURO/PSYCH: ?a little confused, anxious A/P: Resp failure, urinary retention Recurrent SCC of anus, chronic anemia - gets iron infusions w/ Dr. Willingham -- Stable from GI standpoint. FILEMON PEREZ Dec 24, 2018 09:49
--- NOTE | 2018-12-24 10:11 | DS ---
DATE OF DISCHARGE: 12/24/2018 HOSPITAL COURSE: The patient is a 77-year-old female patient who was admitted originally at [facility] Emergency Room complaining of recurrent bouts of dry hacking cough. She is known to have anal cancer and was just started on IV chemotherapy a little over a week prior to arrival to the Emergency Room. She apparently has failed her radiation treatment and surgery and is followed by Dr. Willingham. She was seen by Dr. Willingham who did some lab work and chest x-ray and called her to go to the Emergency Room as she has probably pneumonia. By the time she arrived there, the patient was complaining of increasing shortness of breath and cough. The patient has been exposed to her son who has been sick with a respiratory infection for the last week. She was apparently hypoxic and could not tolerate the BiPAP and eventually she ended up being intubated, sedated with Versed and fentanyl and was transferred to [facility] ICU. Apparently, her D-dimer was high and she was started on heparin drip together with IV antibiotic in the form of vancomycin, Zosyn, and Zithromax. Unfortunately, she started bleeding. By the time she arrived to the Emergency Room, her heparin was discontinued and she did receive 2 units of packed RBCs. The patient was eventually extubated and was transferred to the floor, only to be readmitted again with the flash pulmonary edema. She has had 3 sets of cardiac enzymes that showed that they were elevated; however, she was not a candidate for cardiac catheterization as did Cardiology team. She was continued on diuretics as well as IV antibiotics. She was also seen by the urologist and she underwent cystoscopy, bilateral ureteral stents and bladder Botox injection. Apparently, attempt to remove the Lance catheter has failed and therefore, as this patient continued to be extremely debilitated and requires physical and occupational therapy and nutritional support, decision was made to transfer her to [facility]. PHYSICAL EXAMINATION: GENERAL: When I saw her today, she was resting slightly propped up in bed, in no apparent respiratory distress, pale, cachectic, but no jaundice, cyanosis, or thyromegaly. No jugular venous distension. No limb edema. VITAL SIGNS: Her heart rate was 85, blood pressure 131/55, temperature was 97.9, respiratory rate was 18 and oxygen saturation was 97% on 3 liters of oxygen. HEAD, EYES, EARS, NOSE, AND THROAT: Showed normocephalic, atraumatic. NECK: Supple. HEART: Showed normal first and second heart sounds. No gallop, rub or murmur. CHEST: Clear to auscultation. No crepitation or rhonchi. ABDOMEN: Distended, soft, nontender with colostomy in the left lower quadrant. NEUROLOGIC: She is awake, alert, responding appropriately. All cranial nerves intact. She moves extremities without difficulty, though she has marked muscle wasting and weakness. DIAGNOSTIC DATA: Her chest x-ray yesterday showed that she has resolving mild pulmonary infiltrates, small bilateral pleural effusion. LABORATORY DATA: As of yesterday showed a white cell count of 8200, hemoglobin 8.3, hematocrit 26, MCV 82 and platelet count of 110,000. Her chemistry showed a serum sodium 130, potassium 4.5, chloride 96, bicarbonate 26, anion gap of 8, BUN 12, creatinine 0.5, estimated GFR was 120 mL per minute. Her glucose 128, calcium was 8. Total bilirubin, AST, ALT are normal. Alkaline phosphatase slightly elevated. Total protein was 6, albumin was 1.8. DISCHARGE MEDICATIONS: She will be transferred to [facility] to continue on albuterol and Atrovent 4 times a day, Protonix 40 mg daily, polyethylene glycol 17 grams daily, morphine sulfate 2-4 mg IV every 4 hours, oxycodone/APAP one tablet every 4 hours, alprazolam 0.5 mg 3 times a day, Tylenol 650 mg every 6 hours, oxybutynin 2.5 mg twice a day and nicotine patch 21 mg topically daily. FINAL DISCHARGE DIAGNOSES: 1. Acute hypoxic respiratory failure secondary to diffuse lung infiltrate. 2. Acute pulmonary edema, likely due to acute ischemia. She had 3 sets of cardiac enzymes that were elevated; however, she is not a candidate for cardiac catheterization. 3. Hypokalemia, resolved. In fact, her serum potassium is up to 4.5. 4. Stage 4 anal cancer, status post surgery, radiation and now palliative chemotherapy. 5. Elevated D-dimer; however, CT angio of the chest was negative for pulmonary embolism. 6. Acute gastrointestinal bleeding for which she received 2 units of packed RBCs. Most recent hemoglobin and hematocrit, her leukopenia is resolving. 7. The patient is known to have chronic obstructive pulmonary disease. 8. Pneumonia, treated with Zyvox and cefepime. 9. Urinary retention, bilateral hydronephrosis for which she underwent cystoscopy injection of Botox and bilateral ureteral stent deployment. 10. The patient has failed her voiding trial and she will be discharged with indwelling Lance catheter. KELLI JOHNSON MD DR: ASTER/jeremy JOB#: [id number] / [id number]
--- NOTE | 2018-12-24 10:53 | PDOC ---
Infectious Disease Note Subjective Subjective pt is feeling good ROS ROS no n/v/d/ Vital Sign Vital Signs Vital Signs Date Time Temp Pulse Resp B/P (MAP) Pulse Ox O2 Delivery O2 Flow Rate FiO2 12/24/18 09:33 16 Room Air 12/24/18 07:39 97 3.0 12/24/18 07:00 97.9 85 131/55 (80) 97.9 Physical Exam PHYSICAL EXAM GENERAL: Propped up in bed, relaxed appearance HEENT: Oral cavity clear LUNGS: Soft wheeze, nonlabored HEART: S1, S2 ABDOMEN: Soft, nontender, ostomy GENITOURINARY: Indwelling Lance in place EXTREMITIES: No edema, no cyanosis. DERMATOLOGIC: Warm, dry, no generalized rash. CHAUFFEUR [employer]OR[employer]: Alert and appropriate RIJ (12/12) and Port-A-Cath site looks okay. Labs Micro Microbiology 12/12/18 Blood Culture - Final, Complete NO GROWTH AFTER 5 DAYS Objective Assessment Acute respiratory failure - better 3.2 cm new right midlung nodule seen on cxr 12/20 Elevated Troponin Urinary retention - hydro on U/S - s/p Cystoscopy with a bladder Botox injection, bilateral retrograde pyelograms, bilateral ureteral stent placement 12/19 Anemia s/p recent PRBCs Leukopenia, on Chemo, improved H/o PENICILLIN ALLERGY, unknown reaction, tolerated ceftriaxone well at [facility]. H/o recurrent squamous cell carcinoma, on palliative chemo w/ carboplatin and Taxol Chronic obstructive pulmonary disease. History of smoking. Possible gastrointestinal bleed. Plan Plan of Care DNR/DNI off antibiotics BC neg Supportive care ok to d/c D/w nursing ADRIANNA MARSHALL MD Dec 24, 2018 10:52
[2018-12-24 11:00] VITALS: BP 128/58
--- NOTE | 2018-12-24 12:40 | NUR ---
Discharge Note: SHENG WARD Discharge instructions and discharge home medications reviewed with Patient and a copy given. All questions have been answered and understanding verbalized. Discontinued lines and drains: peripheral iv Patient discharged to Rehab Facility with Ambulance Personnel via Wheelchair
== END 2018-12-24 12:42 | DRG 987 ==
LOC: 1 WEST ICU 12-12 00:32 → 5 NORTH 12-14 18:19 → 1 WEST ICU 12-16 → 5 NORTH 12-20 14:50
PROVIDERS: ADMIT Internal Medicine; ATTEND Internal Medicine
PROC: 5A1945Z Respiratory Ventilation, 24-96 Consecutive Hours (ICD-10-PCS; principal; 2018-12-12)
PROC: 0BH17EZ Insertion of Endotracheal Airway into Trachea, Via Natural or Artificial Opening (ICD-10-PCS; 2018-12-12)
PROC: 02HV33Z Insertion of Infusion Device into Superior Vena Cava, Percutaneous Approach (ICD-10-PCS; 2018-12-12)
PROC: 30233N1 Transfusion of Nonautologous Red Blood Cells into Peripheral Vein, Percutaneous Approach (ICD-10-PCS; 2018-12-12)
PROC: 5A09357 Assistance with Respiratory Ventilation, Less than 24 Consecutive Hours, Continuous Positive Airway Pressure (ICD-10-PCS; 2018-12-15)
PROC: 5A09357 Assistance with Respiratory Ventilation, Less than 24 Consecutive Hours, Continuous Positive Airway Pressure (ICD-10-PCS; 2018-12-16)
PROC: 5A09357 Assistance with Respiratory Ventilation, Less than 24 Consecutive Hours, Continuous Positive Airway Pressure (ICD-10-PCS; 2018-12-17)
PROC: 5A09357 Assistance with Respiratory Ventilation, Less than 24 Consecutive Hours, Continuous Positive Airway Pressure (ICD-10-PCS; 2018-12-18)
PROC: 0T788DZ Dilation of Bilateral Ureters with Intraluminal Device, Via Natural or Artificial Opening Endoscopic (ICD-10-PCS; 2018-12-19)
PROC: BT141ZZ Fluoroscopy of Kidneys, Ureters and Bladder using Low Osmolar Contrast (ICD-10-PCS; 2018-12-19)
PROC: 3E0K8GC Introduction of Other Therapeutic Substance into Genitourinary Tract, Via Natural or Artificial Opening Endoscopic (ICD-10-PCS; 2018-12-19)
PROC: 5A09357 Assistance with Respiratory Ventilation, Less than 24 Consecutive Hours, Continuous Positive Airway Pressure (ICD-10-PCS; 2018-12-22)
PROC: 5A09357 Assistance with Respiratory Ventilation, Less than 24 Consecutive Hours, Continuous Positive Airway Pressure (ICD-10-PCS; 2018-12-23)
PROC: 5A09357 Assistance with Respiratory Ventilation, Less than 24 Consecutive Hours, Continuous Positive Airway Pressure (ICD-10-PCS; 2018-12-24)
DX: J96.01 Acute respiratory failure with hypoxia (principal); J18.9 Pneumonia, unspecified organism; I50.33 Acute on chronic diastolic (congestive) heart failure; J44.0 Chronic obstructive pulmonary disease with (acute) lower respiratory infection; C18.9 Malignant neoplasm of colon, unspecified; C21.0 Malignant neoplasm of anus, unspecified; N13.1 Hydronephrosis with ureteral stricture, not elsewhere classified; C79.51 Secondary malignant neoplasm of bone; E87.2 Acidosis; K92.2 Gastrointestinal hemorrhage, unspecified; J96.02 Acute respiratory failure with hypercapnia; I11.0 Hypertensive heart disease with heart failure; F32.9 Major depressive disorder, single episode, unspecified; D50.9 Iron deficiency anemia, unspecified; D63.0 Anemia in neoplastic disease; D70.1 Agranulocytosis secondary to cancer chemotherapy; E87.6 Hypokalemia; F17.210 Nicotine dependence, cigarettes, uncomplicated; N39.41 Urge incontinence; F41.9 Anxiety disorder, unspecified; K21.9 Gastro-esophageal reflux disease without esophagitis; T45.515A Adverse effect of anticoagulants, initial encounter; T45.1X5A Adverse effect of antineoplastic and immunosuppressive drugs, initial encounter; M06.9 Rheumatoid arthritis, unspecified; Z66 Do not resuscitate; Z80.3 Family history of malignant neoplasm of breast; Z80.8 Family history of malignant neoplasm of other organs or systems; Z79.899 Other long term (current) drug therapy; Y92.89 Other specified places as the place of occurrence of the external cause; Z85.048 Personal history of other malignant neoplasm of rectum, rectosigmoid junction, and anus; Z85.828 Personal history of other malignant neoplasm of skin; Z92.3 Personal history of irradiation; Z98.51 Tubal ligation status; Z88.0 Allergy status to penicillin
CPT/HCPCS: 36415; 36600; 71045; 71046; 74420; 76770; 80048; 80053; 81001; 82274; 82805; 83605; 83735; 83880; 84484; 85014; 85018; 85025; 85027; 85520; 86850; 86900; 86901; 86920; 87040; 87493; 87641; 87804; 93005; 93306; 94002; 94003; 94640; 94660; 94760; A7015; C1769; C2617; C9113; J0585; J0692; J1100; J1940; J2001; J2020; J2270; J2370; J2405; J2704; J3010; J7120; J7613; J7620; P9016; Q9967; 92526; 92610; 97110; 97116; 97530; 97535